=== PATIENT | female | born 1940 | race Caucasian/White ===

== ENCOUNTER → 2016-04-23 | Outpatient (CLI) | payer MEDICARE, MEDICAID ==
[~2016-04-23] MED LIST: 1-ME1LIQ PO; ALBUAER3 INH; AMLO10TA2 PO; ASPI325T PO; ASPI81CH CHEW; COLC1TAB15 PO; DOXY100C PO; DRIS50002 PO; FOSI10TA PO; FURO40TA PO; GLUC10TA3 PO; Glucometer; HYDR-3133 PO; INSU-174 SQ; IPRA17I INH; IPRASOL INH; LORA-475 PO; LORA2TAB7 PO; METO100T PO; METR250T15 PO; MORP1TAB27 PO; MS C100T PO; MS C15TA2 PO; NITR0.4S SL; NITR1SUB3 SL; NRDRIP SQ; PERC7.5T13 PO; PNEU13P IM; POTA10CA PO; POTA10TA8 PO; SYMB160A INH; TERC0.4C2 VAGINAL; TIOT12.9 INH; TRAZ50TA12 PO; TRIA; [UNRECOGNIZED DRUG - SUPPLY]; lancets
[2016-04-23 13:26] LABS: AUTOMATED NEUTROPHIL # 4.5 TH/MM3 (1.8-7.7); BASOPHIL % 0.7 % (0.0-2.0); EOSINOPHIL # 0.2 TH/MM3 (0-0.4); EOSINOPHIL % 2.9 % (0.0-4.0); HEMATOCRIT 34.5 % (35.0-46.0); HEMO FLAGS DIFF FINAL; LYMPH % 18.6 % (9.0-44.0); LYMPHOCYTE # 1.2 TH/MM3 (1.0-4.8); MEAN CELL VOLUME 92.5 FL (80.0-100.0); MEAN CORPUSCULAR HEMOGLOBIN 30.6 PG (27.0-34.0); MEAN CORPUSCULAR HGB CONC 33.1 % (32.0-36.0); MONO % 6.2 % (0.0-8.0); NEUT % 71.6 % (16.0-70.0); PLATELET COUNT 173 TH/MM3 (150-450); RED BLOOD COUNT 3.74 MIL/MM3 (4.00-5.30); RED CELL DISTRIBUTION WIDTH 14.2 % (11.6-17.2); WHITE BLOOD COUNT 6.3 TH/MM3 (4.0-11.0)
[2016-04-23 13:28] LABS: ANION GAP 10 MEQ/L (5-15); AST (GOT) 18 U/L (15-37); BICARBONATE 25.8 MEQ/L (21.0-32.0); BLOOD UREA NITROGEN 20 MG/DL (7-18); CHLORIDE 106 MEQ/L (98-107); GLOMERULAR FILTRATION RATE 21 ML/MIN (>89); GLUCOSE,FASTING 91 MG/DL (74-99); POTASSIUM 4.1 MEQ/L (3.5-5.1); SODIUM (NA) 142 MEQ/L (136-145); URIC ACID 8.3 MG/DL (2.6-6.0)
[2016-04-23 13:31] LABS: ALKALINE PHOSPHATASE 104 U/L (45-117); ALT (GPT) 14 U/L (10-53); HDL CHOLESTEROL 44.6 MG/DL (40.0-60.0); LDL CHOLESTEROL 52 MG/DL (0-99); TOTAL BILIRUBIN ADULT 0.7 MG/DL (0.2-1.0)
== END ==
LOC: PLAB 10:53
PROVIDERS: ATTEND Family Medicine
DX: M10.9 Gout, unspecified (principal); I12.9 Hypertensive chronic kidney disease with stage 1 through stage 4 chronic kidney disease, or unspecified chronic kidney disease; N18.4 Chronic kidney disease, stage 4 (severe); E78.5 Hyperlipidemia, unspecified
CPT/HCPCS: 36415; 80053; 80061; 84550; 85025

== ENCOUNTER 2016-08-04 13:56 | Observation (INO) | payer MEDICARE, MEDICAID ==
[~2016-08-04] VITALS: Ht 162.6 cm; Wt 92.0 kg
[~2016-08-04 13:56] MED LIST changes: -1-ME1LIQ PO; -IPRA17I INH; -LORA-475 PO; -MORP1TAB27 PO; -NRDRIP SQ; -POTA10CA PO
[2016-08-04 13:58] VITALS: BP 140/68; PULSE 64; RESP 24; TEMP 97.7; O2SAT 94
--- NOTE | 2016-08-04 14:06 | PD ---
Physical Exam Time Seen by Provider: 14:01 Narrative 75 year old female brought in by family with C/O chest discomfort, shortness of breath, and generalized weakness x 3 days. She appears comfortable in triage. No acute distress. Patient seen at triage desk. VS reviewed. Patient waiting bed placement. Data Data Last Documented VS Vital Signs Date Time Temp Pulse Resp B/P Pulse Ox O2 Delivery O2 Flow Rate FiO2 08/04/16 13:58 97.7 64 24 140/68 94 Room Air MDM Supervised Visit with JOSE JUAN: Sharron Julien Aug 04, 2016 14:06
[2016-08-04 15:00] LABS: AUTOMATED NEUTROPHIL # 3.9 TH/MM3 (1.8-7.7); BASOPHIL % 0.9 % (0.0-2.0); EOSINOPHIL # 0.1 TH/MM3 (0-0.4); EOSINOPHIL % 1.3 % (0.0-4.0); HEMATOCRIT 31.3 % (35.0-46.0); HEMO FLAGS DIFF FINAL; LYMPHOCYTE # 0.9 TH/MM3 (1.0-4.8); MEAN CELL VOLUME 89.8 FL (80.0-100.0); MEAN CORPUSCULAR HEMOGLOBIN 29.4 PG (27.0-34.0); MEAN CORPUSCULAR HGB CONC 32.7 % (32.0-36.0); MONO % 5.3 % (0.0-8.0); NEUT % 75.5 % (16.0-70.0); PLATELET COUNT 162 TH/MM3 (150-450); RED BLOOD COUNT 3.49 MIL/MM3 (4.00-5.30); WHITE BLOOD COUNT 5.2 TH/MM3 (4.0-11.0)
[2016-08-04 15:23] LABS: POTASSIUM 4.6 MEQ/L (3.5-5.1)
[2016-08-04] MEDS ORDERED: POTA10CA PO (16:24)
[2016-08-04] MEDS ORDERED: LORA-475 PO (16:24)
[2016-08-04] MEDS ORDERED: MORP1TAB27 PO (16:24)
--- NOTE | 2016-08-04 16:47 | RADRPT ---
EXAM DATE/TIME: 08/04/2016 14:44 [facility] COMPARISON: CHEST SINGLE AP, July 12, 2015, 8:01. INDICATIONS : Chest pain and shortness of breath. MEDICAL HISTORY : Hypertension. Chronic obstructive pulmonary disease. Emphysema. TIA. CVA. Afib. Myocardial infarc tion. Diabetes. SURGICAL HISTORY : CABG. ENCOUNTER: Initial ACUITY: 2 weeks PAIN SCORE: 7/10 LOCATION: Bilateral chest FINDINGS: Lungs are slightly hyperexpanded with diffuse interstitial prominence. No significant focal pleural-p arenchymal opacities are noted. Postsurgical features of prior CABG. Cardiomediastinal contours are s table. Bony thorax is intact. CONCLUSION: 1. No acute cardiopulmonary disease or significant interval change. Asim Damon MD on August 04, 2016 at 16:44 Board Certified Radiologist. This report was verified electronically.
[2016-08-04 17:05] LABS: TOTAL BILIRUBIN ADULT 0.4 MG/DL (0.2-1.0)
[2016-08-04 17:06] LABS: INDIRECT BILIRUBIN 0.3 MG/DL (0.0-0.8); MAGNESIUM 2.1 MG/DL (1.5-2.5)
[2016-08-04] MEDS ORDERED: RESP: ALBUTEROL 2.5 MG/3 ML NEB (SCH) INH ONE (17:30)
--- NOTE | 2016-08-04 17:31 | PD ---
HPI Chief Complaint: Chest Pain Time Seen by Provider: 17:26 Travel History International Travel<30 days: No Contact w/Intl Traveler<30days: No Traveled to known affect area: No History of Present Illness HPI 75-year-old female that presents to the ED for evaluation of chest pain and shortness of breath. Per patient she's had the chest pain for about 3 days. She has a chronic history of COPD. Patient has been weak and tired for the past 3 days with worsening shortness of breath. Patient states that she was put by her doctor on doxycycline and this gave her diarrhea. Per patient she continues to have symptoms even with the doxycycline 1 work. She does have multiple allergies to medication. She has a history of CHF and takes Lasix. History of heart bypass. Denies any recent travel. Denies taking any blood thinners. Per patient the chest pain is pressure-like and is on the left side and radiates to the left shoulder. States that she gets short of breath with ambulating. She does have an old history of smoking but she quit years ago. She denies any back or neck pain. She denies any fevers states having a lot of cough. Some chills. Cough is productive. Gets worse when she lays down. Denies any increase in swelling and states compliance with all her medications. Chest pain per patient is 4 out of 10. PFSH Past Medical History Arthritis: Yes Asthma: Yes Autoimmune Disease: No Blood Disorders: No Anxiety: Yes Depression: Yes Heart Rhythm Problems: Yes Cancer: Yes (LEFT KIDNEY/ CAUDERIZATION) Cardiovascular Problems: Yes (OPEN HEART) High Cholesterol: Yes Chemotherapy: No Chest Pain: Yes Congestive Heart Failure: Yes COPD: Yes Cerebrovascular Accident: Yes (TIA'S, CVA 20 YEARS AGO NO DEFICITS) Diabetes: Yes Diminished Hearing: No Endocrine: Yes Gastrointestinal Disorders: Yes GERD: No Glaucoma: No Genitourinary: Yes (KIDNEY TUMOR CAUDERIZED) Headaches: Yes Hepatitis: No Hiatal Hernia: Yes (REPAIR) Hypertension: Yes Immune Disorder: No Kidney Stones: No 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) Neurologic: Yes Psychiatric: Yes Reproductive: Yes Respiratory: Yes (EMPHYSEMA, 2.5 LITERS O2 AT HS) Migraines: No Myocardial Infarction: Yes Radiation Therapy: No Renal Failure: Yes Seizures: No Sleep Apnea: No Thyroid Disease: No Ulcer: No Past Surgical History Abdominal Surgery: Yes AICD: No Appendectomy: Yes Arteriovenous Shunt: No Cardiac Surgery: Yes (CABG X4 VESSEL IN 1999) Cholecystectomy: Yes Coronary Artery Bypass Graft: Yes Ear Surgery: No Endocrine Surgery: No Eye Surgery: No Genitourinary Surgery: No Gynecologic Surgery: Yes Hysterectomy: Yes Insulin Pump: No Joint Replacement: No Oral Surgery: Yes (teeth) Pacemaker: No Thoracic Surgery: No Tonsillectomy: Yes Other Surgery: Yes Social History Alcohol Use: No Tobacco Use: No Substance Use: No Allergies-Medications (Allergen,Severity, Reaction): Coded Allergies: Augmentin (Verified Allergy, Severe, Rash, 07/27/16) Haldol (Verified Allergy, Severe, Hallucinations, 07/27/16) Latex (Verified Allergy, Severe, HIVES, 07/27/16) Macrodantin (Verified Allergy, Severe, SHAKY , BLOOD SUGER PROBLEMS, ) Mirapex (Verified Allergy, Severe, LETHARGY,DIZZY,SHAKY, 07/27/16) Phenergan (Verified Allergy, Severe, Hallucinations, 07/27/16) Temazepam (Verified Allergy, Severe, Rash, 07/27/16) Lopid (Verified Allergy, Intermediate, 07/27/16) Lyrica (Verified Allergy, Unknown, 07/27/16) Soma (Verified Allergy, Unknown, 07/27/16) Amoxicillin (Verified Adverse Reaction, Severe, diarrhea, 07/27/16) HMG-CoA Reductase Inhibitors (Verified Adverse Reaction, Severe, LIVER DISEASE WITH SUBSEQUENT CHRONIC ITCHING UNTIL DC'D, 07/27/16) Trazodone (Verified Adverse Reaction, Intermediate, altered mental status , 08/02/16) Uncoded Allergies: TAPE (Allergy, Mild, Rash, 11/06/09) USE PAPER TAPE ONLY ees (Allergy, Mild, itch, 11/06/09) advicor (Adverse Reaction, Intermediate, redness, itchin, 11/06/09) cipro,septra (Adverse Reaction, Intermediate, diarrhea,itching, 11/06/09) topramax (Adverse Reaction, Intermediate, 11/06/09) Reported Meds & Prescriptions Reported Meds & Active Scripts Active Metronidazole 250 Mg Tab 250 Mg PO TID Metoprolol Tartrate 100 Mg Tab 100 Mg PO BID Doxycycline Hyclate 100 Mg Cap 100 Mg PO BID Trazodone (Trazodone HCl) 50 Mg Tab 50 Mg PO HS Ms Contin (Morphine Sulfate) 100 Mg Tab 100 Mg PO DAILY Ms Contin (Morphine Sulfate) 15 Mg Tab 15 Mg PO DAILY Percocet (Oxycodone-Acetaminophen) 7.5-325 mg Tab 1 Tab PO Q6H PRN Lorazepam 2 Mg Tab 2 Mg PO HS PRN Drisdol (Ergocalciferol) 50,000 Unit Cap 50,000 Units PO Q7D Terconazole Vaginal Cream 0.4 % Cream 1 Appl VAGINAL HS For seven days Nitroglycerin SL (Nitroglycerin) 0.4 Mg Subl 0.4 Mg SL DIRECTED PRN ONE TABLET UNDER THE TONGUE NEEDED FOR CHEST PAIN, MAY REPEAT EVERY FIVE MINUTES FOR A TOTAL OF 3 DOSES Spiriva Respimat Inh (Tiotropium Inh) 2.5 Mcg/Act Aero 2 Puff INH DAILY 2.5 mcg = 1 inhalation [lancets] QID [testr strips] QID [Glucometer] DIRECTED Test glucose four times per day Furosemide 40 Mg Tab 40 Mg PO DAILY Colchicine 0.6 Mg Tab 0.6 Mg PO DAILY Fosinopril (Fosinopril Sodium) 10 Mg Tab 10 Mg PO DAILY Proair Hfa 8.5 GM Inh (Albuterol Sulfate) 90 Mcg/Act Aer 2 Puff INH Q4 PRN 108 mcg/actuation Hydroxyzine HCl 25 Mg Tab 25 Mg PO TID Amlodipine (Amlodipine Besylate) 10 Mg Tab 10 Mg PO DAILY Aristocort 0.5% 15 Gm Cr (Triamcinolone Acet) 15 Applic/15 Gm Cr 45 Applic .XX TID B-D Insulin Syringe Ultra 31G X 5/16" 0.5 ml (Insulin Syringe/Needle U-100) 1 Mis Mis Units SQ QID Reported Ativan (Lorazepam) 2 Mg Tab 2 Mg PO DAILY PRN Morphine ER (Morphine Sulfate) 100 Mg Tab 100 Mg PO DAILY Potassium Chloride ER (Potassium Chloride) 10 Meq Cap 10 Meq PO DAILY Potassium Chloride CR (Potassium Chloride) 10 Meq Tab 10 Meq PO DAILY Nitrostat SL (Nitroglycerin) 0.4 Mg Subl 0.4 Mg SL DIRECTED PRN 1 tablet under the tongue as needed for chest pain. Repeat every 5 minutes for a total of 3 DOSES or call 911 if NO relief. Metoprolol Tartrate 100 Mg Tab 100 Mg PO BID Glucotrol (Glipizide) 10 Mg Tab 10 Mg PO DAILY Take 30 minutes before a meal Symbicort Inh (Budesonide/Formoterol Fumarate) 160-4.5 Mcg/Act Aero 2 Puff INH BID Aspirin 325 Mg Tab 325 Mg PO DAILY Aspirin 81 Mg Chew 324 Mg CHEW ONCE Duoneb (Ipratropium-Albuterol Neb) 0.5-2.5 Mg/3 Ml Neb 1 Nebule INH Q4HR NEB Review of Systems Except as stated in HPI: all other systems reviewed are Neg Physical Exam Narrative GENERAL: SKIN: Warm and dry. HEAD: Atraumatic. Normocephalic. EYES: Pupils equal and round. No scleral icterus. No injection or drainage. ENT: No nasal bleeding or discharge. Mucous membranes pink and moist. Tongue is midline. No uvula deviation. Nostril mucosa is pink with some old blood noted on the left nostril. TMs are clear with no sign of infection or perforation. NECK: Trachea midline. No JVD. CARDIOVASCULAR: Regular rate and rhythm. No murmurs, S3, S4. RESPIRATORY: No accessory muscle use. Mild rales heard in the lower lung chappell. Breath sounds equal bilaterally. GASTROINTESTINAL: Abdomen soft, non-tender, nondistended. Hepatic and splenic margins not palpable. MUSCULOSKELETAL: Extremities without clubbing, cyanosis, or edema. No obvious deformities. Full range of motion of the upper and lower extremities bilaterally. 2+ pulses bilaterally. NEUROLOGICAL: Awake and alert. No obvious cranial nerve deficits. Motor grossly within normal limits. Five out of 5 muscle strength in the arms and legs. Normal speech. PSYCHIATRIC: Appropriate mood and affect; insight and judgment normal. Data Data Last Documented VS Vital Signs Date Time Temp Pulse Resp B/P Pulse Ox O2 Delivery O2 Flow Rate FiO2 08/04/16 18:24 20 98 Nasal Cannula 2 08/04/16 13:58 97.7 64 140/68 Orders Electrocardiogram (08/04/16 14:03) Complete Blood Count With Diff (08/04/16 14:03) Basic Metabolic Panel (Bmp) (08/04/16 14:03) Ckmb (Isoenzyme) Profile (08/04/16 14:03) Troponin I (08/04/16 14:03) Iv Access Insert/Monitor (08/04/16 14:03) Ecg Monitoring (08/04/16 14:03) Oxygen Administration (08/04/16 14:03) Oximetry (08/04/16 14:03) Chest, Single Ap (08/04/16 14:03) B-Type Natriuretic Peptide (08/04/16 16:16) Hepatic Functional Panel (08/04/16 16:16) Lipase (08/04/16 16:16) Magnesium (Mg) (08/04/16 16:16) Albuterol Neb (Albuterol Neb) (08/04/16 17:30) Admit Order (Ed Use Only) (08/04/16 18:23) Diet 1800 Ada Cons Carb (08/04/16 Dinner) Diet Heart Healthy (08/04/16 Dinner) Vital Signs (Adult) INGE.Q4H (08/04/16 18:22) Troponin I (08/04/16 20:00) Troponin I (08/05/16 02:00) Blood Glucose Goal (Criteria) (08/04/16 18:22) Hypoglycemia 70 Mg/Dl Or < (08/04/16 18:22) Notify Dr: Other (08/04/16 18:22) Dextrose 50% In Cori (Vial) Inj (D50w (Vi (08/04/16 18:30) Glucagon Inj (Glucagon Inj) (08/04/16 18:30) Insulin Aspart Supplemtl Scale (Novolog (08/04/16 21:00) Labs Laboratory Tests Test 08/04/16 14:30 White Blood Count 5.2 TH/MM3 Red Blood Count 3.49 MIL/MM3 Hemoglobin 10.2 GM/DL Hematocrit 31.3 % Mean Corpuscular Volume 89.8 FL Mean Corpuscular Hemoglobin 29.4 PG Mean Corpuscular Hemoglobin 32.7 % Concent Red Cell Distribution Width 14.0 % Platelet Count 162 TH/MM3 Mean Platelet Volume 8.1 FL Neutrophils (%) (Auto) 75.5 % Lymphocytes (%) (Auto) 17.0 % Monocytes (%) (Auto) 5.3 % Eosinophils (%) (Auto) 1.3 % Basophils (%) (Auto) 0.9 % Neutrophils # (Auto) 3.9 TH/MM3 Lymphocytes # (Auto) 0.9 TH/MM3 Monocytes # (Auto) 0.3 TH/MM3 Eosinophils # (Auto) 0.1 TH/MM3 Basophils # (Auto) 0.0 TH/MM3 CBC Comment DIFF FINAL Differential Comment Sodium Level 141 MEQ/L Potassium Level 4.6 MEQ/L Chloride Level 108 MEQ/L Carbon Dioxide Level 27.0 MEQ/L Anion Gap 6 MEQ/L Blood Urea Nitrogen 30 MG/DL Creatinine 2.15 MG/DL Estimat Glomerular Filtration 22 ML/MIN Rate Random Glucose 103 MG/DL Calcium Level 8.3 MG/DL Magnesium Level 2.1 MG/DL Total Bilirubin 0.4 MG/DL Direct Bilirubin 0.1 MG/DL Indirect Bilirubin 0.3 MG/DL Aspartate Amino Transf 22 U/L (AST/SGOT) Alanine Aminotransferase 18 U/L (ALT/SGPT) Alkaline Phosphatase 101 U/L Total Creatine Kinase 55 U/L Troponin I 0.02 NG/ML B-Type Natriuretic Peptide 415 PG/ML Total Protein 7.1 GM/DL Albumin 2.8 GM/DL Lipase 188 U/L MDM Medical Decision Making Medical Screen Exam Complete: Yes Emergency Medical Condition: Yes Medical Record Reviewed: Yes Interpretation(s) CBC & BMP Diagram 08/04/16 14:30 LFTs and lipase WNL Coags WNL troponin and CKMB negative EKG shows sinus rhythm with no sign of acute ischemia or arrhythmia. Read by me and attending. Last Impressions Chest X-Ray 08/04/16 1403 Signed Impressions: Service Date/Time: Tuesday, August 04, 2016 14:44 - CONCLUSION: 1. No acute cardiopulmonary disease or significant interval change. Asim Damon MD Differential Diagnosis Chest pain versus atypical chest pain versus COPD versus CHF versus acute on chronic pain versus bronchitis Narrative Course 75-year-old female that presents to the ED for evaluation of chest pain and shortness of breath. Patient was properly examined and was found to have signs and symptoms concerning for ACS, CHF as well as COPD. Accommodation is for labs and imaging. Labs and imaging were done and showed for the most part no sign of acute disease. Troponin and EKG did not show any sign of acute ischemia or arrhythmia. Case was discussed in my attending Dr. Buckner who agrees the patient and he should be evaluated further for cardiac rule out as well as treated for her COPD exacerbation. Patient is in agreement with this. At this time I recommend admission to medicine due to her complete history she will not be a good candidate for the chest pain center. Family and patient agree with this. I spoke with Dr. Moscoso from [facility] who agrees to admission. Diagnosis Primary Impression: Chest pain in adult Additional Impression: COPD with exacerbation Admitting Information Admitting Physician Requests: Michael Russ Aug 04, 2016 17:31
[2016-08-04] MEDS ORDERED: GLUCAGON 1 MG/ML VIAL OTHER PRN (18:30)
[2016-08-04] MEDS ORDERED: DEXTROSE 50% IN WATER 50 ML VIAL(D50) IV PRN (18:30)
[2016-08-04 19:13] VITALS: BP 141/67; PULSE 64; RESP 20; O2SAT 99
[2016-08-04 19:48] VITALS: BP 130/61; PULSE 62; RESP 20; TEMP 96.4; O2SAT 100
[2016-08-04] MEDS: INSULIN ASPART SUPPLEMENTAL SCALE SQ SCH (20:47)
[2016-08-04] MEDS ORDERED: SODIUM CHLORIDE 0.9% FLUSH 10 ML FLUSH IV FLUSH PRN ×2 (21:30→22:15)
[2016-08-04] MEDS ORDERED: NALOXONE HCL 0.4 MG/ML AMP IV PRN ×2 (21:30→22:15)
[2016-08-04] MEDS ORDERED: SODIUM CHLORIDE 0.9% FLUSH 10 ML FLUSH IV FLUSH SCH (21:30)
[2016-08-04] MEDS ORDERED: ONDANSETRON HCL 4 MG/2 ML VIAL IV PRN (22:15)
[2016-08-04] MEDS ORDERED: RESP: ALBUTEROL 2.5 MG/3 ML NEB (PRN) NEB (22:15)
[2016-08-04] MEDS ORDERED: ACETAMINOPHEN 325 MG TAB PO PRN (22:15)
[2016-08-04] MEDS: predniSONE 20 MG TAB PO SCH (22:15)
[2016-08-04] MEDS: RESP: ALBUTEROL 2.5 MG/IPRATROPIUM 0.5 MG NEB (SCH) NEB ×2 (22:15→23:06)
[2016-08-04] MEDS ORDERED: FUROSEMIDE 20 MG TAB PO ONE (22:15)
[2016-08-04] MEDS ORDERED: LORazepam 2 MG/ML VIAL IV PUSH ONE (22:30)
[2016-08-04] MEDS: SODIUM CHLORIDE 0.9% FLUSH 10 ML FLUSH IV FLUSH SCH (22:56)
[2016-08-04] MEDS: BUDESONIDE-FORMOTEROL 160/4.5 MCG INHALER INH SCH (22:59)
[2016-08-04] MEDS ORDERED: ENOXAPARIN SODIUM 30 MG/0.3 ML SYRINGE SQ SCH (23:00)
[2016-08-04 23:04] VITALS: O2SAT 97
--- NOTE | 2016-08-04 23:15 | HHI.HP ---
[facility] Service Family Medicine Primary Care Physician Jose Eduardo Mcgee MD Admission Diagnosis chest pain, r/o ACS, COPD exacerbation, CHF Diagnoses: International Travel<30 Days: No Contact w/Intl Traveler<30days: No Known Affected Area: No History of Present Illness Jennifer Sinclair is a very pleasant 75 year old woman with h/o COPD on 2-3 LPM of O2 at home, CHF, DM, CAD, AK, CVA presents to the ED due to two weeks of SOB that she states has worsened primarily over the past 3 days. She states she is no longer able to walk short distances without getting short of breath. She reports being compliant with all of her medications including her Lasix and inhaler medications for her COPD. She denies any significant cough, sputum production, fevers, chills, or night sweats over the past couple weeks. She also denies chest pain at the time of this evaluation, however she did endorse chest pain to the ED provider earlier for about the past 3 days that was 4/10 per the ED note. She denies orthopnea or any lower extremity edema. States there is been no sick contacts around her. Review of Systems Constitutional: DENIES: Fever, Chills, Night Sweats Eyes: DENIES: Blurred vision, Diplopia Respiratory: COMPLAINS OF: Shortness of breath, DENIES: Cough, Hemoptysis, Sputum production Cardiovascular: DENIES: Chest pain, Lower Extremity Edema Gastrointestinal: DENIES: Abdominal pain, Black stools, Bloody stools, Constipation, Diarrhea, Nausea, Vomiting Past Family Social History Past Medical History Renal mass. Coronary artery disease. AK. CVA. Diabetes mellitus. Dyslipidemia. Hypertension. COPD. Gout. Diabetic neuropathy. Irritable bowel syndrome. Spinal stenosis Past Surgical History 4-vessel CABG in 1999 Oophorectomy in 1995 Hysterectomy with BSO in 1995 Tonsillectomy Appendectomy Adenoidectomy Cholecystectomy Epigastric hernia repair Allergies: Coded Allergies: Augmentin (Verified Allergy, Severe, Rash, 07/27/16) Haldol (Verified Allergy, Severe, Hallucinations, 07/27/16) Latex (Verified Allergy, Severe, HIVES, 07/27/16) Macrodantin (Verified Allergy, Severe, SHAKY , BLOOD SUGER PROBLEMS, ) Mirapex (Verified Allergy, Severe, LETHARGY,DIZZY,SHAKY, 07/27/16) Phenergan (Verified Allergy, Severe, Hallucinations, 07/27/16) Temazepam (Verified Allergy, Severe, Rash, 07/27/16) Lopid (Verified Allergy, Intermediate, 07/27/16) Lyrica (Verified Allergy, Unknown, 07/27/16) Soma (Verified Allergy, Unknown, 07/27/16) Amoxicillin (Verified Adverse Reaction, Severe, diarrhea, 07/27/16) HMG-CoA Reductase Inhibitors (Verified Adverse Reaction, Severe, LIVER DISEASE WITH SUBSEQUENT CHRONIC ITCHING UNTIL DC'D, 07/27/16) Trazodone (Verified Adverse Reaction, Intermediate, altered mental status , 08/02/16) Uncoded Allergies: TAPE (Allergy, Mild, Rash, 11/06/09) USE PAPER TAPE ONLY ees (Allergy, Mild, itch, 11/06/09) advicor (Adverse Reaction, Intermediate, redness, itchin, 11/06/09) cipro,septra (Adverse Reaction, Intermediate, diarrhea,itching, 11/06/09) topramax (Adverse Reaction, Intermediate, 11/06/09) Family History Father had CAD, DM, h/o CVA Mother due to an aneurysm, also with CAD Social History Lives with her daughter Tobacco: 2 PPD for about 40 years, quit in 1999 Etoh: denies Illicit drugs: denies Physical Exam Vital Signs Vital Signs Date Time Temp Pulse Resp B/P Pulse Ox O2 Delivery O2 Flow Rate FiO2 08/04/16 23:04 97 Nasal Cannula 2.00 08/04/16 19:48 96.4 62 20 130/61 100 08/04/16 19:13 64 20 141/67 99 Nasal Cannula 2 08/04/16 18:24 20 98 Nasal Cannula 2 08/04/16 16:31 98 Nasal Cannula 2 08/04/16 13:58 97.7 64 24 140/68 94 Room Air Physical Exam GENERAL: NAD, lying comfortably in bed NEURO: AOx3. Normal speech. miniature set builder grossly intact. SKIN: Warm and dry. No rashes or erythema. HEAD: Normocephalic. Atraumatic. EYES: PERRL. EOMI. No scleral icterus. No injection or drainage. ENT: No nasal drainage. Moist mucous membranes. No oral ulcers or lesions. NECK: Supple, trachea midline. No JVD. CARDIOVASCULAR: Regular rate and rhythm without murmurs, rubs, or gallops. Peripheral pulses 2+. Capillary refill < 2 seconds. RESPIRATORY: Bibasilar rales. Faint end-expiratory wheezing. No accessory muscle use. GASTROINTESTINAL: Abdomen soft, nontender, nondistended, normal BS. No organomegaly or masses. No rebound tenderness. No guarding. MUSCULOSKELETAL: No edema, cyanosis, or clubbing. Normal range of motion. BACK: Nontender without obvious deformity. Laboratory Laboratory Tests Test 08/04/16 08/04/16 14:30 21:20 White Blood Count 5.2 Red Blood Count 3.49 Hemoglobin 10.2 Hematocrit 31.3 Mean Corpuscular Volume 89.8 Mean Corpuscular Hemoglobin 29.4 Mean Corpuscular Hemoglobin 32.7 Concent Red Cell Distribution Width 14.0 Platelet Count 162 Mean Platelet Volume 8.1 Neutrophils (%) (Auto) 75.5 Lymphocytes (%) (Auto) 17.0 Monocytes (%) (Auto) 5.3 Eosinophils (%) (Auto) 1.3 Basophils (%) (Auto) 0.9 Neutrophils # (Auto) 3.9 Lymphocytes # (Auto) 0.9 Monocytes # (Auto) 0.3 Eosinophils # (Auto) 0.1 Basophils # (Auto) 0.0 CBC Comment DIFF FINAL Differential Comment Sodium Level 141 Potassium Level 4.6 Chloride Level 108 Carbon Dioxide Level 27.0 Anion Gap 6 Blood Urea Nitrogen 30 Creatinine 2.15 Estimat Glomerular Filtration 22 Rate Random Glucose 103 Calcium Level 8.3 Magnesium Level 2.1 Total Bilirubin 0.4 Direct Bilirubin 0.1 Indirect Bilirubin 0.3 Aspartate Amino Transf 22 (AST/SGOT) Alanine Aminotransferase 18 (ALT/SGPT) Alkaline Phosphatase 101 Total Creatine Kinase 55 Troponin I 0.02 0.02 B-Type Natriuretic Peptide 415 Total Protein 7.1 Albumin 2.8 Lipase 188 Result Diagram: 08/04/16 1430 08/04/16 1430 Assessment and Plan Assessment and Plan Very pleasant 75 year old woman with h/o COPD on 2-3 LPM of O2 at home, CHF, DM , CAD, AK, CVA presents to the ED due to two weeks of SOB worsening over the past 3 days and with si/sxs consistent with CHF exacerbation; vs consideration for COPD, AK, PE, pneumonia. Patient will be admitted to observation to r/o an ACS and for management of acute on chronic CHF. Code Status Full code Problem List: (1) CHF exacerbation Status: Acute Plan: Bibasilar rales on exam No JVD or lower extremity edema BNP 415 on admission Give additional 20 mg Lasix PO x1 Continue with Lasix 40 mg po daily Monitor clinically and trend BNP Consider additional diuresis if needed in the AM (2) Chest pain Status: Acute Plan: Patient endorsed 4/10 chest pain to the ED provider Currently denying any chest pain Initial troponin 0.02 EKG in sinus rhythm with first degree AV block, no ST changes Will trend cardiac enzymes and EKGs q6h x3 Continuous telemetry (3) COPD (chronic obstructive pulmonary disease) Status: Chronic Plan: Continue supplemental O2 at 2-3 LPM to maintain O2 sats between 88-92% Continue symbicort 2 puffs BID Duonebs 1 amp q4h Albuterol 2.5 mg q4h prn SOB Prednisone 40 mg po daily Antibiotics not indicated as patient not endorsing worsening cough or increased sputum production, no fevers Resp walk test in the AM (4) DM (diabetes mellitus) Status: Chronic Plan: Accuchecks ACHS Low-dose ISS (5) CKD (chronic kidney disease) Status: Chronic Plan: Cr 2.15 on admission, at baseline Likely secondary to diabetes (6) Hypertension Status: Chronic Plan: Monitors vitals q4h Continue home lisinopril, amlodipine, and metoprolol (7) Nutrition, metabolism, and development symptoms Status: Acute Plan: Fluids: not indicated Electrolytes: Cl mildly elevated, continue to monitor Nutrition: 1800 ADA DVT ppx: Lovenox, b/l SCDs GI ppx: Protonix Physician Certification 2 Midnight Certification Type: Admission for Inpatient Services Order for Inpatient Services The services are ordered in accordance with Medicare regulations or non- Medicare payer requirements, as applicable. In the case of services not specified as inpatient-only, they are appropriately provided as inpatient services in accordance with the 2-midnight benchmark. Estimated LOS (days): 1 days is the estimated time the patient will need to remain in the hospital, assuming treatment plan goals are met and no additional complications. Post-Hospital Plan: Home Dom Mayfield MD R1 Aug 04, 2016 23:15
[2016-08-04 23:50] VITALS: BP 115/57; PULSE 64; RESP 20; TEMP 97; O2SAT 98
[2016-08-05] MEDS: RESP: ALBUTEROL 2.5 MG/IPRATROPIUM 0.5 MG NEB (SCH) NEB ×4 (02:55→15:34)
[2016-08-05 03:03] VITALS: PULSE 65
[2016-08-05 03:14] VITALS: BP 142/66; PULSE 66; RESP 20; TEMP 97.3; O2SAT 96
[2016-08-05] MEDS: INSULIN ASPART SUPPLEMENTAL SCALE SQ SCH ×2 (05:39→13:39)
[2016-08-05] MEDS ORDERED: PANTOPRAZOLE SOD 40 MG DELAYED RELEASE TAB PO SCH (06:00)
[2016-08-05 07:36] VITALS: BP 134/60; PULSE 69; RESP 19; TEMP 99; O2SAT 98
[2016-08-05 07:45] LABS: AUTOMATED NEUTROPHIL # 2.4 TH/MM3 (1.8-7.7); BASOPHIL % 0.3 % (0.0-2.0); EOSINOPHIL % 0.3 % (0.0-4.0); HEMATOCRIT 28.3 % (35.0-46.0); HEMO FLAGS DIFF FINAL; LYMPH % 14.6 % (9.0-44.0); LYMPHOCYTE # 0.4 TH/MM3 (1.0-4.8); MEAN CELL VOLUME 89.4 FL (80.0-100.0); MEAN CORPUSCULAR HGB CONC 33.6 % (32.0-36.0); MONO % 1.1 % (0.0-8.0); NEUT % 83.7 % (16.0-70.0); PLATELET COUNT 125 TH/MM3 (150-450); RED BLOOD COUNT 3.16 MIL/MM3 (4.00-5.30); RED CELL DISTRIBUTION WIDTH 14.3 % (11.6-17.2); WHITE BLOOD COUNT 2.8 TH/MM3 (4.0-11.0)
[2016-08-05 07:54] VITALS: PULSE 68
[2016-08-05 08:09] LABS: POTASSIUM 4.6 MEQ/L (3.5-5.1)
[2016-08-05] MEDS ORDERED: COLCHICINE 0.6 MG TAB PO SCH (09:00)
[2016-08-05] MEDS ORDERED: metroNIDAZOLE 250 MG TAB PO SCH (09:00)
[2016-08-05] MEDS ORDERED: POTASSIUM CHLORIDE 10 MEQ CAP PO SCH (09:00)
[2016-08-05] MEDS ORDERED: ASPIRIN 325 MG TAB PO SCH (09:00)
[2016-08-05] MEDS ORDERED: FUROSEMIDE 40 MG TAB PO SCH (09:00)
[2016-08-05] MEDS: BUDESONIDE-FORMOTEROL 160/4.5 MCG INHALER INH SCH (09:00)
[2016-08-05] MEDS ORDERED: LISINOPRIL 10 MG TAB PO SCH (09:00)
[2016-08-05] MEDS ORDERED: ERGOCALCIFEROL (VIT D2) 50,000 UNIT CAP PO SCH (09:00)
[2016-08-05] MEDS ORDERED: DOXYCYCLINE HYCLATE 100 MG CAP PO SCH (09:00)
[2016-08-05] MEDS ORDERED: METOPROLOL TARTRATE 100 MG TAB PO SCH (09:00)
[2016-08-05] MEDS ORDERED: NON-FORMULARY DRUG (Tiotropium Inh (Spiriva Respimat Inh) 2 PUFF) INH SCH (09:00)
[2016-08-05] MEDS: SODIUM CHLORIDE 0.9% FLUSH 10 ML FLUSH IV FLUSH SCH (09:01)
[2016-08-05] MEDS: predniSONE 20 MG TAB PO SCH (09:15)
[2016-08-05 11:19] VITALS: BP 124/80; PULSE 66; RESP 22; TEMP 99; O2SAT 99
[2016-08-05] MEDS ORDERED: MORPHINE SULFATE 100 MG CONTROLLED RELEASE TAB PO SCH ×2 (11:45→20:00)
[2016-08-05] MEDS ORDERED: MORPHINE SULFATE 15 MG CONTROLLED RELEASE TAB PO SCH ×2 (11:45→20:00)
--- NOTE | 2016-08-05 13:03 | HHI.FPPN ---
Subjective Remarks Pt. seen, and examined. Discussed with Drs. Triana and Steve Ovalle. This is a 75 yo female with a long history of COPD, CHF, NE, diabetes , CVA, hypertension, irritable bowel syndrome, spinal stenosis and CAD who presented to the emergency department with 3 days of a nonproductive cough and also at the time of presentation complained of some chest discomfort. In the emergency department, she was found to have bibasilar Rales and lower extremity edema. This patient lives with her daughter at home. She was difficult to pin down as far as her baseline, but she says she does ambulate around in the home. Please see history and physical examination for this admission for additional historical details including past, family and social history. She did quit smoking in 1999, and in 1999 she had an NE and a CABG as well as hysterectomy. Patient would like to go home. When I see her in H pod, she is in no distress, lying comfortably getting an echocardiogram. She denies any chest pain, she reports that at home she uses oxygen all the time and was concerned that her oxygen was decreased here but her saturation was 98% so I explained that her oxygen saturation would be better at 93 or so. Objective Vitals Vital Signs Date Time Temp Pulse Resp B/P Pulse Ox O2 Delivery O2 Flow Rate FiO2 08/05/16 11:19 99.0 66 22 124/80 99 08/05/16 07:54 68 08/05/16 07:36 99.0 69 19 134/60 98 08/05/16 03:14 97.3 66 20 142/66 96 08/05/16 03:03 65 08/04/16 23:50 97.0 64 20 115/57 98 08/04/16 23:04 97 Nasal Cannula 2.00 08/04/16 19:48 96.4 62 20 130/61 100 08/04/16 19:13 64 20 141/67 99 Nasal Cannula 2 08/04/16 18:24 20 98 Nasal Cannula 2 08/04/16 16:31 98 Nasal Cannula 2 08/04/16 13:58 97.7 64 24 140/68 94 Room Air I/O 08/04/16 08/04/16 08/04/16 08/05/16 08/05/16 08/05/16 07:00 15:00 23:00 07:00 15:00 23:00 Intake Total 240 ml Balance 240 ml Intake Oral 240 ml # Voids 1 Result Diagram: 08/05/16 0705 08/05/16 0705 Other Results Laboratory Tests Test 08/04/16 08/04/16 08/05/16 08/05/16 14:30 21:20 02:50 07:05 White Blood Count 5.2 TH/MM3 2.8 TH/MM3 Red Blood Count 3.49 MIL/MM3 3.16 MIL/MM3 Hemoglobin 10.2 GM/DL 9.5 GM/DL Hematocrit 31.3 % 28.3 % Mean Corpuscular Volume 89.8 FL 89.4 FL Mean Corpuscular Hemoglobin 29.4 PG 30.0 PG Mean Corpuscular Hemoglobin 32.7 % 33.6 % Concent Red Cell Distribution Width 14.0 % 14.3 % Platelet Count 162 TH/MM3 125 TH/MM3 Mean Platelet Volume 8.1 FL 7.9 FL Neutrophils (%) (Auto) 75.5 % 83.7 % Lymphocytes (%) (Auto) 17.0 % 14.6 % Monocytes (%) (Auto) 5.3 % 1.1 % Eosinophils (%) (Auto) 1.3 % 0.3 % Basophils (%) (Auto) 0.9 % 0.3 % Neutrophils # (Auto) 3.9 TH/MM3 2.4 TH/MM3 Lymphocytes # (Auto) 0.9 TH/MM3 0.4 TH/MM3 Monocytes # (Auto) 0.3 TH/MM3 0.0 TH/MM3 Eosinophils # (Auto) 0.1 TH/MM3 0.0 TH/MM3 Basophils # (Auto) 0.0 TH/MM3 0.0 TH/MM3 CBC Comment DIFF FINAL DIFF FINAL Differential Comment Sodium Level 141 MEQ/L 140 MEQ/L Potassium Level 4.6 MEQ/L 4.6 MEQ/L Chloride Level 108 MEQ/L 106 MEQ/L Carbon Dioxide Level 27.0 MEQ/L 27.0 MEQ/L Anion Gap 6 MEQ/L 7 MEQ/L Blood Urea Nitrogen 30 MG/DL 31 MG/DL Creatinine 2.15 MG/DL 2.05 MG/DL Estimat Glomerular Filtration 22 ML/MIN 24 ML/MIN Rate Random Glucose 103 MG/DL 149 MG/DL Calcium Level 8.3 MG/DL 8.0 MG/DL Magnesium Level 2.1 MG/DL Total Bilirubin 0.4 MG/DL Direct Bilirubin 0.1 MG/DL Indirect Bilirubin 0.3 MG/DL Aspartate Amino Transf 22 U/L (AST/SGOT) Alanine Aminotransferase 18 U/L (ALT/SGPT) Alkaline Phosphatase 101 U/L Total Creatine Kinase 55 U/L Troponin I 0.02 NG/ML 0.02 NG/ML 0.02 NG/ML B-Type Natriuretic Peptide 415 PG/ML 380 PG/ML Total Protein 7.1 GM/DL Albumin 2.8 GM/DL Lipase 188 U/L Imaging Last Impressions Chest X-Ray 08/04/16 1403 Signed Impressions: Service Date/Time: Tuesday, August 04, 2016 14:44 - CONCLUSION: 1. No acute cardiopulmonary disease or significant interval change. Asim Damon MD Objective Remarks O. CONSTITUTIONAL/GEN: normally nourished, in NAD. EYES: conjunctiva normal, PERRLA, EOMI. ENT: Mouth and pharynx normal. NECK: Supple LUNGS: Moving good air, clear anteriorly CARDIOVASCULAR: RR without murmur or gallop. No significant edema. She had an occasional PAC while getting her echo, as well as minimal regurg and all valves. Tech reported EF of 55-60. GI/ABD: soft without masses, without organomegaly. Active bowel sounds NEURO: No focal deficits. Gait is normal SKIN: color normal, no rashes noted. HEME/LYMPH: no bruising, petechia or significant adenopathy MUSC: SCDs in place. PSYCH/MENTAL STATUS: Alert and oriented x 3. A/P Assessment and Plan Very pleasant 75 year old woman with h/o COPD on 2-3 LPM of O2 at home, CHF, DM , CAD, NE, CVA presents to the ED due to two weeks of SOB worsening over the past 3 days and with si/sxs consistent with CHF exacerbation; vs consideration for COPD, NE, PE, pneumonia. Patient will be admitted to observation to r/o an ACS and for management of acute on chronic CHF. Attending Attestation Patient seen and examined. Case reviewed and discussed with the resident team. Agree with plan of care as discussed with me and documented in the resident note. Problem List: (1) CHF exacerbation Status: Acute Plan: Bibasilar rales on exam No JVD or lower extremity edema BNP 415 on admission Give additional 20 mg Lasix PO x1 Continue with Lasix 40 mg po daily Monitor clinically and trend BNP Consider additional diuresis if needed in the AM (2) Chest pain Status: Acute Plan: Patient endorsed 4/10 chest pain to the ED provider Currently denying any chest pain Initial troponin 0.02 EKG in sinus rhythm with first degree AV block, no ST changes Will trend cardiac enzymes and EKGs q6h x3 Continuous telemetry (3) COPD (chronic obstructive pulmonary disease) Status: Chronic Plan: Continue supplemental O2 at 2-3 LPM to maintain O2 sats between 88-92% Continue symbicort 2 puffs BID Duonebs 1 amp q4h Albuterol 2.5 mg q4h prn SOB Prednisone 40 mg po daily Antibiotics not indicated as patient not endorsing worsening cough or increased sputum production, no fevers Resp walk test in the AM (4) DM (diabetes mellitus) Status: Chronic Plan: Accuchecks ACHS Low-dose ISS (5) CKD (chronic kidney disease) Status: Chronic Plan: Cr 2.15 on admission, at baseline Likely secondary to diabetes (6) Hypertension Status: Chronic Plan: Monitors vitals q4h Continue home lisinopril, amlodipine, and metoprolol (7) Nutrition, metabolism, and development symptoms Status: Acute Plan: Fluids: not indicated Electrolytes: Cl mildly elevated, continue to monitor Nutrition: 1800 ADA DVT ppx: Lovenox, b/l SCDs GI ppx: Protonix Radha Wilhelm MD Aug 05, 2016 13:03
--- NOTE | 2016-08-05 15:20 | EKG ---
Date Performed: 08/05/2016 Time Performed: 03:53:10 PTAGE: 75 years EKG: Sinus rhythm WITH FIRST DEGREE AV BLOCK INFERIOR MYOCARDIAL INFARCTION ABNORMAL ECG Compared to prior tracing no significant change PREVIOUS TRACING : 08/04/2016 14.14 DOCTOR: Amando Messer Interpretating Date/Time 08/05/2016 15:20:25
--- NOTE | 2016-08-05 15:20 | EKG ---
Date Performed: 08/04/2016 Time Performed: 14:14:10 PTAGE: 75 years EKG: Sinus rhythm WITH FIRST DEGREE AV BLOCK ABNORMAL ECG INTERPRETATION BASED ON A DEFAULT AGE OF 40 YEARS Compared t o prior tracing no significant change PREVIOUS TRACING 07/12/2015 @ 07.40 DOCTOR: Amando Messer Interpretating Date/Time 08/05/2016 15:20:12
[2016-08-05 15:46] VITALS: BP 119/60; PULSE 69; RESP 19; TEMP 98.4; O2SAT 99
--- NOTE | 2016-08-05 16:59 | HHI.FF ---
Face to Face Verification Diagnosis: (1) Chest pain (2) CHF exacerbation Physical Therapy Order: Evaluate and Treat, Improve ambulation, Strength and gait training I have seen patient Jennifer Sinclair on 08/05/16. My clinical findings support the need for the requested home health care services because: Ltd mobility - disease progression Patient has SOB Deconditioned w/ increased weakness Limited ability to care for self High risk of falls I certify that my clinical findings support that this patient is homebound because: Hx COPD- exertion dyspnea/weakness Unsteady gait/balance [id number] bed/chair Poor cardiac reserve Raymundo Triana MD R1 Aug 05, 2016 16:59
--- NOTE | 2016-08-05 17:32 | ECHRPT ---
Indication: Heart failure, unspecified CONCLUSIONS Normal left ventricular size. Wall thickness is normal. The left ventricular systolic function is hyperdynamic with an estimated ejection fraction in the ra nge of 65- 70%. No regional wall motion abnormalities are present. Doppler parameters are consistent with impaired left ventricular relaxtion (grade 1 diastolic dysfun ction). BP: 134 / 60 HR: 68 Rhythm: Sinus MEASUREMENTS (Male / Female) Normal Values Technical Quality:Fair 2D ECHO LV Diastolic Diameter PLAX 4.5 cm 4.2 - 5.9 / 3.9 - 5.3 cm LV Systolic Diameter PLAX 2.8 cm IVS Diastolic Thickness 1.2 cm 0.6 - 1.0 / 0.6 - 0.9 cm LVPW Diastolic Thickness 1.2 cm 0.6 - 1.0 / 0.6 - 0.9 cm LV Relative Wall Thickness 0.5 LVOT Diameter 2.0 cm Aortic Root Diameter 3.0 cm LA Systolic Diameter LX 3.8 cm 3.0 - 4.0 / 2.7 - 3.8 cm M-MODE AV Cusp Separation MM 1.7 cm DOPPLER AV Peak Velocity 164.0 cm/s AV Peak Gradient 10.8 mmHg AV Mean Gradient 6.0 mmHg AV Velocity Time Integral 38.9 cm LVOT Peak Velocity 150.0 cm/s LVOT Peak Gradient 9.0 mmHg LVOT Velocity Time Integral 29.5 cm LVOT Cardiac Index 3040.1 cm/minm AV Area Cont Eq vti 2.4 cm AV Area Cont Eq pk 2.9 cm Mitral E Point Velocity 99.4 cm/s Mitral A Point Velocity 114.0 cm/s Mitral E to A Ratio 0.9 LV E' Lateral Velocity 7.5 cm/s Mitral E to LV E' Lateral Ratio 13.2 LV E' Septal Velocity 6.3 cm/s Mitral E to LV E' Septal Ratio 15.7 TR Peak Velocity 305.3 cm/s TR Peak Gradient 37.3 mmHg PV Peak Velocity 117.0 cm/s PV Peak Gradient 5.5 mmHg FINDINGS LEFT VENTRICLE Normal left ventricular size. Wall thickness is normal. The left ventricular systolic function is hyperdynamic with an estimated ejection fraction in the ra nge of 65- 70%. No regional wall motion abnormalities are present. Doppler parameters are consistent with impaired left ventricular relaxtion (grade 1 diastolic dysfun ction). RIGHT VENTRICLE Normal right ventricular size and systolic function. LEFT ATRIUM The left atrial size is [id number] dilated. RIGHT ATRIUM The right atrial size is normal. ATRIAL SEPTUM Normal atrial septal thickness without atrial level shunting by limited color doppler interrogation. AORTA Mildly dilated proximal ascending aorta. MITRAL VALVE Structurally normal mitral valve. Mild mitral valve regurgitation. Moderate mitral annular calcification. AORTIC VALVE Mild thickening of the aortic valve leaflets. Mild aortic valve regurgitation. No aortic valve stenosis. TRICUSPID VALVE Structurally normal tricuspid valve. There is moderate tricuspid valve regurgitation. There is estimated mild pulmonary hypertension present (range 40-50 mmHg). PULMONARY VALVE Mild pulmonary valve regurgitation. The pulmonary valve is not well visualized. VESSELS The inferior vena cava is normal in size. PERICARDIUM No pericardial effusion. Redd Liang MD (Electronically Signed) Final Date:05 August 2016 17:32
--- NOTE | 2016-08-05 19:15 | HHI.FPPN ---
Subjective Remarks Patient seen and examined this morning by medical team. No acute events overnight with vital signs stable. Patient currently saturating in upper 90s on 2 L nasal cannula which she reports is her baseline at home. She states that her shortness of breath has resolved and she has returned to her normal breathing. When asked about her lower extremity edema, she states that her legs are often swollen up to her knees. She has no other complaints and denies any fevers, chills, shortness of breath, chest pain, NVD, abdominal pain, or calf tenderness. (Raymundo Triana MD R1) Objective Vitals Vital Signs Date Time Temp Pulse Resp B/P Pulse Ox O2 Delivery O2 Flow Rate FiO2 08/05/16 15:46 98.4 69 19 119/60 99 08/05/16 11:19 99.0 66 22 124/80 99 08/05/16 07:54 68 08/05/16 07:36 99.0 69 19 134/60 98 08/05/16 03:14 97.3 66 20 142/66 96 08/05/16 03:03 65 08/04/16 23:50 97.0 64 20 115/57 98 08/04/16 23:04 97 Nasal Cannula 2.00 08/04/16 19:48 96.4 62 20 130/61 100 08/04/16 19:13 64 20 141/67 99 Nasal Cannula 2 I/O 08/04/16 08/04/16 08/04/16 08/05/16 08/05/16 08/05/16 07:00 15:00 23:00 07:00 15:00 23:00 Intake Total 240 ml Balance 240 ml Intake Oral 240 ml # Voids 1 (Raymundo rTiana MD R1) Result Diagram: 08/05/1670408/05/16704 Objective Remarks CONSTITUTIONAL/GEN: normally nourished, in NAD. HEENT: Atraumatic, normocephalic with EOMI. Oropharynx clear with no erythema or exudate. MMM. No LAD or JVD appreciated. LUNGS: Clear to auscultation bilaterally with no CRW. CARDIOVASCULAR: Regular rate and rhythm with no MGR. GI/ABD: Soft without masses, without organomegaly. Active bowel sounds NEURO: No focal deficits. Gait is normal SKIN: color normal, no rashes noted. HEME/LYMPH: No bruising, petechia or significant adenopathy MUSC: SCDs in place. Pitting edema of the lower extremities up to the knees, difficult to evaluate due to SCDs. PSYCH/MENTAL STATUS: Alert and oriented x 3. (Raymundo Triana MD R1) A/P Assessment and Plan Very pleasant 75 year old woman with h/o COPD on 2-3 LPM of O2 at home, CHF, DM , CAD, FL, CVA presents to the ED due to two weeks of SOB worsening over the past 3 days and with si/sxs consistent with CHF exacerbation; vs consideration for COPD, FL, PE, pneumonia. Patient will be admitted to observation to r/o an ACS and for management of acute on chronic CHF. Discharge Planning Medical team plans to discharge home this afternoon. Daughter, who is the patient's caregiver, is in agreement. Patient will be discharged home with home health PT. (Raymundo Triana MD R1) Attending Attestation Patient seen and examined. Case reviewed and discussed with the resident team. Agree with plan of care as discussed with me and documented in the resident note. (Radha Wilhelm MD) Problem List: (1) CHF exacerbation Status: Resolved Plan: Bibasilar rales on exam No JVD or lower extremity edema BNP 415 on admission Given additional 20 mg Lasix PO x1 Continue with Lasix 40 mg po daily Echocardiogram: Normal left ventricular size and wall thickness. Ejection fraction 65-70%. No regional wall abnormalities. Impaired left ventricular relaxation, grade 1 diastolic dysfunction Patient to be discharged home on current home medications. (2) Chest pain Status: Acute Plan: Patient endorsed 4/10 chest pain to the ED provider Currently denying any chest pain Troponins: 0.02, 0.02, 0.021 BNP: 415, 380 EKG in sinus rhythm with first degree AV block, no ST changes Continuous telemetry with no acute episodes (3) COPD (chronic obstructive pulmonary disease) Status: Chronic Plan: Continue supplemental O2 at 2-3 LPM to maintain O2 sats between 88-92% Continue symbicort 2 puffs BID Duonebs 1 amp q4h Albuterol 2.5 mg q4h prn SOB Prednisone 40 mg po daily Antibiotics not indicated as patient not endorsing worsening cough or increased sputum production, no fevers Resp walk test recommended no alteration to patient's baseline 2-3 L required at home (4) DM (diabetes mellitus) Status: Chronic Plan: Patient will be discharged on home diabetic management with glipizide (5) CKD (chronic kidney disease) Status: Chronic Plan: Cr 2.15 on admission, at baseline Likely secondary to diabetes (6) Hypertension Status: Chronic Plan: Monitors vitals q4h Continue home lisinopril, amlodipine, and metoprolol at discharge (7) Nutrition, metabolism, and development symptoms Status: Acute Plan: Fluids: not indicated Electrolytes: Cl mildly elevated, continue to monitor Nutrition: 1800 ADA DVT ppx: Discontinued on discharge GI ppx: Discontinued on discharge (Raymundo Triana MD R1) Raymundo Triana MD R1 Aug 05, 2016 19:15 Radha Wilhelm MD Aug 06, 2016 08:09
[2016-08-05] MEDS ORDERED: traZODone HCL 50 MG TAB PO SCH (21:00)
[2016-08-13] MEDS ORDERED: NRDRIP SQ (16:11)
[2016-08-18] MEDS ORDERED: POTA10CA PO (10:26)
== END 2016-08-05 18:58 | disposition home or self-care (01) ==
LOC: NEPE 13:56 → NEDA 18:24 → NEPHCDU 19:43
PROVIDERS: ADMIT Family Medicine; ATTEND Family Medicine
DX: I13.0 Hypertensive heart and chronic kidney disease with heart failure and stage 1 through stage 4 chronic kidney disease, or unspecified chronic kidney disease (principal); I50.9 Heart failure, unspecified; E11.22 Type 2 diabetes mellitus with diabetic chronic kidney disease; N18.9 Chronic kidney disease, unspecified; R07.9 Chest pain, unspecified; I25.10 Atherosclerotic heart disease of native coronary artery without angina pectoris; I25.2 Old myocardial infarction; I48.91 Unspecified atrial fibrillation; J44.9 Chronic obstructive pulmonary disease, unspecified; F41.9 Anxiety disorder, unspecified; F32.9 Major depressive disorder, single episode, unspecified; M19.90 Unspecified osteoarthritis, unspecified site; E11.40 Type 2 diabetes mellitus with diabetic neuropathy, unspecified; K58.9 Irritable bowel syndrome, unspecified; Z86.73 Personal history of transient ischemic attack (TIA), and cerebral infarction without residual deficits; Z99.81 Dependence on supplemental oxygen; Z79.51 Long term (current) use of inhaled steroids; Z95.1 Presence of aortocoronary bypass graft; Z79.82 Long term (current) use of aspirin; Z88.1 Allergy status to other antibiotic agents; Z91.040 Latex allergy status; Z88.0 Allergy status to penicillin; Z88.8 Allergy status to other drugs, medicaments and biological substances; Z91.048 Other nonmedicinal substance allergy status; Z87.891 Personal history of nicotine dependence
CPT/HCPCS: 71010; 80048; 80076; 82550; 82948; 83690; 83735; 83880; 84484; 85025; 93005; 93306; 94620; 94640; 94664; 96372; 96374; 97162; 99285; G0378; G8987; G8988; J1650; J1815; J2060; J7512; J7613

== ENCOUNTER 2016-08-26 09:28 | Observation (INO) | payer MEDICARE, MEDICAID ==
[~2016-08-26] VITALS: Ht 162.6 cm; Wt 95.0 kg
[2016-08-26] VITALS (9 sets, daily range): BP systolic 126–146; BP diastolic 61–81; PULSE 62–80; RESP 16–28; TEMP 98–98.8; O2SAT 95–100
[~2016-08-26 09:28] MED LIST changes: +LORA-475 PO; +MORP1TAB27 PO; +NRDRIP SQ; +POTA10CA PO; -POTA10TA8 PO
[2016-08-26] MEDS ORDERED: SODIUM CHLORIDE 0.9% FLUSH 10 ML FLUSH IVF PRN (10:00)
[2016-08-26] MEDS ORDERED: methylPREDNISolone SOD SUCC 125 MG/2 ML VIAL IVP ONE (10:00)
--- NOTE | 2016-08-26 10:31 | PD ---
HPI Chief Complaint: Chest Pain Time Seen by Provider: 09:50 Travel History International Travel<30 days: No Contact w/Intl Traveler<30days: No Traveled to known affect area: No History of Present Illness HPI 75yo F with PMH of COPD, CAD s/p CABG presents to the ED with c/o left sided chest pain for 1 week. State it is constant, nonradiating and pressure like. + Cough. +SOB. Pt states pain feels like angina. Denies any fever, n/v, abdominal pain. Pt's pedorthist is Dr. Nolasco and last saw him a year ago. PFSH Past Medical History Hx Anticoagulant Therapy: No Arthritis: Yes Asthma: Yes Autoimmune Disease: No Blood Disorders: No Anxiety: No Depression: Yes Heart Rhythm Problems: Yes Cancer: Yes (LEFT KIDNEY/ CAUDERIZATION) Cardiovascular Problems: Yes (BYPASS, HTN) High Cholesterol: No Chemotherapy: No Chest Pain: Yes Congestive Heart Failure: Yes COPD: Yes Cerebrovascular Accident: Yes Diabetes: Yes Patient Takes Glucophage: Yes Diminished Hearing: No Endocrine: Yes Gastrointestinal Disorders: Yes GERD: No Glaucoma: No Genitourinary: Yes (KIDNEY TUMOR CAUDERIZED) Headaches: Yes Hepatitis: No Hiatal Hernia: Yes (REPAIR) Hypertension: Yes Immune Disorder: No Kidney Stones: No 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) Neurologic: No Psychiatric: Yes Reproductive: No Respiratory: Yes (ASTHMA, COPD) Migraines: No Myocardial Infarction: Yes Radiation Therapy: No Renal Failure: Yes Seizures: No Sleep Apnea: No Thyroid Disease: No Ulcer: No Past Surgical History Abdominal Surgery: Yes AICD: No Appendectomy: Yes Arteriovenous Shunt: No Cardiac Surgery: Yes (CABG X4 VESSEL IN 1999) Cholecystectomy: Yes Coronary Artery Bypass Graft: Yes Ear Surgery: No Endocrine Surgery: No Eye Surgery: No Genitourinary Surgery: No Gynecologic Surgery: Yes Hysterectomy: Yes Insulin Pump: No Joint Replacement: No Oral Surgery: Yes (teeth) Pacemaker: No Thoracic Surgery: No Tonsillectomy: Yes Other Surgery: Yes Social History Alcohol Use: No Tobacco Use: No Substance Use: No Allergies-Medications (Allergen,Severity, Reaction): Coded Allergies: Augmentin (Verified Allergy, Severe, Rash, 08/26/16) Haldol (Verified Allergy, Severe, Hallucinations, 08/26/16) Latex (Verified Allergy, Severe, HIVES, 08/26/16) Macrodantin (Verified Allergy, Severe, SHAKY , BLOOD SUGER PROBLEMS, ) Mirapex (Verified Allergy, Severe, LETHARGY,DIZZY,SHAKY, 08/26/16) Phenergan (Verified Allergy, Severe, Hallucinations, 08/26/16) Temazepam (Verified Allergy, Severe, Rash, 08/26/16) Lopid (Verified Allergy, Intermediate, 08/26/16) Lyrica (Verified Allergy, Unknown, 08/26/16) Soma (Verified Allergy, Unknown, 08/26/16) Amoxicillin (Verified Adverse Reaction, Severe, diarrhea, 08/26/16) HMG-CoA Reductase Inhibitors (Verified Adverse Reaction, Severe, LIVER DISEASE WITH SUBSEQUENT CHRONIC ITCHING UNTIL DC'D, 08/26/16) Trazodone (Verified Adverse Reaction, Intermediate, altered mental status , 08/26/16) Uncoded Allergies: TAPE (Allergy, Mild, Rash, 11/06/09) USE PAPER TAPE ONLY ees (Allergy, Mild, itch, 11/06/09) advicor (Adverse Reaction, Intermediate, redness, itchin, 11/06/09) cipro,septra (Adverse Reaction, Intermediate, diarrhea,itching, 11/06/09) topramax (Adverse Reaction, Intermediate, 11/06/09) Reported Meds & Prescriptions Reported Meds & Active Scripts Active Potassium Chloride ER (Potassium Chloride) 10 Meq Cap 10 Meq PO DAILY Novolin R Inj (Insulin Human Regular) 100 Unit/Ml Inj 5 Unit SQ QID As directed by sliding scale Ms Contin (Morphine Sulfate) 15 Mg Tab 15 Mg PO DAILY Percocet (Oxycodone-Acetaminophen) 7.5-325 mg Tab 1 Tab PO Q6H PRN Lorazepam 2 Mg Tab 2 Mg PO HS PRN Spiriva Respimat Inh (Tiotropium Inh) 2.5 Mcg/Act Aero 2 Puff INH DAILY 2.5 mcg = 1 inhalation [lancets] QID [testr strips] QID [Glucometer] DIRECTED Test glucose four times per day Furosemide 40 Mg Tab 40 Mg PO DAILY Fosinopril (Fosinopril Sodium) 10 Mg Tab 10 Mg PO DAILY Proair Hfa 8.5 GM Inh (Albuterol Sulfate) 90 Mcg/Act Aer 2 Puff INH Q4 PRN 108 mcg/actuation Hydroxyzine HCl 25 Mg Tab 25 Mg PO TID Amlodipine (Amlodipine Besylate) 10 Mg Tab 10 Mg PO DAILY Reported Ativan (Lorazepam) 2 Mg Tab 2 Mg PO DAILY PRN Morphine ER (Morphine Sulfate) 100 Mg Tab 100 Mg PO DAILY Nitrostat SL (Nitroglycerin) 0.4 Mg Subl 0.4 Mg SL DIRECTED PRN 1 tablet under the tongue as needed for chest pain. Repeat every 5 minutes for a total of 3 DOSES or call 911 if NO relief. Metoprolol Tartrate 100 Mg Tab 100 Mg PO BID Glucotrol (Glipizide) 10 Mg Tab 10 Mg PO DAILY Take 30 minutes before a meal Symbicort Inh (Budesonide/Formoterol Fumarate) 160-4.5 Mcg/Act Aero 2 Puff INH BID Duoneb (Ipratropium-Albuterol Neb) 0.5-2.5 Mg/3 Ml Neb 1 Nebule INH Q4HR NEB Review of Systems Except as stated in HPI: all other systems reviewed are Neg Physical Exam Narrative GENERAL: 75yo F in mild distress. SKIN: Focused skin assessment warm/dry. HEAD: Atraumatic. Normocephalic. EYES: Pupils equal and round. No scleral icterus. No injection or drainage. ENT: No nasal bleeding or discharge. Mucous membranes pink and moist. NECK: Trachea midline. No JVD. CARDIOVASCULAR: Regular rate and rhythm. No murmur appreciated. RESPIRATORY: No accessory muscle use. Clear to auscultation. Breath sounds equal bilaterally. GASTROINTESTINAL: Abdomen soft, non-tender, nondistended. No rebound tenderness or guarding. MUSCULOSKELETAL: No obvious deformities. No clubbing. No cyanosis. No edema. NEUROLOGICAL: Awake and alert. No obvious cranial nerve deficits. Motor grossly within normal limits. Normal speech. PSYCHIATRIC: Appropriate mood and affect; insight and judgment normal. Data Data Last Documented VS Vital Signs Date Time Temp Pulse Resp B/P Pulse Ox O2 Delivery O2 Flow Rate FiO2 08/26/16 10:51 96 Nasal Cannula 2 08/26/16 09:46 62 20 08/26/16 09:31 98.0 145/65 Orders Complete Blood Count With Diff (08/26/16 09:50) Basic Metabolic Panel (Bmp) (08/26/16 09:50) B-Type Natriuretic Peptide (08/26/16 09:50) Act Partial Throm Time (Ptt) (08/26/16 09:50) Prothrombin Time / Inr (Pt) (08/26/16 09:50) Magnesium (Mg) (08/26/16 09:50) Ckmb (Isoenzyme) Profile (08/26/16 09:50) Troponin I (08/26/16 09:50) Iv Access Insert/Monitor (08/26/16 09:50) Ecg Monitoring (08/26/16 09:50) Oximetry (08/26/16 09:50) Oxygen Administration (08/26/16 09:50) Chest, Single Ap (08/26/16 09:50) Sodium Chloride 0.9% Flush (Ns Flush) (08/26/16 10:00) Methylprednisolone So Succ Inj (Solumedr (08/26/16 10:00) Albuterol-Ipratropium Neb (Duoneb Neb) (08/26/16 10:00) Shoulder, Limited(2vws) (08/26/16 ) Humerus (Min 2vws) (08/26/16 ) Electrocardiogram (08/26/16 09:48) Admit Order (Ed Use Only) (08/26/16 13:09) Aspirin (Aspirin) (08/26/16 13:15) Labs Laboratory Tests Test 08/26/16 10:15 White Blood Count 5.8 TH/MM3 Red Blood Count 3.71 MIL/MM3 Hemoglobin 10.8 GM/DL Hematocrit 34.0 % Mean Corpuscular Volume 91.8 FL Mean Corpuscular Hemoglobin 29.0 PG Mean Corpuscular Hemoglobin 31.6 % Concent Red Cell Distribution Width 14.5 % Platelet Count 140 TH/MM3 Mean Platelet Volume 8.4 FL Neutrophils (%) (Auto) 74.9 % Lymphocytes (%) (Auto) 13.8 % Monocytes (%) (Auto) 5.1 % Eosinophils (%) (Auto) 5.5 % Basophils (%) (Auto) 0.7 % Neutrophils # (Auto) 4.3 TH/MM3 Lymphocytes # (Auto) 0.8 TH/MM3 Monocytes # (Auto) 0.3 TH/MM3 Eosinophils # (Auto) 0.3 TH/MM3 Basophils # (Auto) 0.0 TH/MM3 CBC Comment DIFF FINAL Differential Comment Prothrombin Time 11.3 SEC Prothromb Time International 1.0 RATIO Ratio Activated Partial 28.6 SEC Thromboplast Time Sodium Level 143 MEQ/L Potassium Level 4.7 MEQ/L Chloride Level 108 MEQ/L Carbon Dioxide Level 28.9 MEQ/L Anion Gap 6 MEQ/L Blood Urea Nitrogen 26 MG/DL Creatinine 2.29 MG/DL Estimat Glomerular Filtration 21 ML/MIN Rate Random Glucose 115 MG/DL Calcium Level 8.4 MG/DL Magnesium Level 2.1 MG/DL Total Creatine Kinase 48 U/L Troponin I 0.03 NG/ML B-Type Natriuretic Peptide 459 PG/ML [facility] Medical Decision Making Medical Screen Exam Complete: Yes Emergency Medical Condition: Yes Interpretation(s) EKG: Sinus bradycardia at 58bpm. LAD. 1st AV block. No ST segment elevation or depression. Differential Diagnosis ACS vs. COPD exacerbation vs. Pneumonia vs. musculoskeletal pain Narrative Course 75yo F with atypical left sided chest pain for 1 week. However, pt does have significant cardiac risk factors. Labs reviewed, no leukocytosis. H/H low at 10.8/34.0 which is at baseline. BUN/creatinine elevated but at baseline. Troponin negative at 0.03. BNP is also around baseline at 459. CXR negative. Pt wanted xray of left shoulder because she fell last week. Xray left shoulder and humerus negative. Pt given aspirin. Pt also given duonebs x3, and methylprednisolone 125mg IV because she was wheezing. Pt feels better and not sob but still has chest pain. Will admit to chest pain center for serial EKG and cardiac enzymes. VS stable. Saturating at 96% on 2L NC and pt uses 2-3L NC at home. Diagnosis Primary Impression: Chest pain Qualified Code: R07.9 - Chest pain, unspecified type Admitting Information Admitting Physician Requests: Observation OmegaTammy DO Aug 26, 2016 10:31 10.8/34.0 which is at baseline. BUN/creatinine elevated but at baseline. Troponin negative at 0.03. BNP is also around baseline at 459. CXR negative. Pt wanted xray of left shoulder because she fell last week. Xray left shoulder and humerus negative. Pt given aspirin. Pt also given duonebs x3, and methylprednisolone 125mg IV because she was wheezing. Pt feels better and not sob but still has chest pain. Will admit to chest pain center for serial EKG and cardiac enzymes. VS stable. Saturating at 96% on 2L NC and pt uses 2-3L NC at home. Diagnosis Primary Impression: Chest pain Qualified Code: R07.9 - Chest pain, unspecified type Admitting Information Admitting Physician Requests: Tammy Abdi DO Aug 26, 2016 10:31
[2016-08-26] MEDS: RESP: ALBUTEROL 2.5 MG/IPRATROPIUM 0.5 MG NEB (SCH) INH (10:33)
[2016-08-26 10:45] LABS: AUTOMATED NEUTROPHIL # 4.3 TH/MM3 (1.8-7.7); BASOPHIL % 0.7 % (0.0-2.0); EOSINOPHIL # 0.3 TH/MM3 (0-0.4); EOSINOPHIL % 5.5 % (0.0-4.0); HEMO FLAGS DIFF FINAL; LYMPH % 13.8 % (9.0-44.0); LYMPHOCYTE # 0.8 TH/MM3 (1.0-4.8); MEAN CELL VOLUME 91.8 FL (80.0-100.0); MEAN CORPUSCULAR HGB CONC 31.6 % (32.0-36.0); MONO % 5.1 % (0.0-8.0); NEUT % 74.9 % (16.0-70.0); PLATELET COUNT 140 TH/MM3 (150-450); RED BLOOD COUNT 3.71 MIL/MM3 (4.00-5.30); RED CELL DISTRIBUTION WIDTH 14.5 % (11.6-17.2); WHITE BLOOD COUNT 5.8 TH/MM3 (4.0-11.0)
[2016-08-26 10:57] LABS: APTT (PATIENT) 28.6 SEC (24.3-30.1); PROTHROMBIN TIME - PATIENT 11.3 SEC (9.8-11.6)
[2016-08-26 11:01] LABS: BICARBONATE 28.9 MEQ/L (21.0-32.0); MAGNESIUM 2.1 MG/DL (1.5-2.5); POTASSIUM 4.7 MEQ/L (3.5-5.1)
--- NOTE | 2016-08-26 11:44 | RADRPT ---
EXAM DATE/TIME: 08/26/2016 10:26 [facility] COMPARISON: CHEST SINGLE AP, August 04, 2016, 14:44. INDICATIONS : Short of breath. Chest pain. MEDICAL HISTORY : Hypertension. Chronic obstructive pulmonary disease. Emphysema. TIA. CVA. Afib. Myocardial infarc tion. Diabetes. SURGICAL HISTORY : CABG. ENCOUNTER: Initial ACUITY: 1 day PAIN SCORE: 4/10 LOCATION: Bilateral chest FINDINGS: A single view of the chest demonstrates the lungs to be symmetrically aerated without evidence of mas s, infiltrate or effusion. Stable chronic interstitial changes. The cardiomediastinal contours are st able. There is evidence of previous cardiothoracic surgery. Osseous structures are intact and stable . CONCLUSION: No acute disease. No significant change has occurred. Evan Velazquez MD on August 26, 2016 at 11:41 Board Certified Radiologist. This report was verified electronically.
--- NOTE | 2016-08-26 11:55 | RADRPT ---
EXAM DATE/TIME: 08/26/2016 11:36 [facility] COMPARISON: No previous studies available for comparison. INDICATIONS : Fell twice lately. MEDICAL HISTORY : None. SURGICAL HISTORY : None. ENCOUNTER: Initial ACUITY: 2 days PAIN SCORE: 8/10 LOCATION: Left shoulder FINDINGS: Two view examination of the left shoulder demonstrates no evidence of fracture or dislocation. The g lenohumeral and acromioclavicular joints are maintained. Bony mineralization is normal. CONCLUSION: No acute fracture or dislocation. Evan Velazquez MD on August 26, 2016 at 11:52 Board Certified Radiologist. This report was verified electronically.
--- NOTE | 2016-08-26 11:58 | RADRPT ---
EXAM DATE/TIME: 08/26/2016 11:33 [facility] COMPARISON: No previous studies available for comparison. INDICATIONS : Fell twice lately. MEDICAL HISTORY : None. SURGICAL HISTORY : None. ENCOUNTER: Initial ACUITY: 2 days PAIN SCORE: 8/10 LOCATION: Left humerus FINDINGS: Two view examination of the left humerus demonstrates no evidence of fracture or dislocation. Bony m ineralization is normal. The soft tissue structures are intact. CONCLUSION: No acute fracture or joint dislocation. Evan Velazquez MD on August 26, 2016 at 11:55 Board Certified Radiologist. This report was verified electronically.
[2016-08-26] MEDS ORDERED: ASPIRIN 325 MG TAB PO ONE (13:15)
[2016-08-26] MEDS ORDERED: ACETAMINOPHEN 500 MG CPLT PO PRN (13:45)
[2016-08-26] MEDS ORDERED: NITROGLYCERIN 0.4 MG SL 25 TABS/BTL SL PRN (13:45)
[2016-08-26] MEDS ORDERED: ONDANSETRON HCL 4 MG/2 ML VIAL IV PRN (13:45)
--- NOTE | 2016-08-26 16:49 | HHI.HP ---
[facility] Primary Care Physician Jose Eduardo Mcgee MD Chief Complaint Chest pain and SOB since a fall 1 week ago. History of Present Illness This 75 yo woman fell off of commode one week ago. She was conscious at fall and remembers hitting the floor. She had immediate severe pain in her left upper arm and her left chest radiating across to the right. This pain is constant although worse with exertion and increased respiration. She also noted that she is increasingly experiencing JAMES since the fall. She has pain on motion of the left arm and accentuation of chest pain with some motion. She is increasingly SOB but this is no worse in Recumbant position. She has no fever, cough, or sputum. Her daughter feels that her legs were more swollen but they have gone down now. She also states that this pain is not like angina she has had previously. She had a code post CATH in past and underwent CABG by Dr. Alvarado. Since that time she is followed by Dr. Nolasco. She also has a history of HTN, DM and CRF. These are followed by Dr. Jose Eduardo Mcgee. (Renan Bhagat MD) Review of Systems General: No fatigue,weakness, fever, chills, recent illness. Has been in her general state of health until last week following. Since this time she has had increased dyspnea and shortness of breath. HEENT: No ANDRE, no vision changes, no nasal congestion or drainage, no dysphasia CV: As stated above. RESP: Chronic dyspnea, history of COPD, O2 dependent 02/2 L. Although since last week has increased oxygen level to 3 L. Worsening dyspnea since falling last week. No change in cough. No hemoptysis. GI: No nausea, vomiting, bowel changes, diarrhea, constipation, pain, distention , melena, or blood in the stool. : No dysuria, urgency, frequency. Endorses frequent yeast infections, no current symptoms. EXT: Dependent bilateral lower leg edema MS: As stated above. No change in our OM. Pain is reproduced with movement of left arm. NEURO: No difficulty with balance, LOC, motor/sensory deficits PSYCH: No anxiety, depression, suicidal ideation, or situational stress SKIN: No rashes, no concerning lesions, reports bruising to right breast and chest. Also reports easily bruising therefore she quit taking aspirin. ( Brisa Torres) Past Family Social History Allergies: Coded Allergies: Augmentin (Verified Allergy, Severe, Rash, 08/26/16) Haldol (Verified Allergy, Severe, Hallucinations, 08/26/16) Latex (Verified Allergy, Severe, HIVES, 08/26/16) Macrodantin (Verified Allergy, Severe, SHAKY , BLOOD SUGER PROBLEMS, ) Mirapex (Verified Allergy, Severe, LETHARGY,DIZZY,SHAKY, 08/26/16) Phenergan (Verified Allergy, Severe, Hallucinations, 08/26/16) Temazepam (Verified Allergy, Severe, Rash, 08/26/16) Lopid (Verified Allergy, Intermediate, 08/26/16) Lyrica (Verified Allergy, Unknown, 08/26/16) Soma (Verified Allergy, Unknown, 08/26/16) Amoxicillin (Verified Adverse Reaction, Severe, diarrhea, 08/26/16) HMG-CoA Reductase Inhibitors (Verified Adverse Reaction, Severe, LIVER DISEASE WITH SUBSEQUENT CHRONIC ITCHING UNTIL DC'D, 08/26/16) Trazodone (Verified Adverse Reaction, Intermediate, altered mental status , 08/26/16) Uncoded Allergies: TAPE (Allergy, Mild, Rash, 11/06/09) USE PAPER TAPE ONLY ees (Allergy, Mild, itch, 11/06/09) advicor (Adverse Reaction, Intermediate, redness, itchin, 11/06/09) cipro,septra (Adverse Reaction, Intermediate, diarrhea,itching, 11/06/09) topramax (Adverse Reaction, Intermediate, 11/06/09) Reported Medications Reported Meds & Active Scripts Active Potassium Chloride ER (Potassium Chloride) 10 Meq Cap 10 Meq PO DAILY Novolin R Inj (Insulin Human Regular) 100 Unit/Ml Inj 5 Unit SQ QID As directed by sliding scale Metronidazole 250 Mg Tab 250 Mg PO TID Metoprolol Tartrate 100 Mg Tab 100 Mg PO BID Trazodone (Trazodone HCl) 50 Mg Tab 50 Mg PO HS Ms Contin (Morphine Sulfate) 15 Mg Tab 15 Mg PO DAILY Percocet (Oxycodone-Acetaminophen) 7.5-325 mg Tab 1 Tab PO Q6H PRN Lorazepam 2 Mg Tab 2 Mg PO HS PRN Terconazole Vaginal Cream 0.4 % Cream 1 Appl VAGINAL HS For seven days Nitroglycerin SL (Nitroglycerin) 0.4 Mg Subl 0.4 Mg SL DIRECTED PRN ONE TABLET UNDER THE TONGUE NEEDED FOR CHEST PAIN, MAY REPEAT EVERY FIVE MINUTES FOR A TOTAL OF 3 DOSES Spiriva Respimat Inh (Tiotropium Inh) 2.5 Mcg/Act Aero 2 Puff INH DAILY 2.5 mcg = 1 inhalation [lancets] QID [testr strips] QID [Glucometer] DIRECTED Test glucose four times per day Furosemide 40 Mg Tab 40 Mg PO DAILY Colchicine 0.6 Mg Tab 0.6 Mg PO DAILY Fosinopril (Fosinopril Sodium) 10 Mg Tab 10 Mg PO DAILY Proair Hfa 8.5 GM Inh (Albuterol Sulfate) 90 Mcg/Act Aer 2 Puff INH Q4 PRN 108 mcg/actuation Hydroxyzine HCl 25 Mg Tab 25 Mg PO TID Amlodipine (Amlodipine Besylate) 10 Mg Tab 10 Mg PO DAILY Reported Ativan (Lorazepam) 2 Mg Tab 2 Mg PO DAILY PRN Morphine ER (Morphine Sulfate) 100 Mg Tab 100 Mg PO DAILY Nitrostat SL (Nitroglycerin) 0.4 Mg Subl 0.4 Mg SL DIRECTED PRN 1 tablet under the tongue as needed for chest pain. Repeat every 5 minutes for a total of 3 DOSES or call 911 if NO relief. Metoprolol Tartrate 100 Mg Tab 100 Mg PO BID Glucotrol (Glipizide) 10 Mg Tab 10 Mg PO DAILY Take 30 minutes before a meal Symbicort Inh (Budesonide/Formoterol Fumarate) 160-4.5 Mcg/Act Aero 2 Puff INH BID Aspirin 325 Mg Tab 325 Mg PO DAILY Aspirin 81 Mg Chew 324 Mg CHEW ONCE Duoneb (Ipratropium-Albuterol Neb) 0.5-2.5 Mg/3 Ml Neb 1 Nebule INH Q4HR NEB Active Ordered Medications Current Medications Medications (Trade) Dose Ordered Sig/Saritha Route Start Time Stop Time Status Last Admin (NS Flush) 2 ml UNSCH PRN IVF 08/26/16 10:00 08/26/16 10:21 (NS Flush) 2 ml BID IV FLUSH 08/26/16 21:00 (Tylenol) 500 mg Q4H PRN PO 08/26/16 13:45 (Zofran Inj) 4 mg Q6H PRN IV 08/26/16 13:45 (Nitrostat Sl) 0.4 mg Q5M PRN SL 08/26/16 13:45 (Aspirin) 325 mg DAILY PO 08/27/16 09:00 (Renan Bhagat MD) Past Medical History COPD, CVA, TIA, A. fib, diabetes, [place], hypertension, CRF, gout, O2 dependent, renal cancer Past Surgical History CABG times [id number], appendectomy, hysterectomy, tonsillectomy (Brisa Torres) Physical Exam Vital Signs Vital Signs Date Time Temp Pulse Resp B/P Pulse Ox O2 Delivery O2 Flow Rate FiO2 08/26/16 15:45 98.0 70 20 126/61 95 08/26/16 14:02 68 16 131/61 95 Nasal Cannula 1 08/26/16 10:51 96 Nasal Cannula 2 08/26/16 10:33 96 Nasal Cannula 1.00 08/26/16 09:46 62 20 95 Room Air 08/26/16 09:31 98.0 62 28 145/65 95 Room Air Physical Exam Elderly obese female resting in bed with nasal O2 in place and daughter at bedside Skn Warm dry with bruising left upper arm and mostly right chest HEENT NCAT without bruit P not equil with L>R and non reactive. IOL in place Mouth Upper plate, tongue well papillated no lesions or mass neck No JVD, carotids palp with bruit R Chest Dec. BS with slight expiratory wheeze but no rales. Very tender over left chest wall along ribs Abd Massively obese no masses palpated, no RGR Ext No CCE but mild stasis changes and dec. pulses Neuro Sl Weak, mild tremor Laboratory Laboratory Tests Test 08/26/16 08/26/16 10:15 14:45 White Blood Count 5.8 Red Blood Count 3.71 Hemoglobin 10.8 Hematocrit 34.0 Mean Corpuscular Volume 91.8 Mean Corpuscular Hemoglobin 29.0 Mean Corpuscular Hemoglobin 31.6 Concent Red Cell Distribution Width 14.5 Platelet Count 140 Mean Platelet Volume 8.4 Neutrophils (%) (Auto) 74.9 Lymphocytes (%) (Auto) 13.8 Monocytes (%) (Auto) 5.1 Eosinophils (%) (Auto) 5.5 Basophils (%) (Auto) 0.7 Neutrophils # (Auto) 4.3 Lymphocytes # (Auto) 0.8 Monocytes # (Auto) 0.3 Eosinophils # (Auto) 0.3 Basophils # (Auto) 0.0 CBC Comment DIFF FINAL Differential Comment Prothrombin Time 11.3 Prothromb Time International 1.0 Ratio Activated Partial 28.6 Thromboplast Time Sodium Level 143 Potassium Level 4.7 Chloride Level 108 Carbon Dioxide Level 28.9 Anion Gap 6 Blood Urea Nitrogen 26 Creatinine 2.29 Estimat Glomerular Filtration 21 Rate Random Glucose 115 Calcium Level 8.4 Magnesium Level 2.1 Total Creatine Kinase 48 42 Troponin I 0.03 0.03 B-Type Natriuretic Peptide 459 (Renan Bhagat MD) Result Diagram: 08/26/16 1015 08/26/16 1015 Imaging Last Impressions Chest X-Ray 08/26/16 0950 Signed Impressions: Service Date/Time: August 10:26 - CONCLUSION: No acute disease. No significant change has occurred. Evan Velazquez MD Shoulder X-Ray 08/26/16 0000 Signed Impressions: Service Date/Time: August 11:36 - CONCLUSION: No acute fracture or dislocation. Evan Velazquez MD Humerus X-Ray 08/26/16 0000 Signed Impressions: Service Date/Time: August 11:33 - CONCLUSION: No acute fracture or joint dislocation. Evan Velazquez MD Course EKGs First-degree AV block, sinus bradycardia, no ST or T-segment changes, left axis deviation (Brisa Torres) Assessment and Plan Assessment and Plan A: CP Focal CP consistent with fall, probably Rib injury resulting in splinting and inc SOB CAD SP CABG DM HTN CRF P: NUC STRESS (Renan Bhagat MD) Assessment and Plan Chest painadmitted chest pain center. Will rule out with 3 sets of EKGs and cardiac enzymes, and monitored overnight. Seen and evaluated by Dr. Renan Bhagat. Plans for nuclear in a.m. DiabetesSSI low dose COPDcontinue Symbicort, albuterol every 2 when necessary CRFcontinue to monitor, follow with supervisor bridges and buildings, continue Lasix [id number] refusing to have any further cardiac testing. States Dr. Nolasco has requested her to have chemical scans for years but she declines. Will discharge home, no changes on medications. Follow up with PCP and Dr. Nolasco. Instructed to return the ER for any further or persistent chest discomfort. ( Brisa Torres) Renan Bhagat MD Aug 26, 2016 16:49 Brisa Torres Aug 26, 2016 20:02
[2016-08-26] MEDS ORDERED: DEXTROSE 50% IN WATER 50 ML VIAL(D50) IV PRN (18:00)
[2016-08-26] MEDS ORDERED: GLUCAGON 1 MG/ML VIAL OTHER PRN (18:00)
[2016-08-26] MEDS ORDERED: RESP: ALBUTEROL 2.5 MG/3 ML NEB (PRN) NEB (18:00)
--- NOTE | 2016-08-26 18:05 | EKG ---
Date Performed: 08/26/2016 Time Performed: 09:48:30 PTAGE: 75 years EKG: SINUS BRADYCARDIA WITH FIRST DEGREE AV BLOCK LOW QRS VOLTAGE IN PRECORDIAL LEADS ABNORMAL E CG INTERPRETATION BASED ON A DEFAULT AGE OF 40 YEARS PREVIOUS TRACING : 08/05/2016 03.53 Compared to prior tracing no significant change DOCTOR: Elizabeth Machuca Interpretating Date/Time 08/26/2016 18:04:21
[2016-08-26] MEDS: SODIUM CHLORIDE 0.9% FLUSH 10 ML FLUSH IV FLUSH SCH (20:02)
[2016-08-26] MEDS: INSULIN ASPART SUPPLEMENTAL SCALE SQ SCH (20:05)
[2016-08-26] MEDS: METOPROLOL TARTRATE 100 MG TAB PO SCH (20:27)
[2016-08-26] MEDS: BUDESONIDE-FORMOTEROL 160/4.5 MCG INHALER INH SCH (20:28)
[2016-08-26] MEDS ORDERED: LORazepam 2 MG TAB PO SCH (23:15)
[2016-08-26] MEDS: MORPHINE SULFATE 8 MG/ML INJ IV PUSH PRN (23:51)
[2016-08-27] VITALS: PULSE 67
[2016-08-27 03:39] VITALS: BP 131/63; PULSE 67; RESP 18; TEMP 98; O2SAT 99
[2016-08-27 04:00] VITALS: PULSE 73
[2016-08-27] MEDS: INSULIN ASPART SUPPLEMENTAL SCALE SQ SCH (05:39)
[2016-08-27 07:12] VITALS: BP 139/66; PULSE 70; RESP 18; TEMP 98.5; O2SAT 99
[2016-08-27 08:00] VITALS: PULSE 70
[2016-08-27] MEDS: MORPHINE SULFATE 8 MG/ML INJ IV PUSH PRN (08:00)
--- NOTE | 2016-08-27 08:23 | HHI.DCPOC ---
Discharge Care Plan Diagnosis: (1) Musculoskeletal chest pain (2) Hx of coronary artery disease Goals to Promote Your Health * To prevent worsening of your condition and complications * To maintain your health at the optimal level Directions to Meet Your Goals Take your medications as prescribed Follow your dietary instruction Follow activity as directed Keep your appointments as scheduled Take your immunizations and boosters as scheduled If your symptoms worsen call your PCP, if no PCP go to Urgent Care Center or Emergency Room Smoking is Dangerous to Your Health. Avoid second hand smoke Call the 24-hour hour crisis hotline for domestic abuse at Brisa Torres Aug 27, 2016 08:22
[2016-08-27] MEDS ORDERED: LORazepam 2 MG TAB PO SCH (09:00)
[2016-08-27] MEDS ORDERED: LISINOPRIL 10 MG TAB PO SCH (09:00)
[2016-08-27] MEDS ORDERED: FUROSEMIDE 40 MG TAB PO SCH (09:00)
[2016-08-27] MEDS ORDERED: POTASSIUM CHLORIDE 10 MEQ CAP PO SCH (09:00)
[2016-08-27] MEDS ORDERED: ASPIRIN 325 MG TAB PO SCH (09:00)
[2016-08-27] MEDS ORDERED: hydrOXYzine HCL 25 MG TAB PO SCH (09:00)
[2016-08-27] MEDS: SODIUM CHLORIDE 0.9% FLUSH 10 ML FLUSH IV FLUSH SCH (09:34)
[2016-08-27] MEDS: METOPROLOL TARTRATE 100 MG TAB PO SCH (09:34)
[2016-08-27 09:35] VITALS: RESP 19
[2016-08-27] MEDS: BUDESONIDE-FORMOTEROL 160/4.5 MCG INHALER INH SCH (09:35)
--- NOTE | 2016-08-27 13:07 | EKG ---
Date Performed: 08/26/2016 Time Performed: 16:53:31 PTAGE: 75 years EKG: ECTOPIC ATRIAL RHYTHM WITH OCCASIONAL SUPRAVENTRICULAR PREMATURE COMPLEXES LOW QRS VOLTAGE IN PRECORDIAL LEADS ABNORMAL RHYTHM ECG PREVIOUS TRACING : 08/26/2016 14.49 Since previous tracing, no change DOCTOR: Herminio Ovalle Interpretating Date/Time 08/27/2016 13:06:38
--- NOTE | 2016-08-27 13:07 | EKG ---
Date Performed: 08/26/2016 Time Performed: 14:49:30 PTAGE: 75 years EKG: Sinus rhythm WITH FIRST DEGREE AV BLOCK LOW QRS VOLTAGE IN PRECORDIAL LEADS INFERIOR MYOCARDIAL INFARCTION ABNORM AL ECG PREVIOUS TRACING : 08/26/2016 09.48 Since previous tracing, no significant change noted DOCTOR: Herminio Ovalle Interpretating Date/Time 08/27/2016 13:06:55
[2016-09-03] MEDS ORDERED: MS C15TA2 PO (14:06)
[2016-09-03] MEDS ORDERED: LORA2TAB7 PO (14:06)
[2016-09-03] MEDS ORDERED: MORP1TAB27 PO (14:06)
[2016-09-03] MEDS ORDERED: PERC7.5T13 PO (14:06)
[2016-09-06] MEDS ORDERED: COLC1CAP3 PO (11:07)
== END 2016-08-27 11:36 | disposition home or self-care (01) ==
LOC: NEPC 09:28 → NEDA 13:10 → NEPFCDU 15:16
PROVIDERS: ADMIT Internal Medicine Interventional Cardiology; ATTEND Internal Medicine Interventional Cardiology
DX: R07.89 Other chest pain (principal); R06.02 Shortness of breath; R05 Cough; R94.31 Abnormal electrocardiogram [ECG] [EKG]; R00.1 Bradycardia, unspecified; I44.0 Atrioventricular block, first degree; I25.10 Atherosclerotic heart disease of native coronary artery without angina pectoris; I25.2 Old myocardial infarction; I13.0 Hypertensive heart and chronic kidney disease with heart failure and stage 1 through stage 4 chronic kidney disease, or unspecified chronic kidney disease; I50.9 Heart failure, unspecified; N18.9 Chronic kidney disease, unspecified; E11.22 Type 2 diabetes mellitus with diabetic chronic kidney disease; I48.91 Unspecified atrial fibrillation; J44.9 Chronic obstructive pulmonary disease, unspecified; J45.909 Unspecified asthma, uncomplicated; G62.9 Polyneuropathy, unspecified; F32.9 Major depressive disorder, single episode, unspecified; M19.90 Unspecified osteoarthritis, unspecified site; Z95.1 Presence of aortocoronary bypass graft; Z85.528 Personal history of other malignant neoplasm of kidney; Z86.73 Personal history of transient ischemic attack (TIA), and cerebral infarction without residual deficits; Z79.82 Long term (current) use of aspirin; Z79.899 Other long term (current) drug therapy; Z99.81 Dependence on supplemental oxygen; W18.11XA Fall from or off toilet without subsequent striking against object, initial encounter
CPT/HCPCS: 71010; 73030; 73060; 80048; 82550; 82948; 83735; 83880; 84484; 85025; 85610; 85730; 93005; 94640; 94664; 96374; 99285; G0378; J1815; J2270; J2930

== ENCOUNTER 2016-09-08 15:16 | Inpatient (IN) | payer MEDICARE, MEDICAID ==
[~2016-09-08] VITALS: Ht 157.5 cm; Wt 96.9 kg
[2016-09-08] VITALS (10 sets, daily range): BP systolic 112–154; BP diastolic 56–72; PULSE 50–67; RESP 20–40; TEMP 96.1–98.5; O2SAT 93–100
[~2016-09-08 15:16] MED LIST changes: -ASPI325T PO; -ASPI81CH CHEW; +COLC1CAP3 PO; -COLC1TAB15 PO; -DOXY100C PO; -DRIS50002 PO; -INSU-174 SQ; -METR250T15 PO; -MS C100T PO; -NITR1SUB3 SL; -TERC0.4C2 VAGINAL; -TRAZ50TA12 PO; -TRIA
[2016-09-08] MEDS: RESP: ALBUTEROL 2.5 MG/IPRATROPIUM 0.5 MG NEB (SCH) INH ×4 (15:30→22:56)
[2016-09-08] MEDS ORDERED: SODIUM CHLORIDE 0.9% FLUSH 10 ML FLUSH IVF PRN (15:45)
[2016-09-08] MEDS ORDERED: methylPREDNISolone SOD SUCC 125 MG/2 ML VIAL IVP ONE (15:45)
[2016-09-08] MEDS ORDERED: FUROSEMIDE 100 MG/10 ML VIAL IVP ONE (15:45)
[2016-09-08 15:55] LABS: BLOOD GAS BASE EXCESS -4.6 mmol/L (-2-2); BLOOD GAS CARBOXYHEMOGLOBIN 1.2 % (0-4); BLOOD GAS HCO3 21 mmol/L (22-26); BLOOD GAS METHEMOGLOBIN 0.5 % (0-2); BLOOD GAS O2 HGB SATURATION 98 % (90-100); BLOOD GAS OXYGEN CONTENT 14.5 Vol % (12.0-20.0); BLOOD GAS PCO2 44 mmHg (38-42); BLOOD GAS PO2 233 mmHG (61-120); BLOOD GAS TOTAL HGB 10.2 G/DL (12.0-16.0); CRITICAL VALUE NO; DRAW SITE RT RADIAL; LITER FLOW 8 L/M; NUMBER OF ARTERIAL PUNCTURES 1; OXYGEN DEVICE AER TX; STAT YES; TEMP CORR TO 98.6; ULNAR PULSE PRESENT
--- NOTE | 2016-09-08 15:56 | RADRPT ---
EXAM DATE/TIME: 09/08/2016 15:35 [place] COMPARISON: No previous studies available for comparison. INDICATIONS : Short of breath. MEDICAL HISTORY : Cardiovascular disease. Hypertension SURGICAL HISTORY : None. ENCOUNTER: Initial ACUITY: 1 day PAIN SCORE: 0/10 LOCATION: Bilateral chest FINDINGS: A single view of the chest demonstrates some right upper and lower lobe infiltrate. The cardiomedias tinal contours are unremarkable. Osseous structures are intact. Clips overly the left hilar CONCLUSION: Some infiltrates in the right lung, new since the previous exam. Sylvester Vásquez MD on September 08, 2016 at 15:51 Board Certified Radiologist. This report was verified electronically.
[2016-09-08 16:12] LABS: AUTOMATED NEUTROPHIL # 8.9 TH/MM3 (1.8-7.7); BASOPHIL # 0.1 TH/MM3 (0-0.2); BASOPHIL % 0.8 % (0.0-2.0); EOSINOPHIL # 0.2 TH/MM3 (0-0.4); EOSINOPHIL % 2.1 % (0.0-4.0); HEMO FLAGS DIFF FINAL; LYMPH % 10.4 % (9.0-44.0); LYMPHOCYTE # 1.2 TH/MM3 (1.0-4.8); MEAN CELL VOLUME 93.4 FL (80.0-100.0); MEAN CORPUSCULAR HEMOGLOBIN 29.2 PG (27.0-34.0); MEAN CORPUSCULAR HGB CONC 31.3 % (32.0-36.0); MONO % 6.6 % (0.0-8.0); NEUT % 80.1 % (16.0-70.0); PLATELET COUNT 248 TH/MM3 (150-450); RED BLOOD COUNT 3.32 MIL/MM3 (4.00-5.30); WHITE BLOOD COUNT 11.1 TH/MM3 (4.0-11.0)
[2016-09-08] MEDS ORDERED: VANCOMYCIN INJ 1,000 MG in SODIUM CHLOR 0.9% 250 ML INJ 250 ML IV ONE (16:15)
[2016-09-08] MEDS ORDERED: PIPERACIL-TAZO 4.5 GM PREMIX 100 ML IV ONE (16:15)
[2016-09-08 16:21] LABS: PROTHROMBIN TIME - PATIENT 11.2 SEC (9.8-11.6)
[2016-09-08] MEDS ORDERED: ONDANSETRON HCL 4 MG/2 ML VIAL IV PUSH ONE (16:30)
[2016-09-08 16:32] LABS: ANION GAP 9 MEQ/L (5-15); BICARBONATE 22.2 MEQ/L (21.0-32.0); BLOOD UREA NITROGEN 57 MG/DL (7-18); CHLORIDE 107 MEQ/L (98-107); GLOMERULAR FILTRATION RATE 14 ML/MIN (>89); MAGNESIUM 2.3 MG/DL (1.5-2.5); POTASSIUM 5.9 MEQ/L (3.5-5.1); SODIUM (NA) 138 MEQ/L (136-145)
[2016-09-08] MEDS ORDERED: INSULIN HUMAN REGULAR 1,000 UNITS/10 ML VIAL IV PUSH ONE (16:45)
[2016-09-08] MEDS ORDERED: DEXTROSE 50% IN WATER 50 ML VIAL(D50) IV PUSH ONE (16:45)
[2016-09-08] MEDS ORDERED: SODIUM BICARBONATE 8.4% SOLN 50 MEQ/50 ML VIAL SLOW IVP ONE (16:45)
[2016-09-08] MEDS ORDERED: CALCIUM GLUCONATE 10% 1 GM/10 ML VIAL SLOW IVP ONE (16:45)
--- NOTE | 2016-09-08 18:07 | PD ---
HPI Chief Complaint: Chest Pain Time Seen by Provider: 15:35 Travel History International Travel<30 days: No Contact w/Intl Traveler<30days: No Traveled to known affect area: No History of Present Illness HPI 75-year-old female came to the emergency room with history of severe dyspnea and chest pain. Patient was brought in emergently. She was brought by her daughter and son. Patient's oxygen saturation were very low upon arrival probably mid 80s although it was a not good capture. Patient has history of COPD and coronary artery disease and requires 2 L of oxygen at home. Per the son and the daughter she has been here multiple times in past 1 month for similar condition. Once she was admitted as per the past medical record under family medicine service about one month ago and again 2 weeks ago she was admitted to the chest pain center. Patient had refused stress test at that time. She was extremely short of breath while she was sitting at rest. She said it was impossible for her to ambulate even couple steps due to the pain. No history of fever as far as I know. PFSH Past Medical History Narrative Medical List of her past medical, surgical, social and family history is reviewed from the nursing note. Hx Anticoagulant Therapy: No Arthritis: Yes Asthma: Yes Autoimmune Disease: No Blood Disorders: No Anxiety: No Depression: Yes Heart Rhythm Problems: Yes Cancer: Yes (LEFT KIDNEY/ CAUDERIZATION) Cardiac Catheterization: Yes Cardiovascular Problems: Yes High Cholesterol: No Chemotherapy: No Chest Pain: Yes Congestive Heart Failure: Yes COPD: Yes Cerebrovascular Accident: Yes Diabetes: Yes Patient Takes Glucophage: No Diminished Hearing: No Endocrine: Yes Gastrointestinal Disorders: Yes GERD: No Glaucoma: No Genitourinary: Yes (KIDNEY TUMOR CAUDERIZED) Headaches: Yes Hepatitis: No Hiatal Hernia: Yes (REPAIR) Hypertension: Yes Immune Disorder: No Kidney Stones: No 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) Neurologic: No Psychiatric: Yes Reproductive: No Respiratory: Yes Migraines: No Myocardial Infarction: Yes Radiation Therapy: No Renal Failure: Yes Seizures: No Sleep Apnea: No Thyroid Disease: No Ulcer: No Past Surgical History Abdominal Surgery: Yes AICD: No Appendectomy: Yes Arteriovenous Shunt: No Cardiac Surgery: Yes (CABG X4 VESSEL IN 1999) Cholecystectomy: Yes Coronary Artery Bypass Graft: Yes Ear Surgery: No Endocrine Surgery: No Eye Surgery: No Genitourinary Surgery: No Gynecologic Surgery: Yes Hysterectomy: Yes Insulin Pump: No Joint Replacement: No Oral Surgery: Yes (teeth) Pacemaker: No Thoracic Surgery: No Tonsillectomy: Yes Other Surgery: Yes Family History Family Myocardial Infarction: Yes Social History Alcohol Use: No Tobacco Use: No Substance Use: No Allergies-Medications (Allergen,Severity, Reaction): Coded Allergies: Augmentin (Verified Allergy, Severe, Rash, 08/26/16) Haldol (Verified Allergy, Severe, Hallucinations, 08/26/16) Latex (Verified Allergy, Severe, HIVES, 08/26/16) Macrodantin (Verified Allergy, Severe, SHAKY , BLOOD SUGER PROBLEMS, ) Mirapex (Verified Allergy, Severe, LETHARGY,DIZZY,SHAKY, 08/26/16) Phenergan (Verified Allergy, Severe, Hallucinations, 08/26/16) Temazepam (Verified Allergy, Severe, Rash, 08/26/16) Lopid (Verified Allergy, Intermediate, 08/26/16) Lyrica (Verified Allergy, Unknown, 08/26/16) Soma (Verified Allergy, Unknown, 08/26/16) Amoxicillin (Verified Adverse Reaction, Severe, diarrhea, 08/26/16) HMG-CoA Reductase Inhibitors (Verified Adverse Reaction, Severe, LIVER DISEASE WITH SUBSEQUENT CHRONIC ITCHING UNTIL DC'D, 08/26/16) Trazodone (Verified Adverse Reaction, Intermediate, altered mental status , 08/26/16) *MDRO Multi-Drug Resistant Organism (Verified Adverse Reaction, Unknown, ) 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 Reported Meds & Prescriptions Reported Meds & Active Scripts Active Ms Contin (Morphine Sulfate) 15 Mg Tab 15 Mg PO DAILY Potassium Chloride ER (Potassium Chloride) 10 Meq Cap 10 Meq PO DAILY Furosemide 40 Mg Tab 40 Mg PO DAILY Fosinopril (Fosinopril Sodium) 10 Mg Tab 10 Mg PO DAILY Proair Hfa 8.5 GM Inh (Albuterol Sulfate) 90 Mcg/Act Aer 2 Puff INH Q4 PRN 108 mcg/actuation Amlodipine (Amlodipine Besylate) 10 Mg Tab 10 Mg PO DAILY Reported Ativan (Lorazepam) 2 Mg Tab 2 Mg PO DAILY PRN Morphine ER (Morphine Sulfate) 100 Mg Tab 100 Mg PO DAILY Metoprolol Tartrate 100 Mg Tab 100 Mg PO BID Glucotrol (Glipizide) 10 Mg Tab 10 Mg PO DAILY Take 30 minutes before a meal Symbicort Inh (Budesonide/Formoterol Fumarate) 160-4.5 Mcg/Act Aero 2 Puff INH BID Duoneb (Ipratropium-Albuterol Neb) 0.5-2.5 Mg/3 Ml Neb 1 Nebule INH Q4HR NEB Narrative Medication List of her home medications reviewed from the nursing note. Review of Systems Except as stated in HPI: all other systems reviewed are Neg Physical Exam Narrative GENERAL: Awake, alert, obese, significant distress, elderly and frail SKIN: Focused skin assessment warm/dry. Pale HEAD: Atraumatic. Normocephalic. EYES: Pupils equal and round. No scleral icterus. No injection or drainage. ENT: No nasal bleeding or discharge. Mucous membranes pink and moist. NECK: Trachea midline. No JVD. CARDIOVASCULAR: Regular rate and rhythm. No murmur appreciated. RESPIRATORY: Severe respiratory distress, decreased air entry, wheezing bilaterally GASTROINTESTINAL: Abdomen soft, non-tender, nondistended. Hepatic and splenic margins not palpable. MUSCULOSKELETAL: No obvious deformities. No clubbing. No cyanosis. No edema. NEUROLOGICAL: Awake and alert. No obvious cranial nerve deficits. Motor grossly within normal limits. Normal speech. PSYCHIATRIC: Appropriate mood and affect; insight and judgment normal. Data Data Last Documented VS Vital Signs Date Time Temp Pulse Resp B/P Pulse Ox O2 Delivery O2 Flow Rate FiO2 09/08/16 17:52 52 20 117/57 100 2 09/08/16 16:30 Nasal Cannula 09/08/16 16:00 40 09/08/16 15:25 98.5 Orders Complete Blood Count With Diff (09/08/16 15:35) Basic Metabolic Panel (Bmp) (09/08/16 15:35) B-Type Natriuretic Peptide (09/08/16 15:35) Prothrombin Time / Inr (Pt) (09/08/16 15:35) Magnesium (Mg) (09/08/16 15:35) Troponin I (09/08/16 15:35) Arterial Blood Gas (Abg) (09/08/16 15:35) Urinalysis - C+S If Indicated (09/08/16 15:35) Blood Culture (09/08/16 15:35) Iv Access Insert/Monitor (09/08/16 15:35) Electrocardiogram (09/08/16 15:35) Ecg Monitoring (09/08/16 15:35) Oximetry (09/08/16 15:35) Oxygen Administration (09/08/16 15:35) Chest, Single Ap (09/08/16 15:35) Sodium Chloride 0.9% Flush (Ns Flush) (09/08/16 15:45) Methylprednisolone So Succ Inj (Solumedr (09/08/16 15:45) Albuterol-Ipratropium Neb (Duoneb Neb) (09/08/16 15:45) Furosemide Inj (Lasix Inj) (09/08/16 15:45) Piperacil-Tazo 4.5 Gm Premix (Zosyn 4.5 (09/08/16 16:15) Vancomycin Inj (Vancomycin Inj) (09/08/16 16:15) Ondansetron Inj (Zofran Inj) (09/08/16 16:30) Potassium, Serum (K) (09/08/16 19:36) Calcium Gluconate Inj (Calcium Gluconate (09/08/16 16:45) Insulin Human Regular Inj (Novolin R Inj (09/08/16 16:45) Dextrose 50% In Cori (Vial) Inj (D50w (Vi (09/08/16 16:45) Sodium Bicarbonate 8.4% Inj (Sodium Bica (09/08/16 16:45) Admit Order (Ed Use Only) (09/08/16 17:52) Labs Laboratory Tests Test 09/08/16 09/08/16 15:40 15:44 Prothrombin Time 11.2 SEC Prothromb Time International 1.0 RATIO Ratio Sodium Level 138 MEQ/L Potassium Level 5.9 MEQ/L Chloride Level 107 MEQ/L Carbon Dioxide Level 22.2 MEQ/L Anion Gap 9 MEQ/L Blood Urea Nitrogen 57 MG/DL Creatinine 3.32 MG/DL Estimat Glomerular Filtration 14 ML/MIN Rate Random Glucose 195 MG/DL Calcium Level 8.5 MG/DL Magnesium Level 2.3 MG/DL Troponin I LESS THAN 0.02 NG/ML B-Type Natriuretic Peptide 951 PG/ML White Blood Count 11.1 TH/MM3 Red Blood Count 3.32 MIL/MM3 Hemoglobin 9.7 GM/DL Hematocrit 31.0 % Mean Corpuscular Volume 93.4 FL Mean Corpuscular Hemoglobin 29.2 PG Mean Corpuscular Hemoglobin 31.3 % Concent Red Cell Distribution Width 15.0 % Platelet Count 248 TH/MM3 Mean Platelet Volume 8.1 FL Neutrophils (%) (Auto) 80.1 % Lymphocytes (%) (Auto) 10.4 % Monocytes (%) (Auto) 6.6 % Eosinophils (%) (Auto) 2.1 % Basophils (%) (Auto) 0.8 % Neutrophils # (Auto) 8.9 TH/MM3 Lymphocytes # (Auto) 1.2 TH/MM3 Monocytes # (Auto) 0.7 TH/MM3 Eosinophils # (Auto) 0.2 TH/MM3 Basophils # (Auto) 0.1 TH/MM3 CBC Comment DIFF FINAL Differential Comment Blood Gas Puncture Site RT RADIAL Blood Gas Patient Temperature 98.6 Blood Gas HCO3 21 mmol/L Blood Gas Base Excess -4.6 mmol/L Blood Gas Oxygen Saturation 98 % Arterial Blood pH 7.30 Arterial Blood Partial 44 mmHg Pressure CO2 Arterial Blood Partial 233 mmHG Pressure O2 Arterial Blood Oxygen Content 14.5 Vol % Arterial Blood 1.2 % Carboxyhemoglobin Arterial Blood Methemoglobin 0.5 % Blood Gas Hemoglobin 10.2 G/DL Oxygen Delivery Device AER TX Blood Gas Liter Flow 8 L/M MDM Medical Decision Making Medical Screen Exam Complete: Yes Emergency Medical Condition: Yes Medical Record Reviewed: Yes Interpretation(s) Twelve-lead EKG was reviewed by me. Atrial fibrillation, bradycardia, normal axis. Heart rate of 51 bpm. Differential Diagnosis Coronary artery disease, ACS, non-STEMI, COPD exacerbation, pneumonia, pleural effusion Narrative Course 6:02 PM I initially spoke with the patient who did not want to be intubated upon asking. Patient was in full capacity to make this decision. I spoke with the daughter and her son who had initially brought her in. I explained to them that patient would be admitted. Patient told me that her hot mill supervisor was Dr. Nolasco. I discussed the case with him on the phone as well and he said he would consult on the patient. However given the fact that she didn't want to be intubated and would be a DNR at this point and had refused stress test and her condition seemed terminal in my opinion I expressed to him that the patient should be a hospice patient. He agreed and asked me to discuss with the primary care service as well. Meanwhile her chest x-ray came back which showed pneumonia. I have ordered antibiotics for her which patient is getting as per sepsis protocol. Her kidney function came back as kidney failure and potassium was elevated. I have given her medications to lower her potassium. At this point her another daughter who is a nurse was present in the room and I spoke with her and she confirmed that patient does have history of chronic kidney disease and does see a market analysis director. They could not remember the name of the market analysis director. At one point they had recommended dialysis but patient had refused. Patient has a growing tumor in her one kidney of the other kidney is not functioning well. She also told me the patient does not have a history of atrial fibrillation. 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 I have spoken with the board certified family physician and admitted the patient at this point. Critical Care Narrative Aggregate critical care time was 60 minutes. Time to perform other separately billable procedures was not included in the critical care time. My time did not include minutes spent treating any other patients simultaneously or on activities that did not directly contribute to the patient's treatment. The services I provided to this patient were to treat and/or prevent clinically significant deterioration that could result in: Respiratory distress, hyperkalemia, renal failure I provided critical care services requiring my management, as noted below: Chart data review, documentation time, medication orders and management, vital sign assessments/reviewing monitor data, ordering and reviewing lab tests, ordering and interpreting/reviewing x-rays and diagnostic studies, care of the patient and discussion of the patient with the admitting physicians. Procedures EKG Prior to Arrival: No Diagnosis Primary Impression: Respiratory distress Additional Impressions: Renal failure Qualified Code: N17.9 - Acute renal failure superimposed on stage 5 chronic kidney disease, not on chronic dialysis, unspecified acute renal failure type Pneumonia Qualified Code: J18.1 - Pneumonia of right lower lobe due to infectious organism Hyperkalemia Respiratory acidosis Atrial fibrillation Qualified Code: I48.91 - Atrial fibrillation, unspecified type Admitting Information Admitting Physician Requests: Admit Symone Mars MD Sep 08, 2016 18:07
[2016-09-08] MEDS ORDERED: SODIUM CHLOR 0.9% 1000 ML INJ 1,000 ML IV SCH (18:23)
[2016-09-08] MEDS ORDERED: NALOXONE HCL 0.4 MG/ML AMP IV PRN ×2 (18:30→20:45)
[2016-09-08] MEDS ORDERED: LACTULOSE SYRUP 20 GM/30 ML CUP PO PRN (18:30)
[2016-09-08] MEDS ORDERED: MAGNESIUM HYDROXIDE SUSP 30 ML CUP PO PRN (18:30)
[2016-09-08] MEDS ORDERED: SENNOSIDES 8.6 MG TAB PO PRN (18:30)
[2016-09-08] MEDS ORDERED: BISACODYL 10 MG SUPP RECTAL PRN (18:30)
--- NOTE | 2016-09-08 18:58 | HHI.HP ---
HPI Service Family Medicine Primary Care Physician Jose Eduardo Mcgee MD Admission Diagnosis chest pain, respiratory distress, pneumonia, hyperkalemia, CK Diagnoses: International Travel<30 Days: No Contact w/Intl Traveler<30days: No History of Present Illness Patient is a 75 year old female with a PMH significant for COPD on oxygen, IDDM , CAD, chronic pain who presents to the ED with severe shortness of breath and chest pain. She is accompanied by her daughters and granddaughter bedside. The patient states she has had midsternal chest pain, nonradiating, pleuritic, exacerbated by any movement. She states that she can only walk 5 or so. Before getting short of breath with chest pain. Her oxygen saturation was noted to be in the 80s% at home so she was brought in by car. She does of note use 3 L nasal cannula rate of oxygen at home and this has not changed. She had a recent one day hospitalization in the chest pain center on August 26 for chest pain workup which was negative. At that time her BNP was noted to be 459. ED course: Patient has received DuoNeb 3. EKG performed and notable for atrial fibrillation with slow ventricular response. Troponin is negative. Per patient' s daughter, patient had atrial fibrillation in the past after her CABG in 1999. She was given amiodarone at that time and was symptomatic. She has respiratory symptoms but no current chest pain. The patient was previously in normal sinus rhythm at her last hospital stay. Of note, patient is reported to have fallen in the 1 week ago and hit her right hip leg and left arm. She states she fell to the floor and did not hit her head. There was no loss of consciousness. She did not get evaluated. She states she normally needs assistance getting up and out of bed at baseline and this has not changed. She uses a wheelchair for mobility and has not been able to tolerate walker for a while. Her current pain is unchanged and of note she takes morphine 115 mg every morning as well as Xanax 2 mg every night. She insists that she takes both of these medications every day and does not have any adverse reactions to these. She states if she does not take these medications she will have significant pain and inability to sleep. (Norma Ovalle MD R1) Review of Systems Constitutional: DENIES: Fever, Chills Eyes: DENIES: Blurred vision, Diplopia Ears, nose, mouth, throat: DENIES: Tinnitus, Hearing loss, Vertigo, Nasal discharge Respiratory: COMPLAINS OF: Cough, Wheezing, Sputum production (green and brown) , Shortness of breath, DENIES: Hemoptysis Cardiovascular: COMPLAINS OF: Chest pain, DENIES: Palpitations, Syncope Gastrointestinal: DENIES: Abdominal pain, Black stools, Bloody stools, Constipation, Diarrhea Genitourinary: DENIES: Urinary frequency, Dysuria Musculoskeletal: DENIES: Muscle aches, Stiffness Integumentary: DENIES: Pruritus, Rash Hematologic/lymphatic: COMPLAINS OF: Bruising, DENIES: Lymphadenopathy Immunologic/allergic: COMPLAINS OF: Urticaria, DENIES: Eczema Neurologic: DENIES: Abnormal gait, Headache, Paresthesias, Seizures Psychiatric: COMPLAINS OF: Anxiety, Depression, DENIES: Confusion (Norma Ovalle MD R1) Past Family Social History Past Medical History COPD, CVA, TIA, A. fib, diabetes, PR, hypertension, chronic renal failure, gout , oxygen dependent, history of renal cancer Past Surgical History CABG 4 in 1999 Appendectomy Hysterectomy Tonsillectomy Reported Medications Reported Meds & Active Scripts Active Ms Contin (Morphine Sulfate) 15 Mg Tab 15 Mg PO DAILY Potassium Chloride ER (Potassium Chloride) 10 Meq Cap 10 Meq PO DAILY Furosemide 40 Mg Tab 40 Mg PO DAILY Fosinopril (Fosinopril Sodium) 10 Mg Tab 10 Mg PO DAILY Proair Hfa 8.5 GM Inh (Albuterol Sulfate) 90 Mcg/Act Aer 2 Puff INH Q4 PRN 108 mcg/actuation Amlodipine (Amlodipine Besylate) 10 Mg Tab 10 Mg PO DAILY Reported Ativan (Lorazepam) 2 Mg Tab 2 Mg PO DAILY PRN Morphine ER (Morphine Sulfate) 100 Mg Tab 100 Mg PO DAILY Metoprolol Tartrate 100 Mg Tab 100 Mg PO BID Glucotrol (Glipizide) 10 Mg Tab 10 Mg PO DAILY Take 30 minutes before a meal Symbicort Inh (Budesonide/Formoterol Fumarate) 160-4.5 Mcg/Act Aero 2 Puff INH BID Duoneb (Ipratropium-Albuterol Neb) 0.5-2.5 Mg/3 Ml Neb 1 Nebule INH Q4HR NEB ( Norma Ovalle MD R1) Allergies: Coded Allergies: Augmentin (Verified Allergy, Severe, Rash, 08/26/16) Haldol (Verified Allergy, Severe, Hallucinations, 08/26/16) Latex (Verified Allergy, Severe, HIVES, 08/26/16) Macrodantin (Verified Allergy, Severe, SHAKY , BLOOD SUGER PROBLEMS, ) Mirapex (Verified Allergy, Severe, LETHARGY,DIZZY,SHAKY, 08/26/16) Phenergan (Verified Allergy, Severe, Hallucinations, 08/26/16) Temazepam (Verified Allergy, Severe, Rash, 08/26/16) Lopid (Verified Allergy, Intermediate, 08/26/16) Lyrica (Verified Allergy, Unknown, 08/26/16) Soma (Verified Allergy, Unknown, 08/26/16) Amoxicillin (Verified Adverse Reaction, Severe, diarrhea, 08/26/16) HMG-CoA Reductase Inhibitors (Verified Adverse Reaction, Severe, LIVER DISEASE WITH SUBSEQUENT CHRONIC ITCHING UNTIL DC'D, 08/26/16) Trazodone (Verified Adverse Reaction, Intermediate, altered mental status , 08/26/16) *MDRO Multi-Drug Resistant Organism (Verified Adverse Reaction, Unknown, ) MRSA Sputum 10/2008 Uncoded Allergies: TAPE (Allergy, Mild, Rash, 11/06/09) USE PAPER TAPE ONLY ees (Allergy, Mild, itch, 11/06/09) advicor (Adverse Reaction, Intermediate, redness, itchin, 11/06/09) cipro,septra (Adverse Reaction, Intermediate, diarrhea,itching, 11/06/09) topramax (Adverse Reaction, Intermediate, 11/06/09) Family History Family history reportedly unremarkable Social History Patient denies tobacco, alcohol, illicit drug use (Norma Ovalle MD R1) Physical Exam Vital Signs Vital Signs Date Time Temp Pulse Resp B/P Pulse Ox O2 Delivery O2 Flow Rate FiO2 09/08/16 17:52 52 20 117/57 100 2 09/08/16 16:30 99 Nasal Cannula 3.00 09/08/16 16:00 100 40 09/08/16 16:00 99 09/08/16 16:00 Nasal Cannula 2 09/08/16 15:29 Nasal Cannula 2 09/08/16 15:25 98.5 58 20 154/72 93 09/08/16 15:19 97.5 50 40 128/58 93 Room Air Physical Exam GENERAL: Patient is obese, well-nourished female lying in bed with nasal cannula. She is in no acute distress. SKIN: Warm and dry. The skin is notable for diffuse small areas of bruising including on the right lateral leg, left medial ankle, right hand, and left forearm. HEAD: Atraumatic. Normocephalic. EYES: Pupils equal and round. No scleral icterus. No injection or drainage. ENT: No nasal bleeding or discharge. Mucous membranes pink and moist. NECK: Trachea midline. No JVD. CARDIOVASCULAR: Regular rate and rhythm. No murmurs auscultated the lung sounds may occlude these RESPIRATORY: No accessory muscle use. The lungs are diffusely wheezy with prolonged expiratory phase and rhonchi in the upper lobes. Breath sounds equal bilaterally. GASTROINTESTINAL: Abdomen soft, non-tender, obese, nondistended. Hepatic and splenic margins not palpable. MUSCULOSKELETAL: Extremities without clubbing, cyanosis, or edema. No obvious deformities. All joints were palpated without any tenderness and no joint effusions are noted. NEUROLOGICAL: Awake and alert. No obvious cranial nerve deficits. Motor grossly within normal limits. Five out of 5 muscle strength in the arms and legs. Normal speech. PSYCHIATRIC: Appropriate mood and affect; insight and judgment normal. She does appear mildly anxious. Laboratory Laboratory Tests Test 09/08/16 09/08/16 15:40 15:44 White Blood Count 11.1 Red Blood Count 3.32 Hemoglobin 9.7 Hematocrit 31.0 Mean Corpuscular Volume 93.4 Mean Corpuscular Hemoglobin 29.2 Mean Corpuscular Hemoglobin 31.3 Concent Red Cell Distribution Width 15.0 Platelet Count 248 Mean Platelet Volume 8.1 Neutrophils (%) (Auto) 80.1 Lymphocytes (%) (Auto) 10.4 Monocytes (%) (Auto) 6.6 Eosinophils (%) (Auto) 2.1 Basophils (%) (Auto) 0.8 Neutrophils # (Auto) 8.9 Lymphocytes # (Auto) 1.2 Monocytes # (Auto) 0.7 Eosinophils # (Auto) 0.2 Basophils # (Auto) 0.1 CBC Comment DIFF FINAL Differential Comment Prothrombin Time 11.2 Prothromb Time International 1.0 Ratio Sodium Level 138 Potassium Level 5.9 Chloride Level 107 Carbon Dioxide Level 22.2 Anion Gap 9 Blood Urea Nitrogen 57 Creatinine 3.32 Estimat Glomerular Filtration 14 Rate Random Glucose 195 Calcium Level 8.5 Magnesium Level 2.3 Troponin I LESS THAN 0.02 B-Type Natriuretic Peptide 951 Blood Gas Puncture Site RT RADIAL Blood Gas Patient Temperature 98.6 Blood Gas HCO3 21 Blood Gas Base Excess -4.6 Blood Gas Oxygen Saturation 98 Arterial Blood pH 7.30 Arterial Blood Partial 44 Pressure CO2 Arterial Blood Partial 233 Pressure O2 Arterial Blood Oxygen Content 14.5 Arterial Blood 1.2 Carboxyhemoglobin Arterial Blood Methemoglobin 0.5 Blood Gas Hemoglobin 10.2 Oxygen Delivery Device AER TX Blood Gas Liter Flow 8 Date/Time Procedure Status Source Growth 09/08/16 15:55 Aerobic Blood Culture Received Blood Peripheral Pending 09/08/16 15:55 Anaerobic Blood Culture Received Blood Peripheral Pending (Norma Ovalle MD R1) Result Diagram: 09/08/16 1540 09/08/16 1540 Imaging Last Impressions Chest X-Ray 09/08/16 1535 Signed Impressions: Service Date/Time: Thursday, September 08, 2016 15:35 - CONCLUSION: Some infiltrates in the right lung, new since the previous exam. Sylvester Vásquez MD (Norma Ovalle MD R1) Assessment and Plan Assessment and Plan 75-year-old female with history significant for COPD, CVA, CAD, atrial fibrillation who presents with chest pain. She infiltrate on the right lung concerning for age. She has been recently admitted for chest pain workup. She' ll be admitted to the hospital under inpatient status for chest pain workup, pneumonia treatment and management, and COPD management. Code Status ALTERNATIVE CODE: Patient desires no intubation. Discussed Condition With Seen and discussed with Dr. Ofe Anderson, PGY (Norma Ovalle MD R1) Problem List: (1) COPD with exacerbation Status: Acute Plan: Patient with history of COPD, presenting with acute shortness of breath and chest pain. Given sputum production and cough, we'll admit for COPD exacerbation. She is status post treatments with duonebs in the ED and is on nasal cannula at time of evaluation She symptomatically has improved significantly since arrival to the ED per her report and clinically is in no apparent distress. Of note her oxygen rate is 3 L at bedside which is her home rate. Plan: * Monitor vital signs * Solu-Medrol 125 mg 1 IV given in ED * We'll continue Solu-Medrol 60 mg every 6 hours IV for now, likely transition to prednisone by mouth tomorrow * Respiratory supportive care with incentive spirometry continued nasal cannula with goal oxygen saturation > 92% * Duo nebs every 4 hours, albuterol treatments when necessary * Treatment of pneumonia as documented elsewhere (2) CHF exacerbation Status: Resolved Plan: BNP is noted to be 951, elevated and concerning for CHF exacerbation in conjunction with COPD exacerbation. He does have chest pain at this time. Initial troponin negative. EKG notable for atrial fibrillation with slow ventricular response in a patient with chronic A. fib. Plan: * Trend cardiac enzymes and EKG every 3 hours * Lasix 60 mg IV 1 given in ED * Strict I's and O's * Daily weights (3) Pneumonia Status: Acute Plan: Concern for HCAP given recent hospitalization and symptoms (shortness of breath, productive cough, history of COPD). She is afebrile and bradycardic at baseline. Oxygen saturation is 93% on room air at time of admission and is 90-99 % on 2-3 L nasal cannula. Plan: * Vancomycin plus Zosyn given in ED 1 * Will continue Vancomycin plus Zosyn given HCAP * Monitor vital signs every 4 hours (4) Chest pain in adult Status: Acute Plan: Chest pain workup indicated given his significant cardiac history including diabetes, CHF and CAD. Chest pain likely related to her respiratory symptoms. Differential includes COPD, pneumonia, PR, PE, GERD, Her saturation is greater than 98% on 3 L nasal cannula which decreases likelihood of PE. D-dimer likely to be elevated given chronic medical conditions * Management as above (5) Hyperkalemia Status: Acute Plan: Patient is noted to have a serum potassium of 5.9 at admission. EKG not showing evidence of acute cardiac effect. In ED she is status post sodium bicarbonate, dextrose, calcium gluconate. She is notably on 10 meq potassium daily due to chronic Lasix use Plan: * Repeat BMP this evening * Hold 10 mEq potassium home dose * Continue to monitor and treat as needed (6) Hypertension Status: Chronic Plan: Chronic, continue home meds. Of note this does include a beta yeison, will monitor heart rate (7) DM (diabetes mellitus) Status: Chronic Plan: Chronic. Patient is on glipizide at home which is held. She'll be placed on low-dose sliding scale NovoLog, regular Accu-Cheks (8) Atrial fibrillation Status: Chronic Plan: Chronic A. fib. Patient is on metoprolol 100 mg twice a day. She is on no blood thinner. She sees Dr. Nolasco. She is not currently symptomatic and is noted to have a heart rate at approximately 50 BPM. Plan: * Continue metoprolol * Consult cardiology (Dr. Nolasco) * She will be on prophylactic Lovenox * If acute symptoms will manage as indicated (9) CKD (chronic kidney disease) Status: Chronic Plan: Chronic CAD but notable increased from 08/26. Creatinine is 3.3 today. Etiology is likely dehydration versus hypoxemia. Plan: Hold IV fluids given history of CHF We'll monitor BMP We'll give light IV fluids if indicated (10) Insomnia Status: Chronic Plan: Chronic. Patient takes Adalat at 2 mg every night. Plan: Give Xanax 1 mg every 8 hours when necessary (11) Opiate dependence Status: Chronic Plan: Patient reports chronic use of morphine, 115mg daily. She's been taking this for years. Confirmed in the EMR from our [facility] as she sees Dr. Mcgee. Last dose was today. She takes it in the morning. Plan: * Continue morphine as this dose given risk of withdrawal * For signs of respiratory depression. * Narcan when necessary (12) Fluids/Electrolytes/Nutrition/Prophylaxis Status: Acute Plan: Fluids: Due to BNP elevated, will hold IVF and closely monitor AJ Electrolytes: hyperK, s/p treatment in ED. Will recheck BMP tonight Nutrition: heart-healthy diet DVT Prophylaxis: Early ambulation. Lovenox 30mg subQ q24hr/bilateral SCDs GI Prophylaxis: Protonix 40 mg PO daily (Norma Ovalle MD R1) Physician Certification 2 Midnight Certification Type: Admission for Inpatient Services Order for Inpatient Services The services are ordered in accordance with Medicare regulations or non- Medicare payer requirements, as applicable. In the case of services not specified as inpatient-only, they are appropriately provided as inpatient services in accordance with the 2-midnight benchmark. Estimated LOS (days): 3 days is the estimated time the patient will need to remain in the hospital, assuming treatment plan goals are met and no additional complications. Post-Hospital Plan: Not yet determined (Norma Ovalle MD R1) Problem Qualifiers (1) CHF exacerbation: Qualified Code: I50.9 - Acute on chronic congestive heart failure, unspecified congestive heart failure type (2) Pneumonia: Qualified Code: J18.1 - Pneumonia of right lower lobe due to infectious organism (3) Hypertension: Qualified Code: I10 - Hypertension, unspecified type (4) DM (diabetes mellitus): Qualified Code: E13.8 - Other specified diabetes mellitus with complication, without long-term current use of insulin (5) Atrial fibrillation: Qualified Code: I48.91 - Atrial fibrillation, unspecified type (6) CKD (chronic kidney disease): Qualified Code: N18.4 - Stage 4 chronic kidney disease (7) Insomnia: Qualified Code: G47.00 - Insomnia, unspecified type (8) Opiate dependence: Qualified Code: F11.20 - Uncomplicated opioid dependence Norma Ovalle MD R1 Sep 08, 2016 18:58 Ashely Vance MD Sep 09, 2016 10:04
[2016-09-08] MEDS ORDERED: Vancomycin Consult Pharmacy 1 EA OTHER SCH (19:00)
[2016-09-08] MEDS ORDERED: RESP: ALBUTEROL 2.5 MG/3 ML NEB (PRN) NEB (20:00)
[2016-09-08] MEDS ORDERED: ALPRAZolam 1 MG TAB PO PRN (20:15)
[2016-09-08] MEDS ORDERED: ENOXAPARIN SODIUM 30 MG/0.3 ML SYRINGE SQ SCH (21:00)
[2016-09-08] MEDS ORDERED: ENOXAPARIN SODIUM 40 MG/0.4 ML SYRINGE SQ SCH (21:00)
[2016-09-08] MEDS: INSULIN ASPART SUPPLEMENTAL SCALE SQ SCH (21:00)
[2016-09-08] MEDS ORDERED: METOPROLOL TARTRATE 100 MG TAB PO SCH (21:00)
[2016-09-08] MEDS ORDERED: VANCOMYCIN INJ 750 MG in SODIUM CHLOR 0.9% 250 ML INJ 250 ML IV ONE (21:00)
[2016-09-08] MEDS: BUDESONIDE-FORMOTEROL 160/4.5 MCG INHALER INH SCH (21:17)
[2016-09-08] MEDS ORDERED: RESP: ALBUTEROL 2.5 MG/IPRATROPIUM 0.5 MG NEB (SCH) INH (22:00)
[2016-09-08] MEDS: DOCUSATE SODIUM 50 MG/SENNA 8.6 MG TAB PO SCH (22:09)
[2016-09-08] MEDS: PANTOPRAZOLE SOD 40 MG DELAYED RELEASE TAB PO SCH (22:09)
[2016-09-08] MEDS: SODIUM CHLORIDE 0.9% FLUSH 10 ML FLUSH IV FLUSH SCH (22:10)
[2016-09-08] MEDS: methylPREDNISolone SOD SUCC 125 MG/2 ML VIAL IVP SCH (22:11)
[2016-09-09] VITALS (12 sets, daily range): BP systolic 91–123; BP diastolic 50–60; PULSE 53–81; RESP 16–20; TEMP 96.4–98.4; O2SAT 94–98
[2016-09-09] MEDS: LORazepam 2 MG TAB PO PRN ×2 (00:37→23:11)
[2016-09-09] MEDS: PIPERACIL-TAZO 3.375 GM PREMIX 50 ML IV SCH ×5 (02:00→23:30)
[2016-09-09 02:16] LABS: BACTERIA, URINE MOD /hpf; BLOOD, URINE SMALL (NEG); COMMENT (UR) CULTURE INDICATED; CULTURE IF INDICATED CULTURE INDICATED; GLUCOSE,URINE NEG (NEG); HYALINE CAST, URINE 3 /lpf (RARE); KETONE, URINE NEG (NEG); NITRITE,URINE NEG (NEG); SQUAMOUS EPITHELIAL CELL URINE 7 /hpf (0-5); URINE COLOR YELLOW (YELLW/STRAW)
[2016-09-09 03:57] LABS: AUTOMATED NEUTROPHIL # 4.3 TH/MM3 (1.8-7.7); BASOPHIL % 0.2 % (0.0-2.0); HEMATOCRIT 24.4 % (35.0-46.0); HEMO FLAGS DIFF FINAL; LYMPH % 6.5 % (9.0-44.0); LYMPHOCYTE # 0.3 TH/MM3 (1.0-4.8); MEAN CELL VOLUME 92.3 FL (80.0-100.0); MEAN CORPUSCULAR HEMOGLOBIN 30.7 PG (27.0-34.0); MEAN CORPUSCULAR HGB CONC 33.2 % (32.0-36.0); MONO % 1.1 % (0.0-8.0); NEUT % 92.2 % (16.0-70.0); PLATELET COUNT 146 TH/MM3 (150-450); RED BLOOD COUNT 2.64 MIL/MM3 (4.00-5.30); RED CELL DISTRIBUTION WIDTH 14.5 % (11.6-17.2); WHITE BLOOD COUNT 4.7 TH/MM3 (4.0-11.0)
[2016-09-09] MEDS ORDERED: VANCOMYCIN INJ 1,000 MG in SODIUM CHLOR 0.9% 250 ML INJ 250 ML IV SCH (04:00)
[2016-09-09 04:22] LABS: BICARBONATE 23.4 MEQ/L (21.0-32.0); POTASSIUM 6.2 MEQ/L (3.5-5.1)
[2016-09-09] MEDS: methylPREDNISolone SOD SUCC 125 MG/2 ML VIAL IVP SCH ×4 (04:37→22:34)
[2016-09-09] MEDS: RESP: ALBUTEROL 2.5 MG/IPRATROPIUM 0.5 MG NEB (SCH) INH ×5 (04:39→20:23)
[2016-09-09 04:42] LABS: CREATINE KINASE 37 U/L (26-192)
[2016-09-09] MEDS: INSULIN ASPART SUPPLEMENTAL SCALE SQ SCH ×4 (06:50→23:11)
[2016-09-09] MEDS ORDERED: INSULIN HUMAN REGULAR 1,000 UNITS/10 ML VIAL IV PUSH ONE (07:45)
[2016-09-09] MEDS ORDERED: DEXTROSE 50% IN WATER 50 ML VIAL(D50) IV PUSH ONE (07:45)
[2016-09-09] MEDS ORDERED: DEXTROSE 50% IN WATER 50 ML SYRINGE IV ONE (08:30)
[2016-09-09] MEDS ORDERED: FUROSEMIDE 40 MG TAB PO SCH (09:00)
[2016-09-09] MEDS ORDERED: LISINOPRIL 10 MG TAB PO SCH (09:00)
--- NOTE | 2016-09-09 09:36 | HHI.HP ---
[facility] Service Family Medicine Primary Care Physician Jose Eduardo Mcgee MD Admission Diagnosis chest pain, respiratory distress, pneumonia, hyperkalemia, CK Diagnoses: (1) COPD with exacerbation Diagnosis: Principal (2) CHF exacerbation Diagnosis: Principal (3) Pneumonia Diagnosis: Principal (4) Chest pain in adult Diagnosis: Principal (5) Hyperkalemia Diagnosis: Principal (6) Hypertension Diagnosis: Principal (7) DM (diabetes mellitus) Diagnosis: Principal (8) Atrial fibrillation Diagnosis: Principal (9) CKD (chronic kidney disease) Diagnosis: Principal (10) Insomnia Diagnosis: Principal (11) Opiate dependence Diagnosis: Principal (12) Fluids/Electrolytes/Nutrition/Prophylaxis Diagnosis: Principal International Travel<30 Days: No Contact w/Intl Traveler<30days: No History of Present Illness Ms Sinclair is a 75 year old female with a PMH significant for COPD on oxygen, IDDM, CAD, chronic pain who presented to the ED with severe shortness of breath and chest pain. She was accompanied by her daughters and granddaughter at bedside. The patient stated she has had midsternal chest pain, nonradiating, pleuritic, exacerbated by any movement. She stated that she can only walk 5 feet or so before getting short of breath with chest pain. Her oxygen saturation was noted to be in the 80s% at home so she was brought in by car. She does of note use 3 L nasal cannula rate of oxygen at home and this has not changed. She had a recent one day hospitalization in the chest pain center on August 26 for chest pain workup which was negative. At that time her BNP was noted to be 459. ED course: Patient received DuoNeb 3. EKG performed and notable for atrial fibrillation with slow ventricular response. Troponin is negative. Per patient' s daughter, patient had atrial fibrillation in the past after her CABG in 1999. She was given amiodarone at that time and was symptomatic. She has respiratory symptoms but no current chest pain. The patient was previously in normal sinus rhythm at her last hospital stay. Of note, patient is reported to have fallen 1 week ago and hit her right hip leg and left arm. She states she fell to the floor and did not hit her head after getting up from the toilet. There was no loss of consciousness. She did not get evaluated. She states she normally needs assistance getting up and out of bed at baseline and this has not changed. She uses a wheelchair for mobility and has not been able to tolerate walker for a while. Her current pain is unchanged and of note she takes morphine 115 mg every morning as well as Xanax 2 mg every night. She insists that she takes both of these medications every day and does not have any adverse reactions to these. She states if she does not take these medications she will have significant pain and inability to sleep. Had discussion this am and she is still SOB but never wants to be on a ventilator. She at baseline needs to sleep in a semirecumbent state where she cannot lie flat. She becomes very SOB with exertion at baseline but is more SOB now. She requests oxygen to be able to leave the house and needs portable oxygen. She has a history of COPD and "needs air blowing on her at night". She had wheezing and coughing at home before she came in which is classic for her prior COPD exacerbations. We also discussed her renal failure. She reported that she has a history of renal cancer of some type 10 years ago and has seen an unknown Night Worker on [facility]. She is clear about "never wanting dialysis". I informed her that her kidneys were very poor right now but she will decline dialysis even if it was necessary to save her life. She has good family support and her daughter she lives with "does everything" including dressing and bathing, etc. With her serious conditions, we discussed consideration of hospice and she feels she is well cared for now and does not need any extra services at this time. Review of Systems Other Constitutional: DENIES: Fever, Chills Eyes: DENIES: Blurred vision, Diplopia Ears, nose, mouth, throat: DENIES: Tinnitus, Hearing loss, Vertigo, Nasal discharge Respiratory: COMPLAINS OF: Cough, Wheezing, Sputum production (green and brown) , Shortness of breath, DENIES: Hemoptysis Cardiovascular: COMPLAINS OF: Chest pain, DENIES: Palpitations, Syncope Gastrointestinal: DENIES: Abdominal pain, Black stools, Bloody stools, Constipation, Diarrhea Genitourinary: DENIES: Urinary frequency, Dysuria Musculoskeletal: DENIES: Muscle aches, Stiffness Integumentary: DENIES: Pruritus, Rash Hematologic/lymphatic: COMPLAINS OF: Bruising, DENIES: Lymphadenopathy Immunologic/allergic: COMPLAINS OF: Urticaria, DENIES: Eczema Neurologic: DENIES: Abnormal gait, Headache, Paresthesias, Seizures Past Family Social History Past Medical History COPD, CVA, TIA, A. fib, diabetes, IL, hypertension, chronic renal failure, gout , oxygen dependent, history of renal cancer Past Surgical History CABG 4 in 1999 Appendectomy Hysterectomy Tonsillectomy Allergies: Coded Allergies: Augmentin (Verified Allergy, Severe, Rash, 08/26/16) Haldol (Verified Allergy, Severe, Hallucinations, 08/26/16) Latex (Verified Allergy, Severe, HIVES, 08/26/16) Macrodantin (Verified Allergy, Severe, SHAKY , BLOOD SUGER PROBLEMS, ) Mirapex (Verified Allergy, Severe, LETHARGY,DIZZY,SHAKY, 08/26/16) Phenergan (Verified Allergy, Severe, Hallucinations, 08/26/16) Temazepam (Verified Allergy, Severe, Rash, 08/26/16) Lopid (Verified Allergy, Intermediate, 08/26/16) Lyrica (Verified Allergy, Unknown, 08/26/16) Soma (Verified Allergy, Unknown, 08/26/16) Amoxicillin (Verified Adverse Reaction, Severe, diarrhea, 08/26/16) HMG-CoA Reductase Inhibitors (Verified Adverse Reaction, Severe, LIVER DISEASE WITH SUBSEQUENT CHRONIC ITCHING UNTIL DC'D, 08/26/16) Trazodone (Verified Adverse Reaction, Intermediate, altered mental status , 08/26/16) *MDRO Multi-Drug Resistant Organism (Verified Adverse Reaction, Unknown, ) MRSA Sputum 10/2008 Uncoded Allergies: TAPE (Allergy, Mild, Rash, 11/06/09) USE PAPER TAPE ONLY ees (Allergy, Mild, itch, 11/06/09) advicor (Adverse Reaction, Intermediate, redness, itchin, 11/06/09) cipro,septra (Adverse Reaction, Intermediate, diarrhea,itching, 11/06/09) topramax (Adverse Reaction, Intermediate, 11/06/09) Family History Father CAD, DM, CVA Mother aneurysm and COPD Social History Patient denies tobacco, alcohol, illicit drug use Physical Exam Vital Signs Vital Signs Date Time Temp Pulse Resp B/P Pulse Ox O2 Delivery O2 Flow Rate FiO2 09/09/16 09:06 97 Nasal Cannula 3.00 09/09/16 04:52 123/60 09/09/16 04:04 96.4 53 20 91/50 94 09/08/16 23:59 61 09/08/16 23:05 96.1 67 24 149/67 95 09/08/16 22:10 75 21 112/56 98 Nasal Cannula 2 09/08/16 20:11 99 Nasal Cannula 2.00 09/08/16 20:00 64 22 120/59 98 Nasal Cannula 2 09/08/16 17:52 52 20 117/57 100 2 09/08/16 16:30 99 Nasal Cannula 3.00 09/08/16 16:00 100 40 09/08/16 16:00 99 09/08/16 16:00 Nasal Cannula 2 09/08/16 15:29 Nasal Cannula 2 09/08/16 15:25 98.5 58 20 154/72 93 09/08/16 15:19 97.5 50 40 128/58 93 Room Air Physical Exam GENERAL: Patient is obese, well-nourished female lying in bed with nasal cannula. She is in mild respiratory distress able to speak full sentences but with some increased work of breathing SKIN: Warm and dry. The skin is notable for diffuse small areas of bruising including on the right lateral leg, left medial ankle, right hand, and left forearm. HEAD: Atraumatic. Normocephalic. EYES: Pupils equal and round. No scleral icterus. No injection or drainage. ENT: No nasal bleeding or discharge. Mucous membranes pink and moist. NECK: Trachea midline. No JVD. CARDIOVASCULAR: Regular rate and rhythm. No murmurs auscultated the lung sounds may occlude these RESPIRATORY: No accessory muscle use. The lungs were diffusely wheezy with prolonged expiratory phase and rhonchi in the upper lobes and lower. Breath sounds equal bilaterally. Today few wheezes but some rales especially lower lung chappell GASTROINTESTINAL: Abdomen soft, non-tender, obese, nondistended. Hepatic and splenic margins not palpable. MUSCULOSKELETAL: Extremities without clubbing, cyanosis, or edema. No obvious deformities. All joints were palpated without any tenderness and no joint effusions are noted. wearing compression stockings bilaterally NEUROLOGICAL: Awake and alert. No obvious cranial nerve deficits. Motor grossly within normal limits. Five out of 5 muscle strength in the arms and legs. Normal speech. PSYCHIATRIC: Appropriate mood and affect; insight and judgment normal. Laboratory Laboratory Tests Test 09/08/16 09/08/16 09/08/16 09/08/16 15:40 15:44 20:00 22:00 Prothrombin Time 11.2 Prothromb Time International 1.0 Ratio Sodium Level 138 Potassium Level 5.9 5.4 Chloride Level 107 Carbon Dioxide Level 22.2 Anion Gap 9 Blood Urea Nitrogen 57 Creatinine 3.32 Estimat Glomerular Filtration 14 Rate Random Glucose 195 Calcium Level 8.5 Magnesium Level 2.3 Troponin I LESS THAN 0.02 0.02 B-Type Natriuretic Peptide 951 White Blood Count 11.1 Red Blood Count 3.32 Hemoglobin 9.7 Hematocrit 31.0 Mean Corpuscular Volume 93.4 Mean Corpuscular Hemoglobin 29.2 Mean Corpuscular Hemoglobin 31.3 Concent Red Cell Distribution Width 15.0 Platelet Count 248 Mean Platelet Volume 8.1 Neutrophils (%) (Auto) 80.1 Lymphocytes (%) (Auto) 10.4 Monocytes (%) (Auto) 6.6 Eosinophils (%) (Auto) 2.1 Basophils (%) (Auto) 0.8 Neutrophils # (Auto) 8.9 Lymphocytes # (Auto) 1.2 Monocytes # (Auto) 0.7 Eosinophils # (Auto) 0.2 Basophils # (Auto) 0.1 CBC Comment DIFF FINAL Differential Comment Blood Gas Puncture Site RT RADIAL Blood Gas Patient Temperature 98.6 Blood Gas HCO3 21 Blood Gas Base Excess -4.6 Blood Gas Oxygen Saturation 98 Arterial Blood pH 7.30 Arterial Blood Partial 44 Pressure CO2 Arterial Blood Partial 233 Pressure O2 Arterial Blood Oxygen Content 14.5 Arterial Blood 1.2 Carboxyhemoglobin Arterial Blood Methemoglobin 0.5 Blood Gas Hemoglobin 10.2 Oxygen Delivery Device AER TX Blood Gas Liter Flow 8 Total Creatine Kinase 39 Test 09/09/16 09/09/16 01:45 03:07 Urine Color YELLOW Urine Turbidity HAZY Urine pH 5.0 Urine Specific [place] 1.013 Urine Protein TRACE Urine Glucose (UA) NEG Urine Ketones NEG Urine Occult Blood SMALL Urine Nitrite NEG Urine Bilirubin NEG Urine Urobilinogen LESS THAN 2.0 Urine Leukocyte Esterase NEG Urine RBC 13 Urine WBC 2 Urine Squamous Epithelial 7 Cells Urine Amorphous Sediment RARE Urine Bacteria MOD Urine Hyaline Casts 3 Urine Yeast (Budding) RARE Microscopic Urinalysis Comment CULTURE INDICATED White Blood Count 4.7 Red Blood Count 2.64 Hemoglobin 8.1 Hematocrit 24.4 Mean Corpuscular Volume 92.3 Mean Corpuscular Hemoglobin 30.7 Mean Corpuscular Hemoglobin 33.2 Concent Red Cell Distribution Width 14.5 Platelet Count 146 Mean Platelet Volume 8.6 Neutrophils (%) (Auto) 92.2 Lymphocytes (%) (Auto) 6.5 Monocytes (%) (Auto) 1.1 Eosinophils (%) (Auto) 0.0 Basophils (%) (Auto) 0.2 Neutrophils # (Auto) 4.3 Lymphocytes # (Auto) 0.3 Monocytes # (Auto) 0.0 Eosinophils # (Auto) 0.0 Basophils # (Auto) 0.0 CBC Comment DIFF FINAL Differential Comment Sodium Level 139 Potassium Level 6.2 Chloride Level 104 Carbon Dioxide Level 23.4 Anion Gap 12 Blood Urea Nitrogen 65 Creatinine 3.59 Estimat Glomerular Filtration 12 Rate Random Glucose 237 Calcium Level 8.1 Total Creatine Kinase 37 Troponin I LESS THAN 0.02 Random Vancomycin Level 9.2 Date/Time Procedure Status Source Growth 09/09/16 01:45 Urine Culture Received Urine Clean Catch Pending 09/08/16 15:55 Aerobic Blood Culture Received Blood Peripheral Pending 09/08/16 15:55 Anaerobic Blood Culture Received Blood Peripheral Pending Result Diagram: 09/09/16 0307 09/09/16 0307 Imaging Last Impressions Chest X-Ray 09/08/16 1535 Signed Impressions: Service Date/Time: Thursday, September 08, 2016 15:35 - CONCLUSION: Some infiltrates in the right lung, new since the previous exam. Sylvester Vásquez MD Assessment and Plan Assessment and Plan 75-year-old female with history significant for COPD, CVA, CAD, atrial fibrillation who presents with chest pain. She infiltrate on the right lung concerning for age. She has been recently admitted for chest pain workup. She' ll be admitted to the hospital under inpatient status for chest pain workup, pneumonia treatment and management, and COPD management. Problem List: (1) COPD with exacerbation Status: Acute Plan: Patient with history of COPD, presenting with acute shortness of breath and chest pain. Given sputum production and cough, admit for COPD exacerbation. She is status post treatments with duonebs in the ED and is on nasal cannula at time of evaluation She symptomatically has improved significantly since arrival to the ED per her report and clinically is in no apparent distress. Of note her oxygen rate is 3 L at bedside which is her home rate. Plan: * Monitor vital signs * Solu-Medrol 125 mg 1 IV given in ED * We'll continue Solu-Medrol 60 mg every 6 hours IV for now, likely transition to prednisone by mouth tomorrow * Respiratory supportive care with incentive spirometry continued nasal cannula with goal oxygen saturation > 92% * Duo nebs every 4 hours, albuterol treatments when necessary * Treatment of pneumonia as documented elsewhere (2) CHF exacerbation Status: Resolved Plan: BNP is noted to be 951, elevated and concerning for CHF exacerbation in conjunction with COPD exacerbation. She does not have chest pain at this time. Initial troponin negative. EKG notable for atrial fibrillation with slow ventricular response in a patient with chronic A. fib. Plan: * Trend cardiac enzymes and EKG every 3 hours * Lasix 60 mg IV 1 given in ED * Strict I's and O's * Daily weights (3) Pneumonia Status: Acute Plan: Concern for HCAP given recent hospitalization and symptoms (shortness of breath, productive cough, history of COPD). She is afebrile and bradycardic at baseline. Oxygen saturation is 93% on room air at time of admission and is 90-99 % on 2-3 L nasal cannula. Plan: * Vancomycin plus Zosyn given in ED 1 * Will continue Vancomycin plus Zosyn given HCAP * Monitor vital signs every 4 hours (4) Chest pain in adult Status: Acute Plan: Chest pain workup indicated given his significant cardiac history including diabetes, CHF and CAD. Chest pain likely related to her respiratory symptoms. Differential includes COPD, pneumonia, IL, PE, GERD, Her saturation is greater than 98% on 3 L nasal cannula which decreases likelihood of PE. D-dimer likely to be elevated given chronic medical conditions * Management as above (5) Hyperkalemia Status: Acute Plan: Patient is noted to have a serum potassium of 5.9 at admission. EKG not showing evidence of acute cardiac effect. In ED she is status post sodium bicarbonate, dextrose, calcium gluconate. She is notably on 10 meq potassium daily due to chronic Lasix use Plan: * Repeat BMP this evening * Hold 10 mEq potassium home dose * Continue to monitor and treat as needed (6) Hypertension Status: Chronic Plan: Chronic, continue home meds. Of note this does include a beta yeison, will monitor heart rate (7) DM (diabetes mellitus) Status: Chronic Plan: Chronic. Patient is on glipizide at home which is held. She'll be placed on low-dose sliding scale NovoLog, regular Accu-Cheks (8) Atrial fibrillation Status: Chronic Plan: Chronic A. fib. Patient is on metoprolol 100 mg twice a day. She is on no blood thinner. She sees Dr. Nolasco. She is not currently symptomatic and is noted to have a heart rate at approximately 50 BPM. Plan: * Continue metoprolol * Consult cardiology (Dr. Nolasco) * She will be on prophylactic Lovenox * If acute symptoms will manage as indicated (9) CKD (chronic kidney disease) Status: Chronic Plan: Chronic CAD but notable increased from 08/26. Creatinine is 3.3 today. Etiology is likely dehydration versus hypoxemia. Plan: Hold IV fluids given history of CHF We'll monitor BMP We'll give light IV fluids if indicated (10) Insomnia Status: Chronic Plan: Chronic.Xanax 2 mg every night. Plan: Give Xanax 1 mg every 8 hours when necessary can start a taper if desired as Xanax can give seizures if stopped suddenly (11) Opiate dependence Status: Chronic Plan: Patient reports chronic use of morphine, 115mg daily. She's been taking this for years. Confirmed in the EMR from our [facility] clinic as she sees Dr. Mcgee. Last dose was today. She takes it in the morning. Plan: * Continue morphine as this dose given risk of withdrawal * For signs of respiratory depression. * Narcan when necessary (12) Fluids/Electrolytes/Nutrition/Prophylaxis Status: Acute Plan: Fluids: Due to BNP elevated, will hold IVF and closely monitor AJ Electrolytes: hyperK, s/p treatment in ED. Will recheck BMP tonight consider Kayexalate as the treatments in the ED shifts the K around but only the lasix removes it from the body Nutrition: heart-healthy diet DVT Prophylaxis: Early ambulation. Lovenox 30mg subQ q24hr/bilateral SCDs GI Prophylaxis: Protonix 40 mg PO daily Physician Certification 2 Midnight Certification Type: Admission for Inpatient Services Order for Inpatient Services The services are ordered in accordance with Medicare regulations or non- Medicare payer requirements, as applicable. In the case of services not specified as inpatient-only, they are appropriately provided as inpatient services in accordance with the 2-midnight benchmark. Estimated LOS (days): 3 4 days is the estimated time the patient will need to remain in the hospital, assuming treatment plan goals are met and no additional complications. Post-Hospital Plan: Not yet determined Problem Qualifiers (1) CHF exacerbation: Qualified Code: I50.9 - Acute on chronic congestive heart failure, unspecified congestive heart failure type (2) Pneumonia: Qualified Code: J18.1 - Pneumonia of right lower lobe due to infectious organism (3) Hypertension: Qualified Code: I10 - Hypertension, unspecified type (4) DM (diabetes mellitus): Qualified Code: E13.8 - Other specified diabetes mellitus with complication, without long-term current use of insulin (5) Atrial fibrillation: Qualified Code: I48.91 - Atrial fibrillation, unspecified type (6) CKD (chronic kidney disease): Qualified Code: N18.4 - Stage 4 chronic kidney disease (7) Insomnia: Qualified Code: G47.00 - Insomnia, unspecified type (8) Opiate dependence: Qualified Code: F11.20 - Uncomplicated opioid dependence Ashely Vance MD Sep 09, 2016 09:36
[2016-09-09] MEDS: HEPARIN SODIUM - SQ 10,000 UNITS/ML VIAL SQ SCH ×2 (09:41→22:40)
[2016-09-09] MEDS: METOPROLOL TARTRATE 50 MG TAB PO SCH ×2 (09:41→22:32)
[2016-09-09] MEDS: PANTOPRAZOLE SOD 40 MG DELAYED RELEASE TAB PO SCH (09:45)
[2016-09-09] MEDS: BUDESONIDE-FORMOTEROL 160/4.5 MCG INHALER INH SCH ×2 (09:45→22:31)
[2016-09-09] MEDS: SODIUM POLYSTYRENE SULFONATE SUSP 15 GM/60 ML CUP PO SCH ×4 (09:45→21:00)
[2016-09-09] MEDS: SODIUM CHLORIDE 0.9% FLUSH 10 ML FLUSH IV FLUSH SCH ×2 (09:46→22:32)
[2016-09-09] MEDS: MORPHINE SULFATE 15 MG CONTROLLED RELEASE TAB PO SCH (10:11)
[2016-09-09] MEDS: MORPHINE SULFATE 100 MG CONTROLLED RELEASE TAB PO SCH (10:12)
[2016-09-09] MEDS: ASPIRIN EC 81 MG TABEC PO SCH (10:12)
--- NOTE | 2016-09-09 10:33 | MB ---
cc: YESSENIA PAZ DATE OF CONSULTATION 09/09/2016 REASON FOR CONSULTATION Chest pain and shortness of breath. HISTORY OF PRESENT ILLNESS The patient is a 75-year-old white female with a history of multiple medical problems including coronary artery disease, COPD, chronic renal insufficiency, diabetes, hypertension, postoperative atrial fibrillation after her heart surgery who presented to the emergency room with a three to four week history of increasing shortness of breath and intermittent chest pains. The patient was recently in the chest pain center with atypical chest pains. She declined nuclear stress testing at that time. Yesterday her dyspnea became especially severe, barely able to walk 10 feet without severe shortness of breath. The patient has noted a cough productive of minimal brownish sputum without hemoptysis. She notes occasional wheezing although no more than usual. Occasionally she experiences mild dependent edema. Her chest pains the last three to four weeks are band-like, both "sharp" and "pressure" in nature, without relationship to exertion, and without associated diaphoresis or nausea. The chest pains often last throughout the day in a constant fashion. She denies paroxysmal nocturnal dyspnea. Recently she has fallen twice and she is unsure whether she may have lost consciousness briefly causing the falls. In the last couple of weeks, she has also noted infrequent fluttering palpitations. Since coming into hospital, her dyspnea has remained unchanged. PAST MEDICAL HISTORY 1. Chronic renal insufficiency. 2. COPD 3. Coronary artery disease status post bypass surgery 1999 with a left internal mammary artery to the LAD, vein graft to the diagonal, vein graft to the first obtuse marginal, vein graft to the second obtuse marginal. Her last heart catheterization was July 2002 showing minimal left main disease, totally occluded LAD after the first diagonal, 50% proximal first diagonal stenosis, totally occluded proximal left circumflex, totally occluded obtuse marginal, minimal right coronary disease, patent bypass grafts except for the vein graft to the second obtuse marginal. 4. History of CVA 1989. 5. Diabetes 6. Gout 7. Hyperlipidemia 8. Hypertension 9. Postoperative atrial fibrillation after her bypass surgery. MEDICATIONS Her cardiac medications at home: 1. Amlodipine 10 mg daily 2. Monopril 10 mg daily 3. Klor-Con 10 mg once daily 4. Lasix 40 mg daily 5. Lopressor 100 mg b.i.d. She has been noncompliant with daily aspirin. ALLERGIES The patient has numerous drug allergies. See electronic records. FAMILY HISTORY Noncontributory SOCIAL HISTORY The patient is a former smoker. There is no history of alcohol abuse. REVIEW OF SYSTEMS As in the history of present illness, otherwise negative or noncontributory. She also denies headache, visual changes, unilateral weakness or numbness, abdominal pain, diarrhea, melena, bright red blood per rectum. PHYSICAL EXAM On physical examination, her blood pressure 123/60 with a pulse of 53, respirations 20. GENERAL: She is a well-developed, well-nourished white female in no acute distress. HEENT: Jugular venous pressure is somewhat hard to assess. It appears to be normal. Carotid pulses are 2+ bilaterally and without bruits. CHEST: Examination of the chest reveals diminished breath sounds diffusely particularly at the bases. CARDIAC: On cardiac examination, she has an irregularly irregular rhythm without S3 or murmur. ABDOMEN: On abdominal examination, she has a soft, obese, nontender abdomen. Bowel sounds are present. There is no definite hepatosplenomegaly. EXTREMITIES: Examination of extremities reveals no clubbing, cyanosis or edema. EKG shows atrial fibrillation/flutter, otherwise normal EKG. Chest x-ray shows right lung infiltrates. LABORATORY DATA Includes hemoglobin 8.1, WBC 4.7, platelets 146, potassium 6.2, BUN 65, creatinine 3.59. Negative cardiac enzymes, INR 1.0. IMPRESSION Possible pneumonia, very atypical chest pains, recurrent atrial fibrillation/flutter in this 75-year-old white female with a history of multiple medical problems including coronary artery disease, chronic renal insufficiency, COPD, diabetes, hypertension, postoperative atrial fibrillation many years ago. At this time, she remains in atrial fibrillation/flutter. Her heart rates are fairly low, sometimes dropping into the 30s and 40s. The atrial fibrillation may be contributing to some degree to her dyspnea. With respect to her thromboembolic risk, it is quite high. Overall she is probably not a good candidate for anticoagulation therapy. She has acute on chronic renal insufficiency precluding use of Xarelto, Pradaxa, Eliquis. She has also demonstrated a significant drop in her hemoglobin. With respect to her chest pains, they are extremely atypical for myocardial ischemia. Some of the chest pains last several hours in a constant fashion. Cardiac enzymes are negative despite prolonged chest discomfort. No acute ST-segment or T-wave changes are seen on EKG. She has declined nuclear stress testing for many years. She is not a candidate for invasive cardiac evaluation at this time with her comorbid conditions and the high risk of dye induced renal failure given her renal insufficiency, diabetes. RECOMMENDATIONS 1. Check a 2-D echo to reassess her left ventricular function if not done recently. 2. Reduce her metoprolol dosing to 50 mg bid given her bradycardia. 3. Would stop her furosemide, LETICIA inhibitor, potassium, given her acute on chronic renal insufficiency and hyperkalemia. 4. As she is not a good candidate for anticoagulation therapy, recommend daily aspirin. 5. Overall, conservative therapy of her coronary artery disease given the atypical nature of her symptoms and the fact that she is a poor candidate for invasive cardiac evaluation at this time. MD HENRY Kent/JERONIMO /8:34 AM /10:24 AM SHERRY
[2016-09-09] MEDS: DOCUSATE SODIUM 50 MG/SENNA 8.6 MG TAB PO SCH ×2 (12:56→21:00)
[2016-09-09] MEDS ORDERED: VANCOMYCIN INJ 1,250 MG in SODIUM CHLOR 0.9% 250 ML INJ 250 ML IV ONE (13:00)
--- NOTE | 2016-09-09 14:58 | EKG ---
Date Performed: 09/09/2016 Time Performed: 01:46:00 PTAGE: 75 years EKG: Atrial fibrillation with slow ventricular response Low QRS voltages in precordial leads Com pared to prior tracing no significant change Abnormal ECG PREVIOUS TRACING : 09/08/2016 21.39 DOCTOR: Amber Lee Interpretating Date/Time 09/09/2016 14:55:09
--- NOTE | 2016-09-09 14:59 | EKG ---
Date Performed: 09/08/2016 Time Performed: 21:39:37 PTAGE: 75 years EKG: ATRIAL FIBRILLATION LOW QRS VOLTAGE IN PRECORDIAL LEADS ABNORMAL RHYTHM ECG Compared to naveed or tracing no significant change PREVIOUS TRACING : 09/08/2016 15.30 DOCTOR: Amber Lee Interpretating Date/Time 09/09/2016 14:55:24
--- NOTE | 2016-09-09 14:59 | EKG ---
Date Performed: 09/08/2016 Time Performed: 15:30:07 PTAGE: 75 years EKG: ATRIAL FIBRILLATION WITH SLOW VENTRICULAR RESPONSE LOW QRS VOLTAGE IN PRECORDIAL LEADS ABNO RMAL RHYTHM ECG Compared to prior tracing no significant change PREVIOUS TRACING : 08/26/2016 16.53 DOCTOR: Amber Lee Interpretating Date/Time 09/09/2016 14:55:39
--- NOTE | 2016-09-09 16:40 | PD.CONS ---
HPI Consult Requested By Reason for Consult Acute on chronic renal insufficiency Primary Care Physician Jose Eduardo Mcgee MD History of Present Illness This patient is a 75-year-old female known to me from the office who has a history of CKD stage IV. She was last seen in the office September 2015 and subsequently missed a follow-up appointment and did not reschedule. At that time she did indicate to me that she did not want dialysis even with terminal renal failure. There was also a complex cyst involving her left kidney for which she did not want follow-up or evaluation. And is noted that she had a serum creatinine level of 2.29 with an estimated GFR August 26, 2016. Subsequently indicated that she developed increasing shortness of breath and swelling of the lower extremities over the last few weeks. Denies any new medications or NSAID usage for analgesia. Chest x-ray this admission for increasing shortness of breath indicated the presence of a new infiltrate. Also on presentation she had hyperkalemia which has persisted. Her dyspnea has not improved significantly since admission. Daughters by bedside. Review of Systems Constitutional: COMPLAINS OF: Fatigue, Weight gain, DENIES: Diaphoretic episodes, Fever, Weight loss, Chills, Dizziness, Change in appetite, Night Sweats Respiratory: COMPLAINS OF: Cough, Wheezing, Shortness of breath, DENIES: Apneas, Snoring, Hemoptysis, Sputum production Cardiovascular: COMPLAINS OF: Lower Extremity Edema, Orthopnea, DENIES: Chest pain, Palpitations, Syncope, Dyspnea on Exertion, PND, Claudication Gastrointestinal: DENIES: Abdominal pain, Black stools, Bloody stools, Constipation, Diarrhea, Nausea, Vomiting, Difficulty Swallowing, Anorexia Musculoskeletal: COMPLAINS OF: Joint pain Neurologic: COMPLAINS OF: Abnormal gait Past Family Social History Allergies: Coded Allergies: Augmentin (Verified Allergy, Severe, Rash, 08/26/16) Haldol (Verified Allergy, Severe, Hallucinations, 08/26/16) Latex (Verified Allergy, Severe, HIVES, 08/26/16) Macrodantin (Verified Allergy, Severe, SHAKY , BLOOD SUGER PROBLEMS, ) Mirapex (Verified Allergy, Severe, LETHARGY,DIZZY,SHAKY, 08/26/16) Phenergan (Verified Allergy, Severe, Hallucinations, 08/26/16) Temazepam (Verified Allergy, Severe, Rash, 08/26/16) Lopid (Verified Allergy, Intermediate, 08/26/16) Lyrica (Verified Allergy, Unknown, 08/26/16) Soma (Verified Allergy, Unknown, 08/26/16) Amoxicillin (Verified Adverse Reaction, Severe, diarrhea, 08/26/16) HMG-CoA Reductase Inhibitors (Verified Adverse Reaction, Severe, LIVER DISEASE WITH SUBSEQUENT CHRONIC ITCHING UNTIL DC'D, 08/26/16) Trazodone (Verified Adverse Reaction, Intermediate, altered mental status , 08/26/16) *MDRO Multi-Drug Resistant Organism (Verified Adverse Reaction, Unknown, ) MRSA Sputum 10/2008 Uncoded Allergies: TAPE (Allergy, Mild, Rash, 11/06/09) USE PAPER TAPE ONLY ees (Allergy, Mild, itch, 11/06/09) advicor (Adverse Reaction, Intermediate, redness, itchin, 11/06/09) cipro,septra (Adverse Reaction, Intermediate, diarrhea,itching, 11/06/09) topramax (Adverse Reaction, Intermediate, 11/06/09) Past Medical History CKD stage IV Diabetes mellitus Proteinuria Hypertension Coronary artery disease Anemia Complex cystic mass left kidney Coronary artery disease with previous CABG. Past Surgical History As above. Reported Medications Reported Meds & Active Scripts Active Ms Contin (Morphine Sulfate) 15 Mg Tab 15 Mg PO DAILY Potassium Chloride ER (Potassium Chloride) 10 Meq Cap 10 Meq PO DAILY Furosemide 40 Mg Tab 40 Mg PO DAILY Fosinopril (Fosinopril Sodium) 10 Mg Tab 10 Mg PO DAILY Proair Hfa 8.5 GM Inh (Albuterol Sulfate) 90 Mcg/Act Aer 2 Puff INH Q4 PRN 108 mcg/actuation Amlodipine (Amlodipine Besylate) 10 Mg Tab 10 Mg PO DAILY Reported Ativan (Lorazepam) 2 Mg Tab 2 Mg PO DAILY PRN Morphine ER (Morphine Sulfate) 100 Mg Tab 100 Mg PO DAILY Metoprolol Tartrate 100 Mg Tab 100 Mg PO BID Glucotrol (Glipizide) 10 Mg Tab 10 Mg PO DAILY Take 30 minutes before a meal Symbicort Inh (Budesonide/Formoterol Fumarate) 160-4.5 Mcg/Act Aero 2 Puff INH BID Duoneb (Ipratropium-Albuterol Neb) 0.5-2.5 Mg/3 Ml Neb 1 Nebule INH Q4HR NEB Active Ordered Medications Inpatient Medications Albuterol Sulfate (Albuterol Neb) 2.5 mg Q4HR NEB PRN NEB SOB/WHEEZING; Start 09/08/16 at 20:00 Albuterol/ Ipratropium (Duoneb Neb) 1 ampule Q4HR NEB INH Last administered on 09/09/16 16:20; Start 09/09/16 at 00:00 Alprazolam (Xanax) 1 mg Q8H PRN PO ANXIETY, INSOMNIA; Start 09/08/16 at 20:15; Stop 09/09/16 at 00:17; Status DC Amlodipine Besylate (Norvasc) 10 mg DAILY PO ; Start 09/09/16 at 09:00; Stop at 09:00; Status DC Aspirin 81 mg 81 mg DAILY PO Last administered on 09/09/16 10:12; Start at 09:00 Bisacodyl (Dulcolax Supp) 10 mg DAILY PRN RECTAL SEVERE CONSITIPATION; Start at 18:30 Budesonide/ Formoterol Fumarate (Symbicort 160-4.5 Inh) 2 puff BID INH Last administered on 09/08/16 21:17; Start 09/08/16 at 21:00 Calcium Gluconate (Calcium Gluconate Inj) 1 gm ONCE ONCE SLOW IVP Last administered on 09/08/16 17:21; Start 09/08/16 at 16:45; Stop 09/08/16 at 16:46 ; Status DC Dextrose (D50w (Syr) Inj) 50 ml ONCE ONCE IV Last administered on 09/09/16 09 :52; Start 09/09/16 at 08:30; Stop 09/09/16 at 08:31; Status DC Dextrose (D50w (Vial) Inj) 50 ml ONCE ONCE IV PUSH Last administered on 17:21; Start 09/08/16 at 16:45; Stop 09/08/16 at 16:46; Status DC Enoxaparin Sodium (Lovenox Inj) 30 mg Q24H SQ Last administered on 09/08/16 22 :10; Start 09/08/16 at 21:00; Stop 09/09/16 at 08:23; Status DC Furosemide (Lasix) 40 mg DAILY PO ; Start 09/09/16 at 09:00; Stop 09/09/16 at 09 :00; Status DC Furosemide 60 mg 60 mg ONCE ONCE IVP Last administered on 09/08/16 15:58; Start 09/08/16 at 15:45; Stop 09/08/16 at 15:46; Status DC Heparin Sodium (Porcine) (Heparin Inj) 5,000 units Q12H SQ Last administered on 09/09/16 09:41; Start 09/09/16 at 09:00 Insulin Aspart (NovoLOG SUPPLEMENTAL SCALE) 1 ACHS SLIDING SCALE SQ Last administered on 09/09/16 12:56; Start 09/08/16 at 21:00 Insulin Human Regular (NovoLIN R INJ) 10 units ONCE ONCE IV PUSH Last administered on 09/09/16 10:00; Start 09/09/16 at 07:45; Stop 09/09/16 at 07:46 ; Status DC Lactulose (Lactulose Liq) 30 ml DAILY PRN PO SEVERE CONSITIPATION; Start at 18:30 Lisinopril (Prinivil) 10 mg DAILY PO ; Start 09/09/16 at 09:00; Stop 09/09/16 at 09:00; Status DC Lorazepam (Ativan) 2 mg DAILY PRN PO ANXIETY AND/OR AGITATION Last administered on 09/09/16 00:37; Start 09/09/16 at 00:15 Magnesium Hydroxide (Milk Of Magnesia Liq) 30 ml Q12H PRN PO MILD - MODERATE CONSTIPATION; Start 09/08/16 at 18:30 Methylprednisolone Sodium Succinate (SoluMEDROL INJ) 60 mg Q6H IVP Last administered on 09/09/16 12:56; Start 09/08/16 at 22:00 Metoprolol Tartrate (Lopressor) 50 mg BID PO Last administered on 09/09/16 09: 41; Start 09/09/16 at 09:00 Morphine Sulfate (Oramorph Sr) 100 mg DAILY PO Last administered on 09/09/16 10:12; Start 09/09/16 at 09:00 Morphine Sulfate 15 mg 15 mg DAILY PO Last administered on 09/09/16 10:11; Start 09/09/16 at 09:00 Naloxone HCl (Narcan Inj) 0.4 mg UNSCH PRN IV SEE LABEL COMMENTS; Start at 20:45 Ondansetron HCl (Zofran Inj) 4 mg Q6H PRN IV NAUSEA; Start 09/08/16 at 18:30 Pantoprazole Sodium (Protonix) 40 mg DAILY PO Last administered on 09/09/16 09 :45; Start 09/08/16 at 20:30 Pharmacy Profile Note 0 ml @ 0 mls/hr UNSCH OTHER ; Start 09/08/16 at 19:00 Piperacillin Sod/ Tazobactam Sod (Zosyn 3.375 Gm Premix) 50 ml @ 200 mls/hr Q6H IV Last administered on 09/09/16 12:47; Start 09/09/16 at 00:00 Piperacillin Sod/ Tazobactam Sod (Zosyn 4.5 Gm Premix) 100 ml @ 200 mls/hr ONCE ONCE IV Last administered on 09/08/16 18:15; Start 09/08/16 at 16:15; Stop 09/08/16 at 16:44; Status DC Senna/Docusate Sodium (Whitney-Colace) 1 tab BID PO Last administered on 22:09; Start 09/08/16 at 21:00 Sennosides (Senokot) 17.2 mg Q12H PRN PO MODERATE - SEVERE CONSTIPATION; Start 09/08/16 at 18:30 Sodium Polystyrene Sulfonate (Kayexalate Liq) 15 gm QID PO Last administered on 09/09/16 14:08; Start 09/09/16 at 09:00; Stop 09/09/16 at 21:01 Sodium Bicarbonate (Sodium Bicarbonate 8.4% Inj) 100 meq ONCE ONCE SLOW IVP Last administered on 09/08/16 17:21; Start 09/08/16 at 16:45; Stop 09/08/16 at 16:46; Status DC Sodium Chloride (NS Flush) 2 ml BID IV FLUSH Last administered on 09/09/16 09: 46; Start 09/08/16 at 21:00 Vancomycin HCl/ Sodium Chloride (Vancomycin Inj/ NS 250 ml Inj) 262.5 ml @ 262.5 mls/ hr ONCE ONCE IV Last administered on 09/09/16 14:08; Start at 13:00; Stop 09/09/16 at 13:59; Status DC Family History Noncontributory to current complaint Social History No current history of alcohol abuse tobacco abuse. Physical Exam Vital Signs Vital Signs Date Time Temp Pulse Resp B/P Pulse Ox O2 Delivery O2 Flow Rate FiO2 09/09/16 12:57 16 09/09/16 12:56 16 09/09/16 12:00 97.7 79 20 110/59 97 09/09/16 09:06 97 Nasal Cannula 3.00 09/09/16 08:53 53 09/09/16 08:00 97.9 53 18 112/56 96 09/09/16 04:52 123/60 09/09/16 04:04 96.4 53 20 91/50 94 09/08/16 23:59 61 09/08/16 23:05 96.1 67 24 149/67 95 09/08/16 22:10 75 21 112/56 98 Nasal Cannula 2 09/08/16 20:11 99 Nasal Cannula 2.00 09/08/16 20:00 64 22 120/59 98 Nasal Cannula 2 09/08/16 17:52 52 20 117/57 100 2 09/08/16 16:30 99 Nasal Cannula 3.00 Physical Exam GENERAL: Elderly, obese somewhat debilitated appearing female in respiratory distress. Moderate. SKIN: Warm and dry. HEAD: Normocephalic. EYES: No scleral icterus. No injection or drainage. NECK: Supple, trachea midline. No JVD or lymphadenopathy. CARDIOVASCULAR: Regular rate and rhythm without murmurs, gallops, or rubs. RESPIRATORY: Breath sounds equal bilaterally. Bilateral respiratory wheezes and few rhonchi. Basilar rales. GASTROINTESTINAL: Abdomen soft, non-tender, nondistended. MUSCULOSKELETAL: No cyanosis, 2+ pitting edema involving legs, thighs as well as dependent hips and lower torso. BACK: Nontender without obvious deformity. No CVA tenderness. Laboratory Laboratory Tests Test 09/08/16 09/08/16 09/09/16 09/09/16 20:00 22:00 01:45 03:07 Potassium Level 5.4 6.2 Total Creatine Kinase 39 37 Troponin I 0.02 LESS THAN 0.02 Urine Color YELLOW Urine Turbidity HAZY Urine pH 5.0 Urine Specific [place] 1.013 Urine Protein TRACE Urine Glucose (UA) NEG Urine Ketones NEG Urine Occult Blood SMALL Urine Nitrite NEG Urine Bilirubin NEG Urine Urobilinogen LESS THAN 2.0 Urine Leukocyte Esterase NEG Urine RBC 13 Urine WBC 2 Urine Squamous Epithelial 7 Cells Urine Amorphous Sediment RARE Urine Bacteria MOD Urine Hyaline Casts 3 Urine Yeast (Budding) RARE Microscopic Urinalysis Comment CULTURE INDICATED White Blood Count 4.7 Red Blood Count 2.64 Hemoglobin 8.1 Hematocrit 24.4 Mean Corpuscular Volume 92.3 Mean Corpuscular Hemoglobin 30.7 Mean Corpuscular Hemoglobin 33.2 Concent Red Cell Distribution Width 14.5 Platelet Count 146 Mean Platelet Volume 8.6 Neutrophils (%) (Auto) 92.2 Lymphocytes (%) (Auto) 6.5 Monocytes (%) (Auto) 1.1 Eosinophils (%) (Auto) 0.0 Basophils (%) (Auto) 0.2 Neutrophils # (Auto) 4.3 Lymphocytes # (Auto) 0.3 Monocytes # (Auto) 0.0 Eosinophils # (Auto) 0.0 Basophils # (Auto) 0.0 CBC Comment DIFF FINAL Differential Comment Sodium Level 139 Chloride Level 104 Carbon Dioxide Level 23.4 Anion Gap 12 Blood Urea Nitrogen 65 Creatinine 3.59 Estimat Glomerular Filtration 12 Rate Random Glucose 237 Calcium Level 8.1 Random Vancomycin Level 9.2 Test 09/09/16 09:35 Nasal Screen MRSA (PCR) MRSA NOT DETECTED Date/Time Procedure Status Source Growth 09/09/16 01:45 Urine Culture Received Urine Clean Catch Pending 09/08/16 15:55 Aerobic Blood Culture - Preliminary Resulted Blood Peripheral NO GROWTH IN 1 DAY 09/08/16 15:55 Anaerobic Blood Culture - Preliminary Resulted Blood Peripheral NO GROWTH IN 1 DAY Result Diagram: 09/09/16 0307 09/09/16 0307 Imaging Last 48 hours Impressions Chest X-Ray 09/08/16 1535 Signed Impressions: Service Date/Time: Thursday, September 08, 2016 15:35 - CONCLUSION: Some infiltrates in the right lung, new since the previous exam. Sylvester Vásquez MD Assessment and Plan Problem List: (1) Acute on chronic renal insufficiency Plan: At the present time the patient does not appear to be clinically dehydrated. In fact there appears to be significant fluid retention clinically. In view of progressive edema and worsening azotemia I'm uncertain if the patient has acute reversible renal insufficiency versus progression of underlying CKD to end- stage renal disease at this point in time. With discussion the patient indicated again that she did not want dialytic support even if she had terminal renal failure. Family concurred. Renal ultrasound to exclude an occult obstructive process. Family does not wish Lion catheter placement at this time. If there is no significant improvement in the patient's volume status and or azotemia and she still wishes not to pursue dialytic support then comfort care would be appropriate in my opinion. This remains be determined however. Medications should be adjusted for the patient's estimated GFR if clinically indicated. Avoid agents with significant potential for nephrotoxicity possible including NSAIDs for analgesia, iodine contrast agents. Gadolinium is contraindicated if the GFR is below 30. (2) Fluid overload Plan: In view of respiratory distress sitting clinical fluid retention I believe that we do need to diurese this patient despite the severity of azotemia as discussed with the family. They agree. Bumetanide as ordered and hopefully will be tolerated with improvement in her volume status. I believe the fluid retention is primarily related to worsening renal function. (3) Hyperkalemia Plan: Continue Kayexalate as ordered for the present. Also the loop diuretics should help with the hyperkalemia. (4) CKD (chronic kidney disease) stage 4, GFR 15-29 ml/min Plan: Secondary to diabetic nephropathy. (5) Diabetes mellitus with renal manifestations, controlled Plan: Management per primary care physician. Marii Wheeler MD Sep 09, 2016 16:40
[2016-09-09] MEDS ORDERED: CHLOROTHIAZIDE SOD 500 MG VIAL IV ONE (17:15)
--- NOTE | 2016-09-09 17:31 | ECHRPT ---
Indication: ATRIAL FIB AND FLUTTER CONCLUSIONS The left ventricular systolic function is grossly normal on limited imaging, estimated at 55-60% [id number] mitral valve regurgitation. Trace aortic valve regurgitation. There is mild tricuspid valve regurgitation. Mild pulmonary valve regurgitation. BP: / HR: Rhythm: Atrial fibrillation MEASUREMENTS (Male / Female) Normal Values Technical Quality:Technically difficult study 2D ECHO LV Diastolic Diameter PLAX 5.2 cm 4.2 - 5.9 / 3.9 - 5.3 cm LV Systolic Diameter PLAX 3.1 cm IVS Diastolic Thickness 0.9 cm 0.6 - 1.0 / 0.6 - 0.9 cm LVPW Diastolic Thickness 0.9 cm 0.6 - 1.0 / 0.6 - 0.9 cm LV Relative Wall Thickness 0.4 LVOT Diameter 1.9 cm Aortic Root Diameter 3.1 cm LA Volume Index 55.7 cm/m 16 - 28 cm/m M-MODE AV Cusp Separation MM 1.6 cm DOPPLER AV Peak Velocity 189.0 cm/s AV Peak Gradient 14.3 mmHg AV Mean Gradient 8.0 mmHg AV Velocity Time Integral 47.1 cm LVOT Peak Velocity 124.5 cm/s LVOT Peak Gradient 6.2 mmHg LVOT Velocity Time Integral 28.6 cm AV Area Cont Eq vti 1.7 cm AV Area Cont Eq pk 1.9 cm Mitral E Point Velocity 107.0 cm/s Mitral A Point Velocity 93.8 cm/s Mitral E to A Ratio 1.1 LV E' Lateral Velocity 14.3 cm/s Mitral E to LV E' Lateral Ratio 7.5 LV E' Septal Velocity 11.0 cm/s Mitral E to LV E' Septal Ratio 9.7 TV Peak Velocity 333.0 cm/s TR Peak Velocity 335.0 cm/s TR Peak Gradient 44.9 mmHg PV Peak Velocity 54.5 cm/s PV Peak Gradient 1.2 mmHg FINDINGS LEFT VENTRICLE Normal left ventricular size. Wall thickness is normal. The left ventricular systolic function is grossly normal on limited imaging, estimated at 55-60% This study was not technically sufficient to allow for evaluation of left ventricular diastolic func tion. No regional wall motion abnormalities are present. RIGHT VENTRICLE Normal right ventricular size and systolic function. LEFT ATRIUM The left atrial size is [id number]-[id number] dilated. RIGHT ATRIUM The right atrium is not well visualized. ATRIAL SEPTUM The interatrial septum not well visualized. AORTA The aortic root and proximal ascending aorta are not well visualized. MITRAL VALVE Structurally normal mitral valve. [id number] mitral valve regurgitation. AORTIC VALVE Trileaflet aortic valve. Aortic valve sclerosis is present. Trace aortic valve regurgitation. No aortic valve stenosis. TRICUSPID VALVE Structurally normal tricuspid valve. There is mild tricuspid valve regurgitation. There is estimated moderate pulmonary hypertension present (range 50-60 mmHg). PULMONARY VALVE The pulmonary valve is not well visualized. Mild pulmonary valve regurgitation. PERICARDIUM No pericardial effusion. Nate Zelaya DO (Electronically Signed) Final Date:09 September 2016 17:30
[2016-09-09] MEDS: BUMETANIDE INJ 1 MG/4 ML VIAL IV PUSH SCH ×2 (18:55→22:36)
--- NOTE | 2016-09-09 19:40 | MB ---
cc: PHUONG BACA M.D. DATE OF CONSULTATION: 09/09/2016. REASON FOR CONSULTATION: COPD exacerbation, question pneumonia. HISTORY OF PRESENT ILLNESS: Mrs. Sinclair is a 75-year-old female with known history of severe COPD and chronic respiratory failure on oxygen therapy 13/09 at home. The patient was admitted with increasing shortness of breath, atypical chest pain with no specific location. It goes from right chest to left chest and vice versa, pressing in nature and reproduced with chest cage pressure. The patient has been unsteady at home and had fallen on two different occasions without significant injury. PAST MEDICAL HISTORY: Her past medical history is that of: 1. Diabetes mellitus. 2. Hypertension. 3. COPD. 4. Coronary artery disease. 5. Chronic renal insufficiency. 6. Gout. 7. Hyperlipidemia. 8. Coronary artery bypass graft surgery. 9. Postoperative atrial fibrillation. MEDICATIONS AT HOME: 1. Amlodipine. 2. Monopril. 3. Potassium. 4. Lasix. 5. Lopressor. ALLERGIES: Multiple allergies. Kindly review records for details. FAMILY HISTORY Noncontributory. SOCIAL HISTORY: Remote smoking history, does not smoke at present, does not use drugs. No TB. No industrial exposure. REVIEW OF SYSTEMS: A twelve-point review of systems is as per the history of present illness and past history, otherwise negative. PHYSICAL EXAMINATION: GENERAL: On exam, the patient is alert. VITAL SIGNS: Temperature 98, pulse 84, respirations 18, blood pressure 110/70, oxygen saturation 97% on three liters oxygen nasal cannula. HEAD, EYES, EARS, NOSE, THROAT: Unremarkable. Eyes without icterus. NECK: Without adenopathy. No thyroid enlargement, central trachea. CHEST: No dullness to percussion. Scattered rhonchi and wheezing bilaterally more so at the bases. CARDIAC: PMI distant. S1-S2 audible. No murmur, no rub. ABDOMEN: Lax. Bowel sounds audible. EXTREMITIES: No cyanosis, clubbing or edema. LABS: White count 4.7 today; it was 11.1 on 09/08, hemoglobin 8, hematocrit 24, platelets 146,000 and was 248,000 yesterday. INR 1.0. Arterial blood gas 09/08/16: pH 7.30, pCO2 45, pO2 233, high flow nasal cannula at 8 liters. IMAGING STUDIES: Chest x-ray shows patchy right lung infiltrate. IMPRESSION: 1. COPD exacerbation. 2. Question pneumonia. 3. Coronary artery disease. 4. Diabetes mellitus. 5. Hypertension. 6. Hyperlipidemia. 7. Chronic renal insufficiency. PLAN: 1. The patient is to continue antibiotic therapy which has been started. 2. Bronchodilator therapy and oxygen therapy will be continued. 3. CT scan of the chest without contrast will be obtained to assess if indeed pneumonia is present or if an underlying mass lesion is present. This has been discussed with the patient's family in detail. I do thank you for asking me to partake in Mrs. Sinclair's care. Phuong Baca MD WWW/Zafar /3:36 PM /7:34 PM
--- NOTE | 2016-09-09 20:31 | RADRPT ---
EXAM DATE/TIME: 09/09/2016 17:55 [facility] COMPARISON: No previous studies available for comparison. INDICATIONS : Increased lab values. MEDICAL HISTORY : Stroke. Myocardial infarction. Congestive heart failure. Upper dentures. Chest pain. A-fib. Hypertens ion. COPD. Emphysema. Asthma. Dyspnea. Hiatal hernia. Renal failure. Arthritis. Diabetes. Liver disea se. MRSA. SURGICAL HISTORY : Tonsillectomy. CABG. Appendectomy. Bilateral cataracts. Oral surgery. Cardiac catheterization. Cholec ystectomy. Hysterectomy. Kidney tumor cauderized. ENCOUNTER: Initial ACUITY: 1 day PAIN SCORE: 2/10 LOCATION: Bilateral flank MEASUREMENTS: RIGHT KIDNEY: 10.0 x 4.3 x 4.3 cm LEFT KIDNEY: 8.6 x 5.3 x 6.8 cm FINDINGS: There is cortical thinning of the right kidney. A 1.6 cm simple cyst at the lower pole is identified. There is mild increased echotexture of the cortex. The left kidney is small in size with increased e chotexture and cortical thinning. A 7.4 cm exophytic midpole cyst identified, simple in appearance. B ladder unremarkable. CONCLUSION: Echogenic kidneys with cortical thinning and decreased size, left greater than right. Renal cysts. Oskar Sierra MD on September 09, 2016 at 20:28 Board Certified Radiologist. This report was verified electronically.
[2016-09-09 20:54] LABS: BICARBONATE 22.8 MEQ/L (21.0-32.0); POTASSIUM 4.5 MEQ/L (3.5-5.1)
[2016-09-10] VITALS (12 sets, daily range): BP systolic 97–122; BP diastolic 49–58; PULSE 62–76; RESP 16–20; TEMP 96.1–97.5; O2SAT 70–100
[2016-09-10] MEDS: RESP: ALBUTEROL 2.5 MG/IPRATROPIUM 0.5 MG NEB (SCH) INH ×6 (01:15→19:57)
[2016-09-10] MEDS: methylPREDNISolone SOD SUCC 125 MG/2 ML VIAL IVP SCH ×4 (04:40→21:08)
[2016-09-10] MEDS: BUMETANIDE INJ 1 MG/4 ML VIAL IV PUSH SCH ×2 (06:12→13:45)
[2016-09-10] MEDS: PIPERACIL-TAZO 3.375 GM PREMIX 50 ML IV SCH ×2 (06:13→12:46)
[2016-09-10] MEDS: INSULIN ASPART SUPPLEMENTAL SCALE SQ SCH ×4 (06:20→21:24)
[2016-09-10 06:56] LABS: AUTOMATED NEUTROPHIL # 5.7 TH/MM3 (1.8-7.7); BASOPHIL % 0.1 % (0.0-2.0); HEMATOCRIT 26.1 % (35.0-46.0); HEMO FLAGS DIFF FINAL; LYMPH % 4.4 % (9.0-44.0); LYMPHOCYTE # 0.3 TH/MM3 (1.0-4.8); MEAN CELL VOLUME 91.5 FL (80.0-100.0); MEAN CORPUSCULAR HEMOGLOBIN 29.5 PG (27.0-34.0); MEAN CORPUSCULAR HGB CONC 32.3 % (32.0-36.0); MONO % 1.6 % (0.0-8.0); NEUT % 93.9 % (16.0-70.0); PLATELET COUNT 152 TH/MM3 (150-450); RED BLOOD COUNT 2.85 MIL/MM3 (4.00-5.30); RED CELL DISTRIBUTION WIDTH 14.4 % (11.6-17.2)
[2016-09-10 07:14] LABS: ANION GAP 12 MEQ/L (5-15); AST (GOT) 9 U/L (15-37); BICARBONATE 24.4 MEQ/L (21.0-32.0); BLOOD UREA NITROGEN 73 MG/DL (7-18); CHLORIDE 104 MEQ/L (98-107); GLOMERULAR FILTRATION RATE 11 ML/MIN (>89); POTASSIUM 4.1 MEQ/L (3.5-5.1); SODIUM (NA) 140 MEQ/L (136-145)
[2016-09-10 07:15] LABS: ALT (GPT) 19 U/L (10-53)
[2016-09-10 07:17] LABS: ALKALINE PHOSPHATASE 78 U/L (45-117); TOTAL BILIRUBIN ADULT 0.4 MG/DL (0.2-1.0)
--- NOTE | 2016-09-10 07:23 | RADRPT ---
EXAM DATE/TIME: 09/10/2016 06:14 [facility] COMPARISON: CHEST SINGLE AP, August 26, 2016, 10:26. CHEST SINGLE AP, September 08, 2016, 15:35. INDICATIONS : Short of breath, evaluate pneumonia MEDICAL HISTORY : Stroke. Myocardial infarction. Congestive heart failure. Upper dentures. Chest pain. SURGICAL HISTORY : Tonsillectomy. CABG. Appendectomy. Bilateral cataracts. Oral surgery. Cardiac ENCOUNTER: Subsequent ACUITY: 2 days PAIN SCORE: 0/10 LOCATION: Bilateral chest FINDINGS: Mild generalized interstitial vascular prominence is noted. There is no evidence of consolidating air space disease. Lungs are hyperinflated. Heart is mildly enlarged. CONCLUSION: COPD with mild interstitial vascular congestion but no evidence of consolidating airspace disease. Mild cardiomegaly Neil Landry MD on September 10, 2016 at 7:20 Board Certified Radiologist. This report was verified electronically.
--- NOTE | 2016-09-10 07:49 | PD.CARD.PN ---
Subjective Subjective Remarks Feeling slightly better. Dyspnea slightly improved. Ongoing constant CP's, especially with cough. No dizziness, palpitations. Slept poorly. Objective Medications Item Value Date Time Bumetanide 1 mg 09/09/16 1715 (Bumex Inj) Q8HR/IV PUSH 09/10/16 0612 Heparin Sodium 5,000 units 09/09/16 0900 (Porcine) Q12H/SQ 09/09/16 2240 (Heparin Inj) Metoprolol 50 mg 09/09/16 0900 Tartrate BID/PO 09/09/16 2232 (Lopressor) Aspirin 81 mg 09/09/16 0900 (Ecotrin Ec) DAILY/PO 09/09/16 1012 Vital Signs / I&O Vital Signs Date Time Temp Pulse Resp B/P Pulse Ox O2 Delivery O2 Flow Rate FiO2 09/10/16 04:00 96.9 71 16 113/57 98 09/10/16 00:00 96.8 72 16 100/51 100 09/09/16 21:00 64 09/09/16 20:21 95 Nasal Cannula 3.00 09/09/16 20:00 96.4 81 16 106/52 98 09/09/16 16:46 64 09/09/16 16:00 98.4 62 16 110/59 97 09/09/16 13:46 65 09/09/16 12:57 16 09/09/16 12:56 16 09/09/16 12:00 97.7 79 20 110/59 97 09/09/16 09:06 97 Nasal Cannula 3.00 09/09/16 08:53 53 09/09/16 08:00 97.9 53 18 112/56 96 I/O 09/09/16 09/09/16 09/09/16 09/10/16 09/10/16 09/10/16 07:00 15:00 23:00 07:00 15:00 23:00 Intake Total 250 ml 360 ml 710 ml 300 ml Output Total 350 ml 345 ml Balance -100 ml 360 ml 365 ml 300 ml Intake Oral 250 ml 360 ml 710 ml 300 ml Output Urine Total 350 ml 345 ml # Voids 0 3 # Bowel Movements 0 0 4 3 Physical Exam GENERAL: Well developed, well nourished. No acute distress. HEENT: Jugular venous pressure is normal. CHEST: Diminished breath sounds diffusely. CARDIAC: Irregular rate and rhythm without S3, S4, or murmur. ABDOMEN: Soft, nontender, no hepatosplenomegaly. Bowel sounds present. Laboratory Laboratory Tests Test 09/09/16 09/09/16 09/10/16 09:35 19:31 06:30 Nasal Screen MRSA (PCR) MRSA NOT DETECTED Sodium Level 138 MEQ/L 140 MEQ/L Potassium Level 4.5 MEQ/L 4.1 MEQ/L Chloride Level 102 MEQ/L 104 MEQ/L Carbon Dioxide Level 22.8 MEQ/L 24.4 MEQ/L Anion Gap 13 MEQ/L 12 MEQ/L Blood Urea Nitrogen 74 MG/DL 73 MG/DL Creatinine 3.81 MG/DL 3.85 MG/DL Estimat Glomerular Filtration 12 ML/MIN 11 ML/MIN Rate Random Glucose 246 MG/DL 187 MG/DL Calcium Level 7.9 MG/DL 8.1 MG/DL White Blood Count 6.0 TH/MM3 Red Blood Count 2.85 MIL/MM3 Hemoglobin 8.4 GM/DL Hematocrit 26.1 % Mean Corpuscular Volume 91.5 FL Mean Corpuscular Hemoglobin 29.5 PG Mean Corpuscular Hemoglobin 32.3 % Concent Red Cell Distribution Width 14.4 % Platelet Count 152 TH/MM3 Mean Platelet Volume 7.6 FL Neutrophils (%) (Auto) 93.9 % Lymphocytes (%) (Auto) 4.4 % Monocytes (%) (Auto) 1.6 % Eosinophils (%) (Auto) 0.0 % Basophils (%) (Auto) 0.1 % Neutrophils # (Auto) 5.7 TH/MM3 Lymphocytes # (Auto) 0.3 TH/MM3 Monocytes # (Auto) 0.1 TH/MM3 Eosinophils # (Auto) 0.0 TH/MM3 Basophils # (Auto) 0.0 TH/MM3 CBC Comment DIFF FINAL Differential Comment Total Bilirubin 0.4 MG/DL Aspartate Amino Transf 9 U/L (AST/SGOT) Alanine Aminotransferase 19 U/L (ALT/SGPT) Alkaline Phosphatase 78 U/L Total Protein 6.0 GM/DL Albumin 2.5 GM/DL Random Vancomycin Level 22.3 COMMENT Imaging Last 48 hours Impressions Chest X-Ray 09/10/16 0600 Signed Impressions: Service Date/Time: Saturday, September 10, 2016 06:14 - CONCLUSION: COPD with mild interstitial vascular congestion but no evidence of consolidating airspace disease. Mild cardiomegaly Neil Landry MD Renal Ultrasound 09/09/16 0000 Signed Impressions: Service Date/Time: August 17:55 - CONCLUSION: Echogenic kidneys with cortical thinning and decreased size, left greater than right. Renal cysts. Oskar Sierra MD Chest X-Ray 09/08/16 1535 Signed Impressions: Service Date/Time: Thursday, September 08, 2016 15:35 - CONCLUSION: Some infiltrates in the right lung, new since the previous exam. Sylvester Vásquez MD Assessment and Plan Problem List: (1) CAD (coronary artery disease) Assessment and Plan: Cardiac status stable overnight. Exceedingly atypical CP' s persist. Despite prolonged episodes of CP, cardiac enzymes negative for VT. EKG's without acute ST/T changes. Echo unremarkable, shows normal LV function. At this time no compelling evidence to warrant nuclear stress testing; in addition, with high risk of dye induced renal failure, and patient declining dialysis, she is not a candidate for cardiac catheterization. REC conservative management of her CAD, continue beta yeison, aspirin not much else to offer from cardiac standpoint, will f/u as needed (2) Paroxysmal atrial fibrillation Assessment and Plan: Considerable baseline artefact on monitor, seems to be still in atrial fib/flutter. HR's acceptable. Patient high risk for thromboembolic event, but overall probably poor candidate for anticoagulation therapy. Rec daily aspirin. (3) Hypertension Assessment and Plan: Hypertension not active issue. Code Status alternative code Discussed Condition With patient Problem Qualifiers (1) CAD (coronary artery disease): Qualified Code: I25.10 - Coronary artery disease involving [place] coronary artery of [place] heart without angina pectoris (2) Hypertension: Qualified Code: I10 - Essential hypertension Antwon Nolasco MD Sep 10, 2016 07:49
--- NOTE | 2016-09-10 07:59 | HHI.PR ---
Subjective Remarks ALERT LESS SOB Objective Vital Signs Date Time Temp Pulse Resp B/P Pulse Ox O2 Delivery O2 Flow Rate FiO2 09/10/16 04:00 96.9 71 16 113/57 98 09/10/16 00:00 96.8 72 16 100/51 100 09/09/16 21:00 64 09/09/16 20:21 95 Nasal Cannula 3.00 09/09/16 20:00 96.4 81 16 106/52 98 09/09/16 16:46 64 09/09/16 16:00 98.4 62 16 110/59 97 09/09/16 13:46 65 09/09/16 12:57 16 09/09/16 12:56 16 09/09/16 12:00 97.7 79 20 110/59 97 09/09/16 09:06 97 Nasal Cannula 3.00 09/09/16 08:53 53 09/09/16 08:00 97.9 53 18 112/56 96 I/O 09/09/16 09/09/16 09/09/16 09/10/16 09/10/16 09/10/16 06:59 14:59 22:59 06:59 14:59 22:59 Intake Total 250 ml 360 ml 710 ml 300 ml Output Total 350 ml 345 ml Balance -100 ml 360 ml 365 ml 300 ml Intake Oral 250 ml 360 ml 710 ml 300 ml Output Urine Total 350 ml 345 ml # Voids 0 3 # Bowel Movements 0 0 4 3 Result Diagram: 09/10/16 0630 09/10/16 0630 Objective Remarks Laboratory Tests Test 09/08/16 09/08/16 09/08/16 09/09/16 15:40 15:44 20:00 01:45 Potassium Level 5.9 MEQ/L 5.4 MEQ/L (3.5-5.1) (3.5-5.1) Blood Urea Nitrogen 57 MG/DL (7-18) Creatinine 3.32 MG/DL (0.50-1.00) Estimat Glomerular Filtration 14 ML/MIN (>89) Rate Random Glucose 195 MG/DL (74-106) Troponin I LESS THAN 0.02 NG/ML (0.02-0.05) B-Type Natriuretic Peptide 951 PG/ML (0-100) White Blood Count 11.1 TH/MM3 (4.0-11.0) Red Blood Count 3.32 MIL/MM3 (4.00-5.30) Hemoglobin 9.7 GM/DL (11.6-15.3) Hematocrit 31.0 % (35.0-46.0) Mean Corpuscular Hemoglobin 31.3 % Concent (32.0-36.0) Neutrophils (%) (Auto) 80.1 % (16.0-70.0) Neutrophils # (Auto) 8.9 TH/MM3 (1.8-7.7) Blood Gas HCO3 21 mmol/L (22-26) Blood Gas Base Excess -4.6 mmol/L (-2-2) Arterial Blood pH 7.30 (7.380-7.420) Arterial Blood Partial 44 mmHg (38-42) Pressure CO2 Arterial Blood Partial 233 mmHG Pressure O2 (61-120) Blood Gas Hemoglobin 10.2 G/DL (12.0-16.0) Urine Turbidity HAZY (CLEAR) Urine Occult Blood SMALL (NEG) Urine RBC 13 /hpf (0-3) Urine Bacteria MOD /hpf (NONE) Urine Yeast (Budding) RARE (NONE) Test 09/09/16 09/09/16 09/10/16 03:07 19:31 06:30 Red Blood Count 2.64 MIL/MM3 2.85 MIL/MM3 (4.00-5.30) (4.00-5.30) Hemoglobin 8.1 GM/DL 8.4 GM/DL (11.6-15.3) (11.6-15.3) Hematocrit 24.4 % 26.1 % (35.0-46.0) (35.0-46.0) Platelet Count 146 TH/MM3 (150-450) Neutrophils (%) (Auto) 92.2 % 93.9 % (16.0-70.0) (16.0-70.0) Lymphocytes (%) (Auto) 6.5 % 4.4 % (9.0-44.0) (9.0-44.0) Lymphocytes # (Auto) 0.3 TH/MM3 0.3 TH/MM3 (1.0-4.8) (1.0-4.8) Potassium Level 6.2 MEQ/L (3.5-5.1) Blood Urea Nitrogen 65 MG/DL (7-18) 74 MG/DL (7-18) 73 MG/DL (7-18) Creatinine 3.59 MG/DL 3.81 MG/DL 3.85 MG/DL (0.50-1.00) (0.50-1.00) (0.50-1.00) Estimat Glomerular Filtration 12 ML/MIN (>89) 12 ML/MIN (>89) 11 ML/MIN (>89) Rate Random Glucose 237 MG/DL 246 MG/DL 187 MG/DL (74-106) (74-106) (74-106) Calcium Level 8.1 MG/DL 7.9 MG/DL 8.1 MG/DL (8.5-10.1) (8.5-10.1) (8.5-10.1) Troponin I LESS THAN 0.02 NG/ML (0.02-0.05) Aspartate Amino Transf 9 U/L (15-37) (AST/SGOT) Total Protein 6.0 GM/DL (6.4-8.2) Albumin 2.5 GM/DL (3.4-5.0) Assessment and Plan Assessment and Plan ASS COPD EX. IMPROVING ? PNA PLAN O2 NEEDED ANTIBX. CT CHEST PENDING Discharge Planning GENERAL: SKIN: Warm and dry. HEAD: Atraumatic. Normocephalic. EYES: Pupils equal and round. No scleral icterus. No injection or drainage. ENT: No nasal bleeding or discharge. Mucous membranes pink and moist. NECK: Trachea midline. No JVD. CARDIOVASCULAR: Regular rate and rhythm. RESPIRATORY: No accessory muscle use. Clear to auscultation. Breath sounds equal bilaterally. GASTROINTESTINAL: Abdomen soft, non-tender, nondistended. Hepatic and splenic margins not palpable. MUSCULOSKELETAL: Extremities without clubbing, cyanosis, or edema. No obvious deformities. NEUROLOGICAL: Awake and alert. No obvious cranial nerve deficits. Motor grossly within normal limits. Five out of 5 muscle strength in the arms and legs. Normal speech. PSYCHIATRIC: Appropriate mood and affect; insight and judgment normal. Phuong Baca MD Sep 10, 2016 07:59
--- NOTE | 2016-09-10 08:11 | RADRPT ---
EXAM DATE/TIME: 09/10/2016 07:53 [facility] COMPARISON: CHEST SINGLE AP, September 10, 2016, 6:14. INDICATIONS : Shortness of breath, possible pneumonia. RADIATION DOSE: 9.61 CTDIvol (mGy) MEDICAL HISTORY : Cardiovascular disease. Hypertension. Chronic obstructive pulmonary disease. Renal cancer. SURGICAL HISTORY : CABG Appendectomy.Cholecystectomy. ENCOUNTER: Initial ACUITY: 1 day PAIN SCALE: 0/10 LOCATION: Bilateral chest TECHNIQUE: Volumetric scanning of the chest was performed. Using automated exposure control and adjustment of t he mA and/or kV according to patient size, radiation dose was kept as low as reasonably achievable to obtain optimal diagnostic quality images. DICOM format image data is available electronically for r eview and comparison. Follow-up recommendations for incidentally detected pulmonary nodules are based at a minimum on nodul e size and patient risk factors according to Fleischner Society Guidelines. FINDINGS: LUNGS: There are patchy densities in the right upper lobe and to lesser degree right middle lobe and lingula . Right basal consolidation microatelectasis seen adjacent pleural effusion. PLEURAE: Small right pleural effusion. There is no pleural thickening or pleural effusion on the left. MEDIASTINUM: The heart and great vessels demonstrate no acute abnormality. There is no enlarged hilar lymphadenop athy. Coronary artery calcifications and CABG. Heart is enlarged. Multiple small mediastinal lymph no laura AXILLAE: Within normal limits. No lymphadenopathy. MUSCULOSKELETAL: Within normal limits for patient age. MISCELLANEOUS: The visualized upper abdominal organs demonstrate no acute abnormality. CONCLUSION: 1. Patchy opacities in the right upper lobe and to lesser degree right middle lobe and lingula. 2. Small right pleural effusion and adjacent atelectasis. 3. Status post CABG and cardiomegaly. Connor Boyle MD on September 10, 2016 at 8:06 Board Certified Radiologist. This report was verified electronically.
[2016-09-10] MEDS: BUDESONIDE-FORMOTEROL 160/4.5 MCG INHALER INH SCH ×2 (08:57→21:08)
[2016-09-10] MEDS: ASPIRIN EC 81 MG TABEC PO SCH (08:58)
[2016-09-10] MEDS: METOPROLOL TARTRATE 50 MG TAB PO SCH ×2 (08:59→21:09)
[2016-09-10] MEDS: PANTOPRAZOLE SOD 40 MG DELAYED RELEASE TAB PO SCH (08:59)
[2016-09-10] MEDS: HEPARIN SODIUM - SQ 10,000 UNITS/ML VIAL SQ SCH ×2 (09:00→21:10)
[2016-09-10] MEDS: MORPHINE SULFATE 15 MG CONTROLLED RELEASE TAB PO SCH (09:00)
[2016-09-10] MEDS: DOCUSATE SODIUM 50 MG/SENNA 8.6 MG TAB PO SCH ×2 (09:00→21:00)
[2016-09-10] MEDS: MORPHINE SULFATE 100 MG CONTROLLED RELEASE TAB PO SCH (09:00)
[2016-09-10] MEDS: SODIUM CHLORIDE 0.9% FLUSH 10 ML FLUSH IV FLUSH SCH ×2 (09:01→21:10)
--- NOTE | 2016-09-10 10:37 | PD.CONS ---
Consult Service Palliative Care . Consult Requested By Dr. Brenda Wilhelm. . Primary Care Physician Jose Eduardo Mcgee MD . Reason for Consultation a. To assist with evaluation and management of symptoms including: chronic pain syndrome; chest pain; dyspnea; anxiety b. To assist medical decision maker(s) with: better understanding of current medical conditions; weighing benefits/burdens of medical treatment options; making medical treatment decisions. HPI History of Present Illness Ms. Sinclair is a 75-year-old female with a known history of COPD (normally at home on 2-3 L/m of oxygen); coronary artery disease status post myocardial infarction and four-vessel CABG; diabetes mellitus; stroke; grade 1 diastolic dysfunction; gout; chronic pain syndrome with long-standing opiate use; dyslipidemia; diabetic nephropathy; enlarging kidney tumor; and multiple medication allergies who presented to the [facility] emergency Department on 09/08/16 complaining of severe dyspnea as well as chest pain. The pain was described as midsternal, nonradiating, pleuritic, and exacerbated by any movement. There was no associated diaphoresis or nausea. Her chest pains, when she gets them can last throughout the day and a constant fashion. The patient did report experiencing palpitations over the couple of weeks leading up to ER presentation. There were also 1 or 2 falls and she was unsure whether she might have lost consciousness or not prior to the falls. Oxygen saturation measured in the home was noted to be in the 80s while on oxygen. The patient had complained of occasional wheezing but has wheezing at baseline. She also reported a cough productive of a minimal amount of brownish sputum without hemoptysis. The patient was brought in by her daughter and son. The patient had been admitted to the [facility] medicine teaching service approximately one month prior and had also been admitted to the chest pain center about 2 weeks prior. Workup was negative at the chest pain center on 08/26/16.. The patient had refused cardiac stress testing at that time. At the time of this emergency department presentation the patient said it was impossible for her to ambulate even a couple of steps due to the pain. At her baseline, the patient sleeps in a semirecumbent position because she is unable to lay flat. The patient has long-standing chronic pain syndrome and anxiety. She normally takes 115 mg of long acting morphine sulfate every morning. She normally uses 2 mg of alprazolam every night. Initial vital signs in the emergency department revealed the following > temperature 98.5; pulse 52; respiratory rate 20; blood pressure 117/57; pulse oximetry 100% on O2 via nasal cannula at 2 L a minute Initial physical examination by the emergency sewing department supervisor revealed the following > patient was frail appearing and in significant respiratory distress. There is decreased air entry bilaterally and wheezing bilaterally in the lung chappell. The remainder the physical exam was unremarkable. Initial diagnostic testing revealed the following: * CBC showed a PBC 11.1; hemoglobin 9.7; platelet count 248 * Coagulation profile showed PT 11.2; INR 1.0 * Chemistry profile showed sodium 138; potassium 5.9; chloride 107; CO2 22.2; anion gap 9; BUN 57; creatinine 3.32; GFR 14; glucose 195; calcium 8.5; magnesium 2.3 * Cardiac serology show troponin at less than 0.02; B type natriuretic peptide at 951 * Arterial blood gas showed pH 7.3; PCO2 44; PaO2 233; bicarbonate 21; and base excess at -4.6. Oxygen was being administered at 8 L a minute via mask * 12-lead electrocardiogram showed atrial fibrillation with a heart rate of 51 * Chest x-ray. Showed new infiltrates in the right long * Resuscitation status was discussed with the patient and her daughter. The patient was capacitated at the time and indicated she did not want to be intubated. The patient also recently refused heart attack stress testing. History and the emergency department indicated that dialysis had been recommended for the patient in the past and she refused that. With respiratory distress, renal failure, and significant cardiac disease, as well as history of a enlarging kidney tumor the patient was felt to be in multiorgan failure. Antibiotics were started for the apparent pneumonia in the emergency department. She was given nebulizer treatments 3. The patient was admitted to the residency service. The patient confirmed with the resident team that under no circumstances that she wanted to be intubated, receiving mechanical ventilation, undergoing renal dialysis. Hospice services were offered, but the patient declined indicating she is well cared for by her daughter and does not require the additional level of support from hospice. Cardiology was consulted. Dr. Constance cabrera chest pains were quite atypical for myocardial ischemia. In addition, cardiac enzymes were negative and EKG did not suggest an acute coronary event. He did not feel she was a candidate for further invasive cardiac evaluation due to comorbid conditions and her renal failure. He felt her atrial fibrillation with bradycardia might be contributing to her dyspnea. He felt she was at high risk for thromboembolic events but also felt she was not a good candidate for anticoagulation therapy. He recommended conservative therapy for her coronary artery disease and symptomatic treatment. Echocardiogram came back showing an estimated ejection fraction 55-60%. No significant valvular dysfunction was noted. Nephrology was also consulted. Dr. Wheeler noted that the patient was familiar to him from his office practice and had last seen her in September 2015. He confirmed that she had declined dialysis. He reported that the "tumor" that the patient was referring to was actually a complex cyst involving her left kidney. The patient did not want follow-up or evaluation of that problem as well. In 08/26/16 creatinine level was 2.29. Overall, Dr. Wheeler felt uncertain if there was an acute reversible component to her renal disease or if this was just progression of her underlying chronic kidney disease now to the point of end-stage renal disease. Renal ultrasound revealed echogenic kidneys with cortical thinning and decreased size, left greater than right. Renal cysts were also noted. Pulmonology was consulted. A CT of the chest was ordered to see if there might be any kind of underlying mass. It revealed only patchy opacities in the right upper lobe and to a lesser degree right middle lobe and lingula. Small right pleural effusion was noted. Since admission, the patient continues to have her constant chest pain that she reports it is somewhat better. Breathing has improved slightly. Hemoglobin is falling to 8.4. Renal function has grown slightly worse with creatinine increasing to 3.85 and GFR declining to 11. Albumin is low at 2.5. Blood cultures from 09/08/16 have shown no growth to date. Urine culture from is pending. Chest x-ray from 09/10/16 showed COPD with mild interstitial vascular congestion but no evidence of consolidating airspace disease. She continues on IV stgeroids and iv antibiotics. Inpatient pain management includes ongoing use of her 115 mg/day of extended release PO morphine sulfate. Though Oromorph is usually dosed 2-3 times/day, single daily dosing appears appropriate given the patient's degree of renal failure and expected delays in metabolizing opiates. There is nothing being offered for breakthrough pain at this time buT patient does not appear to be requesting anything. Patient is awake and alert at time of my visit. Both of her daughters are present. She reports mild pain and mild dyspnea at the time. . Function/Cognitive Trajectory As noted above, the patient has long-standing chronic pain syndrome and anxiety. She normally takes 115 mg of long-acting morphine every morning and 2 mg of alprazolam at night. She normally needs assistance getting out of bed. She requires a wheelchair for mobility. She gets quite short of breath from even a few steps. She normally sleeps in a semirecumbent position in a hospital bed at home as she cannot tolerate lying flat. She gets assistance with dressing and bathing from her daughter with whom she lives. She uses a bedside commode. Although patient and family report an overall decline going on for months, the trajectory of decline has become much steeper over the last 4 weeks. It has become hard for the caregiver to cope with the added caregiving burden.. . Review of Systems Constitutional: COMPLAINS OF: Fatigue, Weight gain, Dizziness, Pain, Generalized weakness, DENIES: Diaphoretic episodes, Fever, Weight loss, Chills , Change in appetite Endocrine: DENIES: Heat/cold intolerance, Polydipsia, Polyuria, Polyphagia Eyes: COMPLAINS OF: Vision loss, DENIES: Diplopia, Eye pain, Double Vision Ears, nose, mouth, throat: DENIES: Tinnitus, Hearing loss, Nasal discharge, Throat pain, Hoarseness, Ear Pain Respiratory: COMPLAINS OF: Cough, Wheezing, Sputum production, Shortness of breath, DENIES: Apneas, Snoring, Hemoptysis Cardiovascular: COMPLAINS OF: Chest pain, Palpitations, Dyspnea on Exertion, Lower Extremity Edema, Orthopnea, DENIES: Syncope Gastrointestinal: COMPLAINS OF: Dyspepsia or heartburn, DENIES: Black stools, Bloody stools, Constipation, Diarrhea, Nausea, Vomiting, Vomiting blood Genitourinary: DENIES: Abnormal vaginal bleeding, Urinary frequency, Urinary incontinence, Hematuria, Dysuria Musculoskeletal: COMPLAINS OF: Joint pain, Muscle aches, Back pain, Decreased range of motion Integumentary: DENIES: Rash Hematologic/Lymphatics: COMPLAINS OF: Bruising, DENIES: Lymphadenopathy Immunologic/Allergic: DENIES: Urticaria Neurologic: COMPLAINS OF: Abnormal gait, Headache, Paresthesias, Poor Balance, DENIES: Seizures Psychiatric: COMPLAINS OF: Anxiety, Depression, DENIES: Confusion, Homicidal Ideation Past Family Social History Coded Allergies: Augmentin (Verified Allergy, Severe, Rash, 08/26/16) Haldol (Verified Allergy, Severe, Hallucinations, 08/26/16) Latex (Verified Allergy, Severe, HIVES, 08/26/16) Macrodantin (Verified Allergy, Severe, SHAKY , BLOOD SUGER PROBLEMS, ) Mirapex (Verified Allergy, Severe, LETHARGY,DIZZY,SHAKY, 08/26/16) Phenergan (Verified Allergy, Severe, Hallucinations, 08/26/16) Temazepam (Verified Allergy, Severe, Rash, 08/26/16) Lopid (Verified Allergy, Intermediate, 08/26/16) Lyrica (Verified Allergy, Unknown, 08/26/16) Soma (Verified Allergy, Unknown, 08/26/16) Amoxicillin (Verified Adverse Reaction, Severe, diarrhea, 08/26/16) HMG-CoA Reductase Inhibitors (Verified Adverse Reaction, Severe, LIVER DISEASE WITH SUBSEQUENT CHRONIC ITCHING UNTIL DC'D, 08/26/16) Trazodone (Verified Adverse Reaction, Intermediate, altered mental status , 08/26/16) *MDRO Multi-Drug Resistant Organism (Verified Adverse Reaction, Unknown, ) MRSA Sputum 10/2008 Uncoded Allergies: TAPE (Allergy, Mild, Rash, 11/06/09) USE PAPER TAPE ONLY ees (Allergy, Mild, itch, 11/06/09) advicor (Adverse Reaction, Intermediate, redness, itchin, 11/06/09) cipro,septra (Adverse Reaction, Intermediate, diarrhea,itching, 11/06/09) topramax (Adverse Reaction, Intermediate, 11/06/09) Past Medical History * Diabetes mellitus * COPD * Coronary artery disease status post myocardial infarction * Grade 1 diastolic dysfunction without systolic dysfunction * History of atrial fibrillation after her bypass surgery in 1999 * History of stroke 1989 * Dyslipidemia * Hypertension * Gout * Irritable bowel syndrome * Spinal stenosis * Chronic pain syndrome with long-standing opiate use * Chronic kidney disease --probable diabetic nephropathy * Diabetic neuropathy in bilateral lower extremities * History of "kidney tumor" which the patient has said is cancerous but has been followed for approximately 10 years. * Depression * Insomnia . Past Surgical History * Four-vessel coronary artery bypass grafting in 1999 * Hysterectomy with bilateral salpingo-oophorectomy in 1995 * Tonsillectomy * Appendectomy * Cholecystectomy * Epigastric hernia repair * Failed cataract surgery Reported Medications Prehospitalization medications included the following: Ms Contin (Morphine Sulfate) 15 Mg Tab 15 Mg PO DAILY Potassium Chloride ER (Potassium Chloride) 10 Meq Cap 10 Meq PO DAILY Furosemide 40 Mg Tab 40 Mg PO DAILY Fosinopril (Fosinopril Sodium) 10 Mg Tab 10 Mg PO DAILY Proair Hfa 8.5 GM Inh (Albuterol Sulfate) 90 Mcg/Act Aer 2 Puff INH Q4 PRN 108 mcg/actuation Amlodipine (Amlodipine Besylate) 10 Mg Tab 10 Mg PO DAILY Ativan (Lorazepam) 2 Mg Tab 2 Mg PO DAILY PRN Morphine ER (Morphine Sulfate) 100 Mg Tab 100 Mg PO DAILY Metoprolol Tartrate 100 Mg Tab 100 Mg PO BID Glucotrol (Glipizide) 10 Mg Tab 10 Mg PO DAILY Symbicort Inh (Budesonide/Formoterol Fumarate) 160-4.5 Mcg/Act Aero 2 Puff INH BID Duoneb (Ipratropium-Albuterol Neb) 0.5-2.5 Mg/3 Ml Neb 1 Nebule INH Q4HR NEB Current Medications Medications (Trade) Dose Ordered Sig/Saritha Route Start Time Stop Time Status Last Admin (NS Flush) 2 ml UNSCH PRN IV FLUSH 09/08/16 18:30 (NS Flush) 2 ml BID IV FLUSH 09/08/16 21:00 09/10/16 09:01 (Zofran Inj) 4 mg Q6H PRN IV 09/08/16 18:30 (Whitney-Colace) 1 tab BID PO 09/08/16 21:00 09/08/16 22:09 (Milk Of Magnesia Liq) 30 ml Q12H PRN PO 09/08/16 18:30 (Senokot) 17.2 mg Q12H PRN PO 09/08/16 18:30 (Dulcolax Supp) 10 mg DAILY PRN RECTAL 09/08/16 18:30 (Lactulose Liq) 30 ml DAILY PRN PO 09/08/16 18:30 (Symbicort 160-4.5 Inh) 2 puff BID INH 09/08/16 21:00 09/10/16 08:57 (Oramorph Sr) 100 mg DAILY PO 7/20/17 09:00 09/10/16 09:00 Morphine Sulfate 15 mg 15 mg DAILY PO 09/09/16 09:00 09/10/16 09:00 Pharmacy Profile Note 0 ml @ 0 mls/hr UNSCH OTHER 09/08/16 19:00 (Zosyn 3.375 Gm Premix) 50 ml @ 200 mls/hr Q6H IV 09/09/16 00:00 09/10/16 06:13 (Protonix) 40 mg DAILY PO 09/08/16 20:30 09/10/16 08:59 (SoluMEDROL INJ) 60 mg Q6H IVP 09/08/16 22:00 09/10/16 04:40 (Narcan Inj) 0.4 mg UNSCH PRN IV 09/08/16 20:45 (Ativan) 2 mg DAILY PRN PO 09/09/16 00:15 09/09/16 23:11 (Heparin Inj) 5,000 units Q12H SQ 09/09/16 09:00 09/09/16 22:40 (Lopressor) 50 mg BID PO 09/09/16 09:00 09/10/16 08:59 (Ecotrin Ec) 81 mg DAILY PO 09/09/16 09:00 09/10/16 08:58 (Bumex Inj) 1 mg Q8HR IV PUSH 09/09/16 17:15 09/10/16 06:12 Family History Father had CAD, DM, h/o CVA Mother due to an aneurysm, also with CAD . Substance Use Tobacco: Smoked 2 packs per day for approximately 40 years. Quit smoking in 2001 Alcohol: No history of abuse Prescription med abuse: Long-standing use of opiate analgesics for chronic pain syndrome Illicits: No known use of illicits . Psychosocial History Patient is originally from [place]. She moved to [place] approximately 35 years ago. Patient has a 10th grade education. She has worked outside the home doing [employer] work and also as a hospital certified pharmacist assistant. Patient was once and . Her ex- lives close by and remains very involved with the patient and the children. There are 4 children2 sons and 2 daughters. One of the daughters lives with the patient and serves as her full-time caregiver. Another daughter is a nurse at [employer]. One of the sons is a medical sales representative. All the children live here in [facility]. The patient has one brother and one surviving sister. . Spiritual/Cultural Factors Rastafarian and spirituality have not been an important part of the patient's life of late. She identifies herself as Presbyterian. She did not appear to care one way or another if the student union consultant visits or doesn't. . Living Will: Never completed Health Care Surrogate: Never completed Durable Power of Geological Specialist: Never completed Date completed: No available advance directive at this time. Patient and family have been given forms to complete on 09/10/16. . Health Care Surrogate(s): No written designation of health care surrogate at this time. Patient was given forms to complete on 09/10/16. . Documented care wishes: No written documentation of health care goals/preferences. Patient was given advanced directive forms to complete on 09/10/16. . Today's verbally stated goals: Patient indicated the following during my visit. Both daughters were present as witnesses. * Patient desires NO CODE status -- no intubation, no chest compressions, no shock * Patient does not want dialysis * Patient does not want intermediate placement . Family/friends goals: The 2 daughters present agreed with their mothers above-stated goals. . Ethical and Legal Issues Patient is currently capacitated to make her own health care decisions. She defers frequently to family and I would encourage shared decision making with all important decisions. . Physical Exam Vital Signs Date Time Temp Pulse Resp B/P Pulse Ox O2 Delivery O2 Flow Rate FiO2 09/10/16 09:20 70 Nasal Cannula 3.00 09/10/16 08:00 97.5 69 20 109/57 100 09/10/16 08:00 97.5 69 20 109/57 100 09/10/16 04:00 96.9 71 16 113/57 98 09/10/16 00:00 96.8 72 16 100/51 100 09/09/16 21:00 64 09/09/16 20:21 95 Nasal Cannula 3.00 09/09/16 20:00 96.4 81 16 106/52 98 09/09/16 16:46 64 09/09/16 16:00 98.4 62 16 110/59 97 09/09/16 13:46 65 09/09/16 12:57 16 09/09/16 12:56 16 09/09/16 12:00 97.7 79 20 110/59 97 . 709/10/16 19:00 07:00 Intake Total 360 ml 1010 ml Output Total 100 ml 245 ml Balance 260 ml 765 ml Intake Oral 360 ml 1010 ml Output Urine Total 100 ml 245 ml # Voids 0 3 # Bowel Movements 0 7 . Exam CONSTITUTIONAL/GENERAL: This is an adequately nourished patient, awake, alert, conversant, in a general medical bed. There is audible wheezing but no evident respiratory distress or significant pain TUBES/LINES/DRAINS: Peripheral IV; nasal cannula oxygen; Lion catheter SKIN: No jaundice, rashes, or lesions. Ecchymoses on upper extremities. No wounds seen anteriorly. Skin temperature appropriate. Not diaphoretic. HEAD: Atraumatic. Normocephalic. EYES: Pupils equal and round and reactive. Extraocular motions intact. No scleral icterus. No injection or drainage. Fundi not examined. ENT: Hearing grossly normal. Nose without bleeding or purulent drainage. Throat without visible erythema, exudates, masses, or lesions. NECK: Trachea midline. Supple, nontender. No palpable thyroid enlargement or nodularity. CARDIOVASCULAR: Irregularly irregular rhythm without murmurs, gallops, or rubs. No JVD. Peripheral pulses symmetric. RESPIRATORY/CHEST: Symmetric, unlabored respirations. There is wheezing audible without a stethoscope. Air movement is diminished bilaterally. Scattered rhonchi. GASTROINTESTINAL: Abdomen soft, obese, non-tender, nondistended. No hepato- splenomegaly, or palpable masses. No guarding. Bowel sounds active. GENITOURINARY: Without palpable bladder distension. Lion catheter in place. MUSCULOSKELETAL: Extremities without clubbing, cyanosis. There is edema in all extremities. No calf tenderness. No mottling . LYMPHATICS: No palpable cervical or supraclavicular adenopathy. NEUROLOGICAL: Awake and alert. Motor and sensory grossly within normal limits. Follows commands. Cognitively sharp. Moves all extremities. PSYCHIATRIC: Affect is slightly depressed. No apparent hallucinations or other psychotic thought process. . Diagnostic Tests Laboratory Laboratory Tests Test 09/08/16 09/08/16 09/08/16 09/08/16 15:40 15:44 20:00 22:00 Prothrombin Time 11.2 SEC (9.8-11.6) Prothromb Time International 1.0 RATIO Ratio Sodium Level 138 MEQ/L (136-145) Potassium Level 5.9 MEQ/L 5.4 MEQ/L (3.5-5.1) (3.5-5.1) Chloride Level 107 MEQ/L (98-107) Carbon Dioxide Level 22.2 MEQ/L (21.0-32.0) Anion Gap 9 MEQ/L (5-15) Blood Urea Nitrogen 57 MG/DL (7-18) Creatinine 3.32 MG/DL (0.50-1.00) Estimat Glomerular Filtration 14 ML/MIN (>89) Rate Random Glucose 195 MG/DL (74-106) Calcium Level 8.5 MG/DL (8.5-10.1) Magnesium Level 2.3 MG/DL (1.5-2.5) Troponin I LESS THAN 0.02 0.02 NG/ML NG/ML (0.02-0.05) (0.02-0.05) B-Type Natriuretic Peptide 951 PG/ML (0-100) White Blood Count 11.1 TH/MM3 (4.0-11.0) Red Blood Count 3.32 MIL/MM3 (4.00-5.30) Hemoglobin 9.7 GM/DL (11.6-15.3) Hematocrit 31.0 % (35.0-46.0) Mean Corpuscular Volume 93.4 FL (80.0-100.0) Mean Corpuscular Hemoglobin 29.2 PG (27.0-34.0) Mean Corpuscular Hemoglobin 31.3 % Concent (32.0-36.0) Red Cell Distribution Width 15.0 % (11.6-17.2) Platelet Count 248 TH/MM3 (150-450) Mean Platelet Volume 8.1 FL (7.0-11.0) Neutrophils (%) (Auto) 80.1 % (16.0-70.0) Lymphocytes (%) (Auto) 10.4 % (9.0-44.0) Monocytes (%) (Auto) 6.6 % (0.0-8.0) Eosinophils (%) (Auto) 2.1 % (0.0-4.0) Basophils (%) (Auto) 0.8 % (0.0-2.0) Neutrophils # (Auto) 8.9 TH/MM3 (1.8-7.7) Lymphocytes # (Auto) 1.2 TH/MM3 (1.0-4.8) Monocytes # (Auto) 0.7 TH/MM3 (0-0.9) Eosinophils # (Auto) 0.2 TH/MM3 (0-0.4) Basophils # (Auto) 0.1 TH/MM3 (0-0.2) CBC Comment DIFF FINAL Differential Comment Blood Gas Puncture Site RT RADIAL Blood Gas Patient Temperature 98.6 Blood Gas HCO3 21 mmol/L (22-26) Blood Gas Base Excess -4.6 mmol/L (-2-2) Blood Gas Oxygen Saturation 98 % (90-100) Arterial Blood pH 7.30 (7.380-7.420) Arterial Blood Partial 44 mmHg (38-42) Pressure CO2 Arterial Blood Partial 233 mmHG Pressure O2 (61-120) Arterial Blood Oxygen Content 14.5 Vol % (12.0-20.0) Arterial Blood 1.2 % (0-4) Carboxyhemoglobin Arterial Blood Methemoglobin 0.5 % (0-2) Blood Gas Hemoglobin 10.2 G/DL (12.0-16.0) Oxygen Delivery Device AER TX Blood Gas Liter Flow 8 L/M Total Creatine Kinase 39 U/L (26-192) Test 09/09/16 09/09/16 09/09/16 09/09/16 01:45 03:07 09:35 19:31 Urine Color YELLOW (YELLW/STRAW) Urine Turbidity HAZY (CLEAR) Urine pH 5.0 (5.0-8.5) Urine Specific [place] 1.013 (1.002-1.035) Urine Protein TRACE mg/dL (NEG-TRACE) Urine Glucose (UA) NEG mg/dL (NEG) Urine Ketones NEG mg/dL (NEG) Urine Occult Blood SMALL (NEG) Urine Nitrite NEG (NEG) Urine Bilirubin NEG (NEG) Urine Urobilinogen LESS THAN 2.0 MG/DL (LESS THAN 2.0) Urine Leukocyte Esterase NEG (NEG) Urine RBC 13 /hpf (0-3) Urine WBC 2 /hpf (0-5) Urine Squamous Epithelial 7 /hpf (0-5) Cells Urine Amorphous Sediment RARE Urine Bacteria MOD /hpf (NONE) Urine Hyaline Casts 3 /lpf (RARE) Urine Yeast (Budding) RARE (NONE) Microscopic Urinalysis Comment CULTURE INDICATED White Blood Count 4.7 TH/MM3 (4.0-11.0) Red Blood Count 2.64 MIL/MM3 (4.00-5.30) Hemoglobin 8.1 GM/DL (11.6-15.3) Hematocrit 24.4 % (35.0-46.0) Mean Corpuscular Volume 92.3 FL (80.0-100.0) Mean Corpuscular Hemoglobin 30.7 PG (27.0-34.0) Mean Corpuscular Hemoglobin 33.2 % Concent (32.0-36.0) Red Cell Distribution Width 14.5 % (11.6-17.2) Platelet Count 146 TH/MM3 (150-450) Mean Platelet Volume 8.6 FL (7.0-11.0) Neutrophils (%) (Auto) 92.2 % (16.0-70.0) Lymphocytes (%) (Auto) 6.5 % (9.0-44.0) Monocytes (%) (Auto) 1.1 % (0.0-8.0) Eosinophils (%) (Auto) 0.0 % (0.0-4.0) Basophils (%) (Auto) 0.2 % (0.0-2.0) Neutrophils # (Auto) 4.3 TH/MM3 (1.8-7.7) Lymphocytes # (Auto) 0.3 TH/MM3 (1.0-4.8) Monocytes # (Auto) 0.0 TH/MM3 (0-0.9) Eosinophils # (Auto) 0.0 TH/MM3 (0-0.4) Basophils # (Auto) 0.0 TH/MM3 (0-0.2) CBC Comment DIFF FINAL Differential Comment Sodium Level 139 MEQ/L 138 MEQ/L (136-145) (136-145) Potassium Level 6.2 MEQ/L 4.5 MEQ/L (3.5-5.1) (3.5-5.1) Chloride Level 104 MEQ/L 102 MEQ/L (98-107) (98-107) Carbon Dioxide Level 23.4 MEQ/L 22.8 MEQ/L (21.0-32.0) (21.0-32.0) Anion Gap 12 MEQ/L (5-15) 13 MEQ/L (5-15) Blood Urea Nitrogen 65 MG/DL (7-18) 74 MG/DL (7-18) Creatinine 3.59 MG/DL 3.81 MG/DL (0.50-1.00) (0.50-1.00) Estimat Glomerular Filtration 12 ML/MIN (>89) 12 ML/MIN (>89) Rate Random Glucose 237 MG/DL 246 MG/DL (74-106) (74-106) Calcium Level 8.1 MG/DL 7.9 MG/DL (8.5-10.1) (8.5-10.1) Total Creatine Kinase 37 U/L (26-192) Troponin I LESS THAN 0.02 NG/ML (0.02-0.05) Random Vancomycin Level 9.2 COMMENT Nasal Screen MRSA (PCR) MRSA NOT DETECTED (NOT DETECT) Test 09/10/16 06:30 White Blood Count 6.0 TH/MM3 (4.0-11.0) Red Blood Count 2.85 MIL/MM3 (4.00-5.30) Hemoglobin 8.4 GM/DL (11.6-15.3) Hematocrit 26.1 % (35.0-46.0) Mean Corpuscular Volume 91.5 FL (80.0-100.0) Mean Corpuscular Hemoglobin 29.5 PG (27.0-34.0) Mean Corpuscular Hemoglobin 32.3 % Concent (32.0-36.0) Red Cell Distribution Width 14.4 % (11.6-17.2) Platelet Count 152 TH/MM3 (150-450) Mean Platelet Volume 7.6 FL (7.0-11.0) Neutrophils (%) (Auto) 93.9 % (16.0-70.0) Lymphocytes (%) (Auto) 4.4 % (9.0-44.0) Monocytes (%) (Auto) 1.6 % (0.0-8.0) Eosinophils (%) (Auto) 0.0 % (0.0-4.0) Basophils (%) (Auto) 0.1 % (0.0-2.0) Neutrophils # (Auto) 5.7 TH/MM3 (1.8-7.7) Lymphocytes # (Auto) 0.3 TH/MM3 (1.0-4.8) Monocytes # (Auto) 0.1 TH/MM3 (0-0.9) Eosinophils # (Auto) 0.0 TH/MM3 (0-0.4) Basophils # (Auto) 0.0 TH/MM3 (0-0.2) CBC Comment DIFF FINAL Differential Comment Sodium Level 140 MEQ/L (136-145) Potassium Level 4.1 MEQ/L (3.5-5.1) Chloride Level 104 MEQ/L (98-107) Carbon Dioxide Level 24.4 MEQ/L (21.0-32.0) Anion Gap 12 MEQ/L (5-15) Blood Urea Nitrogen 73 MG/DL (7-18) Creatinine 3.85 MG/DL (0.50-1.00) Estimat Glomerular Filtration 11 ML/MIN (>89) Rate Random Glucose 187 MG/DL (74-106) Calcium Level 8.1 MG/DL (8.5-10.1) Total Bilirubin 0.4 MG/DL (0.2-1.0) Aspartate Amino Transf 9 U/L (15-37) (AST/SGOT) Alanine Aminotransferase 19 U/L (10-53) (ALT/SGPT) Alkaline Phosphatase 78 U/L (45-117) Total Protein 6.0 GM/DL (6.4-8.2) Albumin 2.5 GM/DL (3.4-5.0) Random Vancomycin Level 22.3 COMMENT . Result Diagram: 09/10/16 0630 09/10/16 0630 Microbiology Microbiology Date/Time Procedure Status Source Growth 09/08/16 15:55 Aerobic Blood Culture - Preliminary Resulted Blood Peripheral NO GROWTH IN 1 DAY 09/08/16 15:55 Anaerobic Blood Culture - Preliminary Resulted Blood Peripheral NO GROWTH IN 1 DAY 09/08/16 15:55 Aerobic Blood Culture - Preliminary Resulted Blood Peripheral NO GROWTH IN 1 DAY 09/08/16 15:55 Anaerobic Blood Culture - Preliminary Resulted Blood Peripheral NO GROWTH IN 1 DAY 09/09/16 01:45 Urine Culture Received Urine Clean Catch Pending Imaging Last Impressions Chest X-Ray 09/10/16 0600 Signed Impressions: Service Date/Time: Saturday, September 10, 2016 06:14 - CONCLUSION: COPD with mild interstitial vascular congestion but no evidence of consolidating airspace disease. Mild cardiomegaly Neil Landry MD Chest CT 09/10/16 0000 Signed Impressions: Service Date/Time: Saturday, September 10, 2016 07:53 - CONCLUSION: 1. Patchy opacities in the right upper lobe and to lesser degree right middle lobe and lingula. 2. Small right pleural effusion and adjacent atelectasis. 3. Status post CABG and cardiomegaly. Connor Boyle MD Renal Ultrasound 09/09/16 0000 Signed Impressions: Service Date/Time: August 17:55 - CONCLUSION: Echogenic kidneys with cortical thinning and decreased size, left greater than right. Renal cysts. Oskar Sierra MD . Patient/Family Conference Present at Family Conference: Patient and both of her daughters. . Family Conference Time (mins): 50 Family Conference Location: Bedside Issues Discussed: * Palliative care role, purpose, approach * Additional medical, psychosocial, and spiritual history * Patients general health, functional status, and cognitive changes in the months leading up to the current hospitalization * Patient/family understanding of the current medical problems * Patient/family understanding of prognosis * Patients goals of medical treatment * Current medical treatment options and benefits/burdens of those options * Resuscitation status * Likely scenarios comparing ongoing aggressive care with a transition to comfort measures only * Questions answered to the best of my ability * Palliative care contact information provided . Assessment and Plan Disease Oriented Problem List: (1) COPD (chronic obstructive pulmonary disease) Comment: Normally on 02 at 3L/min at home . (2) Pneumonia Comment: Initally appeared to have infiltrates on admission. . (3) CKD (chronic kidney disease) Comment: Probably secondary to diabetic nephropathy. Patient has been refusing dialysis. . (4) Atrial fibrillation (5) Chronic pain Comment: Has been on chronic opiates for years. . (6) Opiate dependence (7) DM (diabetes mellitus) Symptom Scale: (1) Depression 0-10 Scale: Unable to quantify Comment: Patient indicates she is depressed. Has never been on antidepressant medications. . (2) Pain 0-10 Scale: 3 Comment: Patient has several different pain syndromes noted. She has her chronic musculoskeletal pain mostly involving back, left shoulder, pelvic area. She also has very painful lower extremity peripheral neuropathy. She also has ease episodes of severe chest pain. There is episodic gouty arthritis pain. (3) Dyspnea 0-10 Scale: Unable to quantify Comment: Patient is now reasonably comfortable at rest with nasal cannula oxygen. Dyspnea is probably multifactorial. She has underlying COPD. She appears to have an acute pneumonia and likely an element of pulmonary fluid congestion. . (4) Generalized weakness (5) Anxiety 0-10 Scale: Unable to quantify Pertinent Non-Medical Issues Psychosocial: Receives excellent psychosocial support from immediate family. She is close with her ex- who lives locally. She lives with one of her daughters who is the primary caregiver. 3 other children live in [facility] and [facility]. Spiritual: Identifies herself is Pres[employer]. Rastafarian and spirituality have not played an important part in her life of late. Legal: No advance directive on file. Patient has been given advance directive forms and will be completing them. Ethical issues impacting care: Patient is currently capacitated to make her own health care decisions. She defers frequently to family members, however, and I would recommend shared decision-making for any important decisions. . Important Contacts * Keara Sinclair (daughter -- normally lives with the patient) [phone] * Tayla Cortez (daughter; nurse at [employer]) [phone] . Prognosis Patient appears to be having worsening respiratory disease, cardiac disease, and renal disease. She does not want intubation/mechanical ventilation and does not want dialysis. It is unclear if we are going to be able to successfully treat her congestive symptoms without dialysis and without further impairing her renal function. I anticipate there will be some improvement in respiratory function with treatment of her apparent pneumonia. Either way, patient is shown evidence of decline over the last months, particularly the last month. This is her third time back to the hospital within the last 4-6 weeks. I anticipate this trend will continue. In my clinical opinion, given patient's current goals, life expectancy is less than 6 months. From my perspective, she is eligible for hospice services at such time that her goals become primarily comfort oriented. . Code Status: No Code Plan == Code Status: NO CODE. Code status discussed at length with patient and her two daughters present. After discussion of benefits/burdens and how CPR normally would require intubation to be successful , patient has opted for NO CODE status. Daughters are in agreement. == Decision making: Patient is currently capacitated to make her own decisions. She relies on family to assist and I recommend that there be shared decision making for any major decisions. Patient has not designated a surrogate at this time but I have given her advance directive forms to complete with her family. Until such time as she designates a surrogate, proxy health care decision making would fall to the majority of her 4 children should the patient become incapacitated. == Goals of medical treatment: Patient goals appear to be in transition. At the beginning of our conversation , she was firm in her resolve of NO INTUBATION and NO DIALYSIS, but she desired chest compressions and shock and did not want hospice. After discussion of her conditions, trajectory of illness , and challenge of ongoing treatment, she has opted for NO CODE status and is seriously considering hospice. At this point patient and family want to aggressively treat any infection, see if they can medically diurese her further , and then be discharged home (does not want [facility]) once hospital treatment is optimized. As noted above, they appear to be leaning toward hospice as opposed to home health support at time of discharge. == Pain: Patient has several types of pain. She has chronic musculoskeletal pain involving back , left shoulder , buttocks. She has neuropathic pain in her lower extremities. She has atypical chest pain. She intermittently gets gout attacks. Normally, she manages her chronic pain at home with the 115 mg/ day of long acting morphine and an occasional 10 mg Percocet for breakthrough pain. She is still having chest pains here but it is tolerable and she is not requesting further opiate changes at the moment. Should she opt for comfort care (e.g. hospice) we might want to consider some low dose methadone which does not require renal function to metabolize and might provide better relief via the NMDA receptor blockade pathway. Methadone can prolong QT intervals so we would only want low doses with her cardiac function and only if her goals become comfort oriented. == Dyspnea: Patient has underlying COPD but now appears to have pneumonia and an element of pulmonary fluid congestion. She is currently receiving antibiotics, nebs, steroids. If/when goals become comfort oriented would offer breathrough opiates and benzos to help manage dyspnea. No further recommendations at this time. == Depression: Patient might benefit from an anti-depressant. May want to consider using trazadone or mirtazapine at night instead of the benzo if she permits. Sertraline may be one of the safest SSRIs for her given her renal failure but would still start at 12.5 mg/day. == Anxiety: Normally just uses a benzo at night. Anxiety increased in the hospital due to overall illness and to IV steroids. If needed, would recommend lorazepam 0.5 mg PO q 4 hours prn daytime anxiety and continue her scheduled nighttime benzo. == Disposition: Patient lives with her daughter and daughter was getting overwhelmed with patient's increasing care needs over the last month or so. Patient and family are refusing [facility]. If they decline hospice, home health will be the remaining choice. == Advance directives: Forms were provided to patient and family members. == Palliative Care is not staffed over the weekend. Please check to see if patient has completed advance directive forms. Please leave original with patient, place hard copy in chart, and have ward attendant fax copy to intake to be scanned into EMR at [phone] == Family needs a little time, but will probably be open to a hospice consult on09/11/16. If they remain reluctant, would at least recommend that they meet with hospice to discuss services so they will understand what hospice has to offer and can call them in the future if needed. Please let hospice team know to have children present for any hospice consultation. == Palliative care will continue to follow to assist with symptom management and further clarify goals of medical treatment as the clinical course evolves. . Thank you for the opportunity to participate in the care of Ms. Sinclair. . Phil Villalta MD Sep 10, 2016 10:37
--- NOTE | 2016-09-10 10:38 | HHI.FPPN ---
Subjective Remarks Patient interviewed with multiple family members at the bedside. Patient states she feels about the same as yesterday. She continues to have shortness of breath, belly pain. She continues to deny dialysis. Denies chest pain, nausea, vomiting. (Jerod Wilhelm MD R2) Objective Vitals Vital Signs Date Time Temp Pulse Resp B/P Pulse Ox O2 Delivery O2 Flow Rate FiO2 09/10/16 09:20 70 Nasal Cannula 3.00 09/10/16 08:00 97.5 69 20 109/57 100 09/10/16 08:00 97.5 69 20 109/57 100 09/10/16 04:00 96.9 71 16 113/57 98 09/10/16 00:00 96.8 72 16 100/51 100 09/09/16 21:00 64 09/09/16 20:21 95 Nasal Cannula 3.00 09/09/16 20:00 96.4 81 16 106/52 98 09/09/16 16:46 64 09/09/16 16:00 98.4 62 16 110/59 97 09/09/16 13:46 65 09/09/16 12:57 16 09/09/16 12:56 16 09/09/16 12:00 97.7 79 20 110/59 97 I/O 09/09/16 09/09/16 09/09/16 09/10/16 09/10/16 09/10/16 07:00 15:00 23:00 07:00 15:00 23:00 Intake Total 250 ml 360 ml 710 ml 300 ml Output Total 350 ml 345 ml 300 ml Balance -100 ml 360 ml 365 ml 300 ml -300 ml Intake Oral 250 ml 360 ml 710 ml 300 ml Output Urine Total 350 ml 345 ml 300 ml # Voids 0 3 # Bowel Movements 0 0 4 3 1 (Jerod Wilhelm MD R2) Result Diagram: 09/10/1630 09/10/16629 Imaging Last Impressions Chest X-Ray 09/10/16 06 Signed Impressions: Service Date/Time: Saturday, September 10, 2016 06:14 - CONCLUSION: COPD with mild interstitial vascular congestion but no evidence of consolidating airspace disease. Mild cardiomegaly Neil Landry MD Chest CT 09/10/16 0000 Signed Impressions: Service Date/Time: Saturday, September 10, 2016 07:53 - CONCLUSION: 1. Patchy opacities in the right upper lobe and to lesser degree right middle lobe and lingula. 2. Small right pleural effusion and adjacent atelectasis. 3. Status post CABG and cardiomegaly. Connor Boyle MD Renal Ultrasound 09/09/16 0000 Signed Impressions: Service Date/Time: August 17:55 - CONCLUSION: Echogenic kidneys with cortical thinning and decreased size, left greater than right. Renal cysts. Oskar Sierra MD Objective Remarks GENERAL: Patient is obese, well-nourished female lying in bed with nasal cannula. She is in mild respiratory distress able to speak full sentences but with some increased work of breathing SKIN: Warm and dry. The skin is notable for diffuse small areas of bruising including on the right lateral leg, left medial ankle, right hand, and left forearm. HEAD: Atraumatic. Normocephalic. EYES: Pupils equal and round. No scleral icterus. No injection or drainage. ENT: No nasal bleeding or discharge. Mucous membranes pink and moist. NECK: Trachea midline. No JVD. CARDIOVASCULAR: Regular rate and rhythm. No murmurs auscultated the lung sounds may occlude these RESPIRATORY: No accessory muscle use. The lungs were diffusely wheezy with prolonged expiratory phase and rhonchi in the upper lobes and lower. Breath sounds equal bilaterally. GASTROINTESTINAL: Abdomen soft, non-tender, obese, nondistended. Hepatic and splenic margins not palpable. MUSCULOSKELETAL: Extremities without clubbing, cyanosis, or edema. No obvious deformities. All joints were palpated without any tenderness and no joint effusions are noted. wearing compression stockings bilaterally NEUROLOGICAL: Awake and alert. No obvious cranial nerve deficits. Motor grossly within normal limits. Five out of 5 muscle strength in the arms and legs. Normal speech. PSYCHIATRIC: Appropriate mood and affect; insight and judgment normal. (Jerod Wilhelm MD R2) A/P Assessment and Plan 75-year-old female with history significant for COPD, CVA, CAD, atrial fibrillation presents with pneumonia, acute on chronic kidney disease. Pulmonology, cardiology, nephrology, palliative consult. Discharge Planning Pending clinical improvement (Jerod Wilhelm MD R2) Attending Attestation Patient seen and examined. Case reviewed and discussed with the resident team. Agree with plan of care as discussed with me and documented in the resident note. she is extremely ill and is declining dialysis. she wants her daughter to care for her at home and was refusing rehab (Ashely Vance MD) Problem List: (1) Acute on chronic renal insufficiency Status: Acute Plan: Nephrology consult. Patient does not want dialysis even if she had terminal renal failure. Renal ultrasound: Echogenic kidneys with cortical thinning and decreased size, left greater than right. Per nephrology, Bumex 1 mg IV every 8 hours because of concern for fluid overload. Per nephrology 09/09:If there is no significant improvement in the patient's volume status and or azotemia and she still wishes not to pursue dialytic support then comfort care would be appropriate in my opinion. This remains be determined however. Palliative care consult (2) COPD with exacerbation Status: Acute Plan: Pulmonology consult, Dr. Baca Continue Solu-Medrol 60 mg every 6 hours IV Duo nebs every 4 hours. Albuterol treatments were necessary. Respiratory supportive care with incentive spirometry. Oxygen for sats less than 92%. Antibiotics as below. (3) Pneumonia Status: Acute Plan: Concern for HCAP CT on 09/10 shows patchy opacities in the right upper lobe, and to a lesser degree right middle lobe and lingula. Small right pleural effusion and adjacent atelectasis. Pulmonology consult Continue vancomycin and Zosyn. Blood culture: No growth to date (4) Hypertension Status: Chronic Plan: Metoprolol as below. Holding home medications for low blood pressures: Amlodipine, lisinopril (5) DM (diabetes mellitus) Status: Chronic Plan: Chronic. Patient is on glipizide at home which is held. She'll be placed on low-dose sliding scale NovoLog, regular Accu-Cheks (6) Atrial fibrillation Status: Chronic Plan: Cardiology consult Metoprolol 50 mg twice a day Poor candidate for anticoagulation, continue aspirin Continue conservative management, cardiology will follow as needed. Echo: Ejection fraction 55-60%. (7) Insomnia Status: Chronic Plan: Continue home medication. (8) Opiate dependence Status: Chronic Plan: Patient reports chronic use of morphine, 115mg daily. She's been taking this for years. Plan: * Continue morphine as this dose given risk of withdrawal * For signs of respiratory depression. * Narcan when necessary (9) Fluids/Electrolytes/Nutrition/Prophylaxis Status: Acute Plan: Fluids: Tolerating by mouth, given significant history, careful with fluid overload Electrolytes: Monitor and replace as needed Nutrition: heart-healthy diet DVT Prophylaxis: Early ambulation. Heparin GI Prophylaxis: Protonix 40 mg PO daily (Jerod Wilhelm MD R2) Problem Qualifiers (1) Pneumonia: Qualified Code: J18.1 - Pneumonia of right lower lobe due to infectious organism (2) Hypertension: Qualified Code: I10 - Essential hypertension (3) DM (diabetes mellitus): Qualified Code: E13.8 - Other specified diabetes mellitus with complication, without long-term current use of insulin (4) Atrial fibrillation: Qualified Code: I48.91 - Atrial fibrillation, unspecified type (5) Insomnia: Qualified Code: G47.00 - Insomnia, unspecified type (6) Opiate dependence: Qualified Code: F11.20 - Uncomplicated opioid dependence Jerod Wilhelm MD R2 Sep 10, 2016 10:38 Ashely Vance MD Sep 15, 2016 14:50 Plan: Give Xanax 1 mg every 8 hours when necessary can start a taper if desired as Xanax can give seizures if stopped suddenly (11) Opiate dependence Status: Chronic Plan: Patient reports chronic use of morphine, 115mg daily. She's been taking this for years. Confirmed in the EMR from our [facility] as she sees Dr. Mcgee. Last dose was today. She takes it in the morning. Plan: * Continue morphine as this dose given risk of withdrawal * For signs of respiratory depression. * Narcan when necessary (12) Fluids/Electrolytes/Nutrition/Prophylaxis Status: Acute Plan: Fluids: Due to BNP elevated, will hold IVF and closely monitor AJ Electrolytes: hyperK, s/p treatment in ED. Will recheck BMP tonight consider Kayexalate as the treatments in the ED shifts the K around but only the lasix removes it from the body Nutrition: heart-healthy diet DVT Prophylaxis: Early ambulation. Lovenox 30mg subQ q24hr/bilateral SCDs GI Prophylaxis: Protonix 40 mg PO daily Problem Qualifiers (1) CHF exacerbation: Qualified Code: I50.9 - Acute on chronic congestive heart failure, unspecified congestive heart failure type (2) Pneumonia: Qualified Code: J18.1 - Pneumonia of right lower lobe due to infectious organism (3) Hypertension: Qualified Code: I10 - Essential hypertension (4) DM (diabetes mellitus): Qualified Code: E13.8 - Other specified diabetes mellitus with complication, without long-term current use of insulin (5) Atrial fibrillation: Qualified Code: I48.91 - Atrial fibrillation, unspecified type (6) CKD (chronic kidney disease): Qualified Code: N18.4 - Stage 4 chronic kidney disease (7) Insomnia: Qualified Code: G47.00 - Insomnia, unspecified type (8) Opiate dependence: Qualified Code: F11.20 - Uncomplicated opioid dependence Jerod Wilhelm MD R2 Sep 10, 2016 10:38
[2016-09-10 11:22] LABS: BICARBONATE 20.3 MEQ/L (21.0-32.0); MAGNESIUM 2.2 MG/DL (1.5-2.5)
--- NOTE | 2016-09-10 14:39 | HHI.NPPN ---
Subjective History of Present Illness This patient is a 75-year-old female known to me from the office who has a history of CKD stage IV. She was last seen in the office September 2015 and subsequently missed a follow-up appointment and did not reschedule. At that time she did indicate to me that she did not want dialysis even with terminal renal failure. There was also a complex cyst involving her left kidney for which she did not want follow-up or evaluation. And is noted that she had a serum creatinine level of 2.29 with an estimated GFR August 26, 2016. Subsequently indicated that she developed increasing shortness of breath and swelling of the lower extremities over the last few weeks. Denies any new medications or NSAID usage for analgesia. Chest x-ray this admission for increasing shortness of breath indicated the presence of a new infiltrate. Also on presentation she had hyperkalemia. Interval History Patient indicated that her shortness of breath has improved significantly since yesterday. Review of Systems General Constitutional: Fatigue Objective Data Data 09/09/16 09/10/16 19:00 07:00 Intake Total 360 ml 1010 ml Output Total 100 ml 245 ml Balance 260 ml 765 ml Intake Oral 360 ml 1010 ml Output Urine Total 100 ml 245 ml # Voids 0 3 # Bowel Movements 0 7 Vital Signs Date Time Temp Pulse Resp B/P Pulse Ox O2 Delivery O2 Flow Rate FiO2 09/10/16 13:02 76 09/10/16 12:59 16 09/10/16 12:58 16 09/10/16 12:00 96.1 74 18 97/49 100 09/10/16 09:20 70 Nasal Cannula 3.00 09/10/16 08:57 75 09/10/16 08:00 97.5 69 20 109/57 100 09/10/16 08:00 97.5 69 20 109/57 100 09/10/16 04:00 96.9 71 16 113/57 98 09/10/16 00:00 96.8 72 16 100/51 100 09/09/16 21:00 64 09/09/16 20:21 95 Nasal Cannula 3.00 09/09/16 20:00 96.4 81 16 106/52 98 09/09/16 16:46 64 09/09/16 16:00 98.4 62 16 110/59 97 -: 09/10/16 0630 09/10/16 1047 Medication Review Inpatient Medications Albuterol Sulfate (Albuterol Neb) 2.5 mg Q4HR NEB PRN NEB SOB/WHEEZING; Start 09/08/16 at 20:00 Albuterol/ Ipratropium (Duoneb Neb) 1 ampule Q4HR NEB INH Last administered on 09/10/16 11:39; Start 09/09/16 at 00:00 Alprazolam (Xanax) 1 mg Q8H PRN PO ANXIETY, INSOMNIA; Start 09/08/16 at 20:15; Stop 09/09/16 at 00:17; Status DC Amlodipine Besylate (Norvasc) 10 mg DAILY PO ; Start 09/09/16 at 09:00; Stop at 09:00; Status DC Aspirin 81 mg 81 mg DAILY PO Last administered on 09/10/16 08:58; Start at 09:00 Bisacodyl (Dulcolax Supp) 10 mg DAILY PRN RECTAL SEVERE CONSITIPATION; Start at 18:30 Budesonide/ Formoterol Fumarate (Symbicort 160-4.5 Inh) 2 puff BID INH Last administered on 09/10/16 08:57; Start 09/08/16 at 21:00 Bumetanide (Bumex Inj) 1 mg Q8HR IV PUSH Last administered on 09/10/16 06:12; Start 09/09/16 at 17:15 Calcium Gluconate (Calcium Gluconate Inj) 1 gm ONCE ONCE SLOW IVP Last administered on 09/08/16 17:21; Start 09/08/16 at 16:45; Stop 09/08/16 at 16:46 ; Status DC Chlorothiazide Sodium (Diuril Inj) 250 mg ONCE ONCE IV ; Start 09/09/16 at 17: 15; Stop 09/09/16 at 17:16; Status DC Dextrose (D50w (Syr) Inj) 50 ml ONCE ONCE IV Last administered on 09/09/16 09 :52; Start 09/09/16 at 08:30; Stop 09/09/16 at 08:31; Status DC Dextrose (D50w (Vial) Inj) 50 ml ONCE ONCE IV PUSH Last administered on 17:21; Start 09/08/16 at 16:45; Stop 09/08/16 at 16:46; Status DC Enoxaparin Sodium (Lovenox Inj) 30 mg Q24H SQ Last administered on 09/08/16 22 :10; Start 09/08/16 at 21:00; Stop 09/09/16 at 08:23; Status DC Furosemide (Lasix) 40 mg DAILY PO ; Start 09/09/16 at 09:00; Stop 09/09/16 at 09 :00; Status DC Furosemide 60 mg 60 mg ONCE ONCE IVP Last administered on 09/08/16 15:58; Start 09/08/16 at 15:45; Stop 09/08/16 at 15:46; Status DC Heparin Sodium (Porcine) (Heparin Inj) 5,000 units Q12H SQ Last administered on 09/09/16 22:40; Start 09/09/16 at 09:00 Insulin Aspart (NovoLOG SUPPLEMENTAL SCALE) 1 ACHS SLIDING SCALE SQ Last administered on 09/10/16 12:57; Start 09/08/16 at 21:00 Insulin Human Regular (NovoLIN R INJ) 10 units ONCE ONCE IV PUSH Last administered on 09/09/16 10:00; Start 09/09/16 at 07:45; Stop 09/09/16 at 07:46 ; Status DC Lactulose (Lactulose Liq) 30 ml DAILY PRN PO SEVERE CONSITIPATION; Start at 18:30 Lisinopril (Prinivil) 10 mg DAILY PO ; Start 09/09/16 at 09:00; Stop 09/09/16 at 09:00; Status DC Lorazepam (Ativan) 2 mg DAILY PRN PO ANXIETY AND/OR AGITATION Last administered on 09/09/16 23:11; Start 09/09/16 at 00:15 Magnesium Hydroxide (Milk Of Magnesia Liq) 30 ml Q12H PRN PO MILD - MODERATE CONSTIPATION; Start 09/08/16 at 18:30 Methylprednisolone Sodium Succinate (SoluMEDROL INJ) 60 mg Q6H IVP Last administered on 09/10/16 12:46; Start 09/08/16 at 22:00 Metoprolol Tartrate (Lopressor) 50 mg BID PO Last administered on 09/10/16 08: 59; Start 09/09/16 at 09:00 Morphine Sulfate (Oramorph Sr) 100 mg DAILY PO Last administered on 09/10/16 09:00; Start 09/09/16 at 09:00 Morphine Sulfate 15 mg 15 mg DAILY PO Last administered on 09/10/16 09:00; Start 09/09/16 at 09:00 Naloxone HCl (Narcan Inj) 0.4 mg UNSCH PRN IV SEE LABEL COMMENTS; Start at 20:45 Ondansetron HCl (Zofran Inj) 4 mg Q6H PRN IV NAUSEA; Start 09/08/16 at 18:30 Pantoprazole Sodium (Protonix) 40 mg DAILY PO Last administered on 09/10/16 08 :59; Start 09/08/16 at 20:30 Pharmacy Profile Note 0 ml @ 0 mls/hr UNSCH OTHER ; Start 09/08/16 at 19:00 Piperacillin Sod/ Tazobactam Sod (Zosyn 3.375 Gm Premix) 50 ml @ 100 mls/hr Q6H IV Last administered on 09/10/16 12:46; Start 09/09/16 at 00:00 Piperacillin Sod/ Tazobactam Sod (Zosyn 4.5 Gm Premix) 100 ml @ 200 mls/hr ONCE ONCE IV Last administered on 09/08/16 18:15; Start 09/08/16 at 16:15; Stop 09/08/16 at 16:44; Status DC Senna/Docusate Sodium (Whitney-Colace) 1 tab BID PO Last administered on 22:09; Start 09/08/16 at 21:00 Sennosides (Senokot) 17.2 mg Q12H PRN PO MODERATE - SEVERE CONSTIPATION; Start 09/08/16 at 18:30 Sodium Polystyrene Sulfonate (Kayexalate Liq) 15 gm QID PO Last administered on 09/09/16 18:43; Start 09/09/16 at 09:00; Stop 09/09/16 at 21:01; Status DC Sodium Bicarbonate (Sodium Bicarbonate 8.4% Inj) 100 meq ONCE ONCE SLOW IVP Last administered on 09/08/16 17:21; Start 09/08/16 at 16:45; Stop 09/08/16 at 16:46; Status DC Sodium Chloride (NS Flush) 2 ml BID IV FLUSH Last administered on 09/10/16 09: 01; Start 09/08/16 at 21:00 Vancomycin HCl/ Sodium Chloride (Vancomycin Inj/ NS 250 ml Inj) 262.5 ml @ 262.5 mls/ hr ONCE ONCE IV Last administered on 09/09/16 14:08; Start at 13:00; Stop 09/09/16 at 13:59; Status DC Physical Exam General Appearance: No Acute Distress, Comfortable Appearance Remarks Patient appears chronically debilitated. Pulmonary Resp Exam: Clear Bilaterally, Breath Sounds Equal, No Distress Cardiology CV Exam: Regular, Normal Sinus Rhythm Gastrointestinal/Abdomen GI Exam: Soft, Non-Tender Integumentary Skin Exam: Clear, Warm Extremeties Extremities Exam: Trace Edema (lower extremities.) Assessment/Plan Discussed Condition With: Patient, Son Problem List: (1) Acute on chronic renal insufficiency Plan: As indicated above the patient's volume status has improved significantly since yesterday. Convert patient to by mouth diuretic therapy. Renal indices have improved minimally. I do believe that the patient is a hospice candidate and as indicated previously the patient does not want dialytic support and is aware of the severity of her renal insufficiency. Palliative care consultation was reviewed. Medications should be adjusted for the patient's estimated GFR if clinically indicated. Avoid agents with significant potential for nephrotoxicity possible including NSAIDs for analgesia, iodine contrast agents. Gadolinium is contraindicated if the GFR is below 30. (2) Fluid overload Plan: Improved as indicated above. (3) Hyperkalemia Plan: Resolved. (4) CKD (chronic kidney disease) stage 4, GFR 15-29 ml/min Plan: Suspect the patient has progressive CKD stage V. Remains be determined if any improvement in patient's renal indices will occur. (5) Diabetes mellitus with renal manifestations, controlled Plan: Management per primary care physician. Marii Wheeler MD Sep 10, 2016 14:39
[2016-09-10] MEDS: METOLAZONE 5 MG TAB PO SCH (17:37)
[2016-09-10] MEDS: BUMETANIDE 1 MG TAB PO SCH (17:59)
[2016-09-10] MEDS: PIPERACIL-TAZO 2.25 GM PREMIX 50 ML IV SCH ×2 (17:59→23:41)
[2016-09-10] MEDS: LORazepam 2 MG TAB PO PRN (21:08)
[2016-09-11] VITALS (10 sets, daily range): BP systolic 106–131; BP diastolic 51–61; PULSE 71–83; RESP 14–22; TEMP 96.1–97.9; O2SAT 94–100
[2016-09-11] MEDS: RESP: ALBUTEROL 2.5 MG/IPRATROPIUM 0.5 MG NEB (SCH) INH ×7 (04:00→23:23)
[2016-09-11] MEDS: PIPERACIL-TAZO 2.25 GM PREMIX 50 ML IV SCH ×4 (05:01→23:15)
[2016-09-11] MEDS: methylPREDNISolone SOD SUCC 125 MG/2 ML VIAL IVP SCH ×4 (05:01→21:34)
[2016-09-11] MEDS: INSULIN ASPART SUPPLEMENTAL SCALE SQ SCH ×4 (05:11→21:51)
[2016-09-11 07:07] LABS: EOSINOPHIL % 0.1 % (0.0-4.0); HEMATOCRIT 25.5 % (35.0-46.0); HEMO FLAGS DIFF FINAL; LYMPH % 4.5 % (9.0-44.0); LYMPHOCYTE # 0.2 TH/MM3 (1.0-4.8); MEAN CELL VOLUME 91.7 FL (80.0-100.0); MEAN CORPUSCULAR HEMOGLOBIN 29.5 PG (27.0-34.0); MEAN CORPUSCULAR HGB CONC 32.2 % (32.0-36.0); MONO % 1.6 % (0.0-8.0); NEUT % 93.8 % (16.0-70.0); PLATELET COUNT 151 TH/MM3 (150-450); RED BLOOD COUNT 2.78 MIL/MM3 (4.00-5.30); RED CELL DISTRIBUTION WIDTH 14.3 % (11.6-17.2); WHITE BLOOD COUNT 4.3 TH/MM3 (4.0-11.0)
[2016-09-11 07:41] LABS: ALT (GPT) 17 U/L (10-53); ANION GAP 13 MEQ/L (5-15); AST (GOT) 8 U/L (15-37); BICARBONATE 24.2 MEQ/L (21.0-32.0); BLOOD UREA NITROGEN 67 MG/DL (7-18); CHLORIDE 103 MEQ/L (98-107); GLOMERULAR FILTRATION RATE 12 ML/MIN (>89); POTASSIUM 3.6 MEQ/L (3.5-5.1); SODIUM (NA) 140 MEQ/L (136-145)
[2016-09-11 07:42] LABS: ALKALINE PHOSPHATASE 67 U/L (45-117); TOTAL BILIRUBIN ADULT 0.3 MG/DL (0.2-1.0)
[2016-09-11] MEDS: METOLAZONE 5 MG TAB PO SCH (08:15)
[2016-09-11] MEDS: ASPIRIN EC 81 MG TABEC PO SCH (08:15)
[2016-09-11] MEDS: BUMETANIDE 1 MG TAB PO SCH ×2 (08:15→16:59)
[2016-09-11] MEDS: DOCUSATE SODIUM 50 MG/SENNA 8.6 MG TAB PO SCH ×2 (08:16→21:00)
[2016-09-11] MEDS: METOPROLOL TARTRATE 50 MG TAB PO SCH ×2 (08:16→21:33)
[2016-09-11] MEDS: MORPHINE SULFATE 100 MG CONTROLLED RELEASE TAB PO SCH ×2 (08:16→21:28)
[2016-09-11] MEDS: PANTOPRAZOLE SOD 40 MG DELAYED RELEASE TAB PO SCH (08:16)
[2016-09-11] MEDS: MORPHINE SULFATE 15 MG CONTROLLED RELEASE TAB PO SCH (08:17)
[2016-09-11] MEDS: HEPARIN SODIUM - SQ 10,000 UNITS/ML VIAL SQ SCH ×2 (08:17→21:34)
[2016-09-11] MEDS: SODIUM CHLORIDE 0.9% FLUSH 10 ML FLUSH IV FLUSH SCH ×2 (08:25→21:35)
[2016-09-11] MEDS: BUDESONIDE-FORMOTEROL 160/4.5 MCG INHALER INH SCH ×2 (08:25→21:44)
--- NOTE | 2016-09-11 09:26 | HHI.FPPN ---
Subjective Remarks Patient states she is breathing better than yesterday. She feels a little bit better. She would like to meet with hospice when her family is going to be present. She denies fever, chills, nausea, vomiting. She had a bowel movement. She continues to urinate but with some difficulty. Objective Vitals Vital Signs Date Time Temp Pulse Resp B/P Pulse Ox O2 Delivery O2 Flow Rate FiO2 09/11/16 07:55 94 Nasal Cannula 3.00 09/11/16 04:00 96.7 72 19 109/51 98 09/11/16 00:00 97.5 78 21 117/56 99 09/10/16 21:00 62 09/10/16 20:00 96.6 70 19 122/58 98 09/10/16 19:58 98 Nasal Cannula 4.00 09/10/16 16:52 68 09/10/16 16:00 96.8 72 18 108/56 100 09/10/16 13:02 76 09/10/16 12:59 16 09/10/16 12:58 16 09/10/16 12:00 96.1 74 18 97/49 100 I/O 09/10/16 09/10/16 09/10/16 09/11/16 09/11/16 09/11/16 07:00 15:00 23:00 07:00 15:00 23:00 Intake Total 300 ml 480 ml 480 ml Output Total 300 ml Balance 300 ml -300 ml 480 ml 480 ml Intake Oral 300 ml 480 ml 480 ml Output Urine Total 300 ml # Voids 3 2 4 2 # Bowel Movements 3 2 1 Result Diagram: 09/11/1628 09/11/16627 Objective Remarks GENERAL: Patient is obese, well-nourished female lying in bed with nasal cannula. She is in mild respiratory distress able to speak full sentences but with some increased work of breathing SKIN: Warm and dry. The skin is notable for diffuse small areas of bruising including on the right lateral leg, left medial ankle, right hand, and left forearm. HEAD: Atraumatic. Normocephalic. EYES: Pupils equal and round. No scleral icterus. No injection or drainage. ENT: No nasal bleeding or discharge. Mucous membranes pink and moist. NECK: Trachea midline. No JVD. CARDIOVASCULAR: Regular rate and rhythm. No murmurs auscultated the lung sounds may occlude these RESPIRATORY: No accessory muscle use. The lungs were diffusely wheezy with prolonged expiratory phase and rhonchi in the upper lobes and lower. Breath sounds equal bilaterally. GASTROINTESTINAL: Abdomen soft, non-tender, obese, nondistended. Hepatic and splenic margins not palpable. MUSCULOSKELETAL: Extremities without clubbing, cyanosis, or edema. No obvious deformities. All joints were palpated without any tenderness and no joint effusions are noted. wearing compression stockings bilaterally NEUROLOGICAL: Awake and alert. No obvious cranial nerve deficits. Motor grossly within normal limits. Five out of 5 muscle strength in the arms and legs. Normal speech. PSYCHIATRIC: Appropriate mood and affect; insight and judgment normal. A/P Assessment and Plan 75-year-old female with history significant for COPD, CVA, CAD, atrial fibrillation presents with pneumonia, acute on chronic kidney disease. Pulmonology, cardiology, nephrology, palliative consult. Discharge Planning Pending clinical improvement Hospice consult. Palliative care consult. Problem List: (1) Acute on chronic renal insufficiency Status: Acute Plan: Nephrology consult. Patient does not want dialysis even if she had terminal renal failure. Renal ultrasound: Echogenic kidneys with cortical thinning and decreased size, left greater than right. Per nephrology, Bumex 1 mg by mouth every 12 hours because of concern for fluid overload. Per nephrology 09/09:If there is no significant improvement in the patient's volume status and or azotemia and she still wishes not to pursue dialytic support then comfort care would be appropriate in my opinion. This remains be determined however. Palliative care consult (2) COPD with exacerbation Status: Acute Plan: Pulmonology consult, Dr. Baca Continue Solu-Medrol 60 mg every 6 hours IV Duo nebs every 4 hours. Albuterol treatments were necessary. Respiratory supportive care with incentive spirometry. Oxygen for sats less than 92%. Antibiotics as below. (3) Pneumonia Status: Acute Plan: Concern for HCAP CT on 09/10 shows patchy opacities in the right upper lobe, and to a lesser degree right middle lobe and lingula. Small right pleural effusion and adjacent atelectasis. Pulmonology consult Continue vancomycin and Zosyn. Blood culture: No growth to date (4) Hypertension Status: Chronic Plan: Metoprolol as below. Holding home medications for low blood pressures: Amlodipine, lisinopril (5) DM (diabetes mellitus) Status: Chronic Plan: Chronic. Patient is on glipizide at home which is held. She'll be placed on low-dose sliding scale NovoLog, regular Accu-Cheks (6) Atrial fibrillation Status: Chronic Plan: Cardiology consult Metoprolol 50 mg twice a day Poor candidate for anticoagulation, continue aspirin Continue conservative management, cardiology will follow as needed. Echo: Ejection fraction 55-60%. (7) Insomnia Status: Chronic Plan: Continue home medication. (8) Opiate dependence Status: Chronic Plan: Patient reports chronic use of morphine, 115mg daily. She's been taking this for years. Plan: * Continue morphine as this dose given risk of withdrawal * For signs of respiratory depression. * Narcan when necessary (9) Fluids/Electrolytes/Nutrition/Prophylaxis Status: Acute Plan: Fluids: Tolerating by mouth, given significant history, careful with fluid overload Electrolytes: Monitor and replace as needed Nutrition: heart-healthy diet DVT Prophylaxis: Early ambulation. Heparin GI Prophylaxis: Protonix 40 mg PO daily Problem Qualifiers (1) Pneumonia: Qualified Code: J18.1 - Pneumonia of right lower lobe due to infectious organism (2) Hypertension: Qualified Code: I10 - Essential hypertension (3) DM (diabetes mellitus): Qualified Code: E13.8 - Other specified diabetes mellitus with complication, without long-term current use of insulin (4) Atrial fibrillation: Qualified Code: I48.91 - Atrial fibrillation, unspecified type (5) Insomnia: Qualified Code: G47.00 - Insomnia, unspecified type (6) Opiate dependence: Qualified Code: F11.20 - Uncomplicated opioid dependence Jerod Wilhelm MD R2 Sep 11, 2016 09:26
--- NOTE | 2016-09-11 10:11 | HHI.NPPN ---
Subjective History of Present Illness This patient is a 75-year-old female known to me from the office who has a history of CKD stage IV. She was last seen in the office September 2015 and subsequently missed a follow-up appointment and did not reschedule. At that time she did indicate to me that she did not want dialysis even with terminal renal failure. There was also a complex cyst involving her left kidney for which she did not want follow-up or evaluation. And is noted that she had a serum creatinine level of 2.29 with an estimated GFR August 26, 2016. Subsequently indicated that she developed increasing shortness of breath and swelling of the lower extremities over the last few weeks. Denies any new medications or NSAID usage for analgesia. Chest x-ray this admission for increasing shortness of breath indicated the presence of a new infiltrate. Also on presentation she had hyperkalemia. Interval History The patient overall says she is feeling OK today. SOB improved. Says family is meeting tonight with hospice to further clarify goals. Review of Systems General Constitutional: Fatigue Objective Data Data 09/10/16 09/11/16 19:00 07:00 Intake Total 960 ml Output Total 300 ml Balance -300 ml 960 ml Intake Oral 960 ml Output Urine Total 300 ml # Voids 2 6 # Bowel Movements 2 1 Vital Signs Date Time Temp Pulse Resp B/P Pulse Ox O2 Delivery O2 Flow Rate FiO2 09/11/16 08:00 96.1 73 22 124/61 100 09/11/16 07:55 94 Nasal Cannula 3.00 09/11/16 04:00 96.7 72 19 109/51 98 09/11/16 00:00 97.5 78 21 117/56 99 09/10/16 21:00 62 09/10/16 20:00 96.6 70 19 122/58 98 09/10/16 19:58 98 Nasal Cannula 4.00 09/10/16 16:52 68 09/10/16 16:00 96.8 72 18 108/56 100 09/10/16 13:02 76 09/10/16 12:59 16 09/10/16 12:58 16 09/10/16 12:00 96.1 74 18 97/49 100 -: 09/11/16 0628 09/11/16 0628 Imaging Last Impressions Chest X-Ray 09/10/16 0600 Signed Impressions: Service Date/Time: Saturday, September 10, 2016 06:14 - CONCLUSION: COPD with mild interstitial vascular congestion but no evidence of consolidating airspace disease. Mild cardiomegaly Neil Landry MD Chest CT 09/10/16 0000 Signed Impressions: Service Date/Time: Saturday, September 10, 2016 07:53 - CONCLUSION: 1. Patchy opacities in the right upper lobe and to lesser degree right middle lobe and lingula. 2. Small right pleural effusion and adjacent atelectasis. 3. Status post CABG and cardiomegaly. Connor Boyle MD Renal Ultrasound 09/09/16 0000 Signed Impressions: Service Date/Time: August 17:55 - CONCLUSION: Echogenic kidneys with cortical thinning and decreased size, left greater than right. Renal cysts. Oskar Sierra MD Medication Review Current Medications Medications (Trade) Dose Ordered Sig/Saritha Route Start Time Stop Time Status Last Admin (NS Flush) 2 ml UNSCH PRN IV FLUSH 09/08/16 18:30 (NS Flush) 2 ml BID IV FLUSH 09/08/16 21:00 09/11/16 08:25 (Zofran Inj) 4 mg Q6H PRN IV 09/08/16 18:30 (Whitney-Colace) 1 tab BID PO 09/08/16 21:00 09/11/16 08:16 (Milk Of Magnesia Liq) 30 ml Q12H PRN PO 09/08/16 18:30 (Senokot) 17.2 mg Q12H PRN PO 09/08/16 18:30 (Dulcolax Supp) 10 mg DAILY PRN RECTAL 09/08/16 18:30 (Lactulose Liq) 30 ml DAILY PRN PO 09/08/16 18:30 (Symbicort 160-4.5 Inh) 2 puff BID INH 09/08/16 21:00 09/11/16 08:25 (Oramorph Sr) 100 mg DAILY PO 09/09/16 09:00 09/11/16 08:16 Morphine Sulfate 15 mg 15 mg DAILY PO 09/09/16 09:00 09/11/16 08:17 (Vancomycin Consult Pharmacy) 0 ml @ 0 mls/hr UNSCH OTHER 09/08/16 19:00 (Protonix) 40 mg DAILY PO 09/08/16 20:30 09/11/16 08:16 (SoluMEDROL INJ) 60 mg Q6H IVP 09/08/16 22:00 09/11/16 05:01 (Narcan Inj) 0.4 mg UNSCH PRN IV 09/08/16 20:45 (Ativan) 2 mg DAILY PRN PO 09/09/16 00:15 09/10/16 21:08 (Heparin Inj) 5,000 units Q12H SQ 09/09/16 09:00 09/11/16 08:17 (Lopressor) 50 mg BID PO 09/09/16 09:00 09/11/16 08:16 (Ecotrin Ec) 81 mg DAILY PO 09/09/16 09:00 09/11/16 08:15 (Bumetanide) 1 mg DAILY@09,18 PO 09/10/16 18:00 09/11/16 08:15 Metolazone 5 mg 5 mg DAILY PO 09/10/16 14:45 09/11/16 08:15 (Zosyn 2.25 Gm Premix) 50 ml @ 100 mls/hr Q6H IV 09/10/16 18:00 09/11/16 05:01 Physical Exam General Appearance: No Acute Distress, Comfortable Pulmonary Resp Exam: Clear Bilaterally, Breath Sounds Equal, No Distress, Diminished Breath Sounds Cardiology CV Exam: Regular, Normal Sinus Rhythm Gastrointestinal/Abdomen GI Exam: Soft, Non-Tender Integumentary Skin Exam: Clear, Warm Extremeties Extremities Exam: Trace Edema (lower extremities.) Neurologic Neuro Exam: Alert, Awake Assessment/Plan Discussed Condition With: Patient, Son Problem List: (1) Acute on chronic renal insufficiency Plan: Pt seems to be doing well on po diuretics. Renal functions stable. As mentioned previously, the patient would be a hospice candidate. Apparently meeting scheduled this evening Medications should be adjusted for the patient's estimated GFR if clinically indicated. Avoid agents with significant potential for nephrotoxicity possible including NSAIDs for analgesia, iodine contrast agents. Gadolinium is contraindicated if the GFR is below 30. (2) Fluid overload Plan: Improved as indicated above. (3) Hyperkalemia Plan: Resolved. (4) CKD (chronic kidney disease) stage 4, GFR 15-29 ml/min Plan: Suspect the patient has progressive CKD stage V. Remains be determined if any improvement in patient's renal indices will occur. (5) Diabetes mellitus with renal manifestations, controlled Plan: Management per primary care physician. Luzmaria Good Sep 11, 2016 10:11
[2016-09-11] MEDS ORDERED: VANCOMYCIN INJ 1,250 MG in SODIUM CHLOR 0.9% 250 ML INJ 250 ML IV ONE (14:00)
[2016-09-11] MEDS: LORazepam 2 MG TAB PO PRN (21:32)
[2016-09-11] MEDS: MORPHINE SULFATE 4 MG/ML INJ IV PRN (22:37)
[2016-09-12] VITALS (13 sets, daily range): BP systolic 109–154; BP diastolic 58–77; PULSE 72–101; RESP 17–20; TEMP 96–97.7; O2SAT 97–100
[2016-09-12] MEDS: RESP: ALBUTEROL 2.5 MG/IPRATROPIUM 0.5 MG NEB (SCH) INH ×6 (03:10→23:42)
[2016-09-12] MEDS: methylPREDNISolone SOD SUCC 125 MG/2 ML VIAL IVP SCH ×4 (03:32→22:30)
[2016-09-12 06:45] LABS: AUTOMATED NEUTROPHIL # 3.2 TH/MM3 (1.8-7.7); BASOPHIL % 0.1 % (0.0-2.0); HEMATOCRIT 23.8 % (35.0-46.0); HEMO FLAGS DIFF FINAL; LYMPH % 5.5 % (9.0-44.0); LYMPHOCYTE # 0.2 TH/MM3 (1.0-4.8); MEAN CORPUSCULAR HEMOGLOBIN 30.1 PG (27.0-34.0); MEAN CORPUSCULAR HGB CONC 33.4 % (32.0-36.0); MONO % 2.2 % (0.0-8.0); NEUT % 92.2 % (16.0-70.0); PLATELET COUNT 139 TH/MM3 (150-450); RED BLOOD COUNT 2.65 MIL/MM3 (4.00-5.30); RED CELL DISTRIBUTION WIDTH 14.3 % (11.6-17.2); WHITE BLOOD COUNT 3.5 TH/MM3 (4.0-11.0)
[2016-09-12 06:48] LABS: BICARBONATE 24.7 MEQ/L (21.0-32.0)
[2016-09-12] MEDS: PIPERACIL-TAZO 2.25 GM PREMIX 50 ML IV SCH ×3 (07:00→17:01)
[2016-09-12] MEDS: INSULIN ASPART SUPPLEMENTAL SCALE SQ SCH ×4 (07:07→22:42)
[2016-09-12] MEDS ORDERED: POTASSIUM CHLORIDE 10 MEQ CONTROLLED RELEASE TAB PO ONE ×2 (08:15→09:00)
[2016-09-12] MEDS: DOCUSATE SODIUM 50 MG/SENNA 8.6 MG TAB PO SCH ×2 (09:00→21:00)
[2016-09-12] MEDS: METOPROLOL TARTRATE 50 MG TAB PO SCH ×2 (09:02→22:27)
[2016-09-12] MEDS: BUMETANIDE 1 MG TAB PO SCH ×2 (09:02→17:01)
[2016-09-12] MEDS: ASPIRIN EC 81 MG TABEC PO SCH (09:02)
[2016-09-12] MEDS: METOLAZONE 5 MG TAB PO SCH (09:02)
[2016-09-12] MEDS: MORPHINE SULFATE 100 MG CONTROLLED RELEASE TAB PO SCH (09:03)
[2016-09-12] MEDS: PANTOPRAZOLE SOD 40 MG DELAYED RELEASE TAB PO SCH (09:03)
[2016-09-12] MEDS: MORPHINE SULFATE 15 MG CONTROLLED RELEASE TAB PO SCH (09:03)
[2016-09-12] MEDS: SODIUM CHLORIDE 0.9% FLUSH 10 ML FLUSH IV FLUSH SCH ×2 (09:06→22:28)
[2016-09-12] MEDS: HEPARIN SODIUM - SQ 10,000 UNITS/ML VIAL SQ SCH ×2 (09:07→22:28)
[2016-09-12] MEDS: BUDESONIDE-FORMOTEROL 160/4.5 MCG INHALER INH SCH ×2 (09:08→20:49)
--- NOTE | 2016-09-12 11:06 | HHI.FPPN ---
Subjective Remarks Patient is doing slightly better this morning. She is breathing slightly better. She denies fever, chills, nausea, vomiting. She and her family were not able to meet with hospice yesterday. They are planning on meeting with hospice when the whole family can be there. (Jerod Wilhelm MD R2) Objective Vitals Vital Signs Date Time Temp Pulse Resp B/P Pulse Ox O2 Delivery O2 Flow Rate FiO2 09/12/16 08:00 96.3 83 20 127/58 97 09/12/16 07:49 97 Nasal Cannula 3.00 09/12/16 04:00 96.2 73 20 130/62 97 09/12/16 00:00 96.0 80 17 135/61 98 09/11/16 23:34 19 09/11/16 21:00 83 09/11/16 20:00 96.3 79 18 120/56 97 09/11/16 19:44 96 Nasal Cannula 3.00 09/11/16 16:00 97.9 71 18 131/56 98 09/11/16 15:35 100 Nasal Cannula 3.00 09/11/16 12:00 97.5 83 14 106/59 97 I/O 09/11/16 09/11/16 09/11/16 09/12/16 09/12/16 09/12/16 07:00 15:00 23:00 07:00 15:00 23:00 Intake Total 480 ml 120 ml 480 ml 240 ml Balance 480 ml 120 ml 480 ml 240 ml Intake Oral 480 ml 120 ml 480 ml 240 ml # Voids 2 4 2 1 # Bowel Movements 1 1 1 (Jerod Wilhelm MD R2) Result Diagram: 09/12/16 0454 09/12/16 0454 Objective Remarks GENERAL: Patient is obese, well-nourished female lying in bed with nasal cannula. She is in mild respiratory distress able to speak full sentences but with some increased work of breathing SKIN: Warm and dry. The skin is notable for diffuse small areas of bruising including on the right lateral leg, left medial ankle, right hand, and left forearm. HEAD: Atraumatic. Normocephalic. EYES: Pupils equal and round. No scleral icterus. No injection or drainage. ENT: No nasal bleeding or discharge. Mucous membranes pink and moist. NECK: Trachea midline. No JVD. CARDIOVASCULAR: Regular rate and rhythm. No murmurs auscultated the lung sounds may occlude these RESPIRATORY: No accessory muscle use. The lungs were diffusely wheezy with prolonged expiratory phase and rhonchi in the upper lobes and lower. Breath sounds equal bilaterally. GASTROINTESTINAL: Abdomen soft, non-tender, obese, nondistended. Hepatic and splenic margins not palpable. MUSCULOSKELETAL: Extremities without clubbing, cyanosis, or edema. No obvious deformities. All joints were palpated without any tenderness and no joint effusions are noted. wearing compression stockings bilaterally NEUROLOGICAL: Awake and alert. No obvious cranial nerve deficits. Motor grossly within normal limits. Five out of 5 muscle strength in the arms and legs. Normal speech. PSYCHIATRIC: Appropriate mood and affect; insight and judgment normal. (Jerod Wilhelm MD R2) A/P Assessment and Plan 75-year-old female with history significant for COPD, CVA, CAD, atrial fibrillation presents with pneumonia, acute on chronic kidney disease. Pulmonology, cardiology, nephrology, palliative consult. Discharge Planning Pending clinical improvement Hospice consult. Palliative care consult. (Jerod Wilhelm MD R2) Attending Attestation Patient seen and examined. Case reviewed and discussed with the resident team. Agree with plan of care as discussed with me and documented in the resident note. (Ashely Vance MD) Problem List: (1) Acute on chronic renal insufficiency Status: Acute Plan: Nephrology consult. Patient does not want dialysis even if she had terminal renal failure. Renal ultrasound: Echogenic kidneys with cortical thinning and decreased size, left greater than right. Per nephrology, Bumex 1 mg by mouth every 12 hours because of concern for fluid overload. Per nephrology 09/09:If there is no significant improvement in the patient's volume status and or azotemia and she still wishes not to pursue dialytic support then comfort care would be appropriate in my opinion. This remains be determined however. Palliative care consult (2) COPD with exacerbation Status: Acute Plan: Pulmonology consult, Dr. Baca Continue Solu-Medrol 60 mg every 6 hours IV Duo nebs every 4 hours. Albuterol treatments were necessary. Respiratory supportive care with incentive spirometry. Oxygen for sats less than 92%. Antibiotics as below. (3) Pneumonia Status: Acute Plan: Concern for HCAP CT on 09/10 shows patchy opacities in the right upper lobe, and to a lesser degree right middle lobe and lingula. Small right pleural effusion and adjacent atelectasis. Pulmonology consult Continue vancomycin and Zosyn. Blood culture: No growth to date (4) Hypertension Status: Chronic Plan: Metoprolol as below. Holding home medications for low blood pressures: Amlodipine, lisinopril (5) DM (diabetes mellitus) Status: Chronic Plan: Chronic. Patient is on glipizide at home which is held. She'll be placed on low-dose sliding scale NovoLog, regular Accu-Cheks (6) Atrial fibrillation Status: Chronic Plan: Cardiology consult Metoprolol 50 mg twice a day Poor candidate for anticoagulation, continue aspirin Continue conservative management, cardiology will follow as needed. Echo: Ejection fraction 55-60%. (7) Insomnia Status: Chronic Plan: Continue home medication. (8) Opiate dependence Status: Chronic Plan: Patient reports chronic use of morphine, 115mg daily. She's been taking this for years. Plan: * Continue morphine as this dose given risk of withdrawal * For signs of respiratory depression. * Narcan when necessary (9) Fluids/Electrolytes/Nutrition/Prophylaxis Status: Acute Plan: Fluids: Tolerating by mouth, given significant history, careful with fluid overload Electrolytes: Monitor and replace as needed Nutrition: heart-healthy diet DVT Prophylaxis: Early ambulation. Heparin GI Prophylaxis: Protonix 40 mg PO daily (Jerod Wilhelm MD R2) Problem Qualifiers (1) Pneumonia: Qualified Code: J18.1 - Pneumonia of right lower lobe due to infectious organism (2) Hypertension: Qualified Code: I10 - Essential hypertension (3) DM (diabetes mellitus): Qualified Code: E13.8 - Other specified diabetes mellitus with complication, without long-term current use of insulin (4) Atrial fibrillation: Qualified Code: I48.91 - Atrial fibrillation, unspecified type (5) Insomnia: Qualified Code: G47.00 - Insomnia, unspecified type (6) Opiate dependence: Qualified Code: F11.20 - Uncomplicated opioid dependence Jerod Wilhelm MD R2 Sep 12, 2016 11:06 Ashely Vance MD Sep 15, 2016 14:51
[2016-09-12] MEDS: MORPHINE SULFATE 4 MG/ML INJ IV PRN ×2 (17:05→20:46)
[2016-09-12] MEDS: LORazepam 2 MG TAB PO PRN (22:26)
[2016-09-13] VITALS (13 sets, daily range): BP systolic 135–152; BP diastolic 63–70; PULSE 72–87; RESP 18–21; TEMP 96.2–97.3; O2SAT 96–99
[2016-09-13] MEDS: MORPHINE SULFATE 4 MG/ML INJ IV PRN ×2 (00:32→21:09)
[2016-09-13] MEDS: SODIUM CHLORIDE 0.9% FLUSH 10 ML FLUSH IV FLUSH PRN ×4 (00:32→07:12)
[2016-09-13] MEDS: PIPERACIL-TAZO 2.25 GM PREMIX 50 ML IV SCH ×4 (00:33→17:09)
[2016-09-13] MEDS: methylPREDNISolone SOD SUCC 125 MG/2 ML VIAL IVP SCH ×4 (04:58→21:08)
[2016-09-13] MEDS: INSULIN ASPART SUPPLEMENTAL SCALE SQ SCH ×4 (06:06→21:50)
[2016-09-13 07:57] LABS: AUTOMATED NEUTROPHIL # 2.9 TH/MM3 (1.8-7.7); HEMATOCRIT 24.9 % (35.0-46.0); HEMO FLAGS DIFF FINAL; LYMPH % 5.5 % (9.0-44.0); LYMPHOCYTE # 0.2 TH/MM3 (1.0-4.8); MEAN CELL VOLUME 91.3 FL (80.0-100.0); MEAN CORPUSCULAR HEMOGLOBIN 29.7 PG (27.0-34.0); MEAN CORPUSCULAR HGB CONC 32.5 % (32.0-36.0); MONO % 1.7 % (0.0-8.0); NEUT % 92.8 % (16.0-70.0); PLATELET COUNT 145 TH/MM3 (150-450); RED BLOOD COUNT 2.73 MIL/MM3 (4.00-5.30); RED CELL DISTRIBUTION WIDTH 14.4 % (11.6-17.2); WHITE BLOOD COUNT 3.2 TH/MM3 (4.0-11.0)
[2016-09-13 08:18] LABS: BICARBONATE 26.1 MEQ/L (21.0-32.0); POTASSIUM 3.1 MEQ/L (3.5-5.1)
--- NOTE | 2016-09-13 08:25 | HHI.FPPN ---
Subjective Remarks No acute events overnight. Afebrile, vital signs have been within normal limits. Patient continues to endorse chest pain she states on both lower sides also radiating to her right upper back. She states this chest pain is similar in nature to her pain when she presented. Denies any fevers. She reports a cough that has been unchanged in character and with no improvement since admission. Endorses good urine production. Denies melena or visible blood in stools. She states she met with Hospice yesterday and currently does not want to accept Hospice. She states she will continue to think about it. She continues to not want dialysis if her renal function continues to decline however she is also rethinking this. (Dom Mayfield MD R1) Objective Vitals Vital Signs Date Time Temp Pulse Resp B/P Pulse Ox O2 Delivery O2 Flow Rate FiO2 09/13/16 05:35 73 09/13/16 04:00 96.8 84 21 147/69 98 09/13/16 00:09 72 09/13/16 00:00 96.2 87 20 135/69 96 09/12/16 23:44 99 Nasal Cannula 3.00 09/12/16 20:17 90 09/12/16 20:00 96.7 101 19 129/77 97 09/12/16 16:48 83 09/12/16 16:00 97.5 82 18 154/65 97 09/12/16 15:32 100 Nasal Cannula 3.00 09/12/16 12:17 75 09/12/16 12:00 97.7 75 18 109/58 98 09/12/16 08:34 72 I/O 09/12/16 09/12/16 09/12/16 09/13/16 09/13/16 09/13/16 06:59 14:59 22:59 06:59 14:59 22:59 Intake Total 240 ml 480 ml 240 ml 110 ml Output Total 500 ml 650 ml Balance 240 ml -20 ml -410 ml 110 ml Intake Oral 240 ml 480 ml 240 ml IV Total 110 ml Output Urine Total 500 ml 650 ml # Voids 1 1 # Bowel Movements 1 4 2 2 (Dom Mayfield MD R1) Result Diagram: 09/13/1663809/13/16638 Objective Remarks GENERAL: Patient is obese, well-nourished pleasant female lying in bed with nasal cannula. SKIN: Warm and dry. Small areas of bruising on the right lateral leg, left medial ankle, right hand, and left forearm. HEAD: Atraumatic. Normocephalic. EYES: Pupils equal and round. No scleral icterus. No injection or drainage. ENT: No nasal bleeding or discharge. Mucous membranes pink and moist. NECK: Trachea midline. No JVD. CARDIOVASCULAR: Regular rate and rhythm, no murmurs appreciated RESPIRATORY: No accessory muscle use. The lungs were diffusely wheezy with prolonged expiratory phase and fine rales bilaterally. Breath sounds equal bilaterally. GASTROINTESTINAL: Abdomen soft, non-tender, obese, nondistended. MUSCULOSKELETAL: Extremities without clubbing, cyanosis, or edema. No obvious deformities. NEUROLOGICAL: Awake and alert. No obvious cranial nerve deficits. Motor grossly within normal limits. Normal speech. PSYCHIATRIC: Appropriate mood and affect; insight and judgment normal. ( Dom Mayfield MD R1) A/P Assessment and Plan 75-year-old female with history significant for COPD, CVA, CAD, atrial fibrillation presented with pneumonia, acute on chronic kidney disease. Pulmonology, cardiology, nephrology, palliative care have been consulted to assist with management and goals of care. Discharge Planning Pending clinical improvement Hospice consult. Palliative care consult. (Dom Mayfield MD R1) Attending Attestation Pt. examined and case discussed with resident physicians I have read the above note and agree with the assessment/plan as discussed with me I was involved in all medical decision making for this patient Evan Dyer MD (Evan Dyer MD) Problem List: (1) Acute on chronic renal insufficiency Status: Acute Plan: Nephrology consult. Patient had expressed she would not want dialysis even if she had terminal renal failure, patient now seems she may be re-considering if dialysis were required Renal ultrasound: Echogenic kidneys with cortical thinning and decreased size, left greater than right. Per nephrology, Bumex 1 mg by mouth every 12 hours because of concern for fluid overload. Continue to monitor Cr, GFR. I/Os Per nephrology 09/09: If there is no significant improvement in the patient's volume status and or azotemia and she still wishes not to pursue dialytic support then comfort care would be appropriate in my opinion. This remains be determined however. Palliative care consult (2) COPD with exacerbation Status: Acute Plan: Pulmonology consult, Dr. Baca Continue Solu-Medrol 60 mg every 6 hours IV Duo nebs every 4 hours. Albuterol treatments when necessary Respiratory supportive care with incentive spirometry. Oxygen for O2 sats < 92% Antibiotics as below (3) Pneumonia Status: Acute Plan: Concern for HCAP CT on 09/10 shows patchy opacities in the right upper lobe, and to a lesser degree right middle lobe and lingula. Small right pleural effusion and adjacent atelectasis. Pulmonology consult Continue vancomycin and Rhondasyn Infectious disease consulted for recommendations on antibiotic therapy if patient were to be discharged vs may require continued therapy at an infusion center Blood culture 09/08 no growth after 5 days (4) Hypertension Status: Chronic Plan: Continue Metoprolol 50 mg po bid Holding home medications for low blood pressures: Amlodipine, lisinopri Continue to trend vitals q4h Will consider restarting home antihypertensives if BPs rise (5) DM (diabetes mellitus) Status: Chronic Plan: Chronic. Patient is on glipizide at home which is held. She'll be placed on low-dose sliding scale NovoLog, regular Accu-Cheks Started levemir 5 units subq bid (6) Atrial fibrillation Status: Chronic Plan: Cardiology consult Metoprolol 50 mg twice a day Poor candidate for anticoagulation, continue aspirin Continue conservative management, cardiology will follow as needed. Echo: Ejection fraction 55-60%. (7) Insomnia Status: Chronic Plan: Continue home medication. (8) Opiate dependence Status: Chronic Plan: Patient reports chronic use of morphine, 115mg daily. She's been taking this for years. Plan: * Continue morphine at this dose given risk of withdrawal * Monitor for signs of respiratory depression. * Narcan when necessary (9) Fluids/Electrolytes/Nutrition/Prophylaxis Status: Acute Plan: Fluids: Tolerating by mouth, given significant history, caution with fluid overload Electrolytes: Monitor and replace as needed Nutrition: heart-healthy diet DVT Prophylaxis: Early ambulation. Heparin GI Prophylaxis: Protonix 40 mg PO daily (Dom Mayfield MD R1) Problem Qualifiers (1) Pneumonia: Qualified Code: J18.1 - Pneumonia of right lower lobe due to infectious organism (2) Hypertension: Qualified Code: I10 - Essential hypertension (3) DM (diabetes mellitus): Qualified Code: E13.8 - Other specified diabetes mellitus with complication, without long-term current use of insulin (4) Atrial fibrillation: Qualified Code: I48.91 - Atrial fibrillation, unspecified type (5) Insomnia: Qualified Code: G47.00 - Insomnia, unspecified type (6) Opiate dependence: Qualified Code: F11.20 - Uncomplicated opioid dependence Dom Mayfield MD R1 Sep 13, 2016 08:25 Evan Dyer MD Sep 13, 2016 16:09
[2016-09-13] MEDS: DOCUSATE SODIUM 50 MG/SENNA 8.6 MG TAB PO SCH ×2 (09:00→21:00)
[2016-09-13] MEDS: HEPARIN SODIUM - SQ 10,000 UNITS/ML VIAL SQ SCH ×2 (09:14→21:08)
[2016-09-13] MEDS: BUDESONIDE-FORMOTEROL 160/4.5 MCG INHALER INH SCH ×2 (09:15→21:07)
[2016-09-13] MEDS ORDERED: POTASSIUM CHLORIDE 10 MEQ CONTROLLED RELEASE TAB PO ONE (09:15)
[2016-09-13] MEDS: BUMETANIDE 1 MG TAB PO SCH ×2 (09:15→17:09)
[2016-09-13] MEDS: ASPIRIN EC 81 MG TABEC PO SCH (09:15)
[2016-09-13] MEDS: SODIUM CHLORIDE 0.9% FLUSH 10 ML FLUSH IV FLUSH SCH ×2 (09:15→21:07)
[2016-09-13] MEDS: METOLAZONE 5 MG TAB PO SCH (09:15)
[2016-09-13] MEDS: PANTOPRAZOLE SOD 40 MG DELAYED RELEASE TAB PO SCH (09:15)
[2016-09-13] MEDS: METOPROLOL TARTRATE 50 MG TAB PO SCH ×2 (09:15→21:07)
[2016-09-13] MEDS: MORPHINE SULFATE 100 MG CONTROLLED RELEASE TAB PO SCH (09:16)
[2016-09-13] MEDS: MORPHINE SULFATE 15 MG CONTROLLED RELEASE TAB PO SCH (09:17)
[2016-09-13] MEDS ORDERED: TRIA0.5C TOPICAL (10:04)
--- NOTE | 2016-09-13 11:32 | HHI.NPPN ---
Subjective History of Present Illness This patient is a 75-year-old female known to me from the office who has a history of CKD stage IV. She was last seen in the office September 2015 and subsequently missed a follow-up appointment and did not reschedule. At that time she did indicate to me that she did not want dialysis even with terminal renal failure. There was also a complex cyst involving her left kidney for which she did not want follow-up or evaluation. And is noted that she had a serum creatinine level of 2.29 with an estimated GFR August 26, 2016. Subsequently indicated that she developed increasing shortness of breath and swelling of the lower extremities over the last few weeks. Denies any new medications or NSAID usage for analgesia. Chest x-ray this admission for increasing shortness of breath indicated the presence of a new infiltrate. Also on presentation she had hyperkalemia. Interval History Patient complaining of fatigue but otherwise improved. Review of Systems General Constitutional: Fatigue Objective Data Data 09/12/16 09/13/16 18:59 06:59 Intake Total 720 ml Output Total 1150 ml Balance -430 ml Intake Oral 720 ml Output Urine Total 1150 ml # Voids 1 # Bowel Movements 5 3 Vital Signs Date Time Temp Pulse Resp B/P Pulse Ox O2 Delivery O2 Flow Rate FiO2 09/13/16 08:00 96.5 83 18 147/64 97 09/13/16 05:35 73 09/13/16 04:00 96.8 84 21 147/69 98 09/13/16 00:09 72 09/13/16 00:00 96.2 87 20 135/69 96 09/12/16 23:44 99 Nasal Cannula 3.00 09/12/16 20:17 90 09/12/16 20:00 96.7 101 19 129/77 97 09/12/16 16:48 83 09/12/16 16:00 97.5 82 18 154/65 97 09/12/16 15:32 100 Nasal Cannula 3.00 09/12/16 12:17 75 09/12/16 12:00 97.7 75 18 109/58 98 -: 09/13/16 0639 09/13/16 0639 Physical Exam General Appearance: No Acute Distress, Comfortable Appearance Remarks Patient appears chronically debilitated. Pulmonary Resp Exam: Clear Bilaterally, Breath Sounds Equal, No Distress, Diminished Breath Sounds Cardiology CV Exam: Regular, Normal Sinus Rhythm Gastrointestinal/Abdomen GI Exam: Soft, Non-Tender Integumentary Skin Exam: Clear, Warm Extremeties Extremities Exam: Trace Edema (lower extremities.) Neurologic Neuro Exam: Alert, Awake Psychiatric Psych Exam: Appropriate Responses Assessment/Plan Discussed Condition With: Patient, Son Problem List: (1) Acute on chronic renal insufficiency Plan: Status has improved. Continue diuretics at current dosage. Potassium supplementation as ordered. Patient again indicated that she did not want dialytic support. She remains with CKD stage V and remains very debilitated. I believe her prognosis is less than 6 months without dialytic support and she is a candidate for hospice. We'll defer decision to patient and family however. Nothing else to add at this point in time. Patient will be seen on a when necessary basis only. Please call if you have any questions. Medications should be adjusted for the patient's estimated GFR if clinically indicated. Avoid agents with significant potential for nephrotoxicity possible including NSAIDs for analgesia, iodine contrast agents. Gadolinium is contraindicated if the GFR is below 30. (2) Fluid overload Plan: Much improved on current diuretics. (3) Hyperkalemia Plan: Resolved. (4) CKD (chronic kidney disease) stage 4, GFR 15-29 ml/min Plan: Suspect the patient has progressive CKD stage V. minimal improvement in renal indices (5) Diabetes mellitus with renal manifestations, controlled Plan: Management per primary care physician. Marii Wheeler MD Sep 13, 2016 11:32
--- NOTE | 2016-09-13 13:26 | HHI.HCPN ---
Met with patient for follow-up conversation and support. Multiple family members at bedside including a sister that just arrived from [place]. Reintroduced palliative care and provided contact information. Ms. Sinclair reports she's "still kicking" when asked how she was feeling. Denies any pain or shortness of breath at visit. She is alert and able to make her needs known, slightly lethargic with continued conversation. Family denies any questions or concerns at time of visit. Inquired about advanced directives left with patient after meeting with Dr. Villalta last week. Ms. Sinclair reports she does not wish to fill them out at this time, she states it is most important to her to have conversations with her family. Will continue to assist with advanced directives (living will, HCS, community DNR for discharge) as patient desires. Ms. Sinclair is supported by extended family. Per [place] Statutes, should Ms. Sinclair become incapacitated, medical proxy decision making would fall to the majority of her 4 children. Ms. Sinclair verbalizes understanding. Family reconfirms they DO NOT want hospice services at this time. Palliative care will continue to follow throughout hospitalization. Shayla Mathew, [employer] Sep 13, 2016 13:26
--- NOTE | 2016-09-13 16:13 | HHI.PR ---
Subjective Remarks ALERT LESS SOB cough thick mucoid secretion Objective GENERAL: SKIN: Warm and dry. HEAD: Atraumatic. Normocephalic. EYES: Pupils equal and round. No scleral icterus. No injection or drainage. ENT: No nasal bleeding or discharge. Mucous membranes pink and moist. NECK: Trachea midline. No JVD. CARDIOVASCULAR: Regular rate and rhythm. RESPIRATORY: No accessory muscle use. Clear to auscultation. Breath sounds equal bilaterally. GASTROINTESTINAL: Abdomen soft, non-tender, nondistended. Hepatic and splenic margins not palpable. MUSCULOSKELETAL: Extremities without clubbing, cyanosis, or edema. No obvious deformities. NEUROLOGICAL: Awake and alert. No obvious cranial nerve deficits. Motor grossly within normal limits. Five out of 5 muscle strength in the arms and legs. Normal speech. PSYCHIATRIC: Appropriate mood and affect; insight and judgment normal. Vital Signs Date Time Temp Pulse Resp B/P Pulse Ox O2 Delivery O2 Flow Rate FiO2 09/13/16 14:45 Nasal Cannula 3.00 09/13/16 14:41 Nasal Cannula 3.00 09/13/16 13:00 96.9 78 18 152/67 96 09/13/16 08:00 96.5 83 18 147/64 97 09/13/16 05:35 73 09/13/16 04:00 96.8 84 21 147/69 98 09/13/16 00:09 72 09/13/16 00:00 96.2 87 20 135/69 96 09/12/16 23:44 99 Nasal Cannula 3.00 09/12/16 20:17 90 09/12/16 20:00 96.7 101 19 129/77 97 09/12/16 16:48 83 I/O 09/12/16 09/12/16 09/12/16 09/13/16 09/13/16 09/13/16 07:00 15:00 23:00 07:00 15:00 23:00 Intake Total 240 ml 480 ml 240 ml 110 ml Output Total 500 ml 650 ml 400 ml Balance 240 ml -20 ml -410 ml -290 ml Intake Oral 240 ml 480 ml 240 ml IV Total 110 ml Output Urine Total 500 ml 650 ml 400 ml # Voids 1 1 1 # Bowel Movements 1 4 2 2 2 Result Diagram: 09/13/16 0639 09/13/16 0639 Objective Remarks Laboratory Tests Test 709/08/16 09/08/16 09/09/16 15:40 15:44 20:00 01:45 Potassium Level 5.9 MEQ/L 5.4 MEQ/L (3.5-5.1) (3.5-5.1) Blood Urea Nitrogen 57 MG/DL (7-18) Creatinine 3.32 MG/DL (0.50-1.00) Estimat Glomerular Filtration 14 ML/MIN (>89) Rate Random Glucose 195 MG/DL (74-106) Troponin I LESS THAN 0.02 NG/ML (0.02-0.05) B-Type Natriuretic Peptide 951 PG/ML (0-100) White Blood Count 11.1 TH/MM3 (4.0-11.0) Red Blood Count 3.32 MIL/MM3 (4.00-5.30) Hemoglobin 9.7 GM/DL (11.6-15.3) Hematocrit 31.0 % (35.0-46.0) Mean Corpuscular Hemoglobin 31.3 % Concent (32.0-36.0) Neutrophils (%) (Auto) 80.1 % (16.0-70.0) Neutrophils # (Auto) 8.9 TH/MM3 (1.8-7.7) Blood Gas HCO3 21 mmol/L (22-26) Blood Gas Base Excess -4.6 mmol/L (-2-2) Arterial Blood pH 7.30 (7.380-7.420) Arterial Blood Partial 44 mmHg (38-42) Pressure CO2 Arterial Blood Partial 233 mmHG Pressure O2 (61-120) Blood Gas Hemoglobin 10.2 G/DL (12.0-16.0) Urine Turbidity HAZY (CLEAR) Urine Occult Blood SMALL (NEG) Urine RBC 13 /hpf (0-3) Urine Bacteria MOD /hpf (NONE) Urine Yeast (Budding) RARE (NONE) Test 09/09/16 09/09/16 09/10/16 03:07 19:31 06:30 Red Blood Count 2.64 MIL/MM3 2.85 MIL/MM3 (4.00-5.30) (4.00-5.30) Hemoglobin 8.1 GM/DL 8.4 GM/DL (11.6-15.3) (11.6-15.3) Hematocrit 24.4 % 26.1 % (35.0-46.0) (35.0-46.0) Platelet Count 146 TH/MM3 (150-450) Neutrophils (%) (Auto) 92.2 % 93.9 % (16.0-70.0) (16.0-70.0) Lymphocytes (%) (Auto) 6.5 % 4.4 % (9.0-44.0) (9.0-44.0) Lymphocytes # (Auto) 0.3 TH/MM3 0.3 TH/MM3 (1.0-4.8) (1.0-4.8) Potassium Level 6.2 MEQ/L (3.5-5.1) Blood Urea Nitrogen 65 MG/DL (7-18) 74 MG/DL (7-18) 73 MG/DL (7-18) Creatinine 3.59 MG/DL 3.81 MG/DL 3.85 MG/DL (0.50-1.00) (0.50-1.00) (0.50-1.00) Estimat Glomerular Filtration 12 ML/MIN (>89) 12 ML/MIN (>89) 11 ML/MIN (>89) Rate Random Glucose 237 MG/DL 246 MG/DL 187 MG/DL (74-106) (74-106) (74-106) Calcium Level 8.1 MG/DL 7.9 MG/DL 8.1 MG/DL (8.5-10.1) (8.5-10.1) (8.5-10.1) Troponin I LESS THAN 0.02 NG/ML (0.02-0.05) Aspartate Amino Transf 9 U/L (15-37) (AST/SGOT) Total Protein 6.0 GM/DL (6.4-8.2) Albumin 2.5 GM/DL (3.4-5.0) Assessment and Plan Assessment and Plan ASS COPD EX. IMPROVING PNA PLAN O2 NEEDED ANTIBX. bronchodilator therapy Phuong Baca MD Sep 13, 2016 16:13
[2016-09-13] MEDS: RESP: ALBUTEROL 2.5 MG/IPRATROPIUM 0.5 MG NEB (SCH) NEB (20:51)
[2016-09-13] MEDS: INSULIN DETEMIR 100 UNITS/ML VIAL SQ SCH (21:51)
[2016-09-13] MEDS: LORazepam 2 MG TAB PO PRN (21:58)
[2016-09-14] VITALS (14 sets, daily range): BP systolic 114–150; BP diastolic 60–86; PULSE 69–86; RESP 18; TEMP 95.8–96.9; O2SAT 97–100
[2016-09-14] MEDS: SODIUM CHLORIDE 0.9% FLUSH 10 ML FLUSH IV FLUSH PRN ×2 (00:59→06:08)
[2016-09-14] MEDS: PIPERACIL-TAZO 2.25 GM PREMIX 50 ML IV SCH ×4 (00:59→17:22)
[2016-09-14] MEDS: methylPREDNISolone SOD SUCC 125 MG/2 ML VIAL IVP SCH ×4 (05:10→21:36)
[2016-09-14] MEDS: INSULIN ASPART SUPPLEMENTAL SCALE SQ SCH ×4 (06:05→21:22)
[2016-09-14] MEDS: RESP: ALBUTEROL 2.5 MG/IPRATROPIUM 0.5 MG NEB (SCH) NEB ×4 (08:10→19:45)
--- NOTE | 2016-09-14 08:15 | HHI.FPPN ---
Subjective Remarks No acute events overnight. Afebrile, BPs ranging 130s-150s/60-80s over past 24 hours. O2 sats appropriate on 3L via NC. 750 cc UOP past day. Patient reports lower chest pain bilaterally similar in nature to yesterday, also endorsing continued wet cough. Denies fevers or SOB. She states she is tolerating her appetite, making adequate urine, moving her bowels without difficulty. ( Dom Mayfield MD R1) Objective Vitals Vital Signs Date Time Temp Pulse Resp B/P Pulse Ox O2 Delivery O2 Flow Rate FiO2 09/14/16 08:13 100 Nasal Cannula 3.00 09/14/16 04:04 69 09/14/16 04:00 96.5 77 18 134/62 97 09/14/16 00:01 85 09/14/16 00:00 96.8 86 18 131/60 98 09/13/16 20:51 99 Nasal Cannula 3.00 09/13/16 20:45 97.3 80 18 142/63 99 09/13/16 20:17 80 09/13/16 16:17 74 09/13/16 16:00 96.5 76 18 150/70 99 09/13/16 14:45 Nasal Cannula 3.00 09/13/16 14:41 Nasal Cannula 3.00 09/13/16 13:00 96.9 78 18 152/67 96 09/13/16 12:18 80 09/13/16 08:43 72 I/O 09/13/16 09/13/16 09/13/16 09/14/16 09/14/16 09/14/16 07:00 15:00 23:00 07:00 15:00 23:00 Intake Total 240 ml 710 ml 730 ml 60 ml Output Total 650 ml 750 ml Balance -410 ml -40 ml 730 ml 60 ml Intake Oral 240 ml 600 ml 480 ml IV Total 110 ml 250 ml 60 ml Output Urine Total 650 ml 750 ml # Voids 1 2 # Bowel Movements 2 3 2 (Dom Mayfield MD R1) Result Diagram: 09/13/1639 09/13/16 0639 Objective Remarks GENERAL: Patient is obese, well-nourished pleasant female lying in bed with nasal cannula in place. SKIN: Warm and dry. Small areas of bruising on the right lateral leg, left medial ankle, right hand, and left forearm. HEAD: Atraumatic. Normocephalic. EYES: Pupils equal and round. No scleral icterus. No injection or drainage. ENT: No nasal bleeding or discharge. Mucous membranes pink and moist. NECK: Trachea midline. No JVD. CARDIOVASCULAR: Regular rate and rhythm, no murmurs appreciated RESPIRATORY: No accessory muscle use. Wheezing auscultated throughout, fine rales bilaterally. Breath sounds equal bilaterally. GASTROINTESTINAL: Abdomen soft, non-tender, obese, nondistended. MUSCULOSKELETAL: Extremities without clubbing, cyanosis, or edema. No obvious deformities. NEUROLOGICAL: Awake and alert. No obvious cranial nerve deficits. Motor grossly within normal limits. Normal speech. PSYCHIATRIC: Appropriate mood and affect; insight and judgment normal. ( Dom Mayfield MD R1) A/P Assessment and Plan 75-year-old female with history significant for COPD, CVA, CAD, atrial fibrillation presented with pneumonia, acute on chronic kidney disease. Pulmonology, cardiology, nephrology, palliative care have been consulted to assist with management and goals of care. Discharge Planning Patient currently being treated for HCAP. Discharge pending ID recommendations on appropriate antibiotic therapy. Patient not wanting Hospice at this time. May need an additional meeting with family prior to discharge. PT recommending PT at rehabilitation facility (Dom Mayfield MD R1) Attending Attestation Patient examined and case discussed with resident physicians I have read the above note and agree with the assessment/plan as discussed with me I was involved in all medical decision making for this patient Evan Dyer M.D. (Evan Dyer MD) Problem List: (1) Acute on chronic renal insufficiency Status: Acute Plan: Nephrology consult, has signed off Patient had expressed she would not want dialysis even if she had terminal renal failure Renal ultrasound: Echogenic kidneys with cortical thinning and decreased size, left greater than right. Per nephrology, Bumex 1 mg by mouth every 12 hours because of concern for fluid overload. Continue to monitor Cr, GFR. I/Os Per nephrology 09/09: If there is no significant improvement in the patient's volume status and or azotemia and she still wishes not to pursue dialytic support then comfort care would be appropriate in my opinion. This remains be determined however. Palliative care consult (2) COPD with exacerbation Status: Acute Plan: Pulmonology consult, Dr. Baca Continue Solu-Medrol 60 mg every 6 hours IV Duo nebs every 4 hours. Albuterol treatments when necessary Respiratory supportive care with incentive spirometry. Oxygen for O2 sats < 92% Antibiotics as below (3) Pneumonia Status: Acute Plan: Concern for HCAP CT on 09/10 shows patchy opacities in the right upper lobe, and to a lesser degree right middle lobe and lingula. Small right pleural effusion and adjacent atelectasis. Pulmonology consult Continue vancomycin and Ivana Infectious disease consulted for recommendations on antibiotic therapy if patient were to be discharged vs requiring continued therapy at an infusion center Blood culture 09/08 no growth after 5 days (4) Hypertension Status: Chronic Plan: Continue Metoprolol 50 mg po bid Holding home medications for low blood pressures: Amlodipine, lisinopri Continue to trend vitals q4h Will consider restarting home antihypertensives if BPs rise (5) DM (diabetes mellitus) Status: Chronic Plan: Chronic. Patient is on glipizide at home which is held. She'll be placed on low-dose sliding scale NovoLog, regular Accu-Cheks Started levemir 5 units subq bid (6) Atrial fibrillation Status: Chronic Plan: Cardiology consult Metoprolol 50 mg twice a day Poor candidate for anticoagulation, continue aspirin Continue conservative management, cardiology will follow as needed. Echo: Ejection fraction 55-60%. (7) Insomnia Status: Chronic Plan: Continue home medication. (8) Opiate dependence Status: Chronic Plan: Patient reports chronic use of morphine, 115mg daily. She's been taking this for years. Plan: * Continue morphine at this dose given risk of withdrawal * Monitor for signs of respiratory depression. * Narcan when necessary (9) Fluids/Electrolytes/Nutrition/Prophylaxis Status: Acute Plan: Fluids: Tolerating by mouth, given significant history, caution with fluid overload Electrolytes: Monitor and replace as needed Nutrition: heart-healthy diet DVT Prophylaxis: Early ambulation. Heparin GI Prophylaxis: Protonix 40 mg PO daily (Dom Mayfield MD R1) Problem Qualifiers (1) Pneumonia: Qualified Code: J18.1 - Pneumonia of right lower lobe due to infectious organism (2) Hypertension: Qualified Code: I10 - Essential hypertension (3) DM (diabetes mellitus): Qualified Code: E13.8 - Other specified diabetes mellitus with complication, without long-term current use of insulin (4) Atrial fibrillation: Qualified Code: I48.91 - Atrial fibrillation, unspecified type (5) Insomnia: Qualified Code: G47.00 - Insomnia, unspecified type (6) Opiate dependence: Qualified Code: F11.20 - Uncomplicated opioid dependence Dom Mayfield MD R1 Sep 14, 2016 08:15 Evan Dyer MD Sep 14, 2016 15:21
[2016-09-14] MEDS: DOCUSATE SODIUM 50 MG/SENNA 8.6 MG TAB PO SCH ×2 (09:51→21:00)
[2016-09-14] MEDS: METOLAZONE 5 MG TAB PO SCH (09:53)
[2016-09-14] MEDS: PANTOPRAZOLE SOD 40 MG DELAYED RELEASE TAB PO SCH (09:53)
[2016-09-14] MEDS: ASPIRIN EC 81 MG TABEC PO SCH (09:53)
[2016-09-14] MEDS: BUMETANIDE 1 MG TAB PO SCH ×2 (09:53→17:23)
[2016-09-14] MEDS: BUDESONIDE-FORMOTEROL 160/4.5 MCG INHALER INH SCH ×2 (09:54→22:46)
[2016-09-14] MEDS: POTASSIUM CHLORIDE 10 MEQ CONTROLLED RELEASE TAB PO SCH (09:54)
[2016-09-14] MEDS: METOPROLOL TARTRATE 50 MG TAB PO SCH ×2 (09:54→21:37)
[2016-09-14] MEDS: HEPARIN SODIUM - SQ 10,000 UNITS/ML VIAL SQ SCH ×2 (09:55→21:00)
[2016-09-14] MEDS: MORPHINE SULFATE 15 MG CONTROLLED RELEASE TAB PO SCH (09:55)
[2016-09-14] MEDS: MORPHINE SULFATE 100 MG CONTROLLED RELEASE TAB PO SCH (09:56)
[2016-09-14] MEDS: SODIUM CHLORIDE 0.9% FLUSH 10 ML FLUSH IV FLUSH SCH ×2 (09:56→21:37)
[2016-09-14] MEDS: INSULIN DETEMIR 100 UNITS/ML VIAL SQ SCH ×2 (10:06→21:34)
[2016-09-14] MEDS: MORPHINE SULFATE 4 MG/ML INJ IV PRN ×3 (10:09→21:36)
[2016-09-14] MEDS: ONDANSETRON HCL 4 MG/2 ML VIAL IV PRN (10:20)
--- NOTE | 2016-09-14 11:28 | PD.ID.CON ---
History of Present Illness Service ID Consult Requested By Dr. Mayfield Reason for Consult Evaluation and management of possible healthcare associated pneumonia. Primary Care Physician Jose Eduardo Mcgee MD Diagnoses: History of Present Illness Mrs. Sinclair is a 75 y/o CF with past medical history significant for COPD on oxygen, insulin-dependent diabetes mellitus, chronic kidney disease who has been offered dialysis but refuses dialysis at the present time. Past medical history is also significant for coronary artery disease status post coronary artery bypass graft. Patient reports that she had midsternal chest pain, nonradiating pleuritic, exacerbated by any movement. She can only walk 5 feet and gets very short of breath and experiences chest pain. Her oxygen saturation was noted to be in the 80s at home and therefore she was brought to the hospital in a car. She uses oxygen at home at 3 L nasal cannula and this is not changed prior to admission. Off note patient had a one-day visit in the chest pain center on August 26 for chest pain workup which was negative. At that time her BNP was noted to be 459. While in the ED patient was receiving duo nab and was found to have atrial fibrillation. Her troponins were negative. Baseline patient needs assistance getting up out of bed. She uses a wheelchair for mobility and has not been able to tolerate a walker for a while. Hospital course: Patient has been admitted to the floor and has been receiving Zosyn as well as vancomycin based on levels. She has been evaluated by cardiology, nephrology and palliative care services. Patient has prior history of CABG, mitral regurgitation. Patient also has a renal cyst and declining renal function over she has been advised hemodialysis but patient refuses to proceed with dialysis at the present time. Patient has also been evaluated by palliative care services and she is currently a no code DNR. Patient has been offered hospice services but she refuses to go with the services of the present time. Patient voiced her understanding that if she refuses hemodialysis she will continue to deteriorate and understand that some of her respiratory symptoms may be as a result of fluid backing up in her lungs. Patient reports to me that there was a change in the air conditioning system in her home just prior to her admission. This puts her at risk for Legionella. Patient denies any fever or chills or night sweats at the present time. Patient denies any chest pain at the present time. Patient does report shortness of breath on minimal exertion. He also reports that she was unable to participate in physical therapy today. Infectious disease is consulted for evaluation and management of possible healthcare associated pneumonia. Review of Systems ROS Limitations: Poor Historian Constitutional: COMPLAINS OF: Fever, Chills, DENIES: Diaphoretic episodes, Fatigue, Weight gain, Weight loss, Dizziness, Change in appetite, Night Sweats Endocrine: DENIES: Abnorml menstrual pattern, Heat/cold intolerance, Polydipsia , Polyuria, Polyphagia Eyes: DENIES: Blurred vision, Diplopia, Eye inflammation, Eye pain, Vision loss , Photosensitivity, Double Vision Ears, nose, mouth, throat: DENIES: Tinnitus, Hearing loss, Vertigo, Nasal discharge, Oral lesions, Throat pain, Hoarseness, Ear Pain, Running Nose, Epistaxis, Sinus Pain, Toothache, Odynophagia Respiratory: COMPLAINS OF: Cough, Sputum production, Shortness of breath, DENIES: Apneas, Snoring, Wheezing, Hemoptysis Cardiovascular: DENIES: Chest pain, Palpitations, Syncope, Dyspnea on Exertion , PND, Lower Extremity Edema, Orthopnea, Claudication Gastrointestinal: DENIES: Abdominal pain, Black stools, Bloody stools, Constipation, Diarrhea, Nausea, Vomiting, Difficulty Swallowing, Anorexia Genitourinary: DENIES: Abnormal vaginal bleeding, Dysmenorrhea, Dyspareunia, Sexual dysfunction, Urinary frequency, Urinary incontinence, Urgency, Hematuria , Dysuria, Nocturia, Vaginal discharge Musculoskeletal: DENIES: Joint pain, Muscle aches, Stiffness, Joint Swelling, Back pain, Neck pain Integumentary: DENIES: Abnormal pigmentation, Pruritus, Rash, Nail changes, Breast masses, Breast skin changes, Nipple discharge Hematologic/lymphatic: DENIES: Bruising, Lymphadenopathy Immunologic/allergic: DENIES: Eczema, Urticaria Neurologic: DENIES: Abnormal gait, Headache, Localized weakness, Paresthesias, Seizures, Speech Problems, Tremor, Poor Balance Psychiatric: DENIES: Anxiety, Confusion, Mood changes, Depression, Hallucinations, Agitation, Suicidal Ideation, Homicidal Ideation, Delusions Except as stated in HPI: all other systems reviewed are Neg Past Family Social History Allergies: Coded Allergies: Augmentin (Verified Allergy, Severe, Rash, 08/26/16) Haldol (Verified Allergy, Severe, Hallucinations, 08/26/16) Latex (Verified Allergy, Severe, HIVES, 08/26/16) Macrodantin (Verified Allergy, Severe, SHAKY , BLOOD SUGER PROBLEMS, ) Mirapex (Verified Allergy, Severe, LETHARGY,DIZZY,SHAKY, 08/26/16) Phenergan (Verified Allergy, Severe, Hallucinations, 08/26/16) Temazepam (Verified Allergy, Severe, Rash, 08/26/16) Lopid (Verified Allergy, Intermediate, 08/26/16) Lyrica (Verified Allergy, Unknown, 08/26/16) Soma (Verified Allergy, Unknown, 08/26/16) Amoxicillin (Verified Adverse Reaction, Severe, diarrhea, 08/26/16) HMG-CoA Reductase Inhibitors (Verified Adverse Reaction, Severe, LIVER DISEASE WITH SUBSEQUENT CHRONIC ITCHING UNTIL DC'D, 08/26/16) Trazodone (Verified Adverse Reaction, Intermediate, altered mental status , 08/26/16) *MDRO Multi-Drug Resistant Organism (Verified Adverse Reaction, Unknown, Cleared - 09/10/16, 09/13/16) MRSA Sputum 10/2008 *Cleared - MRSA PCR negative on 09/09/16 & 09/10/16* Uncoded Allergies: TAPE (Allergy, Mild, Rash, 11/06/09) USE PAPER TAPE ONLY ees (Allergy, Mild, itch, 11/06/09) advicor (Adverse Reaction, Intermediate, redness, itchin, 11/06/09) cipro,septra (Adverse Reaction, Intermediate, diarrhea,itching, 11/06/09) topramax (Adverse Reaction, Intermediate, 11/06/09) Past Medical History COPD, CVA, TIA, A. fib, diabetes, VT, hypertension, chronic renal failure, gout, oxygen dependent, history of renal cancer Past Surgical History CABG 4 in 1999 Appendectomy Hysterectomy Tonsillectomy Reported Medications Reported Meds & Active Scripts Active Triamcinolone Topical 0.5 % Cream 1 Applic TOPICAL TID Ms Contin (Morphine Sulfate) 15 Mg Tab 15 Mg PO DAILY Potassium Chloride ER (Potassium Chloride) 10 Meq Cap 10 Meq PO DAILY Furosemide 40 Mg Tab 40 Mg PO DAILY Fosinopril (Fosinopril Sodium) 10 Mg Tab 10 Mg PO DAILY Proair Hfa 8.5 GM Inh (Albuterol Sulfate) 90 Mcg/Act Aer 2 Puff INH Q4 PRN 108 mcg/actuation Amlodipine (Amlodipine Besylate) 10 Mg Tab 10 Mg PO DAILY Reported Ativan (Lorazepam) 2 Mg Tab 2 Mg PO DAILY PRN Morphine ER (Morphine Sulfate) 100 Mg Tab 100 Mg PO DAILY Metoprolol Tartrate 100 Mg Tab 100 Mg PO BID Glucotrol (Glipizide) 10 Mg Tab 10 Mg PO DAILY Take 30 minutes before a meal Symbicort Inh (Budesonide/Formoterol Fumarate) 160-4.5 Mcg/Act Aero 2 Puff INH BID Duoneb (Ipratropium-Albuterol Neb) 0.5-2.5 Mg/3 Ml Neb 1 Nebule INH Q4HR NEB Active Ordered Medications Current Medications Medications (Trade) Dose Ordered Sig/Saritha Route Start Time Stop Time Status Last Admin (NS Flush) 2 ml UNSCH PRN IV FLUSH 09/08/16 18:30 09/14/16 06:08 (NS Flush) 2 ml BID IV FLUSH 09/08/16 21:00 09/14/16 09:56 (Zofran Inj) 4 mg Q6H PRN IV 09/08/16 18:30 09/14/16 10:20 (Whitney-Colace) 1 tab BID PO 09/08/16 21:00 09/11/16 08:16 (Milk Of Magnesia Liq) 30 ml Q12H PRN PO 09/08/16 18:30 (Senokot) 17.2 mg Q12H PRN PO 09/08/16 18:30 (Dulcolax Supp) 10 mg DAILY PRN RECTAL 09/08/16 18:30 (Lactulose Liq) 30 ml DAILY PRN PO 09/08/16 18:30 (Symbicort 160-4.5 Inh) 2 puff BID INH 09/08/16 21:00 09/14/16 09:54 (Oramorph Sr) 100 mg DAILY PO 09/09/16 09:00 09/14/16 09:56 (Oramorph Sr) 15 mg DAILY PO 09/09/16 09:00 09/14/16 09:55 (Protonix) 40 mg DAILY PO 09/08/16 20:30 09/14/16 09:53 (SoluMEDROL INJ) 60 mg Q6H IVP 09/08/16 22:00 09/14/16 15:07 (Narcan Inj) 0.4 mg UNSCH PRN IV 09/08/16 20:45 (Ativan) 2 mg DAILY PRN PO 09/09/16 00:15 09/13/16 21:58 (Heparin Inj) 5,000 units Q12H SQ 09/09/16 09:00 09/14/16 09:55 (Lopressor) 50 mg BID PO 09/09/16 09:00 09/14/16 09:54 (Ecotrin Ec) 81 mg DAILY PO 09/09/16 09:00 09/14/16 09:53 (Bumetanide) 1 mg DAILY@09,18 PO 09/10/16 18:00 09/14/16 17:23 Metolazone 5 mg 5 mg DAILY PO 09/10/16 14:45 09/14/16 09:53 (Zosyn 2.25 Gm Premix) 50 ml @ 100 mls/hr Q6H IV 09/10/16 18:00 09/14/16 17:22 (Morphine Inj) 4 mg Q3H PRN IV 09/11/16 22:15 09/14/16 17:32 (KCl) 10 meq DAILY PO 09/14/16 09:00 09/14/16 09:54 (Levemir Inj) 5 units Q12HR SQ 09/13/16 21:00 09/14/16 10:06 Family History reviewed and NC to current ID problems. Social History Lives at home with one of her daughters. Physical Exam Vital Signs Vital Signs Date Time Temp Pulse Resp B/P Pulse Ox O2 Delivery O2 Flow Rate FiO2 09/14/16 08:46 83 09/14/16 08:40 96.6 73 18 143/86 99 09/14/16 08:13 100 Nasal Cannula 3.00 09/14/16 04:04 69 09/14/16 04:00 96.5 77 18 134/62 97 09/14/16 00:01 85 09/14/16 00:00 96.8 86 18 131/60 98 09/13/16 20:51 99 Nasal Cannula 3.00 09/13/16 20:45 97.3 80 18 142/63 99 09/13/16 20:17 80 09/13/16 16:17 74 09/13/16 16:00 96.5 76 18 150/70 99 09/13/16 14:45 Nasal Cannula 3.00 09/13/16 14:41 Nasal Cannula 3.00 09/13/16 13:00 96.9 78 18 152/67 96 09/13/16 12:18 80 Physical Exam GENERAL: Obese, well-developed patient, in no apparent distress. SKIN: No rashes, ecchymoses or lesions. Cool and dry. HEAD: Atraumatic. Normocephalic. No temporal or scalp tenderness. EYES: Pupils equal round and reactive. Extraocular motions intact. No scleral icterus. No injection or drainage. ENT: Nose without bleeding, purulent drainage or septal hematoma. Throat without erythema, tonsillar hypertrophy or exudate. Uvula midline. Airway patent. NECK: Trachea midline. Supple, nontender, no meningeal signs. CARDIOVASCULAR: HS audible. RESPIRATORY: Clear to auscultation. Breath sounds equal bilaterally but decreased in the bases. GASTROINTESTINAL: Abdomen soft, non-tender, nondistended. MUSCULOSKELETAL: Extremities without clubbing, cyanosis, or edema. No joint tenderness, effusion, or edema noted. No calf tenderness. Negative Homans sign bilaterally. NEUROLOGICAL: Awake and alert. Grossly non focal Psych: cooperative IV line sites with no e.o infection. Laboratory Laboratory Tests Test 09/14/16 11:55 White Blood Count 8.1 TH/MM3 Red Blood Count 3.37 MIL/MM3 Hemoglobin 10.1 GM/DL Hematocrit 30.4 % Mean Corpuscular Volume 90.1 FL Mean Corpuscular Hemoglobin 30.0 PG Mean Corpuscular Hemoglobin 33.2 % Concent Red Cell Distribution Width 14.3 % Platelet Count 177 TH/MM3 Mean Platelet Volume 8.0 FL Neutrophils (%) (Auto) 94.3 % Lymphocytes (%) (Auto) 3.8 % Monocytes (%) (Auto) 1.8 % Eosinophils (%) (Auto) 0.0 % Basophils (%) (Auto) 0.1 % Neutrophils # (Auto) 7.6 TH/MM3 Lymphocytes # (Auto) 0.3 TH/MM3 Monocytes # (Auto) 0.1 TH/MM3 Eosinophils # (Auto) 0.0 TH/MM3 Basophils # (Auto) 0.0 TH/MM3 CBC Comment AUTO DIFF Differential Comment AUTO DIFF CONFIRMED Sodium Level 140 MEQ/L Potassium Level 2.9 MEQ/L Chloride Level 101 MEQ/L Carbon Dioxide Level 27.2 MEQ/L Anion Gap 12 MEQ/L Blood Urea Nitrogen 64 MG/DL Creatinine 3.37 MG/DL Estimat Glomerular Filtration 13 ML/MIN Rate Random Glucose 254 MG/DL Calcium Level 8.4 MG/DL BC x negative Urine cx negative Result Diagram: 09/13/16 0639 09/13/1639 Imaging Last Impressions Chest X-Ray 09/14/16 0000 Signed Impressions: Service Date/Time: Wednesday, September 14, 2016 12:17 - CONCLUSION: Mild cardiomegaly. Clear lungs. Horace Mathew Jr., MD Chest CT 09/10/16 0000 Signed Impressions: Service Date/Time: Saturday, September 10, 2016 07:53 - CONCLUSION: 1. Patchy opacities in the right upper lobe and to lesser degree right middle lobe and lingula. 2. Small right pleural effusion and adjacent atelectasis. 3. Status post CABG and cardiomegaly. Connor Boyle MD Renal Ultrasound 09/09/16 0000 Signed Impressions: Service Date/Time: August 17:55 - CONCLUSION: Echogenic kidneys with cortical thinning and decreased size, left greater than right. Renal cysts. Oskar Sierra MD Assessment and Plan Assessment and Plan Pneumonia likely community-acquired pneumonia. Has risk factors for Legionella as stated in history of present illness. Less likely to be healthcare associated pneumonia. Chronic kidney disease(has been offered dialysis and refuses) Acute respiratory failure appears to be slowly improving with diuretics as well as antibiotics Recommendations: Discontinue vancomycin IV as is and the nephrotoxic agent. Check urine legionella antigen Check strep pneumo antigen Follow cultures Discontinue Zosyn IV Start Levaquin oral(this will help with controlling her fluid status as well.) Discussed with board certified family physician. Discussed with patient and her daughter in the room. Patient and family thankful of care provided. Infectious disease plan explained to the patient. Will follow along with you. Esther Sequeira MD Sep 14, 2016 11:28
[2016-09-14 12:37] LABS: AUTOMATED NEUTROPHIL # 7.6 TH/MM3 (1.8-7.7); BASOPHIL % 0.1 % (0.0-2.0); HEMATOCRIT 30.4 % (35.0-46.0); LYMPH % 3.8 % (9.0-44.0); LYMPHOCYTE # 0.3 TH/MM3 (1.0-4.8); MEAN CELL VOLUME 90.1 FL (80.0-100.0); MEAN CORPUSCULAR HGB CONC 33.2 % (32.0-36.0); MONO % 1.8 % (0.0-8.0); NEUT % 94.3 % (16.0-70.0); PLATELET COUNT 177 TH/MM3 (150-450); RED BLOOD COUNT 3.37 MIL/MM3 (4.00-5.30); RED CELL DISTRIBUTION WIDTH 14.3 % (11.6-17.2); WHITE BLOOD COUNT 8.1 TH/MM3 (4.0-11.0)
[2016-09-14 12:41] LABS: HEMO FLAGS AUTO DIFF
--- NOTE | 2016-09-14 13:13 | RADRPT ---
EXAM DATE/TIME: 09/14/2016 12:17 [facility] COMPARISON: CHEST SINGLE AP, September 10, 2016, 6:14. INDICATIONS : Pneumonia. MEDICAL HISTORY : Cardiovascular disease. Hypertension Chronic obstructive pulmonary disease. Renal cancer. SURGICAL HISTORY : CABG. Appendectomy. Cholecystectomy. ENCOUNTER: Subsequent ACUITY: 4 - 6 days PAIN SCORE: 0/10 LOCATION: Bilateral chest FINDINGS: A single view of the chest demonstrates the lungs to be symmetrically aerated without evidence of mas s, infiltrate or effusion. Stable mild cardiomegaly. Osseous structures are intact. CONCLUSION: Mild cardiomegaly. Clear lungs. Horace Mathew Jr., MD on September 14, 2016 at 13:11 Board Certified Radiologist. This report was verified electronically.
[2016-09-14 13:19] LABS: SCAN/DIFF AUTO DIFF CONFIRMED
[2016-09-14 14:02] LABS: BICARBONATE 27.2 MEQ/L (21.0-32.0)
[2016-09-14 14:14] LABS: POTASSIUM 2.9 MEQ/L (3.5-5.1)
[2016-09-14] MEDS ORDERED: POTASSIUM CHLORIDE 10 MEQ CONTROLLED RELEASE TAB PO ONE (15:00)
--- NOTE | 2016-09-14 16:39 | HHI.PR ---
Subjective Remarks ALERT LESS SOB cough thick mucoid secretion Objective Vital Signs Date Time Temp Pulse Resp B/P Pulse Ox O2 Delivery O2 Flow Rate FiO2 09/14/16 16:25 82 09/14/16 15:56 99 Nasal Cannula 3.00 09/14/16 12:24 74 09/14/16 12:00 95.8 84 18 114/62 100 09/14/16 08:46 83 09/14/16 08:40 96.6 73 18 143/86 99 09/14/16 08:13 100 Nasal Cannula 3.00 09/14/16 04:04 69 09/14/16 04:00 96.5 77 18 134/62 97 09/14/16 00:01 85 09/14/16 00:00 96.8 86 18 131/60 98 09/13/16 20:51 99 Nasal Cannula 3.00 09/13/16 20:45 97.3 80 18 142/63 99 09/13/16 20:17 80 I/O 09/13/16 09/13/16 09/13/16 09/14/16 09/14/16 09/14/16 06:59 14:59 22:59 06:59 14:59 22:59 Intake Total 240 ml 710 ml 730 ml 60 ml 72 ml Output Total 650 ml 750 ml Balance -410 ml -40 ml 730 ml 60 ml 72 ml Intake Oral 240 ml 600 ml 480 ml IV Total 110 ml 250 ml 60 ml 72 ml Output Urine Total 650 ml 750 ml # Voids 1 2 # Bowel Movements 2 3 2 Result Diagram: 09/14/16 1155 09/14/16 1155 Objective Remarks Laboratory Tests Test 09/08/16 09/08/16 09/08/16 09/09/16 15:40 15:44 20:00 01:45 Potassium Level 5.9 MEQ/L 5.4 MEQ/L (3.5-5.1) (3.5-5.1) Blood Urea Nitrogen 57 MG/DL (7-18) Creatinine 3.32 MG/DL (0.50-1.00) Estimat Glomerular Filtration 14 ML/MIN (>89) Rate Random Glucose 195 MG/DL (74-106) Troponin I LESS THAN 0.02 NG/ML (0.02-0.05) B-Type Natriuretic Peptide 951 PG/ML (0-100) White Blood Count 11.1 TH/MM3 (4.0-11.0) Red Blood Count 3.32 MIL/MM3 (4.00-5.30) Hemoglobin 9.7 GM/DL (11.6-15.3) Hematocrit 31.0 % (35.0-46.0) Mean Corpuscular Hemoglobin 31.3 % Concent (32.0-36.0) Neutrophils (%) (Auto) 80.1 % (16.0-70.0) Neutrophils # (Auto) 8.9 TH/MM3 (1.8-7.7) Blood Gas HCO3 21 mmol/L (22-26) Blood Gas Base Excess -4.6 mmol/L (-2-2) Arterial Blood pH 7.30 (7.380-7.420) Arterial Blood Partial 44 mmHg (38-42) Pressure CO2 Arterial Blood Partial 233 mmHG Pressure O2 (61-120) Blood Gas Hemoglobin 10.2 G/DL (12.0-16.0) Urine Turbidity HAZY (CLEAR) Urine Occult Blood SMALL (NEG) Urine RBC 13 /hpf (0-3) Urine Bacteria MOD /hpf (NONE) Urine Yeast (Budding) RARE (NONE) Test 09/09/16 09/09/16 09/10/16 03:07 19:31 06:30 Red Blood Count 2.64 MIL/MM3 2.85 MIL/MM3 (4.00-5.30) (4.00-5.30) Hemoglobin 8.1 GM/DL 8.4 GM/DL (11.6-15.3) (11.6-15.3) Hematocrit 24.4 % 26.1 % (35.0-46.0) (35.0-46.0) Platelet Count 146 TH/MM3 (150-450) Neutrophils (%) (Auto) 92.2 % 93.9 % (16.0-70.0) (16.0-70.0) Lymphocytes (%) (Auto) 6.5 % 4.4 % (9.0-44.0) (9.0-44.0) Lymphocytes # (Auto) 0.3 TH/MM3 0.3 TH/MM3 (1.0-4.8) (1.0-4.8) Potassium Level 6.2 MEQ/L (3.5-5.1) Blood Urea Nitrogen 65 MG/DL (7-18) 74 MG/DL (7-18) 73 MG/DL (7-18) Creatinine 3.59 MG/DL 3.81 MG/DL 3.85 MG/DL (0.50-1.00) (0.50-1.00) (0.50-1.00) Estimat Glomerular Filtration 12 ML/MIN (>89) 12 ML/MIN (>89) 11 ML/MIN (>89) Rate Random Glucose 237 MG/DL 246 MG/DL 187 MG/DL (74-106) (74-106) (74-106) Calcium Level 8.1 MG/DL 7.9 MG/DL 8.1 MG/DL (8.5-10.1) (8.5-10.1) (8.5-10.1) Troponin I LESS THAN 0.02 NG/ML (0.02-0.05) Aspartate Amino Transf 9 U/L (15-37) (AST/SGOT) Total Protein 6.0 GM/DL (6.4-8.2) Albumin 2.5 GM/DL (3.4-5.0) Assessment and Plan Assessment and Plan ASS COPD EX. IMPROVING PNA PLAN O2 NEEDED ANTIBX. bronchodilator therapy Phuong Baca MD Sep 14, 2016 16:39
[2016-09-14] MEDS: LEVOFLOXACIN 250 MG TAB PO SCH (20:20)
[2016-09-14] MEDS: LORazepam 2 MG TAB PO PRN (22:46)
[2016-09-15] VITALS (14 sets, daily range): BP systolic 116–165; BP diastolic 59–74; PULSE 59–78; RESP 16–26; TEMP 96.9–98; O2SAT 99–100
[2016-09-15] MEDS: methylPREDNISolone SOD SUCC 125 MG/2 ML VIAL IVP SCH ×4 (05:40→20:12)
[2016-09-15] MEDS: INSULIN ASPART SUPPLEMENTAL SCALE SQ SCH ×4 (07:25→20:50)
[2016-09-15 07:57] LABS: AUTOMATED NEUTROPHIL # 3.9 TH/MM3 (1.8-7.7); BASOPHIL % 0.1 % (0.0-2.0); EOSINOPHIL % 0.1 % (0.0-4.0); HEMATOCRIT 27.2 % (35.0-46.0); LYMPH % 6.1 % (9.0-44.0); LYMPHOCYTE # 0.3 TH/MM3 (1.0-4.8); MEAN CELL VOLUME 90.4 FL (80.0-100.0); MEAN CORPUSCULAR HEMOGLOBIN 29.7 PG (27.0-34.0); MEAN CORPUSCULAR HGB CONC 32.8 % (32.0-36.0); MONO % 3.7 % (0.0-8.0); PLATELET COUNT 145 TH/MM3 (150-450); WHITE BLOOD COUNT 4.4 TH/MM3 (4.0-11.0)
[2016-09-15 08:07] LABS: HEMO FLAGS AUTO DIFF
[2016-09-15 08:37] LABS: BICARBONATE 27.4 MEQ/L (21.0-32.0)
[2016-09-15 08:38] LABS: POTASSIUM 3.2 MEQ/L (3.5-5.1)
[2016-09-15] MEDS: RESP: ALBUTEROL 2.5 MG/IPRATROPIUM 0.5 MG NEB (SCH) NEB ×4 (08:54→20:07)
[2016-09-15] MEDS: METOLAZONE 5 MG TAB PO SCH (09:35)
[2016-09-15] MEDS: ASPIRIN EC 81 MG TABEC PO SCH (09:36)
[2016-09-15] MEDS: PANTOPRAZOLE SOD 40 MG DELAYED RELEASE TAB PO SCH (09:36)
[2016-09-15] MEDS: METOPROLOL TARTRATE 50 MG TAB PO SCH ×2 (09:36→20:20)
[2016-09-15] MEDS: BUMETANIDE 1 MG TAB PO SCH ×2 (09:36→17:31)
[2016-09-15] MEDS: LEVOFLOXACIN 250 MG TAB PO SCH (09:36)
[2016-09-15] MEDS: MORPHINE SULFATE 100 MG CONTROLLED RELEASE TAB PO SCH (09:37)
[2016-09-15] MEDS: MORPHINE SULFATE 15 MG CONTROLLED RELEASE TAB PO SCH (09:37)
[2016-09-15] MEDS: POTASSIUM CHLORIDE 10 MEQ CONTROLLED RELEASE TAB PO SCH (09:37)
[2016-09-15] MEDS: BUDESONIDE-FORMOTEROL 160/4.5 MCG INHALER INH SCH ×2 (09:38→20:24)
[2016-09-15] MEDS: SODIUM CHLORIDE 0.9% FLUSH 10 ML FLUSH IV FLUSH SCH ×2 (09:38→20:23)
[2016-09-15] MEDS: DOCUSATE SODIUM 50 MG/SENNA 8.6 MG TAB PO SCH ×2 (09:38→20:14)
[2016-09-15] MEDS: HEPARIN SODIUM - SQ 10,000 UNITS/ML VIAL SQ SCH ×2 (09:38→20:14)
[2016-09-15] MEDS: MORPHINE SULFATE 4 MG/ML INJ IV PRN ×3 (09:43→20:21)
[2016-09-15 09:44] LABS: BANDS 3 % (0-6); CORRECTED NUCLEATED RBC 1 /100 WBC (0-0); METAMYELOCYTES 1 % (0-1); NEUTROPHIL # MANUAL DIFF 4.1 TH/MM3 (1.8-7.7); POLYS (SEG NEUTROPHILS) 90 % (16-70); WBC DIFF SAMPLE 100
[2016-09-15 09:45] LABS: KERATOCYTES OCC (NORMAL); OVALOCYTES 1+ (NORMAL); PLATELET ESTIMATE SMEAR LOW (NORMAL); PLATELET MORPHOLOGY NORMAL (NORMAL); SCAN/DIFF FINAL DIFF MANUAL
[2016-09-15] MEDS: INSULIN DETEMIR 100 UNITS/ML VIAL SQ SCH ×2 (09:47→20:21)
--- NOTE | 2016-09-15 11:14 | HHI.HCPN ---
Reason for visit a. To assist with evaluation and management of symptoms including: chronic pain syndrome; chest pain; dyspnea; anxiety b. To assist medical decision maker(s) with: better understanding of current medical conditions; weighing benefits/burdens of medical treatment options; making medical treatment decisions. Subjective/Interval History Patient seen today to follow-up on pain, dyspnea, goals of treatment. Stable over the weekend. Was able to meet with hospice with her family. Has indicated that she is NOT interested in hospice at this time. Still with intermittent cough. ID following has discontinued vancomycin, Zosyn , added oral Levaquin. Nephrology has signed off--renal functions remain elevated though stable. [employer] Operator further notes that her prognosis is still likely less than 6 months without dialysis. Pulmonology following, stable from a pulmonary standpoint. CXR yesterday = clear lungs. Patient seen in room today no family present. She indicates her daughter has gone home for a little while, though she has been staying with her at night. She is alert, oriented. appears to have reasonable insight. She endorses intermittent dyspnea still though overall feels better. Endorses intermittent productive cough occasionally bringing up a little bit of thick phlegm. She tells me her appetite is fair, though limited as she does not like the hospital food offerings for her diabetic diet. She endorses some intermittent nausea which she has utilized Zofran with some relief. Asked her about her painshe endorses that right now she feels it is okay and managed by her oral regimen. Explore with her the past few days and her consultation with hospice--she becomes rather guarded and indicates that she is actually getting better not worse, and that she and her family are not interested in hospice at this time. She tells me that she is certain that she is improving and that she is in "no esteban "to get out of the hospital that she will do what she needs to do here to get well, that she does not want to be discharged before she is ready. She tells me the other doctors were trying to get her to wear the SCDs and that she does not want to, I explored with her that things like SCDs, PT, incentive spirometer etc. are meant to maximize her treatment and help minimize complications though she could still potentially experience complications in her current health status. She tells me that she knows her body and what is good for her and that she does not need the SCDs and she knows what treatments that she needs. She has advance directive forms provided by palliative, she is continuing to discuss with her family. Her goals remain to recover and get out of the hospital back home with her family. Discussed with PT, PT indicates the past 2 days she has been reluctant to participate, PT will continue to attempt to motivate her to participate. History per initial consult by Dr Villalta: Ms. Sinclair is a 75-year-old female with a known history of COPD (normally at home on 2-3 L/m of oxygen); coronary artery disease status post myocardial infarction and four-vessel CABG; diabetes mellitus; stroke; grade 1 diastolic dysfunction; gout; chronic pain syndrome with long-standing opiate use; dyslipidemia; diabetic nephropathy; enlarging kidney tumor; and multiple medication allergies who presented to the [facility] emergency Department on 09/08/16 complaining of severe dyspnea as well as chest pain. The pain was described as midsternal, nonradiating, pleuritic, and exacerbated by any movement. There was no associated diaphoresis or nausea. Her chest pains, when she gets them can last throughout the day and a constant fashion. The patient did report experiencing palpitations over the couple of weeks leading up to ER presentation. There were also 1 or 2 falls and she was unsure whether she might have lost consciousness or not prior to the falls. Oxygen saturation measured in the home was noted to be in the 80s while on oxygen. The patient had complained of occasional wheezing but has wheezing at baseline. She also reported a cough productive of a minimal amount of brownish sputum without hemoptysis. The patient was brought in by her daughter and son. The patient had been admitted to the family medicine teaching service approximately one month prior and had also been admitted to the chest pain center about 2 weeks prior. Workup was negative at the chest pain center on 08/26/16.. The patient had refused cardiac stress testing at that time. At the time of this emergency department presentation the patient said it was impossible for her to ambulate even a couple of steps due to the pain. At her baseline, the patient sleeps in a semirecumbent position because she is unable to lay flat. The patient has long-standing chronic pain syndrome and anxiety. She normally takes 115 mg of long acting morphine sulfate every morning. She normally uses 2 mg of alprazolam every night. Initial vital signs in the emergency department revealed the following > temperature 98.5; pulse 52; respiratory rate 20; blood pressure 117/57; pulse oximetry 100% on O2 via nasal cannula at 2 L a minute Initial physical examination by the emergency supervisor roving department revealed the following > patient was frail appearing and in significant respiratory distress. There is decreased air entry bilaterally and wheezing bilaterally in the lung chappell. The remainder the physical exam was unremarkable. Initial diagnostic testing revealed the following: * CBC showed a PBC 11.1; hemoglobin 9.7; platelet count 248 * Coagulation profile showed PT 11.2; INR 1.0 * Chemistry profile showed sodium 138; potassium 5.9; chloride 107; CO2 22.2; anion gap 9; BUN 57; creatinine 3.32; GFR 14; glucose 195; calcium 8.5; magnesium 2.3 * Cardiac serology show troponin at less than 0.02; B type natriuretic peptide at 951 * Arterial blood gas showed pH 7.3; PCO2 44; PaO2 233; bicarbonate 21; and base excess at -4.6. Oxygen was being administered at 8 L a minute via mask * 12-lead electrocardiogram showed atrial fibrillation with a heart rate of 51 * Chest x-ray. Showed new infiltrates in the right long Resuscitation status was discussed with the patient and her daughter. The patient was capacitated at the time and indicated she did not want to be intubated. The patient also recently refused heart attack stress testing. History and the emergency department indicated that dialysis had been recommended for the patient in the past and she refused that. With respiratory distress, renal failure, and significant cardiac disease, as well as history of a enlarging kidney tumor the patient was felt to be in multiorgan failure. Antibiotics were started for the apparent pneumonia in the emergency department. She was given nebulizer treatments 3. The patient was admitted to the residency service. The patient confirmed with the resident team that under no circumstances that she wanted to be intubated, receiving mechanical ventilation, undergoing renal dialysis. Hospice services were offered, but the patient declined indicating she is well cared for by her daughter and does not require the additional level of support from hospice. -Cardiology was consulted. Dr. Constance cabrera chest pains were quite atypical for myocardial ischemia. In addition, cardiac enzymes were negative and EKG did not suggest an acute coronary event. He did not feel she was a candidate for further invasive cardiac evaluation due to comorbid conditions and her renal failure. He felt her atrial fibrillation with bradycardia might be contributing to her dyspnea. He felt she was at high risk for thromboembolic events but also felt she was not a good candidate for anticoagulation therapy. He recommended conservative therapy for her coronary artery disease and symptomatic treatment. Echocardiogram came back showing an estimated ejection fraction 55-60%. No significant valvular dysfunction was noted. -Nephrology was also consulted. Dr. Wheeler noted that the patient was familiar to him from his office practice and had last seen her in September 2015. He confirmed that she had declined dialysis. He reported that the "tumor" that the patient was referring to was actually a complex cyst involving her left kidney. The patient did not want follow-up or evaluation of that problem as well. In 08/26/16 creatinine level was 2.29. Overall, Dr. Wheeler felt uncertain if there was an acute reversible component to her renal disease or if this was just progression of her underlying chronic kidney disease now to the point of end-stage renal disease. Renal ultrasound revealed echogenic kidneys with cortical thinning and decreased size, left greater than right. Renal cysts were also noted. -Pulmonology was consulted. A CT of the chest was ordered to see if there might be any kind of underlying mass. It revealed only patchy opacities in the right upper lobe and to a lesser degree right middle lobe and lingula. Small right pleural effusion was noted. Since admission, the patient continues to have her constant chest pain that she reports it is somewhat better. Breathing has improved slightly. Hemoglobin is falling to 8.4. Renal function has grown slightly worse with creatinine increasing to 3.85 and GFR declining to 11. Albumin is low at 2.5. Blood cultures from 09/08/16 have shown no growth to date. Urine culture from is pending. Chest x-ray from 09/10/16 showed COPD with mild interstitial vascular congestion but no evidence of consolidating airspace disease. She continues on IV stgeroids and iv antibiotics. Inpatient pain management includes ongoing use of her 115 mg/day of extended release PO morphine sulfate. Though Oromorph is usually dosed 2-3 times/day, single daily dosing appears appropriate given the patient's degree of renal failure and expected delays in metabolizing opiates. There is nothing being offered for breakthrough pain at this time buT patient does not appear to be requesting anything. Patient is awake and alert at time of my visit. Both of her daughters are present. She reports mild pain and mild dyspnea at the time. . Advance Directives Living Will: Never completed Health Care Surrogate: Never completed Durable Power of Occasional Caregiver: Never completed Advance Directive Specifics Date completed: No available advance directive at this time. Patient and family have been given forms to complete on 09/10/16. . Health Care Surrogate(s): No written designation of health care surrogate at this time. Patient was given forms to complete on 09/10/16. . Documented care wishes: No written documentation of health care goals/preferences. Patient was given advanced directive forms to complete on 09/10/16. . Objective Vital Signs Date Time Temp Pulse Resp B/P Pulse Ox O2 Delivery O2 Flow Rate FiO2 09/15/16 08:54 100 Nasal Cannula 3.00 09/15/16 08:00 97.8 70 18 152/70 100 09/15/16 04:30 96.9 71 16 147/64 100 09/15/16 04:04 63 09/15/16 00:14 72 09/15/16 00:00 97.2 75 18 149/68 100 09/14/16 20:02 80 09/14/16 20:00 96.9 85 18 143/63 98 09/14/16 16:25 82 09/14/16 16:00 96.3 83 18 150/72 100 09/14/16 15:56 99 Nasal Cannula 3.00 09/14/16 12:24 74 09/14/16 12:00 95.8 84 18 114/62 100 Intake & Output 09/15/16 09/15/16 07:00 19:00 Intake Total 720 ml Balance 720 ml Intake Oral 720 ml # Voids 6 # Bowel Movements 2 Physical Exam CONSTITUTIONAL/GENERAL: This is an adequately nourished patient, awake, alert TUBES/LINES/DRAINS: Peripheral IV left upper extremity; nasal cannula oxygen; Lion catheter SKIN: No jaundice, rashes, or lesions. Multiple areas of ecchymosis upper extremities, abdomen. No wounds seen anteriorly. Skin temperature appropriate. Not diaphoretic. CARDIOVASCULAR: Irregularly irregular rhythm without murmurs. Peripheral pulses symmetric. No peripheral edema. RESPIRATORY/CHEST: Symmetric, unlabored respirations. Lungs are clear with occasional scattered rhonchi, decreased air movement bilaterally. GASTROINTESTINAL: Abdomen soft, obese, non-tender, nondistended. No palpable masses. No guarding. Bowel sounds active.+ Small areas of ecchymosis GENITOURINARY: Without palpable bladder distension. Lion catheter in place. MUSCULOSKELETAL: Extremities without clubbing, cyanosis. Peripheral Edema has improved. No calf tenderness. No mottling . NEUROLOGICAL: Awake and alert. Oriented 3. Appears to have reasonable insight. Motor and sensory grossly within normal limits. Follows commands. Cognitively sharp. Moves all extremities. PSYCHIATRIC: Affect is slightly depressed. No apparent hallucinations or other psychotic thought process. . Diagnostic Tests Laboratory Laboratory Tests Test 09/13/16 09/14/16 09/15/16 06:39 11:55 06:17 White Blood Count 3.2 TH/MM3 8.1 TH/MM3 4.4 TH/MM3 (4.0-11.0) (4.0-11.0) (4.0-11.0) Red Blood Count 2.73 MIL/MM3 3.37 MIL/MM3 3.00 MIL/MM3 (4.00-5.30) (4.00-5.30) (4.00-5.30) Hemoglobin 8.1 GM/DL 10.1 GM/DL 8.9 GM/DL (11.6-15.3) (11.6-15.3) (11.6-15.3) Hematocrit 24.9 % 30.4 % 27.2 % (35.0-46.0) (35.0-46.0) (35.0-46.0) Mean Corpuscular Volume 91.3 FL 90.1 FL 90.4 FL (80.0-100.0) (80.0-100.0) (80.0-100.0) Mean Corpuscular Hemoglobin 29.7 PG 30.0 PG 29.7 PG (27.0-34.0) (27.0-34.0) (27.0-34.0) Mean Corpuscular Hemoglobin 32.5 % 33.2 % 32.8 % Concent (32.0-36.0) (32.0-36.0) (32.0-36.0) Red Cell Distribution Width 14.4 % 14.3 % 14.0 % (11.6-17.2) (11.6-17.2) (11.6-17.2) Platelet Count 145 TH/MM3 177 TH/MM3 145 TH/MM3 (150-450) (150-450) (150-450) Mean Platelet Volume 7.6 FL 8.0 FL 7.8 FL (7.0-11.0) (7.0-11.0) (7.0-11.0) Neutrophils (%) (Auto) 92.8 % 94.3 % 90.0 % (16.0-70.0) (16.0-70.0) (16.0-70.0) Lymphocytes (%) (Auto) 5.5 % 3.8 % 6.1 % (9.0-44.0) (9.0-44.0) (9.0-44.0) Monocytes (%) (Auto) 1.7 % (0.0-8.0) 1.8 % (0.0-8.0) 3.7 % (0.0-8.0) Eosinophils (%) (Auto) 0.0 % (0.0-4.0) 0.0 % (0.0-4.0) 0.1 % (0.0-4.0) Basophils (%) (Auto) 0.0 % (0.0-2.0) 0.1 % (0.0-2.0) 0.1 % (0.0-2.0) Neutrophils # (Auto) 2.9 TH/MM3 7.6 TH/MM3 3.9 TH/MM3 (1.8-7.7) (1.8-7.7) (1.8-7.7) Lymphocytes # (Auto) 0.2 TH/MM3 0.3 TH/MM3 0.3 TH/MM3 (1.0-4.8) (1.0-4.8) (1.0-4.8) Monocytes # (Auto) 0.1 TH/MM3 0.1 TH/MM3 0.2 TH/MM3 (0-0.9) (0-0.9) (0-0.9) Eosinophils # (Auto) 0.0 TH/MM3 0.0 TH/MM3 0.0 TH/MM3 (0-0.4) (0-0.4) (0-0.4) Basophils # (Auto) 0.0 TH/MM3 0.0 TH/MM3 0.0 TH/MM3 (0-0.2) (0-0.2) (0-0.2) CBC Comment DIFF FINAL AUTO DIFF AUTO DIFF Differential Comment AUTO DIFF FINAL DIFF CONFIRMED MANUAL Sodium Level 143 MEQ/L 140 MEQ/L 143 MEQ/L (136-145) (136-145) (136-145) Potassium Level 3.1 MEQ/L 2.9 MEQ/L 3.2 MEQ/L (3.5-5.1) (3.5-5.1) (3.5-5.1) Chloride Level 104 MEQ/L 101 MEQ/L 104 MEQ/L (98-107) (98-107) (98-107) Carbon Dioxide Level 26.1 MEQ/L 27.2 MEQ/L 27.4 MEQ/L (21.0-32.0) (21.0-32.0) (21.0-32.0) Anion Gap 13 MEQ/L (5-15) 12 MEQ/L (5-15) 12 MEQ/L (5-15) Blood Urea Nitrogen 67 MG/DL (7-18) 64 MG/DL (7-18) 67 MG/DL (7-18) Creatinine 3.55 MG/DL 3.37 MG/DL 3.39 MG/DL (0.50-1.00) (0.50-1.00) (0.50-1.00) Estimat Glomerular Filtration 13 ML/MIN (>89) 13 ML/MIN (>89) 13 ML/MIN (>89) Rate Random Glucose 215 MG/DL 254 MG/DL 153 MG/DL (74-106) (74-106) (74-106) Calcium Level 8.0 MG/DL 8.4 MG/DL 8.2 MG/DL (8.5-10.1) (8.5-10.1) (8.5-10.1) Random Vancomycin Level 23.1 COMMENT Differential Total Cells 100 Counted Neutrophils % (Manual) 90 % (16-70) Band Neutrophils % 3 % (0-6) Lymphocytes % 4 % (9-44) Monocytes % 2 % (0-8) Neutrophils # (Manual) 4.1 TH/MM3 (1.8-7.7) Metamyelocytes 1 % (0-1) Nucleated Red Blood Cells 1 /100 WBC (0-0) Platelet Estimate LOW (NORMAL) Platelet Morphology Comment NORMAL (NORMAL) Ovalocytes 1+ (NORMAL) Keratocytes OCC (NORMAL) Result Diagram: 09/15/1661609/15/16616 Imaging Last Impressions Chest X-Ray 09/14/16 0000 Signed Impressions: Service Date/Time: Wednesday, September 14, 2016 12:17 - CONCLUSION: Mild cardiomegaly. Clear lungs. Horace Mathew Jr., MD Chest CT 09/10/16 0000 Signed Impressions: Service Date/Time: Saturday, September 10, 2016 07:53 - CONCLUSION: 1. Patchy opacities in the right upper lobe and to lesser degree right middle lobe and lingula. 2. Small right pleural effusion and adjacent atelectasis. 3. Status post CABG and cardiomegaly. Connor Boyle MD Renal Ultrasound 09/09/16 0000 Signed Impressions: Service Date/Time: August 17:55 - CONCLUSION: Echogenic kidneys with cortical thinning and decreased size, left greater than right. Renal cysts. Oskar Sierra MD Assessment and Plan Disease Oriented Problem List: (1) COPD (chronic obstructive pulmonary disease) Comment: Normally on 02 at 3L/min at home . (2) Pneumonia Comment: Initally appeared to have infiltrates on admission. . (3) CKD (chronic kidney disease) Comment: Probably secondary to diabetic nephropathy. Patient has been refusing dialysis. . (4) Atrial fibrillation (5) Chronic pain Comment: Has been on chronic opiates for years. . (6) Opiate dependence (7) DM (diabetes mellitus) Symptom Scale: (1) Depression 0-10 Scale: Unable to quantify Comment: Patient indicates she is depressed. Has never been on antidepressant medications. . (2) Pain 0-10 Scale: 3 Comment: Patient has several different pain syndromes noted. She has her chronic musculoskeletal pain mostly involving back, left shoulder, pelvic area. She also has very painful lower extremity peripheral neuropathy. She also has ease episodes of severe chest pain. There is episodic gouty arthritis pain. (3) Dyspnea 0-10 Scale: Unable to quantify Comment: Patient is now reasonably comfortable at rest with nasal cannula oxygen. Dyspnea is probably multifactorial. She has underlying COPD. She appears to have an acute pneumonia and likely an element of pulmonary fluid congestion. . (4) Generalized weakness (5) Anxiety 0-10 Scale: Unable to quantify Pertinent Non-Medical Issues Psychosocial: Receives excellent psychosocial support from immediate family. She is close with her ex- who lives locally. She lives with one of her daughters who is the primary caregiver. 3 other children live in [facility] and [facility]. Spiritual: Identifies herself is [employer]. Druze and spirituality have not played an important part in her life of late. Legal: No advance directive on file. Patient has been given advance directive forms and will be completing them. Ethical issues impacting care: Patient is currently capacitated to make her own health care decisions. She defers frequently to family members, however, and I would recommend shared decision-making for any important decisions. . Important Contacts * Keara Sinclair (daughter -- normally lives with the patient) [phone] * Tayla Cortez (daughter; nurse at [employer]) [phone] . Prognosis Patient appears to be having worsening respiratory disease, cardiac disease, and renal disease. She does not want intubation/mechanical ventilation and does not want dialysis. It is unclear if we are going to be able to successfully treat her congestive symptoms without dialysis and without further impairing her renal function. I anticipate there will be some improvement in respiratory function with treatment of her apparent pneumonia. Either way, patient is shown evidence of decline over the last months, particularly the last month. This is her third time back to the hospital within the last 4-6 weeks. I anticipate this trend will continue. In my clinical opinion, given patient's current goals, life expectancy is less than 6 months. From my perspective, she is eligible for hospice services at such time that her goals become primarily comfort oriented. . Code Status: No Code Plan == Code Status: NO CODE. == Decision making: Patient is currently capacitated to make her own decisions. She relies on family to assist and I recommend that there be shared decision making for any major decisions. Patient has not designated a surrogate at this time palliative has provided her advance directive forms to complete with her family. Until such time as she designates a surrogate, proxy health care decision making would fall to the majority of her 4 children should the patient become incapacitated. == Goals of medical treatment: Patient initially met with palliative care last week, and after much discussion appeared open to further discussions regarding hospice and comfort oriented treatment. However, patient and her family met with hospice over the weekend and patient very strongly endorses that she is NOT interested in hospice, feels she is improving and not declining. == Pain: Patient has several types of pain. She has chronic musculoskeletal pain involving back , left shoulder , buttocks. She has neuropathic pain in her lower extremities. She has atypical chest pain. She intermittently gets gout attacks. Normally, she manages her chronic pain at home with the 115 mg/ day of long acting morphine and an occasional 10 mg Percocet for breakthrough pain. She is still having chest pains here but it is tolerable and she is not requesting further opiate changes at the moment. Should she opt for comfort care (e.g. hospice) we might want to consider some low dose methadone which does not require renal function to metabolize and might provide better relief via the NMDA receptor blockade pathway. Methadone can prolong QT intervals so we would only want low doses with her cardiac function and only if her goals become comfort oriented. *09/15 Today she endorses pain continues to be well managed does not desire change in regimen. == Dyspnea: Patient has underlying COPD but now appears to have pneumonia and an element of pulmonary fluid congestion. She is currently receiving antibiotics, nebs, steroids, she endorses some improvement overall in her breathing and cough If/when goals become comfort oriented would offer breathrough opiates and benzos to help manage dyspnea. No further recommendations at this time. == Depression: Patient might benefit from an anti-depressant. May want to consider using trazadone or mirtazapine at night instead of the benzo if she permits. Sertraline may be one of the safest SSRIs for her given her renal failure but would still start at 12.5 mg/day. == Anxiety: Normally just uses a benzo at night. Anxiety increased in the hospital due to overall illness and to IV steroids. If needed, would recommend lorazepam 0.5 mg PO q 4 hours prn daytime anxiety and continue her scheduled nighttime benzo. == Disposition: Patient lives with her daughter and daughter was getting overwhelmed with patient's increasing care needs over the last month or so. Patient and family are refusing half-way. If they decline hospice, home health will be the remaining choice. She remains high risk for further exacerbation/complications and readmissions. == Advance directives: Forms were provided to patient and family members. == Palliative care will continue to follow to assist with symptom management and further clarify goals of medical treatment as the clinical course evolves. . Attestation To help prompt me to consider important information that might be impacting today's encounter and assessment, information from prior notes written by myself or my colleagues may have been "brought forward" into today's note. My signature on this note, however, is an attestation that I personally performed the exam, history, and/or decision-making noted today, and, unless otherwise indicated, the interactions with patient, family, and staff as well as the review of records all occurred today. I also attest that the listed assessment and stated plan reflect my best clinical judgment today based on the combination of historical information, prior notes, and today's exam/ interactions. When time spent is documented, it refers only to time spent today by the signer, or if indicated, combined time spent today by collaborating physician/nurse practitioner. Sharron Yan Sep 15, 2016 11:14
--- NOTE | 2016-09-15 11:45 | HHI.FPPN ---
Subjective Remarks Patient seen and examined this morning. Temperature 96.9, pulse 71, respiratory rate 16, blood pressure 147/64, pulse ox 100 on 3 L nasal cannula. Patient reports that she feels very tired and weak. She is requesting going to a jail facility for further rehabilitation. She admits to continued cough and shortness of breath. The cough is a wet cough. She is also complaining of chest pain that is unchanged from previous days. Patient does not wish hospice at this time, and agrees with leaving the hospital as soon as placement to a jail facility can be obtained. (Pepito Bullard MD R2) Objective Vitals Vital Signs Date Time Temp Pulse Resp B/P Pulse Ox O2 Delivery O2 Flow Rate FiO2 09/15/16 08:54 100 Nasal Cannula 3.00 09/15/16 08:00 97.8 70 18 152/70 100 09/15/16 04:30 96.9 71 16 147/64 100 09/15/16 04:04 63 09/15/16 00:14 72 09/15/16 00:00 97.2 75 18 149/68 100 09/14/16 20:02 80 09/14/16 20:00 96.9 85 18 143/63 98 09/14/16 16:25 82 09/14/16 16:00 96.3 83 18 150/72 100 09/14/16 15:56 99 Nasal Cannula 3.00 09/14/16 12:24 74 09/14/16 12:00 95.8 84 18 114/62 100 I/O 09/14/16 09/14/16 09/14/16 09/15/16 09/15/16 09/15/16 07:00 15:00 23:00 07:00 15:00 23:00 Intake Total 60 ml 792 ml 480 ml 240 ml Balance 60 ml 792 ml 480 ml 240 ml Intake Oral 720 ml 480 ml 240 ml IV Total 60 ml 72 ml # Voids 2 3 4 2 # Bowel Movements 2 2 1 1 (Pepito Bullard MD R2) Result Diagram: 09/15/1617 09/15/1617 Imaging Last Impressions Chest X-Ray 09/14/16 0000 Signed Impressions: Service Date/Time: Wednesday, September 14, 2016 12:17 - CONCLUSION: Mild cardiomegaly. Clear lungs. Horace Mathew Jr., MD Chest CT 09/10/16 0000 Signed Impressions: Service Date/Time: Saturday, September 10, 2016 07:53 - CONCLUSION: 1. Patchy opacities in the right upper lobe and to lesser degree right middle lobe and lingula. 2. Small right pleural effusion and adjacent atelectasis. 3. Status post CABG and cardiomegaly. Connor Boyle MD Renal Ultrasound 09/09/16 0000 Signed Impressions: Service Date/Time: August 17:55 - CONCLUSION: Echogenic kidneys with cortical thinning and decreased size, left greater than right. Renal cysts. Oskra Sierra MD Objective Remarks GENERAL: Patient is obese, well-nourished pleasant female lying in bed with nasal cannula in place. SKIN: Warm and dry. Small areas of bruising on the right lateral leg, left medial ankle, right hand, and left forearm. HEAD: Atraumatic. Normocephalic. EYES: Pupils equal and round. No scleral icterus. No injection or drainage. ENT: No nasal bleeding or discharge. Mucous membranes pink and moist. NECK: Trachea midline. No JVD. CARDIOVASCULAR: Regular rate and rhythm, no murmurs appreciated RESPIRATORY: No accessory muscle use. Wheezing auscultated throughout, fine rales bilaterally. Breath sounds equal bilaterally. GASTROINTESTINAL: Abdomen soft, non-tender, obese, nondistended. MUSCULOSKELETAL: Extremities without clubbing, cyanosis, or edema. No obvious deformities. NEUROLOGICAL: Awake and alert. No obvious cranial nerve deficits. Motor grossly within normal limits. Normal speech. PSYCHIATRIC: Appropriate mood and affect; insight and judgment normal. Medications and IVs Current Medications Medications (Trade) Dose Ordered Sig/Saritha Route Start Time Stop Time Status Last Admin (NS Flush) 2 ml UNSCH PRN IV FLUSH 09/08/16 18:30 09/14/16 06:08 (NS Flush) 2 ml BID IV FLUSH 09/08/16 21:00 09/15/16 09:38 (Zofran Inj) 4 mg Q6H PRN IV 09/08/16 18:30 09/14/16 10:20 (Whitney-Colace) 1 tab BID PO 09/08/16 21:00 09/11/16 08:16 (Milk Of Magnesia Liq) 30 ml Q12H PRN PO 09/08/16 18:30 (Senokot) 17.2 mg Q12H PRN PO 09/08/16 18:30 (Dulcolax Supp) 10 mg DAILY PRN RECTAL 09/08/16 18:30 (Lactulose Liq) 30 ml DAILY PRN PO 09/08/16 18:30 (Symbicort 160-4.5 Inh) 2 puff BID INH 09/08/16 21:00 09/15/16 09:38 (Oramorph Sr) 100 mg DAILY PO 09/09/16 09:00 09/15/16 09:37 (Oramorph Sr) 15 mg DAILY PO 09/09/16 09:00 09/15/16 09:37 (Protonix) 40 mg DAILY PO 09/08/16 20:30 09/15/16 09:36 (SoluMEDROL INJ) 60 mg Q6H IVP 09/08/16 22:00 09/15/16 09:35 (Narcan Inj) 0.4 mg UNSCH PRN IV 09/08/16 20:45 (Ativan) 2 mg DAILY PRN PO 09/09/16 00:15 09/14/16 22:46 (Heparin Inj) 5,000 units Q12H SQ 09/09/16 09:00 09/15/16 09:38 (Lopressor) 50 mg BID PO 09/09/16 09:00 09/15/16 09:36 (Ecotrin Ec) 81 mg DAILY PO 09/09/16 09:00 09/15/16 09:36 (Bumetanide) 1 mg DAILY@,18 PO 09/10/16 18:00 09/15/16 09:36 (Zaroxolyn) 5 mg DAILY PO 09/10/16 14:45 09/15/16 09:35 (Morphine Inj) 4 mg Q3H PRN IV 09/11/16 22:15 09/15/16 09:43 (KCl) 10 meq DAILY PO 09/14/16 09:00 09/15/16 09:37 (Levaquin) 250 mg DAILY PO 09/14/16 18:15 09/15/16 09:36 (Levemir Inj) 10 units Q12HR SQ 09/14/16 21:30 09/15/16 09:47 (Pepito Bullard MD R2) A/P Assessment and Plan 75-year-old female with history significant for COPD, CVA, CAD, atrial fibrillation presented with pneumonia, acute on chronic kidney disease. Pulmonology, cardiology, nephrology, palliative care have been consulted to assist with management and goals of care. Discharge Planning Patient currently being treated for HCAP. Discharge pending placement in jail facility, case management consulted for helping with placement Patient not wanting Hospice at this time. PT recommending PT at rehabilitation facility (Pepito Bullard MD R2) Attending Attestation Patient examined and case discussed with resident physicians I have read the above note and agree with the assessment/plan is discussed with me I was involved in all medical decision making for this patient Evan Dyer M.D. (Evan Dyer MD) Problem List: (1) Acute on chronic renal insufficiency Status: Acute Plan: Nephrology consult, has signed off Patient had expressed she would not want dialysis even if she had terminal renal failure Renal ultrasound: Echogenic kidneys with cortical thinning and decreased size, left greater than right. Per nephrology, Bumex 1 mg by mouth every 12 hours because of concern for fluid overload. Continue to monitor Cr, GFR. I/Os Per nephrology 09/09: If there is no significant improvement in the patient's volume status and or azotemia and she still wishes not to pursue dialytic support then comfort care would be appropriate in my opinion. This remains be determined however. Palliative care consult (2) COPD with exacerbation Status: Acute Plan: Pulmonology consult, Dr. Baca Continue Solu-Medrol 60 mg every 6 hours IV Duo nebs every 4 hours. Albuterol treatments when necessary Respiratory supportive care with incentive spirometry. Oxygen for O2 sats < 92% Antibiotics as below (3) Pneumonia Status: Acute Plan: Concern for HCAP CT on 09/10 shows patchy opacities in the right upper lobe, and to a lesser degree right middle lobe and lingula. Small right pleural effusion and adjacent atelectasis. Pulmonology consult Per infectious disease recommendations: Continue Levaquin 250 mg by mouth daily Blood culture 09/08 no growth after 5 days (4) Hypertension Status: Chronic Plan: Continue Metoprolol 50 mg po bid Continue Amlodipine Holding home medications for kidney failure: lisinopril Continue to trend vitals q4h (5) DM (diabetes mellitus) Status: Chronic Plan: Chronic. Patient is on glipizide at home which is held. She'll be placed on low-dose sliding scale NovoLog, regular Accu-Cheks Started levemir 5 units subq bid (6) Atrial fibrillation Status: Chronic Plan: Cardiology consult Metoprolol 50 mg twice a day Poor candidate for anticoagulation, continue aspirin Continue conservative management, cardiology will follow as needed. Echo: Ejection fraction 55-60%. (7) Insomnia Status: Chronic Plan: Continue home medication. (8) Opiate dependence Status: Chronic Plan: Patient reports chronic use of morphine, 115mg daily. She's been taking this for years. Plan: * Continue morphine at this dose given risk of withdrawal * Monitor for signs of respiratory depression. * Narcan when necessary (9) Fluids/Electrolytes/Nutrition/Prophylaxis Status: Acute Plan: Fluids: Tolerating by mouth, given significant history, caution with fluid overload Electrolytes: Monitor and replace as needed Nutrition: heart-healthy diet DVT Prophylaxis: Early ambulation. Heparin GI Prophylaxis: Protonix 40 mg PO daily (Pepito Bullard MD R2) Problem Qualifiers (1) Pneumonia: Qualified Code: J18.1 - Pneumonia of right lower lobe due to infectious organism (2) Hypertension: Qualified Code: I10 - Essential hypertension (3) DM (diabetes mellitus): Qualified Code: E13.8 - Other specified diabetes mellitus with complication, without long-term current use of insulin (4) Atrial fibrillation: Qualified Code: I48.91 - Atrial fibrillation, unspecified type (5) Insomnia: Qualified Code: G47.00 - Insomnia, unspecified type (6) Opiate dependence: Qualified Code: F11.20 - Uncomplicated opioid dependence Pepito Bullard MD R2 Sep 15, 2016 11:45 Evan Dyer MD Sep 15, 2016 15:29
[2016-09-15] MEDS ORDERED: POTASSIUM CHLORIDE 10 MEQ CONTROLLED RELEASE TAB PO ONE (14:00)
[2016-09-15 15:20] LABS: AUTOMATED NEUTROPHIL # 5.8 TH/MM3 (1.8-7.7); BASOPHIL % 0.1 % (0.0-2.0); HEMATOCRIT 28.8 % (35.0-46.0); LYMPH % 4.4 % (9.0-44.0); LYMPHOCYTE # 0.3 TH/MM3 (1.0-4.8); MEAN CELL VOLUME 90.5 FL (80.0-100.0); MEAN CORPUSCULAR HEMOGLOBIN 29.4 PG (27.0-34.0); MEAN CORPUSCULAR HGB CONC 32.4 % (32.0-36.0); MONO % 2.5 % (0.0-8.0); PLATELET COUNT 147 TH/MM3 (150-450); RED BLOOD COUNT 3.18 MIL/MM3 (4.00-5.30); WHITE BLOOD COUNT 6.2 TH/MM3 (4.0-11.0)
[2016-09-15 15:29] LABS: HEMO FLAGS AUTO DIFF
[2016-09-15] MEDS: ONDANSETRON HCL 4 MG/2 ML VIAL IV PRN (15:54)
--- NOTE | 2016-09-15 15:55 | HHI.PR ---
Subjective Remarks ALERT LESS SOB cough thick mucoid secretion Objective Vital Signs Date Time Temp Pulse Resp B/P Pulse Ox O2 Delivery O2 Flow Rate FiO2 09/15/16 12:00 98.0 59 26 165/74 99 09/15/16 08:54 100 Nasal Cannula 3.00 09/15/16 08:00 97.8 70 18 152/70 100 09/15/16 04:30 96.9 71 16 147/64 100 09/15/16 04:04 63 09/15/16 00:14 72 09/15/16 00:00 97.2 75 18 149/68 100 09/14/16 20:02 80 09/14/16 20:00 96.9 85 18 143/63 98 09/14/16 16:25 82 09/14/16 16:00 96.3 83 18 150/72 100 09/14/16 15:56 99 Nasal Cannula 3.00 I/O 09/14/16 09/14/16 09/14/16 09/15/16 09/15/16 09/15/16 07:00 15:00 23:00 07:00 15:00 23:00 Intake Total 60 ml 792 ml 480 ml 240 ml Balance 60 ml 792 ml 480 ml 240 ml Intake Oral 720 ml 480 ml 240 ml IV Total 60 ml 72 ml # Voids 2 3 4 2 # Bowel Movements 2 2 1 1 Result Diagram: 09/15/16 1459 09/15/16616 Objective Remarks Laboratory Tests Test 09/08/16 09/08/16 09/08/16 09/09/16 15:40 15:44 20:00 01:45 Potassium Level 5.9 MEQ/L 5.4 MEQ/L (3.5-5.1) (3.5-5.1) Blood Urea Nitrogen 57 MG/DL (7-18) Creatinine 3.32 MG/DL (0.50-1.00) Estimat Glomerular Filtration 14 ML/MIN (>89) Rate Random Glucose 195 MG/DL (74-106) Troponin I LESS THAN 0.02 NG/ML (0.02-0.05) B-Type Natriuretic Peptide 951 PG/ML (0-100) White Blood Count 11.1 TH/MM3 (4.0-11.0) Red Blood Count 3.32 MIL/MM3 (4.00-5.30) Hemoglobin 9.7 GM/DL (11.6-15.3) Hematocrit 31.0 % (35.0-46.0) Mean Corpuscular Hemoglobin 31.3 % Concent (32.0-36.0) Neutrophils (%) (Auto) 80.1 % (16.0-70.0) Neutrophils # (Auto) 8.9 TH/MM3 (1.8-7.7) Blood Gas HCO3 21 mmol/L (22-26) Blood Gas Base Excess -4.6 mmol/L (-2-2) Arterial Blood pH 7.30 (7.380-7.420) Arterial Blood Partial 44 mmHg (38-42) Pressure CO2 Arterial Blood Partial 233 mmHG Pressure O2 (61-120) Blood Gas Hemoglobin 10.2 G/DL (12.0-16.0) Urine Turbidity HAZY (CLEAR) Urine Occult Blood SMALL (NEG) Urine RBC 13 /hpf (0-3) Urine Bacteria MOD /hpf (NONE) Urine Yeast (Budding) RARE (NONE) Test 09/09/16 09/09/16 09/10/16 03:07 19:31 06:30 Red Blood Count 2.64 MIL/MM3 2.85 MIL/MM3 (4.00-5.30) (4.00-5.30) Hemoglobin 8.1 GM/DL 8.4 GM/DL (11.6-15.3) (11.6-15.3) Hematocrit 24.4 % 26.1 % (35.0-46.0) (35.0-46.0) Platelet Count 146 TH/MM3 (150-450) Neutrophils (%) (Auto) 92.2 % 93.9 % (16.0-70.0) (16.0-70.0) Lymphocytes (%) (Auto) 6.5 % 4.4 % (9.0-44.0) (9.0-44.0) Lymphocytes # (Auto) 0.3 TH/MM3 0.3 TH/MM3 (1.0-4.8) (1.0-4.8) Potassium Level 6.2 MEQ/L (3.5-5.1) Blood Urea Nitrogen 65 MG/DL (7-18) 74 MG/DL (7-18) 73 MG/DL (7-18) Creatinine 3.59 MG/DL 3.81 MG/DL 3.85 MG/DL (0.50-1.00) (0.50-1.00) (0.50-1.00) Estimat Glomerular Filtration 12 ML/MIN (>89) 12 ML/MIN (>89) 11 ML/MIN (>89) Rate Random Glucose 237 MG/DL 246 MG/DL 187 MG/DL (74-106) (74-106) (74-106) Calcium Level 8.1 MG/DL 7.9 MG/DL 8.1 MG/DL (8.5-10.1) (8.5-10.1) (8.5-10.1) Troponin I LESS THAN 0.02 NG/ML (0.02-0.05) Aspartate Amino Transf 9 U/L (15-37) (AST/SGOT) Total Protein 6.0 GM/DL (6.4-8.2) Albumin 2.5 GM/DL (3.4-5.0) Medications and IVs GENERAL: SKIN: Warm and dry. HEAD: Atraumatic. Normocephalic. EYES: Pupils equal and round. No scleral icterus. No injection or drainage. ENT: No nasal bleeding or discharge. Mucous membranes pink and moist. NECK: Trachea midline. No JVD. CARDIOVASCULAR: Regular rate and rhythm. RESPIRATORY: No accessory muscle use. Clear to auscultation. Breath sounds equal bilaterally. GASTROINTESTINAL: Abdomen soft, non-tender, nondistended. Hepatic and splenic margins not palpable. MUSCULOSKELETAL: Extremities without clubbing, cyanosis, or edema. No obvious deformities. NEUROLOGICAL: Awake and alert. No obvious cranial nerve deficits. Motor grossly within normal limits. Five out of 5 muscle strength in the arms and legs. Normal speech. PSYCHIATRIC: Appropriate mood and affect; insight and judgment normal. Assessment and Plan Assessment and Plan ASS COPD EX. IMPROVING PNA PLAN O2 NEEDED ANTIBX. bronchodilator therapy Phuong Baca MD Sep 15, 2016 15:55
[2016-09-15 16:13] LABS: OVALOCYTES 1+ (NORMAL); PLATELET ESTIMATE SMEAR LOW (NORMAL); PLATELET MORPHOLOGY NORMAL (NORMAL); SCAN/DIFF AUTO DIFF CONFIRMED
--- NOTE | 2016-09-15 16:27 | PD.CONS ---
HPI History of Present Illness This is a 75 year old female with a PMH significant for CABG X 4, CKD, A-fib, COPD on oxygen, IDDM, CAD, chronic pain who presents for evaluation of severe shortness of breath and chest pain, date of admission (09/08). Currently she is being treated for COPD exacerbation, pneumonia. She has CKD stage V, she is being seen by supervisor phosphorus processing and refusing dialysis. She was evaluated by swatcher, EKG without scute ST/T changes, ECho unremarkable, and recommended conservative measures with BB and aspirin. She is being seen by pulmonology, Hospice and ID as well. Hospice has offered their services, but she has refused. GI have been consulted for anemia and gi bleed. Patient is accompanied by family members, one of her daughters who are present in the room is an RN. Patient started passing bloody stools last night, multiple times, last time was around 1 pm today. According to nurse, these consist of large bloody clots. Patient report nausea but no vomiting. Reports upper abd pain. Daughter attributes this to hemorrhoids that were aggravated due to starting Kayexalate for high potassium causing diarrhea and irritation. Patient denies previous hx of this. She had EGD/colonoscopy years ago. She endorses on going issues of chocking, she always has to watch what she eats and make sure food cut up into small pieces. Denies GERD. Denies hematemesis, or melena. She has been having diarrhea due to Kayexalate. H&H today 9.3/28.8 (Raven Velasco) [facility] Past Medical History * Diabetes mellitus * COPD * Coronary artery disease status post myocardial infarction * Grade 1 diastolic dysfunction without systolic dysfunction * History of atrial fibrillation after her bypass surgery in 1999 * History of stroke 1989 * Dyslipidemia * Hypertension * Gout * Irritable bowel syndrome * Spinal stenosis * Chronic pain syndrome with long-standing opiate use * Chronic kidney disease --probable diabetic nephropathy * Diabetic neuropathy in bilateral lower extremities * History of "kidney tumor" which the patient has said is cancerous but has been followed for approximately 10 years. * Depression * Insomnia * kidney tumor s/p cryo ablation . Past Surgical History * Four-vessel coronary artery bypass grafting in 1999 * Hysterectomy with bilateral salpingo-oophorectomy in 1995 * Tonsillectomy * Appendectomy * Cholecystectomy * Epigastric hernia repair * Failed cataract surgery (Raven Velasco) Coded Allergies: Augmentin (Verified Allergy, Severe, Rash, 08/26/16) Haldol (Verified Allergy, Severe, Hallucinations, 08/26/16) Latex (Verified Allergy, Severe, HIVES, 08/26/16) Macrodantin (Verified Allergy, Severe, SHAKY , BLOOD SUGER PROBLEMS, ) Mirapex (Verified Allergy, Severe, LETHARGY,DIZZY,SHAKY, 08/26/16) Phenergan (Verified Allergy, Severe, Hallucinations, 08/26/16) Temazepam (Verified Allergy, Severe, Rash, 08/26/16) Lopid (Verified Allergy, Intermediate, 08/26/16) Lyrica (Verified Allergy, Unknown, 08/26/16) Soma (Verified Allergy, Unknown, 08/26/16) Amoxicillin (Verified Adverse Reaction, Severe, diarrhea, 08/26/16) HMG-CoA Reductase Inhibitors (Verified Adverse Reaction, Severe, LIVER DISEASE WITH SUBSEQUENT CHRONIC ITCHING UNTIL DC'D, 08/26/16) Trazodone (Verified Adverse Reaction, Intermediate, altered mental status , 08/26/16) *MDRO Multi-Drug Resistant Organism (Verified Adverse Reaction, Unknown, Cleared - 09/10/16, 09/13/16) MRSA Sputum 10/2008 *Cleared - MRSA PCR negative on 09/09/16 & 09/10/16* Uncoded Allergies: TAPE (Allergy, Mild, Rash, 11/06/09) USE PAPER TAPE ONLY ees (Allergy, Mild, itch, 11/06/09) advicor (Adverse Reaction, Intermediate, redness, itchin, 11/06/09) cipro,septra (Adverse Reaction, Intermediate, diarrhea,itching, 11/06/09) topramax (Adverse Reaction, Intermediate, 11/06/09) Medications Current Medications Medications (Trade) Dose Ordered Sig/Saritha Route Start Time Stop Time Status Last Admin (NS Flush) 2 ml UNSCH PRN IV FLUSH 09/08/16 18:30 09/14/16 06:08 (NS Flush) 2 ml BID IV FLUSH 09/08/16 21:00 09/15/16 09:38 (Zofran Inj) 4 mg Q6H PRN IV 09/08/16 18:30 09/14/16 10:20 (Whitney-Colace) 1 tab BID PO 09/08/16 21:00 09/11/16 08:16 (Milk Of Magnesia Liq) 30 ml Q12H PRN PO 09/08/16 18:30 (Senokot) 17.2 mg Q12H PRN PO 09/08/16 18:30 (Dulcolax Supp) 10 mg DAILY PRN RECTAL 09/08/16 18:30 (Lactulose Liq) 30 ml DAILY PRN PO 09/08/16 18:30 (Symbicort 160-4.5 Inh) 2 puff BID INH 09/08/16 21:00 09/15/16 09:38 (Oramorph Sr) 100 mg DAILY PO 09/09/16 09:00 09/15/16 09:37 (Oramorph Sr) 15 mg DAILY PO 09/09/16 09:00 09/15/16 09:37 (Protonix) 40 mg DAILY PO 09/08/16 20:30 09/15/16 09:36 (SoluMEDROL INJ) 60 mg Q6H IVP 09/08/16 22:00 09/15/16 09:35 (Narcan Inj) 0.4 mg UNSCH PRN IV 09/08/16 20:45 (Ativan) 2 mg DAILY PRN PO 09/09/16 00:15 09/14/16 22:46 (Heparin Inj) 5,000 units Q12H SQ 09/09/16 09:00 09/15/16 09:38 (Lopressor) 50 mg BID PO 09/09/16 09:00 09/15/16 09:36 (Ecotrin Ec) 81 mg DAILY PO 09/09/16 09:00 09/15/16 09:36 (Bumetanide) 1 mg DAILY@18 PO 09/10/16 18:00 09/15/16 09:36 (Zaroxolyn) 5 mg DAILY PO 09/10/16 14:45 09/15/16 09:35 (Morphine Inj) 4 mg Q3H PRN IV 09/11/16 22:15 09/15/16 09:43 (KCl) 10 meq DAILY PO 09/14/16 09:00 09/15/16 09:37 (Levaquin) 250 mg DAILY PO 09/14/16 18:15 09/15/16 09:36 (Levemir Inj) 10 units Q12HR SQ 09/14/16 21:30 09/15/16 09:47 (Norvasc) 10 mg DAILY PO 09/15/16 11:45 Family History Father had CAD, DM, h/o CVA Mother due to an aneurysm, also with CAD . Social History No alcohol Former smoker No illicit drug use (Raven Velasco) Review of Systems Constitutional: COMPLAINS OF: Fatigue Endocrine: DENIES: Polyuria Eyes: DENIES: Double Vision Ears, nose, mouth, throat: DENIES: Hoarseness Respiratory: COMPLAINS OF: Shortness of breath Cardiovascular: COMPLAINS OF: Chest pain Gastrointestinal: COMPLAINS OF: Abdominal pain, Bloody stools, Diarrhea, Nausea , Difficulty Swallowing, DENIES: Black stools, Constipation, Vomiting, Anorexia , Odynophagia, Swelling of Abdomen, Heartburn, Hematemesis Genitourinary: DENIES: Hematuria Musculoskeletal: DENIES: Back pain Integumentary: DENIES: Jaundice Hematologic/lymphatic: COMPLAINS OF: Bruising Immunologic/allergic: DENIES: Eczema Neurologic: DENIES: Abnormal gait Psychiatric: DENIES: Anxiety (Raven Velasco) GI Exam Vitals I&O Vital Signs Date Time Temp Pulse Resp B/P Pulse Ox O2 Delivery O2 Flow Rate FiO2 09/15/16 12:00 98.0 59 26 165/74 99 09/15/16 08:54 100 Nasal Cannula 3.00 09/15/16 08:00 97.8 70 18 152/70 100 09/15/16 04:30 96.9 71 16 147/64 100 09/15/16 04:04 63 09/15/16 00:14 72 09/15/16 00:00 97.2 75 18 149/68 100 09/14/16 20:02 80 09/14/16 20:00 96.9 85 18 143/63 98 09/14/16 16:25 82 09/14/16 16:00 96.3 83 18 150/72 100 I/O 09/14/16 09/14/16 09/14/16 09/15/16 09/15/16 09/15/16 07:00 15:00 23:00 07:00 15:00 23:00 Intake Total 60 ml 792 ml 480 ml 240 ml Balance 60 ml 792 ml 480 ml 240 ml Intake Oral 720 ml 480 ml 240 ml IV Total 60 ml 72 ml # Voids 2 3 4 2 # Bowel Movements 2 2 1 1 Imaging Last Impressions Chest X-Ray 09/14/16 0000 Signed Impressions: Service Date/Time: Wednesday, September 14, 2016 12:17 - CONCLUSION: Mild cardiomegaly. Clear lungs. Horace Mathew Jr., MD Chest CT 09/10/16 0000 Signed Impressions: Service Date/Time: Saturday, September 10, 2016 07:53 - CONCLUSION: 1. Patchy opacities in the right upper lobe and to lesser degree right middle lobe and lingula. 2. Small right pleural effusion and adjacent atelectasis. 3. Status post CABG and cardiomegaly. Connor Boyle MD Renal Ultrasound 09/09/16 0000 Signed Impressions: Service Date/Time: August 17:55 - CONCLUSION: Echogenic kidneys with cortical thinning and decreased size, left greater than right. Renal cysts. Oskar Sierra MD Laboratory Test 09/15/16 09/15/16 06:17 14:59 White Blood Count 4.4 TH/MM3 6.2 TH/MM3 Red Blood Count 3.00 MIL/MM3 3.18 MIL/MM3 Hemoglobin 8.9 GM/DL 9.3 GM/DL Hematocrit 27.2 % 28.8 % Mean Corpuscular Volume 90.4 FL 90.5 FL Mean Corpuscular Hemoglobin 29.7 PG 29.4 PG Mean Corpuscular Hemoglobin 32.8 % 32.4 % Concent Red Cell Distribution Width 14.0 % 14.0 % Platelet Count 145 TH/MM3 147 TH/MM3 Mean Platelet Volume 7.8 FL 7.4 FL Neutrophils (%) (Auto) 90.0 % 93.0 % Lymphocytes (%) (Auto) 6.1 % 4.4 % Monocytes (%) (Auto) 3.7 % 2.5 % Eosinophils (%) (Auto) 0.1 % 0.0 % Basophils (%) (Auto) 0.1 % 0.1 % Neutrophils # (Auto) 3.9 TH/MM3 5.8 TH/MM3 Lymphocytes # (Auto) 0.3 TH/MM3 0.3 TH/MM3 Monocytes # (Auto) 0.2 TH/MM3 0.2 TH/MM3 Eosinophils # (Auto) 0.0 TH/MM3 0.0 TH/MM3 Basophils # (Auto) 0.0 TH/MM3 0.0 TH/MM3 CBC Comment AUTO DIFF AUTO DIFF Differential Total Cells 100 Counted Neutrophils % (Manual) 90 % Band Neutrophils % 3 % Lymphocytes % 4 % Monocytes % 2 % Neutrophils # (Manual) 4.1 TH/MM3 Metamyelocytes 1 % Nucleated Red Blood Cells 1 /100 WBC Differential Comment FINAL DIFF MANUAL Platelet Estimate LOW Platelet Morphology Comment NORMAL Ovalocytes 1+ Keratocytes OCC Sodium Level 143 MEQ/L Potassium Level 3.2 MEQ/L Chloride Level 104 MEQ/L Carbon Dioxide Level 27.4 MEQ/L Anion Gap 12 MEQ/L Blood Urea Nitrogen 67 MG/DL Creatinine 3.39 MG/DL Estimat Glomerular Filtration 13 ML/MIN Rate Random Glucose 153 MG/DL Calcium Level 8.2 MG/DL Physical Examination HEENT: normocephalic; atraumatic; no jaundice. Throat is clear. NECK: Neck is supple, no JVD, no lymphadenopathy. CHEST: Chest is clear to auscultation and percussion. CARDIAC: Regular rate and rhythm with no murmur gallop or rubs. ABDOMEN: Soft, nondistended, diffused tenderness; no hepatosplenomegaly; bowel sounds are present in all four quadrants. EXTREMITIES: gen. edema SKIN: ecchymosis OUTDOOR EDUCATION TEACHER: No focal deficits; alert and oriented times three. (Raven Velasco) Assessment and Plan Plan - GI bleed/ anemia- Patient started passing bloody stools last night, multiple times, last time was around 1 pm today. According to nurse, these consist of large bloody clots. Patient report nausea but no vomiting. Reports upper abd pain. Daughter attributes this to hemorrhoids that were aggravated due to starting Kayexalate for high potassium causing diarrhea and irritation. Patient denies previous hx of this. She had EGD/colonoscopy years ago. Denies hematemesis, or melena. She has been having diarrhea due to Kayexalate H&H today 9.3/28.8 which is stable - Chest pain- She was evaluated by swatcher, EKG without scute ST/T changes , ECho unremarkable, and recommended conservative measures with BB and aspirin. - Dysphagia- On going chocking episodes, she always has to watch what she eats and make sure food cut up into small pieces. Denies GERD. - CKD stage V- nephrology on the case, refusing dialysis - COPD exacerbation- Pulmonology on the case - Pneumonia- Pulmonology and ID on the case - Hx of A-fib on Lovenox - HX of DM, CABG, stroke, depression, htn per attending - Of note, patient is refusing hospice - DNR status Plan: - MITALI - Had a lengthy discussion with patient and family in regards to the need for EGD/colonoscopy but patient and family members who are present in the room refusing, they understand that active bleeding is life threatening, but insisted stating that she will not be able to tolerate prep or sedation - Monitor hh - Transfuse as needed - Cont. ppi - Notify GI for active bleeding - Patient is refusing hospice - If patient refusing all aggressive measure, palliative care is recommended - Supportive care - Patient seen and examined by Dr. Rico and myself and this note is written on his behalf (Raven Velasco) Physician Comments Patient seen and examined Agree with above Continue with current supportive care Monitor labs Not much to add from a GI perspective therefore we will sign off please reconsult as needed (Xander Rico MD) Raven Velasco Sep 15, 2016 16:27 Xander Rico MD Sep 15, 2016 21:37
--- NOTE | 2016-09-15 17:38 | HHI.IDPN ---
Subjective Subjective Remarks Mrs. iSnclair is a 75 y/o CF with past medical history significant for COPD on oxygen, insulin-dependent diabetes mellitus, chronic kidney disease who has been offered dialysis but refuses dialysis at the present time. Past medical history is also significant for coronary artery disease status post coronary artery bypass graft. Patient reports that she had midsternal chest pain, nonradiating pleuritic, exacerbated by any movement. She can only walk 5 feet and gets very short of breath and experiences chest pain. Her oxygen saturation was noted to be in the 80s at home and therefore she was brought to the hospital in a car. She uses oxygen at home at 3 L nasal cannula and this is not changed prior to admission. Off note patient had a one-day visit in the chest pain center on August 26 for chest pain workup which was negative. At that time her BNP was noted to be 459. While in the ED patient was receiving duo nab and was found to have atrial fibrillation. Her troponins were negative. Baseline patient needs assistance getting up out of bed. She uses a wheelchair for mobility and has not been able to tolerate a walker for a while. Hospital course: Patient has been admitted to the floor and has been receiving Zosyn as well as vancomycin based on levels. She has been evaluated by cardiology, nephrology and palliative care services. Patient has prior history of CABG, mitral regurgitation. Patient also has a renal cyst and declining renal function over she has been advised hemodialysis but patient refuses to proceed with dialysis at the present time. Patient has also been evaluated by palliative care services and she is currently a no code DNR. Patient has been offered hospice services but she refuses to go with the services of the present time. Patient voiced her understanding that if she refuses hemodialysis she will continue to deteriorate and understand that some of her respiratory symptoms may be as a result of fluid backing up in her lungs. Patient reports to me that there was a change in the air conditioning system in her home just prior to her admission. This puts her at risk for Legionella. Patient denies any fever or chills or night sweats at the present time. Patient denies any chest pain at the present time. Patient does report shortness of breath on minimal exertion. He also reports that she was unable to participate in physical therapy today. Infectious disease is consulted for evaluation and management of possible healthcare associated pneumonia. Overnight events reviewed No fevers no rash No diarrhea Antibiotics Levaquin Lines Line sites with no e.o infection Past Medical History reviewed Allergies: Coded Allergies: Augmentin (Verified Allergy, Severe, Rash, 08/26/16) Haldol (Verified Allergy, Severe, Hallucinations, 08/26/16) Latex (Verified Allergy, Severe, HIVES, 08/26/16) Macrodantin (Verified Allergy, Severe, SHAKY , BLOOD SUGER PROBLEMS, ) Mirapex (Verified Allergy, Severe, LETHARGY,DIZZY,SHAKY, 08/26/16) Phenergan (Verified Allergy, Severe, Hallucinations, 08/26/16) Temazepam (Verified Allergy, Severe, Rash, 08/26/16) Lopid (Verified Allergy, Intermediate, 08/26/16) Lyrica (Verified Allergy, Unknown, 08/26/16) Soma (Verified Allergy, Unknown, 08/26/16) Amoxicillin (Verified Adverse Reaction, Severe, diarrhea, 08/26/16) HMG-CoA Reductase Inhibitors (Verified Adverse Reaction, Severe, LIVER DISEASE WITH SUBSEQUENT CHRONIC ITCHING UNTIL DC'D, 08/26/16) Trazodone (Verified Adverse Reaction, Intermediate, altered mental status , 08/26/16) *MDRO Multi-Drug Resistant Organism (Verified Adverse Reaction, Unknown, Cleared - 09/10/16, 09/13/16) MRSA Sputum 10/2008 *Cleared - MRSA PCR negative on 09/09/16 & 09/10/16* Uncoded Allergies: TAPE (Allergy, Mild, Rash, 11/06/09) USE PAPER TAPE ONLY ees (Allergy, Mild, itch, 11/06/09) advicor (Adverse Reaction, Intermediate, redness, itchin, 11/06/09) cipro,septra (Adverse Reaction, Intermediate, diarrhea,itching, 11/06/09) topramax (Adverse Reaction, Intermediate, 11/06/09) Objective . Vital Signs Date Time Temp Pulse Resp B/P Pulse Ox O2 Delivery O2 Flow Rate FiO2 09/15/16 16:02 100 Nasal Cannula 3.00 09/15/16 16:00 98.0 73 20 116/63 99 09/15/16 12:00 98.0 59 26 165/74 99 09/15/16 08:54 100 Nasal Cannula 3.00 09/15/16 08:00 97.8 70 18 152/70 100 09/15/16 04:30 96.9 71 16 147/64 100 09/15/16 04:04 63 09/15/16 00:14 72 09/15/16 00:00 97.2 75 18 149/68 100 09/14/16 20:02 80 09/14/16 20:00 96.9 85 18 143/63 98 09/14/16 09/14/16 09/15/16 15:00 23:00 07:00 Intake Total 792 ml 480 ml 240 ml Balance 792 ml 480 ml 240 ml Intake Oral 720 ml 480 ml 240 ml IV Total 72 ml # Voids 3 4 2 # Bowel Movements 2 1 1 . Laboratory Tests Test 09/14/16 09/15/16 09/15/16 11:55 06:17 14:59 White Blood Count 8.1 TH/MM3 4.4 TH/MM3 6.2 TH/MM3 Red Blood Count 3.37 MIL/MM3 3.00 MIL/MM3 3.18 MIL/MM3 Hemoglobin 10.1 GM/DL 8.9 GM/DL 9.3 GM/DL Hematocrit 30.4 % 27.2 % 28.8 % Mean Corpuscular Volume 90.1 FL 90.4 FL 90.5 FL Mean Corpuscular Hemoglobin 30.0 PG 29.7 PG 29.4 PG Mean Corpuscular Hemoglobin 33.2 % 32.8 % 32.4 % Concent Red Cell Distribution Width 14.3 % 14.0 % 14.0 % Platelet Count 177 TH/MM3 145 TH/MM3 147 TH/MM3 Mean Platelet Volume 8.0 FL 7.8 FL 7.4 FL Neutrophils (%) (Auto) 94.3 % 90.0 % 93.0 % Lymphocytes (%) (Auto) 3.8 % 6.1 % 4.4 % Monocytes (%) (Auto) 1.8 % 3.7 % 2.5 % Eosinophils (%) (Auto) 0.0 % 0.1 % 0.0 % Basophils (%) (Auto) 0.1 % 0.1 % 0.1 % Neutrophils # (Auto) 7.6 TH/MM3 3.9 TH/MM3 5.8 TH/MM3 Lymphocytes # (Auto) 0.3 TH/MM3 0.3 TH/MM3 0.3 TH/MM3 Monocytes # (Auto) 0.1 TH/MM3 0.2 TH/MM3 0.2 TH/MM3 Eosinophils # (Auto) 0.0 TH/MM3 0.0 TH/MM3 0.0 TH/MM3 Basophils # (Auto) 0.0 TH/MM3 0.0 TH/MM3 0.0 TH/MM3 CBC Comment AUTO DIFF AUTO DIFF AUTO DIFF Differential Comment AUTO DIFF FINAL DIFF AUTO DIFF CONFIRMED MANUAL CONFIRMED Differential Total Cells 100 Counted Neutrophils % (Manual) 90 % Band Neutrophils % 3 % Lymphocytes % 4 % Monocytes % 2 % Neutrophils # (Manual) 4.1 TH/MM3 Metamyelocytes 1 % Nucleated Red Blood Cells 1 /100 WBC Platelet Estimate LOW LOW Platelet Morphology Comment NORMAL NORMAL Ovalocytes 1+ 1+ Keratocytes OCC Laboratory Tests Test 09/14/16 09/15/16 11:55 06:17 Sodium Level 140 MEQ/L 143 MEQ/L Potassium Level 2.9 MEQ/L 3.2 MEQ/L Chloride Level 101 MEQ/L 104 MEQ/L Carbon Dioxide Level 27.2 MEQ/L 27.4 MEQ/L Anion Gap 12 MEQ/L 12 MEQ/L Blood Urea Nitrogen 64 MG/DL 67 MG/DL Creatinine 3.37 MG/DL 3.39 MG/DL Estimat Glomerular Filtration 13 ML/MIN 13 ML/MIN Rate Random Glucose 254 MG/DL 153 MG/DL Calcium Level 8.4 MG/DL 8.2 MG/DL Imaging Last Impressions Chest X-Ray 09/14/16 0000 Signed Impressions: Service Date/Time: Wednesday, September 14, 2016 12:17 - CONCLUSION: Mild cardiomegaly. Clear lungs. Horace Mathew Jr., MD Chest CT 09/10/16 0000 Signed Impressions: Service Date/Time: Saturday, September 10, 2016 07:53 - CONCLUSION: 1. Patchy opacities in the right upper lobe and to lesser degree right middle lobe and lingula. 2. Small right pleural effusion and adjacent atelectasis. 3. Status post CABG and cardiomegaly. Connor Boyle MD Renal Ultrasound 09/09/16 0000 Signed Impressions: Service Date/Time: August 17:55 - CONCLUSION: Echogenic kidneys with cortical thinning and decreased size, left greater than right. Renal cysts. Oskar Sierra MD Physical Exam GENERAL: Obese, well-developed patient, in no apparent distress. SKIN: No rashes, ecchymoses or lesions. Cool and dry. HEAD: Atraumatic. Normocephalic. No temporal or scalp tenderness. EYES: Pupils equal round and reactive. Extraocular motions intact. No scleral icterus. No injection or drainage. ENT: Nose without bleeding, purulent drainage or septal hematoma. Throat without erythema, tonsillar hypertrophy or exudate. Uvula midline. Airway patent. NECK: Trachea midline. Supple, nontender, no meningeal signs. CARDIOVASCULAR: HS audible. RESPIRATORY: Clear to auscultation. Breath sounds equal bilaterally but decreased in the bases. GASTROINTESTINAL: Abdomen soft, non-tender, nondistended. MUSCULOSKELETAL: Extremities without clubbing, cyanosis, or edema. No joint tenderness, effusion, or edema noted. No calf tenderness. Negative Homans sign bilaterally. NEUROLOGICAL: Awake and alert. Grossly non focal Psych: cooperative IV line sites with no e.o infection. Assessment & Plan Remarks Pneumonia likely community-acquired pneumonia. Has risk factors for Legionella as stated in history of present illness. Less likely to be healthcare associated pneumonia. Chronic kidney disease(has been offered dialysis and refuses) Acute respiratory failure appears to be slowly improving with diuretics as well as antibiotics Recommendations: Follow cultures. Continue Levaquin oral(this will help with controlling her fluid status as well. ) Discussed with family development specialist: ok to DC from ID standpoint on Levaquin for 5 more days. Cough is wet but tracheobronchitis related. Lungs are clear to auscultation. Discussed with patient and her daughter in the room. Patient and family thankful of care provided. Infectious disease plan explained to the patient. Will sign off please call back if any change in clinical condition or questions. Esther Sequeira MD Sep 15, 2016 5:38 pm
[2016-09-15] MEDS: LORazepam 2 MG TAB PO PRN (20:13)
[2016-09-16] VITALS (10 sets, daily range): BP systolic 128–151; BP diastolic 60–67; PULSE 60–82; RESP 18–20; TEMP 96.4–97.2; O2SAT 97–100
[2016-09-16] MEDS: methylPREDNISolone SOD SUCC 125 MG/2 ML VIAL IVP SCH ×2 (04:22→09:53)
[2016-09-16] MEDS: INSULIN ASPART SUPPLEMENTAL SCALE SQ SCH ×2 (06:21→11:45)
[2016-09-16] MEDS: MORPHINE SULFATE 4 MG/ML INJ IV PRN (06:25)
[2016-09-16 07:14] LABS: BICARBONATE 25.6 MEQ/L (21.0-32.0); POTASSIUM 3.3 MEQ/L (3.5-5.1)
[2016-09-16 07:39] LABS: HEMATOCRIT 27.2 % (35.0-46.0); MEAN CELL VOLUME 89.6 FL (80.0-100.0); MEAN CORPUSCULAR HEMOGLOBIN 30.3 PG (27.0-34.0); MEAN CORPUSCULAR HGB CONC 33.8 % (32.0-36.0); PLATELET COUNT 162 TH/MM3 (150-450); RED BLOOD COUNT 3.03 MIL/MM3 (4.00-5.30); RED CELL DISTRIBUTION WIDTH 14.1 % (11.6-17.2); REVIEW FLAG FINAL; WHITE BLOOD COUNT 9.8 TH/MM3 (4.0-11.0)
[2016-09-16] MEDS: RESP: ALBUTEROL 2.5 MG/IPRATROPIUM 0.5 MG NEB (SCH) NEB ×3 (08:11→15:48)
--- NOTE | 2016-09-16 08:16 | HHI.FPPN ---
Subjective Remarks No acute events overnight. Remains afebrile. Patient lying comfortably in bed this morning. She reports noticing some blood in her stools yesterday afternoon as well. She continues to decline an EGD/colonoscopy. She reports she is voiding without difficulty. Denies fevers or chills. Reports a wet cough unchanged from prior days. She is agreeable to the idea of going to a custodial facility. (Dom Mayfield MD R1) Objective Vitals Vital Signs Date Time Temp Pulse Resp B/P Pulse Ox O2 Delivery O2 Flow Rate FiO2 09/16/16 08:11 97 Nasal Cannula 3.00 09/16/16 05:00 96.5 76 20 151/67 100 09/16/16 04:02 70 09/16/16 00:03 77 09/16/16 00:00 97.2 72 18 128/60 99 09/15/16 20:04 74 09/15/16 20:00 97.1 73 18 130/59 100 09/15/16 16:25 78 09/15/16 16:02 100 Nasal Cannula 3.00 09/15/16 16:00 98.0 73 20 116/63 99 09/15/16 12:34 64 09/15/16 12:00 98.0 59 26 165/74 99 09/15/16 08:54 100 Nasal Cannula 3.00 I/O 09/15/16 09/15/16 09/15/16 09/16/16 09/16/16 09/16/16 07:00 15:00 23:00 07:00 15:00 23:00 Intake Total 240 ml 1800 ml Balance 240 ml 1800 ml Intake Oral 240 ml 1800 ml # Voids 2 6 1 # Bowel Movements 1 2 1 (Dom Mayfield MD R1) Result Diagram: 09/16/1662309/16/16 0624 Objective Remarks GENERAL: Patient is obese, well-nourished pleasant female lying in bed with nasal cannula in place. SKIN: Warm and dry. Areas of bruising on the right lateral leg, left medial ankle, right hand, and left forearm. HEAD: Atraumatic. Normocephalic. EYES: Pupils equal and round. No scleral icterus. No injection or drainage. ENT: No nasal bleeding or discharge. Mucous membranes pink and moist. NECK: Trachea midline. No JVD. CARDIOVASCULAR: Regular rate and rhythm, no murmurs appreciated RESPIRATORY: No accessory muscle use. Wheezing auscultated throughout, fine rales bilaterally. Breath sounds equal bilaterally. GASTROINTESTINAL: Abdomen soft, non-tender, obese, nondistended. MUSCULOSKELETAL: Extremities without clubbing, cyanosis, or edema. No obvious deformities. NEUROLOGICAL: Awake and alert. No obvious cranial nerve deficits. Motor grossly within normal limits. Normal speech. PSYCHIATRIC: Appropriate mood and affect; insight and judgment normal. ( Dom Mayfield MD R1) A/P Assessment and Plan 75-year-old female with history significant for COPD, CVA, CAD, atrial fibrillation presented with pneumonia, acute on chronic kidney disease. Pulmonology, cardiology, nephrology, palliative care have been consulted to assist with management and goals of care. Discharge Planning Discharge pending placement in custodial facility, case management consulted for helping with placement Patient not wanting Hospice at this time. PT recommending PT at rehabilitation facility (Dom Mayfield MD R1) Attending Attestation Patient examined and case discussed with resident physician I have read the above note and agree with the assessment/plan as discussed with me I was involved in all medical decision making for this patient Patient refusing GI workup to further evaluate bleeding with bowel movements - Continue to monitor hemoglobin levels and transfuse as needed Appreciate infectious disease input, continue Levaquin for a total of 4 more days Plan to discharge to custodial facility later today if possible Evan Dyer M.D. (Evan Dyer MD) Problem List: (1) Acute on chronic renal insufficiency Status: Acute Plan: Nephrology consult, has signed off Patient had expressed she would not want dialysis even if she had terminal renal failure Renal ultrasound: Echogenic kidneys with cortical thinning and decreased size, left greater than right. Per nephrology, Bumex 1 mg by mouth every 12 hours because of concern for fluid overload. Continue to monitor Cr, GFR. I/Os Per nephrology 09/09: If there is no significant improvement in the patient's volume status and or azotemia and she still wishes not to pursue dialytic support then comfort care would be appropriate in my opinion. This remains be determined however. Palliative care consult (2) COPD with exacerbation Status: Acute Plan: Pulmonology consult, Dr. Baca Continue Solu-Medrol 60 mg every 6 hours IV Duo nebs QID. Albuterol treatments when necessary Incentive spirometer to bedside Oxygen for O2 sats < 92% Antibiotics as below (3) Pneumonia Status: Acute Plan: Concern for HCAP Infectious disease consulted CT on 09/10 shows patchy opacities in the right upper lobe, and to a lesser degree right middle lobe and lingula. Small right pleural effusion and adjacent atelectasis. Repeat CXR 09/14 showing clear lungs Per infectious disease recommendations: Continue Levaquin 250 mg by mouth daily for 5 days Stable for discharge from infectious disease standpoint Blood culture 09/08 no growth after 5 days (4) Hypertension Status: Chronic Plan: Continue Metoprolol 50 mg po bid Continue Amlodipine Holding home lisinopril due to renal function Continue to trend vitals q4h (5) DM (diabetes mellitus) Status: Chronic Plan: Chronic. Patient is on glipizide at home which is held. She'll be placed on low-dose sliding scale NovoLog, regular Accu-Cheks Continue levemir 10 units subq bid (6) Atrial fibrillation Status: Chronic Plan: Cardiology consult Metoprolol 50 mg twice a day Poor candidate for anticoagulation, continue aspirin Continue conservative management, cardiology will follow as needed. Echo: Ejection fraction 55-60%. (7) Insomnia Status: Chronic Plan: Continue home medication. (8) Opiate dependence Status: Chronic Plan: Patient reports chronic use of morphine, 115mg daily. She's been taking this for years. Plan: * Continue morphine at this dose given risk of withdrawal * Monitor for signs of respiratory depression. * Narcan when necessary (9) Fluids/Electrolytes/Nutrition/Prophylaxis Status: Acute Plan: Fluids: Tolerating by mouth, given significant history, caution with fluid overload Electrolytes: Monitor and replace as needed Nutrition: heart-healthy diet DVT Prophylaxis: b/l SCDs, early ambulation. Hold heparin due to GI bleeding GI Prophylaxis: Protonix 40 mg PO daily (Dom Mayfield MD R1) Problem Qualifiers (1) Pneumonia: Qualified Code: J18.1 - Pneumonia of right lower lobe due to infectious organism (2) Hypertension: Qualified Code: I10 - Essential hypertension (3) DM (diabetes mellitus): Qualified Code: E13.8 - Other specified diabetes mellitus with complication, without long-term current use of insulin (4) Atrial fibrillation: Qualified Code: I48.91 - Atrial fibrillation, unspecified type (5) Insomnia: Qualified Code: G47.00 - Insomnia, unspecified type (6) Opiate dependence: Qualified Code: F11.20 - Uncomplicated opioid dependence Dom Mayfield MD R1 Sep 16, 2016 08:16 Evan Dyer MD Sep 16, 2016 13:45
[2016-09-16] MEDS ORDERED: POTASSIUM CHLORIDE 10 MEQ CONTROLLED RELEASE TAB PO ONE (08:30)
[2016-09-16] MEDS: SODIUM CHLORIDE 0.9% FLUSH 10 ML FLUSH IV FLUSH SCH (09:00)
[2016-09-16] MEDS: ASPIRIN EC 81 MG TABEC PO SCH (09:00)
[2016-09-16] MEDS: DOCUSATE SODIUM 50 MG/SENNA 8.6 MG TAB PO SCH (09:00)
[2016-09-16] MEDS: METOPROLOL TARTRATE 50 MG TAB PO SCH (09:54)
[2016-09-16] MEDS: LEVOFLOXACIN 250 MG TAB PO SCH (09:54)
[2016-09-16] MEDS: PANTOPRAZOLE SOD 40 MG DELAYED RELEASE TAB PO SCH (09:55)
[2016-09-16] MEDS: BUMETANIDE 1 MG TAB PO SCH (09:55)
[2016-09-16] MEDS: MORPHINE SULFATE 100 MG CONTROLLED RELEASE TAB PO SCH (09:57)
[2016-09-16] MEDS: METOLAZONE 5 MG TAB PO SCH (09:57)
[2016-09-16] MEDS: MORPHINE SULFATE 15 MG CONTROLLED RELEASE TAB PO SCH (09:57)
[2016-09-16] MEDS: INSULIN DETEMIR 100 UNITS/ML VIAL SQ SCH (09:58)
[2016-09-16] MEDS: POTASSIUM CHLORIDE 10 MEQ CONTROLLED RELEASE TAB PO SCH (10:04)
[2016-09-16] MEDS: BUDESONIDE-FORMOTEROL 160/4.5 MCG INHALER INH SCH (10:04)
[2016-09-16] MEDS ORDERED: IPRASOL NEB (14:42)
[2016-09-16] MEDS ORDERED: SENN1TAB PO (14:42)
[2016-09-16] MEDS ORDERED: METO-309 PO (14:42)
[2016-09-16] MEDS ORDERED: PRED20 PO (14:42)
[2016-09-16] MEDS ORDERED: METO5TAB3 PO (14:42)
[2016-09-16] MEDS ORDERED: BUME1TAB PO (14:42)
[2016-09-16] MEDS ORDERED: ALBU0.08 NEB (14:42)
[2016-09-16] MEDS ORDERED: LEVA250T14 PO (14:42)
[2016-09-16] MEDS ORDERED: LEVEMIR SQ (14:42)
[2016-09-16] MEDS ORDERED: PANT40TA3 PO (14:42)
--- NOTE | 2016-09-16 14:45 | HHI.DCPOC ---
Discharge Care Plan Diagnosis: (1) COPD (chronic obstructive pulmonary disease) (2) CKD (chronic kidney disease) (3) DM (diabetes mellitus) (4) Pneumonia (5) Hypertension (6) Opiate dependence (7) Acute on chronic renal insufficiency Goals to Promote Your Health * To prevent worsening of your condition and complications, follow up closely with your medical providers and continue physical therapy after hospital discharge. Directions to Meet Your Goals Take your medications as prescribed Follow your dietary instruction Follow activity as directed Keep your appointments as scheduled Take your immunizations and boosters as scheduled If your symptoms worsen call your PCP, if no PCP go to Urgent Care Center or Emergency Room Smoking is Dangerous to Your Health. Avoid second hand smoke Call the 24-hour hour crisis hotline for domestic abuse at Dom Mayfield MD R1 Sep 16, 2016 14:45
[2016-09-16] MEDS ORDERED: HEPA10003 SQ (14:49)
--- NOTE | 2016-09-16 15:02 | HHI.PR ---
Subjective Remarks ALERT LESS SOB cough thick mucoid secretion TRACH PLUGGED , NO DISTRESS GOOD COUGH RELEX Objective Vital Signs Date Time Temp Pulse Resp B/P Pulse Ox O2 Delivery O2 Flow Rate FiO2 09/16/16 13:22 70 09/16/16 12:00 96.4 72 18 142/67 100 09/16/16 08:11 97 Nasal Cannula 3.00 09/16/16 08:00 60 09/16/16 08:00 96.7 65 18 131/63 98 09/16/16 05:00 96.5 76 20 151/67 100 09/16/16 04:02 70 09/16/16 00:03 77 09/16/16 00:00 97.2 72 18 128/60 99 09/15/16 20:04 74 09/15/16 20:00 97.1 73 18 130/59 100 09/15/16 16:25 78 09/15/16 16:02 100 Nasal Cannula 3.00 09/15/16 16:00 98.0 73 20 116/63 99 I/O 09/15/16 09/15/16 09/15/16 09/16/16 09/16/16 09/16/16 06:59 14:59 22:59 06:59 14:59 22:59 Intake Total 240 ml 1800 ml Balance 240 ml 1800 ml Intake Oral 240 ml 1800 ml # Voids 2 6 1 # Bowel Movements 1 2 1 Result Diagram: 09/16/1662309/16/16623 Objective Remarks Laboratory Tests Test 09/08/16 09/08/16 09/08/16 09/09/16 15:40 15:44 20:00 01:45 Potassium Level 5.9 MEQ/L 5.4 MEQ/L (3.5-5.1) (3.5-5.1) Blood Urea Nitrogen 57 MG/DL (7-18) Creatinine 3.32 MG/DL (0.50-1.00) Estimat Glomerular Filtration 14 ML/MIN (>89) Rate Random Glucose 195 MG/DL (74-106) Troponin I LESS THAN 0.02 NG/ML (0.02-0.05) B-Type Natriuretic Peptide 951 PG/ML (0-100) White Blood Count 11.1 TH/MM3 (4.0-11.0) Red Blood Count 3.32 MIL/MM3 (4.00-5.30) Hemoglobin 9.7 GM/DL (11.6-15.3) Hematocrit 31.0 % (35.0-46.0) Mean Corpuscular Hemoglobin 31.3 % Concent (32.0-36.0) Neutrophils (%) (Auto) 80.1 % (16.0-70.0) Neutrophils # (Auto) 8.9 TH/MM3 (1.8-7.7) Blood Gas HCO3 21 mmol/L (22-26) Blood Gas Base Excess -4.6 mmol/L (-2-2) Arterial Blood pH 7.30 (7.380-7.420) Arterial Blood Partial 44 mmHg (38-42) Pressure CO2 Arterial Blood Partial 233 mmHG Pressure O2 (61-120) Blood Gas Hemoglobin 10.2 G/DL (12.0-16.0) Urine Turbidity HAZY (CLEAR) Urine Occult Blood SMALL (NEG) Urine RBC 13 /hpf (0-3) Urine Bacteria MOD /hpf (NONE) Urine Yeast (Budding) RARE (NONE) Test 09/09/16 09/09/16 09/10/16 03:07 19:31 06:30 Red Blood Count 2.64 MIL/MM3 2.85 MIL/MM3 (4.00-5.30) (4.00-5.30) Hemoglobin 8.1 GM/DL 8.4 GM/DL (11.6-15.3) (11.6-15.3) Hematocrit 24.4 % 26.1 % (35.0-46.0) (35.0-46.0) Platelet Count 146 TH/MM3 (150-450) Neutrophils (%) (Auto) 92.2 % 93.9 % (16.0-70.0) (16.0-70.0) Lymphocytes (%) (Auto) 6.5 % 4.4 % (9.0-44.0) (9.0-44.0) Lymphocytes # (Auto) 0.3 TH/MM3 0.3 TH/MM3 (1.0-4.8) (1.0-4.8) Potassium Level 6.2 MEQ/L (3.5-5.1) Blood Urea Nitrogen 65 MG/DL (7-18) 74 MG/DL (7-18) 73 MG/DL (7-18) Creatinine 3.59 MG/DL 3.81 MG/DL 3.85 MG/DL (0.50-1.00) (0.50-1.00) (0.50-1.00) Estimat Glomerular Filtration 12 ML/MIN (>89) 12 ML/MIN (>89) 11 ML/MIN (>89) Rate Random Glucose 237 MG/DL 246 MG/DL 187 MG/DL (74-106) (74-106) (74-106) Calcium Level 8.1 MG/DL 7.9 MG/DL 8.1 MG/DL (8.5-10.1) (8.5-10.1) (8.5-10.1) Troponin I LESS THAN 0.02 NG/ML (0.02-0.05) Aspartate Amino Transf 9 U/L (15-37) (AST/SGOT) Total Protein 6.0 GM/DL (6.4-8.2) Albumin 2.5 GM/DL (3.4-5.0) Assessment and Plan Assessment and Plan ASS COPD EX. IMPROVING PNA PLAN O2 NEEDED ANTIBX. bronchodilator therapy REMOVE TRACH TOMORROW IF STABLE Phuong Baca MD Sep 16, 2016 15:02
--- NOTE | 2016-09-16 16:37 | HHI.DS ---
Discharge Summary Admission Date Sep 08, 2016 at 17:53 Discharge Date: Sep 16, 2016 Admitting Diagnosis chest pain, respiratory distress, pneumonia, hyperkalemia, CK (1) Acute on chronic renal insufficiency Diagnosis: Principal Plan: Nephrology consult, has signed off Patient had expressed she would not want dialysis even if she had terminal renal failure Renal ultrasound: Echogenic kidneys with cortical thinning and decreased size, left greater than right. Per nephrology, Bumex 1 mg by mouth every 12 hours because of concern for fluid overload. Continue to monitor Cr, GFR. I/Os Per nephrology 09/09: If there is no significant improvement in the patient's volume status and or azotemia and she still wishes not to pursue dialytic support then comfort care would be appropriate in my opinion. This remains be determined however. Palliative care consult (2) COPD with exacerbation Diagnosis: Principal Plan: Pulmonology consult, Dr. Baca Continue Solu-Medrol 60 mg every 6 hours IV Duo nebs QID. Albuterol treatments when necessary Incentive spirometer to bedside Oxygen for O2 sats < 92% Antibiotics as below (3) Pneumonia Diagnosis: Principal Plan: Concern for HCAP Infectious disease consulted CT on 09/10 shows patchy opacities in the right upper lobe, and to a lesser degree right middle lobe and lingula. Small right pleural effusion and adjacent atelectasis. Repeat CXR 09/14 showing clear lungs Per infectious disease recommendations: Continue Levaquin 250 mg by mouth daily for 5 days Stable for discharge from infectious disease standpoint Blood culture 09/08 no growth after 5 days (4) Hypertension Diagnosis: Secondary Plan: Continue Metoprolol 50 mg po bid Continue Amlodipine Holding home lisinopril due to renal function Continue to trend vitals q4h (5) DM (diabetes mellitus) Diagnosis: Secondary Plan: Chronic. Patient is on glipizide at home which is held. She'll be placed on low-dose sliding scale NovoLog, regular Accu-Cheks Continue levemir 10 units subq bid (6) Atrial fibrillation Diagnosis: Secondary Plan: Cardiology consult Metoprolol 50 mg twice a day Poor candidate for anticoagulation, continue aspirin Continue conservative management, cardiology will follow as needed. Echo: Ejection fraction 55-60%. (7) Insomnia Diagnosis: Secondary Plan: Continue home medication. (8) Opiate dependence Diagnosis: Secondary Plan: Patient reports chronic use of morphine, 115mg daily. She's been taking this for years. Plan: * Continue morphine at this dose given risk of withdrawal * Monitor for signs of respiratory depression. * Narcan when necessary (9) Fluids/Electrolytes/Nutrition/Prophylaxis Diagnosis: Secondary Plan: Fluids: Tolerating by mouth, given significant history, caution with fluid overload Electrolytes: Monitor and replace as needed Nutrition: heart-healthy diet DVT Prophylaxis: b/l SCDs, early ambulation. Hold heparin due to GI bleeding GI Prophylaxis: Protonix 40 mg PO daily Consultants Nephrology, palliative care, hospice, gastroenterology, cardiology, infectious disease, pulmonology Brief History Ms Sinclair is a 75 year old female with a PMH significant for COPD on oxygen, IDDM, CAD, chronic pain who presented to the ED with severe shortness of breath and chest pain. She was accompanied by her daughters and granddaughter at bedside. The patient stated she has had midsternal chest pain, nonradiating, pleuritic, exacerbated by any movement. She stated that she can only walk 5 feet or so before getting short of breath with chest pain. Her oxygen saturation was noted to be in the 80s% at home so she was brought in by car. She does of note use 3 L nasal cannula rate of oxygen at home and this has not changed. She had a recent one day hospitalization in the chest pain center on August 26 for chest pain workup which was negative. At that time her BNP was noted to be 459. ED course: Patient received DuoNeb 3. EKG performed and notable for atrial fibrillation with slow ventricular response. Troponin is negative. Per patient' s daughter, patient had atrial fibrillation in the past after her CABG in 1999. She was given amiodarone at that time and was symptomatic. She has respiratory symptoms but no current chest pain. The patient was previously in normal sinus rhythm at her last hospital stay. Of note, patient is reported to have fallen 1 week ago and hit her right hip leg and left arm. She states she fell to the floor and did not hit her head after getting up from the toilet. There was no loss of consciousness. She did not get evaluated. She states she normally needs assistance getting up and out of bed at baseline and this has not changed. She uses a wheelchair for mobility and has not been able to tolerate walker for a while. Her current pain is unchanged and of note she takes morphine 115 mg every morning as well as Xanax 2 mg every night. She insists that she takes both of these medications every day and does not have any adverse reactions to these. She states if she does not take these medications she will have significant pain and inability to sleep. Had discussion this am and she is still SOB but never wants to be on a ventilator. She at baseline needs to sleep in a semirecumbent state where she cannot lie flat. She becomes very SOB with exertion at baseline but is more SOB now. She requests oxygen to be able to leave the house and needs portable oxygen. She has a history of COPD and "needs air blowing on her at night". She had wheezing and coughing at home before she came in which is classic for her prior COPD exacerbations. We also discussed her renal failure. She reported that she has a history of renal cancer of some type 10 years ago and has seen an unknown [employer] on [facility]. She is clear about "never wanting dialysis". I informed her that her kidneys were very poor right now but she will decline dialysis even if it was necessary to save her life. She has good family support and her daughter she lives with "does everything" including dressing and bathing, etc. With her serious conditions, we discussed consideration of hospice and she feels she is well cared for now and does not need any extra services at this time. CBC/BMP: 09/16/16 0624 09/16/16 0624 Significant Findings Laboratory Tests Test 09/14/16 09/15/16 09/15/16 09/16/16 11:55 06:17 14:59 06:24 Red Blood Count 3.37 MIL/MM3 3.00 MIL/MM3 3.18 MIL/MM3 3.03 MIL/MM3 (4.00-5.30) (4.00-5.30) (4.00-5.30) (4.00-5.30) Hemoglobin 10.1 GM/DL 8.9 GM/DL 9.3 GM/DL 9.2 GM/DL (11.6-15.3) (11.6-15.3) (11.6-15.3) (11.6-15.3) Hematocrit 30.4 % 27.2 % 28.8 % 27.2 % (35.0-46.0) (35.0-46.0) (35.0-46.0) (35.0-46.0) Neutrophils (%) (Auto) 94.3 % 90.0 % 93.0 % (16.0-70.0) (16.0-70.0) (16.0-70.0) Lymphocytes (%) (Auto) 3.8 % 6.1 % 4.4 % (9.0-44.0) (9.0-44.0) (9.0-44.0) Lymphocytes # (Auto) 0.3 TH/MM3 0.3 TH/MM3 0.3 TH/MM3 (1.0-4.8) (1.0-4.8) (1.0-4.8) Potassium Level 2.9 MEQ/L 3.2 MEQ/L 3.3 MEQ/L (3.5-5.1) (3.5-5.1) (3.5-5.1) Blood Urea Nitrogen 64 MG/DL (7-18) 67 MG/DL (7-18) 72 MG/DL (7-18) Creatinine 3.37 MG/DL 3.39 MG/DL 3.48 MG/DL (0.50-1.00) (0.50-1.00) (0.50-1.00) Estimat Glomerular Filtration 13 ML/MIN (>89) 13 ML/MIN (>89) 13 ML/MIN (>89) Rate Random Glucose 254 MG/DL 153 MG/DL 250 MG/DL (74-106) (74-106) (74-106) Calcium Level 8.4 MG/DL 8.2 MG/DL 8.1 MG/DL (8.5-10.1) (8.5-10.1) (8.5-10.1) Platelet Count 145 TH/MM3 147 TH/MM3 (150-450) (150-450) Neutrophils % (Manual) 90 % (16-70) Lymphocytes % 4 % (9-44) Nucleated Red Blood Cells 1 /100 WBC (0-0) Platelet Estimate LOW (NORMAL) LOW (NORMAL) Ovalocytes 1+ (NORMAL) 1+ (NORMAL) Keratocytes OCC (NORMAL) Imaging Chest x-ray 09/08: Right lung infiltrates Renal ultrasound 09/09: Echogenic kidneys with cortical thinning and decreased size, left greater than right. Renal cysts Chest CT 09/10: Patchy opacities in the right upper lobe and lesser degree right middle lobe and lingula. Small right pleural effusion and adjacent atelectasis. Chest x-ray 09/14: Mild cardiomegaly. Clear lungs. PE at Discharge GENERAL: Patient is obese, well-nourished pleasant female lying in bed with nasal cannula in place. SKIN: Warm and dry. Areas of bruising on the right lateral leg, left medial ankle, right hand, and left forearm. HEAD: Atraumatic. Normocephalic. EYES: Pupils equal and round. No scleral icterus. No injection or drainage. ENT: No nasal bleeding or discharge. Mucous membranes pink and moist. NECK: Trachea midline. No JVD. CARDIOVASCULAR: Regular rate and rhythm, no murmurs appreciated RESPIRATORY: No accessory muscle use. Wheezing auscultated throughout, fine rales bilaterally. Breath sounds equal bilaterally. GASTROINTESTINAL: Abdomen soft, non-tender, obese, nondistended. MUSCULOSKELETAL: Extremities without clubbing, cyanosis, or edema. No obvious deformities. NEUROLOGICAL: Awake and alert. No obvious cranial nerve deficits. Motor grossly within normal limits. Normal speech. PSYCHIATRIC: Appropriate mood and affect; insight and judgment normal. Hospital Course Patient was started on Vancomycin and Zosyn, continued with Solumedrol 60 mg IV q6h with bronchodilator treatments. Cardiology was consulted, recommended discontinuing lasix and LETICIA-I given her acute on chronic renal insufficiency. 2D echo 09/09 showing EF 55-60%, mild to mod MV regurg, mild PV regurg. Nephrology was consulted given declining renal function. Patient stated she would not want dialytic support even if she had terminal renal failure. Patient was started on bumex 1 mg po bid. Patient transitioned to Levaquin PO per ID recommendations and has 4 additional days to complete at time of discharge to SNF. GI consulted as patient starting having bloody stools; patient elected for supportive care and did not want to pursue EGD/colonoscopy. Hgb remained stable ~9.0 and bloody stools resolved. Palliative care and hospice met with patient to clarify goals of care; patient not wanting to accept hospice at this time. Pt Condition on Discharge: Stable Discharge Disposition: Discharge to SNF Discharge Instructions DIET: Follow Instructions for: Diabetic Diet Activities you can perform: Weight Bearing as [place] Follow up Referrals: PCP Follow-up - 3-5 Days Pulmonology - 1 Week New Orders: CBC NO DIFF - 2-3 Days New Medications: Albuterol Neb (Albuterol Neb) 2.5 Mg/3 Ml Neb 2.5 MG NEB Q4HR NEB PRN SOB/WHEEZING #1 NEBULE Bumetanide (Bumetanide) 1 Mg Tab 1 MG PO BID #60 TAB Heparin Sodium (Porcine) (Heparin Sodium) 10,000 Unit/Ml Inj 5000 UNITS SQ Q12HR #20 INJECTION Insulin Detemir Inj (Levemir Inj) 1,000 unit/ 10 ML Vial 10 UNITS SQ Q12HR #1 INJECTION Ipratropium-Albuterol Neb (Duoneb) 0.5-2.5 Mg/3 Ml Neb 1 AMPULE NEB QID NEB #30 ML Levofloxacin (Levaquin) 250 Mg Tablet 250 MG PO DAILY #4 TAB Metolazone (Metolazone) 5 Mg Tab 5 MG PO DAILY #30 TAB Metoprolol Tartrate (Lopressor) 50 Mg Tab 50 MG PO BID #60 TAB Pantoprazole (Pantoprazole) 40 Mg Tab 40 MG PO DAILY #30 TAB Prednisone (Prednisone) 20 Mg Tab 40 MG PO BID Take 40 mg by mouth twice daily for 3 days then Take 40 mg by mouth once daily for 3 days then Take 20 mg by mouth once daily for 3 days. #21 TAB Sennosides-Docusate Sodium (Senna Plus 8.6-50 mg) 1 Tab Tab 1 TAB PO BID #30 TAB Continued Medications: Amlodipine (Amlodipine) 10 Mg Tab 10 MG PO DAILY Blood Pressure Management #90 Ref 3 TAB Budesonide-Formoterol Inh (Symbicort Inh) 160-4.5 Mcg/Act Aero 2 PUFF INH BID #1 Ref 0 INHALER Lorazepam (Ativan) 2 Mg Tab 2 MG PO DAILY PRN ANXIETY AND/OR AGITATION Ref 0 TAB Morphine ER (Morphine ER) 100 Mg Tab 100 MG PO DAILY Pain Management Ref 0 TAB Morphine ER (Ms Contin) 15 Mg Tab 15 MG PO DAILY Pain Management #31 Ref 0 TAB Potassium Chloride ER (Potassium Chloride ER) 10 Meq Cap 10 MEQ PO DAILY Electrolyte Replacement #93 Ref 1 CAP Discontinued Medications: Albuterol 8.5 GM Inh (Proair Hfa 8.5 GM Inh) 90 Mcg/Act Aer 2 PUFF INH q4 108 mcg/actuation PRN SHORTNESS OF BREATH #1 Ref 11 INHALER Fosinopril (Fosinopril) 10 Mg Tab 10 MG PO DAILY #30 Ref 11 TAB Furosemide (Furosemide) 40 Mg Tab 40 MG PO DAILY #30 Ref 11 TAB Glipizide (Glucotrol) 10 Mg Tab 10 MG PO DAILY Take 30 minutes before a meal Blood Sugar Management #30 Ref 0 TAB Ipratropium-Albuterol Neb (Duoneb) 0.5-2.5 Mg/3 Ml Neb 1 NEBULE INH Q4HR NEB SHORTNESS OF BREATH #120 Ref 0 NEBULE Metoprolol Tartrate (Metoprolol Tartrate) 100 Mg Tab 100 MG PO BID #60 Ref 0 TAB Triamcinolone Topical (Triamcinolone Topical) 0.5 % Cream 1 APPLIC TOPICAL TID #45 TUBE Dom Mayfield MD R1 Sep 16, 2016 16:37
[2016-09-16] MEDS ORDERED: HEPARIN SODIUM - SQ 10,000 UNITS/ML VIAL SQ SCH (21:00)
[2016-09-16] MEDS ORDERED: predniSONE 20 MG TAB PO SCH (21:00)
== END 2016-09-16 17:57 | DRG 190 ==
LOC: NEPE 15:16 → NEDA 17:53 → HOCA 22:43
PROVIDERS: ADMIT Family Medicine; ATTEND Family Medicine
DX: J44.0 Chronic obstructive pulmonary disease with (acute) lower respiratory infection (principal); J18.9 Pneumonia, unspecified organism; E11.21 Type 2 diabetes mellitus with diabetic nephropathy; N18.5 Chronic kidney disease, stage 5; I50.9 Heart failure, unspecified; F11.20 Opioid dependence, uncomplicated; I48.2 Chronic atrial fibrillation; K92.2 Gastrointestinal hemorrhage, unspecified; I12.9 Hypertensive chronic kidney disease with stage 1 through stage 4 chronic kidney disease, or unspecified chronic kidney disease; Z99.81 Dependence on supplemental oxygen; E87.5 Hyperkalemia; J44.1 Chronic obstructive pulmonary disease with (acute) exacerbation; G47.00 Insomnia, unspecified; I25.10 Atherosclerotic heart disease of native coronary artery without angina pectoris; Z95.1 Presence of aortocoronary bypass graft; Z99.3 Dependence on wheelchair; Z85.528 Personal history of other malignant neoplasm of kidney; E66.9 Obesity, unspecified; Z68.39 Body mass index [BMI] 39.0-39.9, adult; Z86.73 Personal history of transient ischemic attack (TIA), and cerebral infarction without residual deficits; M10.9 Gout, unspecified; Z79.84 Long term (current) use of oral hypoglycemic drugs; N28.9 Disorder of kidney and ureter, unspecified; E78.5 Hyperlipidemia, unspecified; Z91.14 Patient's other noncompliance with medication regimen; D64.9 Anemia, unspecified; I25.2 Old myocardial infarction; G89.4 Chronic pain syndrome; Z66 Do not resuscitate; R13.10 Dysphagia, unspecified; N28.1 Cyst of kidney, acquired; Z87.891 Personal history of nicotine dependence
CPT/HCPCS: 36600; 71010; 71250; 76775; 76937; 80048; 80053; 80202; 81001; 82550; 82805; 82948; 83735; 83880; 84132; 84484; 85007; 85025; 85027; 85610; 87040; 87086; 87641; 93005; 93306; 94002; 94150; 94640; 94664; 96365; 96375; J0610; J1644; J1650; J1815; J1940; J2270; J2405; J2543; J2930; J3370; J7050

== ENCOUNTER 2016-09-20 18:44 | Inpatient (IN) | payer MEDICARE, MEDICAID ==
[~2016-09-20] VITALS: Ht 162.6 cm; Wt 98.9 kg
[~2016-09-20 18:44] MED LIST changes: +ALBU0.08 NEB; -ALBUAER3 INH; +BUME1TAB PO; -COLC1CAP3 PO; -FOSI10TA PO; -FURO40TA PO; -GLUC10TA3 PO; -Glucometer; +HEPA10003 SQ; -HYDR-3133 PO; -IPRASOL INH; +IPRASOL NEB; +LEVA250T14 PO; +LEVEMIR SQ; -LORA2TAB7 PO; +METO-309 PO; -METO100T PO; +METO5TAB3 PO; -NITR0.4S SL; -NRDRIP SQ; +PANT40TA3 PO; -PERC7.5T13 PO; +PRED20 PO; +SENN1TAB PO; -TIOT12.9 INH; -[UNRECOGNIZED DRUG - SUPPLY]; -lancets
--- NOTE | 2016-09-20 19:09 | PD ---
HPI Chief Complaint: Abnormal Results Time Seen by Provider: 19:08 Travel History International Travel<30 days: No Contact w/Intl Traveler<30days: No History of Present Illness HPI The patient is a 75 year old female who presents to the [facility] emergency department with a history of generalized weakness and GI bleeding that began recently after being admitted to the hospital for renal failure and atrial fibrillation for which she was briefly placed on heparin. She developed a GI bleed that she attributes to hemorroids. She reports that she was experiencing diarrhea, however she reports that this resolved 2 days ago. She did have a small bowel movement today without blood. She reports that she has had a colonoscopy in the past. She reports that this was a few years ago. She reports that recently she has been experiencing chest pain with exertion along with shortness of breath with exertion. The patient reports having a history of COPD, congestive heart failure, and coronary artery disease with four-vessel bypass done previously. She reports that she will not undergo a stress test or cardiac catheterization in the future again related to some complications from prior procedures. She had blood work done today at her rehabilitation facility that revealed that she was anemic. The patient's hemoglobin at that time was noted to be 6.7. She was sent to the ER for evaluation and a transfusion. The patient reports having a generalized abdominal discomfort. She describes this as a cramping sensation that comes and goes. On review of systems, the patient denies having any known fevers cough, congestion, neck pain, vomiting, urinary symptoms, or other neurologic symptoms. PFSH Past Medical History Narrative Medical The patient's past medical history is significant for recent diagnosis of renal failure, however the patient was refusing dialysis, recent GI bleed, however according to the gastroenterology record the patient was refusing endoscopy and colonoscopy at that time, history of diabetes mellitus, COPD, coronary artery disease status post myocardial infarction, history of congestive heart failure, history of stroke in 1989, dyslipidemia, hypertension, gout, irritable bowel syndrome, spinal stenosis, chronic pain syndrome, diabetic neuropathy, history of a kidney tumor, depression, insomnia. Hx Anticoagulant Therapy: No Arthritis: Yes Asthma: Yes Autoimmune Disease: No Blood Disorders: No Anxiety: Yes Depression: Yes Heart Rhythm Problems: Yes (AFIB) Cancer: Yes (LEFT KIDNEY/ CAUDERIZATION) Cardiac Catheterization: Yes Cardiovascular Problems: Yes High Cholesterol: No Chemotherapy: No Chest Pain: Yes Congestive Heart Failure: Yes COPD: Yes Cerebrovascular Accident: Yes Diabetes: Yes Diminished Hearing: No Endocrine: Yes Gastrointestinal Disorders: Yes GERD: No Glaucoma: No Genitourinary: Yes (KIDNEY TUMOR CAUDERIZED) Headaches: Yes Hepatitis: No Hiatal Hernia: Yes (REPAIR) Hypertension: Yes Immune Disorder: No Kidney Stones: No 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) Neurologic: No Psychiatric: Yes Reproductive: No Respiratory: Yes Migraines: No Myocardial Infarction: Yes Radiation Therapy: No Renal Failure: Yes Seizures: No Sleep Apnea: No Thyroid Disease: No Ulcer: No Past Surgical History Narrative Surgical The patient's past surgical history is significant for coronary artery bypass grafting of 4 vessels in 1999, hysterectomy with bilateral salpingo- oophorectomy 1995, tonsillectomy, appendectomy, cholecystectomy, epigastric hernia repair, cataract surgery. Abdominal Surgery: Yes AICD: No Appendectomy: Yes Arteriovenous Shunt: No Cardiac Surgery: Yes (CABG X4 VESSEL IN 1999) Cholecystectomy: Yes Coronary Artery Bypass Graft: Yes Ear Surgery: No Endocrine Surgery: No Eye Surgery: No Genitourinary Surgery: No Gynecologic Surgery: Yes Hysterectomy: Yes Insulin Pump: No Joint Replacement: No Oral Surgery: Yes (teeth) Pacemaker: No Thoracic Surgery: No Tonsillectomy: Yes Other Surgery: Yes Social History Alcohol Use: No Tobacco Use: No Substance Use: No Allergies-Medications (Allergen,Severity, Reaction): Coded Allergies: Augmentin (Verified Allergy, Severe, Rash, 09/20/16) Haldol (Verified Allergy, Severe, Hallucinations, 09/20/16) Latex (Verified Allergy, Severe, HIVES, 09/20/16) Macrodantin (Verified Allergy, Severe, SHAKY , BLOOD SUGER PROBLEMS, ) Mirapex (Verified Allergy, Severe, LETHARGY,DIZZY,SHAKY, 09/20/16) Phenergan (Verified Allergy, Severe, Hallucinations, 09/20/16) Temazepam (Verified Allergy, Severe, Rash, 09/20/16) Lopid (Verified Allergy, Intermediate, 09/20/16) Lyrica (Verified Allergy, Unknown, 09/20/16) Soma (Verified Allergy, Unknown, 09/20/16) Amoxicillin (Verified Adverse Reaction, Severe, diarrhea, 09/20/16) HMG-CoA Reductase Inhibitors (Verified Adverse Reaction, Severe, LIVER DISEASE WITH SUBSEQUENT CHRONIC ITCHING UNTIL DC'D, 09/20/16) Trazodone (Verified Adverse Reaction, Intermediate, altered mental status , 09/20/16) *MDRO Multi-Drug Resistant Organism (Verified Adverse Reaction, Unknown, Cleared - 09/10/16, 09/20/16) MRSA Sputum 10/2008 *Cleared - MRSA PCR negative on 09/09/16 & 09/10/16* Uncoded Allergies: TAPE (Allergy, Mild, Rash, 11/06/09) USE PAPER TAPE ONLY ees (Allergy, Mild, itch, 11/06/09) advicor (Adverse Reaction, Intermediate, redness, itchin, 11/06/09) cipro,septra (Adverse Reaction, Intermediate, diarrhea,itching, 11/06/09) topramax (Adverse Reaction, Intermediate, 11/06/09) Reported Meds & Prescriptions Reported Meds & Active Scripts Active Heparin Sodium (Heparin Sodium (Porcine)) 10,000 Unit/Ml Inj 5,000 Units SQ Q12HR Prednisone 20 Mg Tab 40 Mg PO BID Take 40 mg by mouth twice daily for 3 days then Take 40 mg by mouth once daily for 3 days then Take 20 mg by mouth once daily for 3 days. Pantoprazole (Pantoprazole Sodium) 40 Mg Tab 40 Mg PO DAILY Lopressor (Metoprolol Tartrate) 50 Mg Tab 50 Mg PO BID Metolazone 5 Mg Tab 5 Mg PO DAILY Levaquin (Levofloxacin) 250 Mg Tablet 250 Mg PO DAILY Duoneb (Ipratropium-Albuterol Neb) 0.5-2.5 Mg/3 Ml Neb 1 Ampule NEB QID NEB Bumetanide 1 Mg Tab 1 Mg PO BID Albuterol Neb (Albuterol Sulfate) 2.5 Mg/3 Ml Neb 2.5 Mg NEB Q4HR NEB PRN Potassium Chloride ER (Potassium Chloride) 10 Meq Cap 10 Meq PO DAILY Amlodipine (Amlodipine Besylate) 10 Mg Tab 10 Mg PO DAILY Reported Morphine ER (Morphine Sulfate) 30 Mg Tab 30 Mg PO Q8H Humulin R Inj (Insulin Human Regular) 1,000 Unit/10 Ml Vial 2-10 Units SQ ACHS SLIDING SCALE: 0-200=0 UNITS,201-250=2 UNITS,251-300=4 UNITS,301-350=6 UNITS,351-400=8 UNITS,401-450=10 UNITS, <60 OR >450=CALL Dulcolax Supp (Bisacodyl) 10 Mg Supp 10 Mg RECTAL IN THE AM PRN Basaglar Kwikpen (Insulin Glargine) 100 Unit/Ml Pen 10 Units SQ Q12HR Tylenol (Acetaminophen) 325 Mg Tab 650 Mg PO Q4H PRN Lorazepam 1 Mg Tab 1 Mg PO HS Symbicort Inh (Budesonide/Formoterol Fumarate) 160-4.5 Mcg/Act Aero 2 Puff INH BID Review of Systems Except as stated in HPI: all other systems reviewed are Neg General / Constitutional: No: Fever Eyes: No: Visual changes HENT: No: Headaches Cardiovascular: No: Chest Pain or Discomfort Respiratory: No: Shortness of Breath Gastrointestinal: Positive: Diarrhea, Hematochezia, Changes in Bowel Habits, Indigestion, No: Nausea, Vomiting, Abdominal Pain, Hematemesis, Loss of Appetite Genitourinary: No: Dysuria Musculoskeletal: No: Pain Skin: No Rash Neurologic: Positive: Weakness (generalized weakness), No: Focal Abnormalities , Change in Mentation, Slurred Speech, Sensory Disturbance Psychiatric: No: Depression Endocrine: No: Polydipsia Hematologic/Lymphatic: No: Easy Bruising Physical Exam Narrative General: The patient is a well-developed well-nourished female in no acute distress. Head and Neck exam: Head is normocephalic atraumatic. Eyes: EOMI, pupils are equal round and reactive to light. Nose: Midline septum with pink mucous membranes Mouth: Dentition unremarkable. Moist mucus membranes. Posterior oropharynx is not erythematous. No tonsillar hypertrophy. Uvula midline. Airway patent. Neck: No palpable lymphadenopathy. No nuchal rigidity. No thyromegaly. Cardiovascular: Regular rate and rhythm with a 1 to 2/6 systolic murmur, no gallops or rubs. Lungs: Clear to auscultation bilaterally. No wheezes, rhonchi, or rales. Abdomen: Soft, with tenderness on palpation reported along bilateral lower quadrants of the abdomen and suprapubic area, no other tenderness on palpation of the other quadrants. No guarding, rebound, or rigidity. No focal tenderness on palpation over McBurney's point. Normal bowel sounds are audible. Negative [place] sign. Extremities: No clubbing, cyanosis, or edema. 2+ pulses in all 4 extremities. No calf tenderness on palpation. Back: No costovertebral angle tenderness to palpation. Neurologic Exam: Grossly nonfocal. Skin Exam: No rash noted. Intact skin that is warm and dry. The patient is pale appearing on examination. Data Data Last Documented VS Vital Signs Date Time Temp Pulse Resp B/P Pulse Ox O2 Delivery O2 Flow Rate FiO2 09/20/16 21:00 78 18 119/69 98 Nasal Cannula 3 Orders Complete Blood Count With Diff (09/20/16 19:13) Comprehensive Metabolic Panel (09/20/16 19:13) Creatine Kinase (Cpk) (09/20/16 19:13) Ckmb (Isoenzyme) Profile (09/20/16 19:13) Troponin I (09/20/16 19:13) B-Type Natriuretic Peptide (09/20/16 19:13) Prothrombin Time / Inr (Pt) (09/20/16 19:13) Act Partial Throm Time (Ptt) (09/20/16 19:13) Lipase (09/20/16 19:13) Urinalysis - C+S If Indicated (09/20/16 19:13) Chest, Single Ap (09/20/16 19:13) Iv Access Insert/Monitor (09/20/16 19:13) Ecg Monitoring (09/20/16 19:13) Oximetry (09/20/16 19:13) Type And Screen (09/20/16 19:13) Red Blood Cells (Rbc) (09/20/16 19:13) Sodium Chlor 0.9% 1000 Ml Inj (Ns 1000 M (09/20/16 19:15) Ondansetron Inj (Zofran Inj) (09/20/16 20:15) Oral Contrast - Adult (09/20/16 20:06) Diatrizoate Liq ( Gastrofrank Liq) (09/20/16 20:11) Pantoprazole Inj (Protonix Inj) (09/20/16 20:30) Ct Abd/Pel W/O Iv Contrast (09/20/16 20:02) Consult Gastroenterology (09/20/16 ) Admit Order (Ed Use Only) (09/20/16 20:56) Labs Laboratory Tests Test 09/20/16 19:35 White Blood Count 12.0 TH/MM3 Red Blood Count 2.72 MIL/MM3 Hemoglobin 7.9 GM/DL Hematocrit 24.9 % Mean Corpuscular Volume 91.5 FL Mean Corpuscular Hemoglobin 29.2 PG Mean Corpuscular Hemoglobin 31.9 % Concent Red Cell Distribution Width 14.6 % Platelet Count 141 TH/MM3 Mean Platelet Volume 8.9 FL Neutrophils (%) (Auto) 92.9 % Lymphocytes (%) (Auto) 3.8 % Monocytes (%) (Auto) 3.1 % Eosinophils (%) (Auto) 0.0 % Basophils (%) (Auto) 0.2 % Neutrophils # (Auto) 11.1 TH/MM3 Lymphocytes # (Auto) 0.5 TH/MM3 Monocytes # (Auto) 0.4 TH/MM3 Eosinophils # (Auto) 0.0 TH/MM3 Basophils # (Auto) 0.0 TH/MM3 CBC Comment AUTO DIFF Differential Total Cells 100 Counted Neutrophils % (Manual) 93 % Band Neutrophils % 1 % Lymphocytes % 4 % Monocytes % 2 % Neutrophils # (Manual) 11.3 TH/MM3 Differential Comment FINAL DIFF MANUAL Platelet Estimate LOW Platelet Morphology Comment NORMAL Red Cell Morphology Comment NORMAL Prothrombin Time 11.9 SEC Prothromb Time International 1.1 RATIO Ratio Activated Partial 19.3 SEC Thromboplast Time Sodium Level 140 MEQ/L Potassium Level 3.9 MEQ/L Chloride Level 100 MEQ/L Carbon Dioxide Level 26.9 MEQ/L Anion Gap 13 MEQ/L Blood Urea Nitrogen 72 MG/DL Creatinine 3.27 MG/DL Estimat Glomerular Filtration 14 ML/MIN Rate Random Glucose 297 MG/DL Calcium Level 8.0 MG/DL Total Bilirubin 0.4 MG/DL Aspartate Amino Transf 17 U/L (AST/SGOT) Alanine Aminotransferase 27 U/L (ALT/SGPT) Alkaline Phosphatase 74 U/L Total Creatine Kinase 73 U/L Troponin I 0.03 NG/ML B-Type Natriuretic Peptide 403 PG/ML Total Protein 5.7 GM/DL Albumin 2.7 GM/DL Lipase 287 U/L Blood Type A NEGATIVE Antibody Screen NEGATIVE Crossmatch Leukocyte-Reduced Red Blood Cells Blood Bank Comment MDM Medical Decision Making Medical Screen Exam Complete: Yes Emergency Medical Condition: Yes Medical Record Reviewed: Yes Interpretation(s) Last Impressions Abdomen/Pelvis CT 09/20/162001 Signed Impressions: Service Date/Time: Tuesday, September 20, 2016 21:21 - CONCLUSION: 1. Biliary stent in place, but the common hepatic duct and the central intrahepatic ducts are markedly dilated to 3.5 cm. 2. Large right pleural effusion, mild ascites about the lateral margin of the liver, free fluid tracking in the left paracolic gutter at the root of the mesentery. There is also induration of the central mesentery 3. Peripherally calcified lesion midpole left kidney measuring 2.1 cm. This cannot be further assessed on noncontrast study, but does correspond to location of a solid mass seen on prior CT scan in 2009 Horace Rubin MD Chest X-Ray 09/20/16 191 Signed Impressions: Service Date/Time: Tuesday, September 20, 2016 19:19 - CONCLUSION: No acute findings. No definite infiltrate seen. Horace Rubin MD Differential Diagnosis Diverticulosis with bleeding, versus hemorrhoidal bleeding, versus peptic ulcer bleeding, versus AVM malformation. Narrative Course During the course of the patients emergency department visit, the patients history, examination, and differential diagnosis were reviewed with the patient. The patient had IV access obtained and blood work sent for analysis. The patient was placed on a supervisor cigar making machine with oximetry and blood pressure monitoring. The patient's electronic medical record was reviewed. According to the GI record the patient was refusing endoscopy and colonoscopy at that time when she was having GI bleeding, however today the patient's family and the patient reports that she would undergo endoscopy and colonoscopy if it is recommended at this point to stop bleeding. The patient's hemoglobin prior to arrival at the rehabilitation facility was noted to be 6.7. She'll be typed and crossmatched for 2 units of blood to be administered. A CT scan of the abdomen and pelvis has been ordered as imaging of the abdomen and pelvis was not done during her last admission. The patient was initially provided normal saline IV fluids at maintenance rate. The patient was given Protonix IV. The patients laboratory studies were reviewed and remarkable for a white count of 12, hemoglobin 7.9, platelets 141 with 92.9, CMP is remarkable for a BUN of 72, creatinine 3.27, glucose 297, CPK 73, troponin I 0.03, BNP 403, lipase 287, PT 11.9, PTT 19.3 Radiology studies were reviewed and remarkable for a chest x-ray that shows no acute abnormality. CT scan of the abdomen and pelvis shows biliary stent in place but the common hepatic duct and the central intrahepatic ducts are markedly dilated 3.5 cm. Large right pleural effusion, mild ascites about the lateral margin of the liver, no free fluid tracking in the left paracolic gutter at the root of the mesentery. There is also induration of the central mesentery, peripheral calcified lesion midpole of the left kidney measuring 2.1 cm. This cannot be further assessed on noncontrast study but does correspond to the location of a solid mass seen on CT scan in 2009. The patient's results were discussed with the patient, including the plan of care. I explained that further testing and/ or monitoring is indicated based on the patients history, examination, and/ or laboratory findings. Therefore, I recommended admission for additional evaluation. The patient expressed understanding and was agreeable with this plan. The patient was admitted to the hospital in guarded condition and sent to a bed under the care of Dr. Delgado. Physician Communication Physician Communication The patient's case was discussed with Dr. Delgado who did agree to admit the patient for further evaluation and treatment at this time. Diagnosis Primary Impression: Symptomatic anemia Additional Impression: GI bleed Qualified Code: K92.2 - Gastrointestinal hemorrhage, unspecified gastrointestinal hemorrhage type Admitting Information Admitting Physician Requests: Admit Ruth Ann Liang MD Sep 20, 2016 19:09
[2016-09-20 19:39] VITALS: RESP 16; O2SAT 96
[2016-09-20] MEDS: SODIUM CHLOR 0.9% 1000 ML INJ 1,000 ML IV SCH (19:39)
--- NOTE | 2016-09-20 19:49 | RADRPT ---
EXAM DATE/TIME: 09/20/2016 19:19 [facility] COMPARISON: CHEST SINGLE AP, September 14, 2016, 12:17. INDICATIONS : Shortness of breath. MEDICAL HISTORY : Chronic obstructive pulmonary disease. Cardiovascular disease. Hypertension. Bronchiitis, Heart m urmur, Renal Failure. SURGICAL HISTORY : Appendectomy. CABG. Cholecystectomy. ENCOUNTER: Initial ACUITY: 3 days PAIN SCORE: 0/10 LOCATION: Bilateral chest FINDINGS: A single view of the chest demonstrates the lungs to be symmetrically aerated without evidence of mas s, infiltrate or effusion. Stable mild cardiomegaly. Hemoclips in the left mediastinum. Stable mild tortuosity descending thoracic aorta. Mild curvature of the thoracolumbar spine towards the right. CONCLUSION: No acute findings. No definite infiltrate seen. Horace Rubin MD on September 20, 2016 at 19:46 Board Certified Radiologist. This report was verified electronically.
[2016-09-20] MEDS ORDERED: MORP1TAB25 PO (20:06)
[2016-09-20] MEDS ORDERED: LORA1TAB12 PO (20:06)
[2016-09-20] MEDS ORDERED: INSU100V2 SQ (20:06)
[2016-09-20] MEDS ORDERED: DULC10SU3 RECTAL (20:06)
[2016-09-20] MEDS ORDERED: TYLE325T PO (20:06)
[2016-09-20] MEDS ORDERED: CITRSOL4 PO (20:06)
[2016-09-20] MEDS ORDERED: INSU1INJ18 SQ (20:06)
[2016-09-20] MEDS ORDERED: MILKSUS PO (20:06)
[2016-09-20] MEDS ORDERED: ENEMENE5 RECTAL (20:06)
[2016-09-20] MEDS ORDERED: DIATRIZOATE MEGLUM/DIATRIZOATE SOD 9 ML CUP ONE (20:11)
[2016-09-20 20:15] LABS: AUTOMATED NEUTROPHIL # 11.1 TH/MM3 (1.8-7.7); BASOPHIL % 0.2 % (0.0-2.0); HEMATOCRIT 24.9 % (35.0-46.0); LYMPH % 3.8 % (9.0-44.0); LYMPHOCYTE # 0.5 TH/MM3 (1.0-4.8); MEAN CELL VOLUME 91.5 FL (80.0-100.0); MEAN CORPUSCULAR HEMOGLOBIN 29.2 PG (27.0-34.0); MEAN CORPUSCULAR HGB CONC 31.9 % (32.0-36.0); MONO % 3.1 % (0.0-8.0); NEUT % 92.9 % (16.0-70.0); PLATELET COUNT 141 TH/MM3 (150-450); RED BLOOD COUNT 2.72 MIL/MM3 (4.00-5.30); RED CELL DISTRIBUTION WIDTH 14.6 % (11.6-17.2)
[2016-09-20] MEDS ORDERED: ONDANSETRON HCL 4 MG/2 ML VIAL IV ONE (20:15)
[2016-09-20 20:16] LABS: HEMO FLAGS AUTO DIFF
[2016-09-20 20:27] LABS: ALKALINE PHOSPHATASE 74 U/L (45-117); ALT (GPT) 27 U/L (10-53); ANION GAP 13 MEQ/L (5-15); AST (GOT) 17 U/L (15-37); BICARBONATE 26.9 MEQ/L (21.0-32.0); BLOOD UREA NITROGEN 72 MG/DL (7-18); CHLORIDE 100 MEQ/L (98-107); CREATINE KINASE 73 U/L (26-192); GLOMERULAR FILTRATION RATE 14 ML/MIN (>89); POTASSIUM 3.9 MEQ/L (3.5-5.1); SODIUM (NA) 140 MEQ/L (136-145); TOTAL BILIRUBIN ADULT 0.4 MG/DL (0.2-1.0)
[2016-09-20 20:28] LABS: INTERNATIONAL NORMALIZED RATIO 1.1 RATIO; PROTHROMBIN TIME - PATIENT 11.9 SEC (9.8-11.6)
[2016-09-20] MEDS ORDERED: PANTOPRAZOLE SODIUM 40 MG VIAL IV PUSH ONE (20:30)
[2016-09-20 20:39] LABS: BANDS 1 % (0-6); NEUTROPHIL # MANUAL DIFF 11.3 TH/MM3 (1.8-7.7); PLATELET ESTIMATE SMEAR LOW (NORMAL); PLATELET MORPHOLOGY NORMAL (NORMAL); POLYS (SEG NEUTROPHILS) 93 % (16-70); SCAN/DIFF FINAL DIFF MANUAL; WBC DIFF SAMPLE 100
[2016-09-20 20:46] LABS: APTT (PATIENT) 19.3 SEC (24.3-30.1)
[2016-09-20 21:00] VITALS: BP 119/69; PULSE 78; RESP 18; O2SAT 98
[2016-09-20] MEDS ORDERED: ACETAMINOPHEN 325 MG TAB PO PRN (21:15)
[2016-09-20] MEDS ORDERED: NALOXONE HCL 0.4 MG/ML AMP IV PRN (21:15)
[2016-09-20] MEDS ORDERED: BISACODYL 10 MG SUPP RECTAL PRN (21:15)
[2016-09-20] MEDS ORDERED: RESP: ALBUTEROL 2.5 MG/3 ML NEB (PRN) NEB (21:15)
[2016-09-20] MEDS ORDERED: SODIUM CHLORIDE 0.9% FLUSH 10 ML FLUSH IV FLUSH PRN (21:15)
[2016-09-20 21:23] VITALS: BP 136/62; PULSE 67; RESP 17; TEMP 97.6; O2SAT 94
[2016-09-20] MEDS: predniSONE 20 MG TAB PO SCH (22:17)
[2016-09-20] MEDS: LORazepam 1 MG TAB PO SCH (22:17)
[2016-09-20] MEDS: INSULIN DETEMIR 100 UNITS/ML VIAL SQ SCH (22:18)
--- NOTE | 2016-09-20 22:32 | RADRPT ---
EXAM DATE/TIME: 09/20/2016 21:21 [facility] COMPARISON: CT THORAX W/O CONTRAST, September 10, 2016, 7:53. CT ABDOMEN & PELVIS W CONTRAST, November 12, 2009, 19: 30. US KIDNEY/RENAL/BLADDER, September 09, 2016, 17:55. INDICATIONS : Abnormal blood results, anemic. Recent GI bleed. ORAL CONTRAST: Partial prescribed oral contrast ingested. RADIATION DOSE: 27.21 CTDIvol (mGy) ; Patient body habitus MEDICAL HISTORY : Chronic obstructive pulmonary disease. Cardiovascular disease Congestive heart failure.CVA. Hypertens ion. Left renal tumor. SURGICAL HISTORY : CABG Cholecystectomy.Hysterectomy.Hiatal hernia repair. Left renal tumor cauderization. ENCOUNTER: Initial ACUITY: 1 day PAIN SCALE: 3/10 LOCATION: Bilateral abdomen TECHNIQUE: Volumetric scanning of the abdomen and pelvis was performed. Using automated exposure control and ad justment of the mA and/or kV according to patient size, radiation dose was kept as low as reasonably achievable to obtain optimal diagnostic quality images. DICOM format image data is available electro nically for review and comparison. FINDINGS: LOWER LUNGS: Large right pleural effusion measuring 4.4 cm. No left-sided pleural effusion. LIVER: Cholecystectomy. There is a biliary stent in place. The proximal stent tip is in the mid common zeny t and the distal tip is in duodenum. The extrahepatic biliary system proximal to the stent is dilate d up to 3.6 cm. There is also dilation of the central biliary system. No focal lesions seen within the liver for noncontrast technique. There is some free fluid about the lateral margin of the liver which does not track into the paracolic gutters. SPLEEN: Anastomosis sutures seen with in the spleen and there is a lobular configuration to the spleen. Mult iple serpiginous structures seen medial to the splenic hilum could represent varices, but cannot be c onfirmed on a noncontrast scan. PANCREAS: No gross pancreatic abnormalities seen. The head of the pancreas is not well-seen due to the distent ion of the common bile duct. KIDNEYS: The right kidney is unremarkable. There is a 2.1 cm lesion in the midpole the left kidney which is e xophytic from the cortex and contains rim calcification. There is also a dominant cyst in the mid to lower pole which measures 7.8 cm. Nonobstructing 2 mm stone in the lower pole collecting system. ADRENAL GLANDS: Within normal limits. VASCULAR: There is no aortic aneurysm. Atherosclerotic calcification BOWEL/MESENTERY: No dilated loops of small or large bowel. Oral contrast passes through to the cecum. ABDOMINAL WALL: Within normal limits. RETROPERITONEUM: There is a focal collection of fluid near the root of the mesentery and there is a moderate amount of free fluid tracking in the left paracolic gutter. There is induration of the central mesentery exte nding to the left hypogastric region. No evidence of mesenteric adenopathy. No free fluid seen in t he pelvis. BLADDER: Smooth margins. Moderately distended. REPRODUCTIVE: Hysterectomy. INGUINAL: There is no lymphadenopathy or hernia. MUSCULOSKELETAL: Within normal limits for patient age. CONCLUSION: 1. Biliary stent in place, but the common hepatic duct and the central intrahepatic ducts are markedl y dilated to 3.5 cm. 2. Large right pleural effusion, mild ascites about the lateral margin of the liver, free fluid track ing in the left paracolic gutter at the root of the mesentery. There is also induration of the centr al mesentery 3. Peripherally calcified lesion midpole left kidney measuring 2.1 cm. This cannot be further assess ed on noncontrast study, but does correspond to location of a solid mass seen on prior CT scan in 201 0 Horace Rubin MD on September 20, 2016 at 22:17 Board Certified Radiologist. This report was verified electronically.
[2016-09-20] MEDS: MORPHINE SULFATE 30 MG CONTROLLED RELEASE TAB PO SCH (23:08)
[2016-09-21] VITALS (12 sets, daily range): BP systolic 111–153; BP diastolic 56–70; PULSE 61–77; RESP 18–20; TEMP 97.6–98.4; O2SAT 96–100
[2016-09-21] MEDS: MORPHINE SULFATE 30 MG CONTROLLED RELEASE TAB PO SCH ×3 (05:29→21:09)
[2016-09-21] MEDS: SODIUM CHLOR 0.9% 1000 ML INJ 1,000 ML IV SCH ×2 (05:29→19:05)
[2016-09-21] MEDS: RESP: ALBUTEROL 2.5 MG/IPRATROPIUM 0.5 MG NEB (SCH) NEB ×4 (07:41→19:04)
[2016-09-21] MEDS: SODIUM CHLORIDE 0.9% FLUSH 10 ML FLUSH IV FLUSH SCH ×2 (09:00→21:00)
[2016-09-21] MEDS ORDERED: PANTOPRAZOLE SOD 40 MG DELAYED RELEASE TAB PO SCH (09:00)
[2016-09-21] MEDS: INSULIN DETEMIR 100 UNITS/ML VIAL SQ SCH ×2 (09:00→21:16)
[2016-09-21] MEDS ORDERED: LEVOFLOXACIN 250 MG TAB PO SCH (09:00)
[2016-09-21] MEDS ORDERED: HEPARIN SODIUM - SQ 10,000 UNITS/ML VIAL SQ SCH (09:00)
[2016-09-21] MEDS: BUMETANIDE 1 MG TAB PO SCH ×2 (09:27→21:46)
[2016-09-21] MEDS: BUDESONIDE-FORMOTEROL 160/4.5 MCG INHALER INH SCH ×2 (09:27→21:00)
[2016-09-21] MEDS: predniSONE 20 MG TAB PO SCH ×2 (09:28→21:08)
[2016-09-21] MEDS: POTASSIUM CHLORIDE 10 MEQ CAP PO SCH (09:28)
[2016-09-21] MEDS: METOPROLOL TARTRATE 50 MG TAB PO SCH ×2 (09:29→21:09)
[2016-09-21] MEDS: METOLAZONE 5 MG TAB PO SCH (09:30)
--- NOTE | 2016-09-21 09:38 | MB ---
cc: HORTENCIA CONTRERAS MD DATE OF CONSULTATION 09/21/[address] Delgado REASON FOR CONSULTATION Anemia and GI bleeding HISTORY This is a 75-year-old female with multiple medical problems who was transferred to the emergency department yesterday after being found to have a hemoglobin of 6.7. The hemoglobin was repeated in the ED and came back at 7.9. She was given a transfusion. She denies any abdominal pain. She does have some occasional heartburn and some occasional dysphagia to solid food. She was hospitalized here in August last month and was just discharged last week after being admitted with pneumonia and chest pain. She was seen by Dr. Nolasco, her rehabilitation case coordinator and Dr. Baca. She also seen by Nephrology for worsening renal function, but refuses hemodialysis. The patient cannot remember when her last EGD or colonoscopy was, but looking back in the hospital record, she did have an ERCP in [address] Gaona because of common bile duct dilation. She had a very large bile duct over 2 cm, but no obvious etiology, however, an 8.5 Latvian stent was placed and appears to still be in the bile duct. CT scan yesterday on admission shows several findings detailed below. The patient denies any abdominal pain. When she was in the hospital last week, she did have some passage of blood clots which the family is certain was from her hemorrhoids and being on heparin. She was seen by Dr. Rico last week and offered EGD and colonoscopy, but refused. SOCIAL HISTORY The patient does not use tobacco or alcohol. She had four children and her son and daughter are at the bedside. PAST MEDICAL HISTORY Her medical history is remarkable for: 1. COPD 2. CVA 3. TIA 4. Atrial fibrillation 5. Diabetes mellitus 6. Heart disease status post bypass graft surgery 7. Hypertension 8. Chronic kidney disease 9. History of gout. 10. History of oxygen-dependent COPD. PAST SURGICAL HISTORY 1. She had CABG x4 in 1999. 2. She has had an appendectomy. 3. Hysterectomy 4. Tonsillectomy MEDICATIONS Current medications include: 1. Pantoprazole 2. Amlodipine 3. Budesonide tonight inhaler 4. Bumex 5. Levaquin 6. Zaroxolyn 7. Lopressor 8. Levemir 9. Prednisone 40 mg twice daily 10. Albuterol inhaler ALLERGIES SHE IS ALLERGIC TO AMOXICILLIN, AUGMENTIN, HMG-CoA REDUCTASE INHIBITORS, HALDOL, LATEX, LOPID, LYRICA, MACRODANTIN, MIRAPEX, PHENERGAN, SOMA, TAPE AND TEMAZEPAM. REVIEW OF SYSTEMS Remarkable for her solid food dysphagia, history of heartburn, history hemorrhoids which have been bothering her, as well as some small ulcers on her presacral region. She has been having intermittent chest pain. She is making urine. She denies any nausea or vomiting. She is not currently short of breath. PHYSICAL EXAM Physical exam reveals a chronically ill appearing female in no acute distress. VITAL SIGNS: Blood pressure is 153/70, pulse 64 and irregular, respirations 18 nonlabored, temperature is 97.7 orally. HEAD, EYES, EARS, NOSE, AND THROAT: Sclerae anicteric. LUNGS: Revealed decreased breath sounds bilaterally without appreciable rales, rhonchi or wheezes. HEART: Heart sounds are irregular without murmur, gallop or rub. ABDOMEN: Rounded, obese, soft and nontender. No palpable masses. She has right upper quadrant cholecystectomy scar and a lower midline hysterectomy scar. RECTAL: Exam was done with her nurse Bobo assisting. She does have some small presacral ulcerations approximately 5-7 mm, but no sign of infection. She has some obvious junctional and external hemorrhoids without thrombosis or signs of acute bleeding. Digital exam did not reveal any palpable masses. There was a small amount of formed stool in the rectal vault. EXTREMITIES: She has multiple bruises over her upper extremities. No significant peripheral edema. NEUROLOGIC: She was alert and oriented. LABORATORY FINDINGS Her hemoglobin in the ED was 7.9 and has not yet been repeated. Her platelet count is 141,000. Her INR is 1.1. BUN 72, creatinine 3.27 which is relatively stable since she was here last week, total bilirubin 0.4, transaminases are normal, alk phos is normal in 74, albumin is low at 2.7. CT ABDOMEN AND PELVIS Shows a biliary stent in place with common hepatic duct and central intrahepatic ducts markedly dilated to 3.5 cm. She has a large right pleural effusion, mild ascites about the lateral margin of the liver with some tracking to the left paracolic gutter. There is also some induration of the central mesentery. This was a noncontrast study. There was also mention of possible perisplenic varices. Her chest x-ray showed no acute findings. No definite infiltrate. IMPRESSION Anemia MCV is 91.5. The patient had passage of blood clots about a week ago, but states she has not seen any blood since then. Unclear why she had the recent drop in hemoglobin. There are signs of possible chronic liver disease. I discussed EGD and colonoscopy, but the patient and her son adamantly refused any endoscopic procedures. They are concerned about the risks. I also discussed alternatives such as upper and lower GI series. CT colonography is also another option which does not require sedation. They prefer to take a conservative expectant approach and not do anything else at this time. I suggested she avoid NSAIDs and anticoagulants as possible and continue a low dose PPI. I discussed the case with Dr. Sandy Alejo's back office medical assistant and if the patient's hemoglobin remains stable, we will discharge her back to her living facility. Biliary dilation. This has been chronic since at least 2009. I discussed with the patient and her family that she has a biliary stent in place on a CT scan which I suspect is the original one placed in 2009. Usually we would not leave these in this long, but she appears to be tolerating it with no symptoms and with normal LFTs. Removing it would involve upper endoscopy which they declined. Since the patient refuses any endoscopic evaluation, we will not follow, but be available if needed. Thank you this consult. MD RAFAL Miller/JERONIMO /9:05 AM /9:20 AM SHERRY
--- NOTE | 2016-09-21 10:09 | HHI.HP ---
History of Present Illness Primary Care Physician Jose Eduardo Mcgee MD Admission Diagnosis GI Bleed, symptomatic anemia Diagnoses: (1) Anemia History of Present Illness The patient is a 75 year old female who presents to the [facility] emergency department from [facility] with a history of generalized weakness and GI bleeding that began recently after being admitted to the hospital for renal failure and atrial fibrillation for which she was briefly placed on heparin. She developed a GI bleed that she attributes to hemorrhoids. She reports that she was experiencing diarrhea, however she reports that this resolved 2 days ago. The patient reports having a history of COPD, stage IV ESRD, congestive heart failure, and coronary artery disease with four-vessel bypass done previously. She had blood work done today at her rehabilitation facility that revealed that she was anemic. The patient's hemoglobin at that time was noted to be 6.7. She was sent to the ER for evaluation and a transfusion. The patient reports having a generalized abdominal discomfort. She describes this as a cramping sensation that comes and goes. CT of abdomen and pelvis and chest XRay. GI consulted. Review of Systems Constitutional: COMPLAINS OF: Fatigue Respiratory: DENIES: Cough, Snoring, Wheezing, Sputum production Cardiovascular: COMPLAINS OF: Chest pain, DENIES: Palpitations Gastrointestinal: COMPLAINS OF: Abdominal pain, Bloody stools, Diarrhea, Difficulty Swallowing Neurologic: DENIES: Headache, Seizures Psychiatric: DENIES: Anxiety, Confusion Past Family Social History Allergies: Coded Allergies: Augmentin (Verified Allergy, Severe, Rash, 09/20/16) Haldol (Verified Allergy, Severe, Hallucinations, 09/20/16) Latex (Verified Allergy, Severe, HIVES, 09/20/16) Macrodantin (Verified Allergy, Severe, SHAKY , BLOOD SUGER PROBLEMS, ) Mirapex (Verified Allergy, Severe, LETHARGY,DIZZY,SHAKY, 09/20/16) Phenergan (Verified Allergy, Severe, Hallucinations, 09/20/16) Temazepam (Verified Allergy, Severe, Rash, 09/20/16) Lopid (Verified Allergy, Intermediate, 09/20/16) Lyrica (Verified Allergy, Unknown, 09/20/16) Soma (Verified Allergy, Unknown, 09/20/16) Amoxicillin (Verified Adverse Reaction, Severe, diarrhea, 09/20/16) HMG-CoA Reductase Inhibitors (Verified Adverse Reaction, Severe, LIVER DISEASE WITH SUBSEQUENT CHRONIC ITCHING UNTIL DC'D, 09/20/16) Trazodone (Verified Adverse Reaction, Intermediate, altered mental status , 09/20/16) *MDRO Multi-Drug Resistant Organism (Verified Adverse Reaction, Unknown, Cleared - 09/10/16, 09/20/16) MRSA Sputum 10/2008 *Cleared - MRSA PCR negative on 09/09/16 & 09/10/16* Uncoded Allergies: TAPE (Allergy, Mild, Rash, 11/06/09) USE PAPER TAPE ONLY ees (Allergy, Mild, itch, 11/06/09) advicor (Adverse Reaction, Intermediate, redness, itchin, 11/06/09) cipro,septra (Adverse Reaction, Intermediate, diarrhea,itching, 11/06/09) topramax (Adverse Reaction, Intermediate, 11/06/09) Past Medical History The patient's past medical history is significant for recent diagnosis of renal failure, however the patient was refusing dialysis, recent GI bleed, however according to the gastroenterology record the patient was refusing endoscopy and colonoscopy at that time, history of diabetes mellitus, COPD, coronary artery disease status post myocardial infarction, history of congestive heart failure, history of stroke in 1989, dyslipidemia, hypertension, gout, irritable bowel syndrome, spinal stenosis, chronic pain syndrome, diabetic neuropathy, history of a kidney tumor, depression, insomnia. Past Surgical History The patient's past surgical history is significant for coronary artery bypass grafting of 4 vessels in 1999, hysterectomy with bilateral salpingo- oophorectomy 1995, tonsillectomy, appendectomy, cholecystectomy, epigastric hernia repair, cataract surgery. Active Ordered Medications Current Medications Medications (Trade) Dose Ordered Sig/Saritha Route Start Time Stop Time Status Last Admin (NS 1000 ml Inj) 1,000 ml @ 84 mls/hr [id number] IV 09/20/16 19:15 09/20/16 19:39 (NS Flush) 2 ml UNSCH PRN IV FLUSH 09/20/16 21:15 (NS Flush) 2 ml BID IV FLUSH 09/21/16 09:00 (Narcan Inj) 0.4 mg UNSCH PRN IV 09/20/16 21:15 (Dulcolax Supp) 10 mg DAILY PRN RECTAL 09/20/16 21:15 (Tylenol) 650 mg Q4H PRN PO 09/20/16 21:15 (Norvasc) 10 mg DAILY PO 09/21/16 09:00 09/21/16 09:29 (Symbicort 160-4.5 Inh) 2 puff BID INH 09/21/16 09:00 09/21/16 09:27 (Bumetanide) 1 mg BID PO 09/21/16 09:00 09/21/16 09:27 (Heparin Inj) 5,000 units Q12HR SQ 09/21/16 09:00 Hold (Levaquin) 250 mg DAILY PO 09/21/16 09:00 09/21/16 09:28 (Ativan) 1 mg HS PO 09/20/16 21:32 09/20/16 22:17 (Zaroxolyn) 5 mg DAILY PO 09/21/16 09:00 09/21/16 09:30 (Lopressor) 50 mg BID PO 09/21/16 09:00 09/21/16 09:29 (Oramorph Sr) 30 mg Q8H PO 09/20/16 22:00 09/21/16 05:29 (KCl) 10 meq DAILY PO 09/21/16 09:00 09/21/16 09:28 (Deltasone) 40 mg BID PO 09/20/16 21:39 09/21/16 09:28 (Levemir Inj) 10 units BID SQ 09/20/16 21:45 09/20/16 22:18 (Protonix) 20 mg DAILY PO 09/22/16 09:00 Social History Quit smoking in 1999 Does not use ETOH Live with DTR however at [facility] rehab after last hospitalization Physical Exam Vital Signs Vital Signs Date Time Temp Pulse Resp B/P Pulse Ox O2 Delivery O2 Flow Rate FiO2 09/21/16 08:00 98.4 72 18 151/68 98 09/21/16 07:58 18 09/21/16 07:45 99 Nasal Cannula 2.00 09/21/16 04:00 97.7 64 18 153/70 96 09/21/16 01:15 97.8 64 20 125/58 99 09/21/16 01:00 97.9 69 20 111/56 99 09/21/16 00:00 97.9 69 20 111/56 99 09/20/16 23:00 Nasal Cannula 3.00 09/20/16 21:23 97.6 67 17 136/62 94 09/20/16 21:00 78 18 119/69 98 Nasal Cannula 3 09/20/16 19:39 16 96 Nasal Cannula 2 Physical Exam GENERAL: This is a alert and oriented well-developed patient, in no apparent distress. SKIN: Cool and dry. Stage 2 wound noted on coccyx and bruising on abdomen EYES: Pupils equal round and reactive. Extraocular motions intact. No scleral icterus. No injection or drainage. NECK: Trachea midline. No JVD or lymphadenopathy. Supple, nontender, no meningeal signs. CARDIOVASCULAR: Regular rate and rhythm without murmurs, gallops, or rubs. RESPIRATORY: Clear to auscultation. Breath sounds equal bilaterally. No wheezes , rales, or rhonchi. GASTROINTESTINAL: Abdomen obese, soft, non-tender, nondistended. No guarding. MUSCULOSKELETAL: Extremities without edena, Negative Homans sign bilaterally. NEUROLOGICAL: Awake and alert. Normal speech. Laboratory Laboratory Tests Test 09/20/16 09/20/16 19:35 21:43 White Blood Count 12.0 Red Blood Count 2.72 Hemoglobin 7.9 Hematocrit 24.9 Mean Corpuscular Volume 91.5 Mean Corpuscular Hemoglobin 29.2 Mean Corpuscular Hemoglobin 31.9 Concent Red Cell Distribution Width 14.6 Platelet Count 141 Mean Platelet Volume 8.9 Neutrophils (%) (Auto) 92.9 Lymphocytes (%) (Auto) 3.8 Monocytes (%) (Auto) 3.1 Eosinophils (%) (Auto) 0.0 Basophils (%) (Auto) 0.2 Neutrophils # (Auto) 11.1 Lymphocytes # (Auto) 0.5 Monocytes # (Auto) 0.4 Eosinophils # (Auto) 0.0 Basophils # (Auto) 0.0 CBC Comment AUTO DIFF Differential Total Cells 100 Counted Neutrophils % (Manual) 93 Band Neutrophils % 1 Lymphocytes % 4 Monocytes % 2 Neutrophils # (Manual) 11.3 Differential Comment FINAL DIFF MANUAL Platelet Estimate LOW Platelet Morphology Comment NORMAL Red Cell Morphology Comment NORMAL Prothrombin Time 11.9 Prothromb Time International 1.1 Ratio Activated Partial 19.3 Thromboplast Time Sodium Level 140 Potassium Level 3.9 Chloride Level 100 Carbon Dioxide Level 26.9 Anion Gap 13 Blood Urea Nitrogen 72 Creatinine 3.27 Estimat Glomerular Filtration 14 Rate Random Glucose 297 Calcium Level 8.0 Total Bilirubin 0.4 Aspartate Amino Transf 17 (AST/SGOT) Alanine Aminotransferase 27 (ALT/SGPT) Alkaline Phosphatase 74 Total Creatine Kinase 73 Troponin I 0.03 B-Type Natriuretic Peptide 403 Total Protein 5.7 Albumin 2.7 Lipase 287 Blood Type A NEGATIVE A NEGATIVE Antibody Screen NEGATIVE Crossmatch Leukocyte-Reduced Red Blood Cells Blood Bank Comment Result Diagram: 09/20/16193409/20/161934 Imaging Last 72 hours Impressions Abdomen/Pelvis CT 09/20/162001 Signed Impressions: Service Date/Time: Tuesday, September 20, 2016 21:21 - CONCLUSION: 1. Biliary stent in place, but the common hepatic duct and the central intrahepatic ducts are markedly dilated to 3.5 cm. 2. Large right pleural effusion, mild ascites about the lateral margin of the liver, free fluid tracking in the left paracolic gutter at the root of the mesentery. There is also induration of the central mesentery 3. Peripherally calcified lesion midpole left kidney measuring 2.1 cm. This cannot be further assessed on noncontrast study, but does correspond to location of a solid mass seen on prior CT scan in 2009 Horace Rubin MD Chest X-Ray 09/20/16 191 Signed Impressions: Service Date/Time: Tuesday, September 20, 2016 19:19 - CONCLUSION: No acute findings. No definite infiltrate seen. Horace Rubin MD Assessment and Plan Problem List: (1) Anemia Status: Acute Plan: HGB pending this AM. [facility] so patient was sent to ER. HGB at [place] was 7.9. She was transfused 1 unit of PRBC. No obvious signs of bleeding. GI consulted they are currently refusing any procedures. Discussed at length with patient and son Will recheck in AM (2) DM (diabetes mellitus) Status: Chronic Plan: BS AC and HS. BS in 200's will continue current insulin and monitor (3) CKD (chronic kidney disease) stage 4, GFR 15-29 ml/min Status: Acute Plan: Patient with stage IV kidney disease. Continues to make urine and is not uremic. She is not interested in dialysis so we will continue to monitor (4) Generalized weakness Status: Acute Plan: Will order PT (5) COPD (chronic obstructive pulmonary disease) Status: Chronic Plan: Continue breathing treatments. No SOB noted. (6) GERD (gastroesophageal reflux disease) Status: Acute Plan: Continue low dose PPI and monitor. Patient is asymptomatic (7) Chronic pain Status: Acute Plan: Continue current pain medication. Will be adjusted per Dr. Delgado (8) Musculoskeletal chest pain Status: Chronic Plan: Patient with intermittent chest discomfort. Reports that this is not new and has been going on for years. Trops negative Assessment and Plan Assessment and plan discussed with Dr. Sandy RED Discussed Condition With Nursing Discharge Planning SNF Physician Attestation I and the AUTOMATION LEAD have both examined this patient and reviewed this note and I agree with these findings and plan of care. Sapna Corona [facility] Sep 21, 2016 10:09
[2016-09-21 12:18] LABS: AUTOMATED NEUTROPHIL # 9.3 TH/MM3 (1.8-7.7); EOSINOPHIL % 0.1 % (0.0-4.0); HEMATOCRIT 25.9 % (35.0-46.0); HEMO FLAGS AUTO DIFF; LYMPH % 4.5 % (9.0-44.0); LYMPHOCYTE # 0.5 TH/MM3 (1.0-4.8); MEAN CELL VOLUME 88.9 FL (80.0-100.0); MEAN CORPUSCULAR HEMOGLOBIN 29.7 PG (27.0-34.0); MEAN CORPUSCULAR HGB CONC 33.4 % (32.0-36.0); MONO % 2.2 % (0.0-8.0); NEUT % 93.2 % (16.0-70.0); PLATELET COUNT 93 TH/MM3 (150-450); RED BLOOD COUNT 2.92 MIL/MM3 (4.00-5.30); RED CELL DISTRIBUTION WIDTH 14.4 % (11.6-17.2); WHITE BLOOD COUNT 9.9 TH/MM3 (4.0-11.0)
[2016-09-21 12:27] LABS: ALT (GPT) 23 U/L (10-53); ANION GAP 17 MEQ/L (5-15); AST (GOT) 21 U/L (15-37); CHLORIDE 102 MEQ/L (98-107); GLOMERULAR FILTRATION RATE 15 ML/MIN (>89); POTASSIUM 3.6 MEQ/L (3.5-5.1); SODIUM (NA) 143 MEQ/L (136-145)
[2016-09-21 12:28] LABS: BLOOD UREA NITROGEN 63 MG/DL (7-18)
[2016-09-21 12:29] LABS: ALKALINE PHOSPHATASE 62 U/L (45-117); TOTAL BILIRUBIN ADULT 0.9 MG/DL (0.2-1.0)
[2016-09-21 12:48] LABS: PLATELET ESTIMATE SMEAR LOW (NORMAL); PLATELET MORPHOLOGY NORMAL (NORMAL); SCAN/DIFF AUTO DIFF CONFIRMED
--- NOTE | 2016-09-21 17:51 | HHI.GIFU ---
GI Follow-up Note Consult Follow-up I reviewed her recent CT A&P with Dr Bustamante. The mesenteric induration was present on CT back in [address] Bustamante did not feel it was pathological and need further evaluation. She has no abd pain. I also discussed this with patient and her son and also discussed the biliary stent again. I explained that these are typically left in place a few months not years and leaving it in this long could lead to complications such as strictures, obstruction and infection but they still refuse to have it removed. Removal is usually done endoscopically. Will sign off. It was a pleasure seeing Jennifer Sinclair. Thank you for this consult. Entered by: Junior Medrano MD Sep 21, 2016 17:50
[2016-09-21] MEDS ORDERED: INSULIN ASPART 1,000 UNITS/10 ML VIAL SQ ONE (20:00)
[2016-09-21] MEDS ORDERED: DEXTROSE 50% IN WATER 50 ML VIAL(D50) IV PUSH PRN (20:30)
[2016-09-21] MEDS ORDERED: GLUCAGON 1 MG/ML VIAL OTHER PRN (20:30)
[2016-09-21] MEDS: INDIVIDUALIZED INSULIN NOVOLOG SUPPLEMENTAL SCALE SQ SCH ×2 (21:00→21:17)
[2016-09-21] MEDS ORDERED: PANTOPRAZOLE SODIUM 40 MG VIAL IV PUSH SCH (21:00)
[2016-09-21] MEDS: LORazepam 1 MG TAB PO SCH (21:09)
[2016-09-22] VITALS: BP 131/62; PULSE 79; RESP 18; TEMP 97.7; O2SAT 100
[2016-09-22 04:00] VITALS: BP 146/73; PULSE 73; RESP 18; TEMP 97.8; O2SAT 100
[2016-09-22] MEDS: SODIUM CHLOR 0.9% 1000 ML INJ 1,000 ML IV SCH (05:24)
[2016-09-22] MEDS: MORPHINE SULFATE 30 MG CONTROLLED RELEASE TAB PO SCH (05:24)
[2016-09-22] MEDS: INDIVIDUALIZED INSULIN NOVOLOG SUPPLEMENTAL SCALE SQ SCH (06:18)
[2016-09-22 07:29] LABS: AUTOMATED NEUTROPHIL # 6.3 TH/MM3 (1.8-7.7); BASOPHIL % 0.1 % (0.0-2.0); HEMATOCRIT 23.8 % (35.0-46.0); LYMPH % 3.6 % (9.0-44.0); LYMPHOCYTE # 0.2 TH/MM3 (1.0-4.8); MEAN CELL VOLUME 89.2 FL (80.0-100.0); MEAN CORPUSCULAR HEMOGLOBIN 30.2 PG (27.0-34.0); MEAN CORPUSCULAR HGB CONC 33.8 % (32.0-36.0); MONO % 2.5 % (0.0-8.0); NEUT % 93.8 % (16.0-70.0); PLATELET COUNT 73 TH/MM3 (150-450); RED BLOOD COUNT 2.67 MIL/MM3 (4.00-5.30); RED CELL DISTRIBUTION WIDTH 14.8 % (11.6-17.2); WHITE BLOOD COUNT 6.7 TH/MM3 (4.0-11.0)
[2016-09-22 07:35] LABS: HEMO FLAGS AUTO DIFF
[2016-09-22] MEDS: RESP: ALBUTEROL 2.5 MG/IPRATROPIUM 0.5 MG NEB (SCH) NEB ×2 (07:38→11:50)
[2016-09-22 07:40] VITALS: O2SAT 100
[2016-09-22 08:00] VITALS: BP 105/53; PULSE 70; RESP 20; TEMP 98; O2SAT 99
[2016-09-22 08:08] LABS: BICARBONATE 28.9 MEQ/L (21.0-32.0); POTASSIUM 3.3 MEQ/L (3.5-5.1)
[2016-09-22] MEDS ORDERED: PANTOPRAZOLE SOD 20 MG DELAYED RELEASE TAB PO SCH (09:00)
[2016-09-22] MEDS: BUDESONIDE-FORMOTEROL 160/4.5 MCG INHALER INH SCH (09:04)
[2016-09-22] MEDS: INSULIN DETEMIR 100 UNITS/ML VIAL SQ SCH (09:05)
[2016-09-22] MEDS: METOPROLOL TARTRATE 50 MG TAB PO SCH (09:05)
[2016-09-22] MEDS: predniSONE 20 MG TAB PO SCH (09:05)
[2016-09-22] MEDS: METOLAZONE 5 MG TAB PO SCH (09:05)
[2016-09-22] MEDS: BUMETANIDE 1 MG TAB PO SCH (09:05)
[2016-09-22] MEDS: POTASSIUM CHLORIDE 10 MEQ CAP PO SCH (09:05)
[2016-09-22] MEDS: SODIUM CHLORIDE 0.9% FLUSH 10 ML FLUSH IV FLUSH SCH (09:06)
[2016-09-22 09:39] LABS: BANDS 1 % (0-6); CORRECTED NUCLEATED RBC 1 /100 WBC (0-0); METAMYELOCYTES 1 % (0-1); NEUTROPHIL # MANUAL DIFF 6.4 TH/MM3 (1.8-7.7); POLYS (SEG NEUTROPHILS) 93 % (16-70); WBC DIFF SAMPLE 100
[2016-09-22 09:40] LABS: PLATELET ESTIMATE SMEAR LOW (NORMAL); PLATELET MORPHOLOGY NORMAL (NORMAL); SCAN/DIFF FINAL DIFF MANUAL
[2016-09-22] MEDS ORDERED: PRED20 PO (09:52)
[2016-09-22] MEDS ORDERED: PANT20 PO (09:52)
[2016-09-22] MEDS ORDERED: POTASSIUM CHLORIDE 20 MEQ CONTROLLED RELEASE TAB PO ONE (10:00)
--- NOTE | 2016-09-22 10:07 | HHI.DS ---
Discharge Summary Admission Date Sep 20, 2016 at 21:03 Discharge Date: Sep 22, 2016 Admitting Diagnosis GI Bleed, symptomatic anemia (1) Type 2 diabetes mellitus with diabetic neuropathy (2) Anemia (3) Atrial fibrillation (4) Acute on chronic renal insufficiency Brief History The patient is a 75 year old female who presents to the [facility] emergency department from [facility] with a history of generalized weakness and GI bleeding that began recently after being admitted to the hospital for renal failure and atrial fibrillation for which she was briefly placed on heparin. She developed a GI bleed that she attributes to hemorrhoids. She reports that she was experiencing diarrhea, however she reports that this resolved 2 days ago. The patient reports having a history of COPD, stage IV ESRD, congestive heart failure, and coronary artery disease with four-vessel bypass done previously. She had blood work done today at her rehabilitation facility that revealed that she was anemic. The patient's hemoglobin at that time was noted to be 6.7. She was sent to the ER for evaluation and a transfusion. The patient reports having a generalized abdominal discomfort. She describes this as a cramping sensation that comes and goes. CT of abdomen and pelvis and chest XRay. GI consulted. CBC/BMP: 09/22/16 0606 09/22/16 0606 Significant Findings Laboratory Tests Test 09/20/16 09/21/16 09/21/16 09/22/16 19:35 11:11 23:25 06:06 White Blood Count 12.0 TH/MM3 (4.0-11.0) Red Blood Count 2.72 MIL/MM3 2.92 MIL/MM3 2.67 MIL/MM3 (4.00-5.30) (4.00-5.30) (4.00-5.30) Hemoglobin 7.9 GM/DL 8.7 GM/DL 8.0 GM/DL (11.6-15.3) (11.6-15.3) (11.6-15.3) Hematocrit 24.9 % 25.9 % 23.8 % (35.0-46.0) (35.0-46.0) (35.0-46.0) Mean Corpuscular Hemoglobin 31.9 % Concent (32.0-36.0) Platelet Count 141 TH/MM3 93 TH/MM3 73 TH/MM3 (150-450) (150-450) (150-450) Neutrophils (%) (Auto) 92.9 % 93.2 % 93.8 % (16.0-70.0) (16.0-70.0) (16.0-70.0) Lymphocytes (%) (Auto) 3.8 % 4.5 % 3.6 % (9.0-44.0) (9.0-44.0) (9.0-44.0) Neutrophils # (Auto) 11.1 TH/MM3 9.3 TH/MM3 (1.8-7.7) (1.8-7.7) Lymphocytes # (Auto) 0.5 TH/MM3 0.5 TH/MM3 0.2 TH/MM3 (1.0-4.8) (1.0-4.8) (1.0-4.8) Neutrophils % (Manual) 93 % (16-70) 93 % (16-70) Lymphocytes % 4 % (9-44) 4 % (9-44) Neutrophils # (Manual) 11.3 TH/MM3 (1.8-7.7) Platelet Estimate LOW (NORMAL) LOW (NORMAL) LOW (NORMAL) Prothrombin Time 11.9 SEC (9.8-11.6) Activated Partial 19.3 SEC Thromboplast Time (24.3-30.1) Blood Urea Nitrogen 72 MG/DL (7-18) 63 MG/DL (7-18) 64 MG/DL (7-18) Creatinine 3.27 MG/DL 2.98 MG/DL 2.76 MG/DL (0.50-1.00) (0.50-1.00) (0.50-1.00) Estimat Glomerular Filtration 14 ML/MIN (>89) 15 ML/MIN (>89) 17 ML/MIN (>89) Rate Random Glucose 297 MG/DL 218 MG/DL 383 MG/DL 252 MG/DL (74-106) (74-106) (74-106) (74-106) Calcium Level 8.0 MG/DL 7.6 MG/DL 7.6 MG/DL (8.5-10.1) (8.5-10.1) (8.5-10.1) B-Type Natriuretic Peptide 403 PG/ML (0-100) Total Protein 5.7 GM/DL 5.0 GM/DL (6.4-8.2) (6.4-8.2) Albumin 2.7 GM/DL 2.5 GM/DL (3.4-5.0) (3.4-5.0) Anion Gap 17 MEQ/L (5-15) Nucleated Red Blood Cells 1 /100 WBC (0-0) Potassium Level 3.3 MEQ/L (3.5-5.1) Imaging Last 72 hours Impressions Abdomen/Pelvis CT 09/20/162001 Signed Impressions: Service Date/Time: Tuesday, September 20, 2016 21:21 - CONCLUSION: 1. Biliary stent in place, but the common hepatic duct and the central intrahepatic ducts are markedly dilated to 3.5 cm. 2. Large right pleural effusion, mild ascites about the lateral margin of the liver, free fluid tracking in the left paracolic gutter at the root of the mesentery. There is also induration of the central mesentery 3. Peripherally calcified lesion midpole left kidney measuring 2.1 cm. This cannot be further assessed on noncontrast study, but does correspond to location of a solid mass seen on prior CT scan in 2009 Horace Rubin MD Chest X-Ray 09/20/16 191 Signed Impressions: Service Date/Time: Tuesday, September 20, 2016 19:19 - CONCLUSION: No acute findings. No definite infiltrate seen. Horace Rubin MD PE at Discharge GENERAL: Alert and cooperative SKIN: Warm and dry. HEAD: Normocephalic. EYES: No scleral icterus. No injection or drainage. NECK: Supple, trachea midline. No JVD or lymphadenopathy. CARDIOVASCULAR: Regular rate and rhythm without murmurs, gallops, or rubs. RESPIRATORY: Breath sounds equal bilaterally. No accessory muscle use. GASTROINTESTINAL: Abdomen soft, non-tender, nondistended. MUSCULOSKELETAL: No cyanosis, or edema. BACK: Nontender without obvious deformity. No CVA tenderness. Hospital Course The patient is a 75 year old female who presents to the [facility] emergency department from [facility] with a history of generalized weakness and GI bleeding that began recently after being admitted to the hospital for renal failure and atrial fibrillation for which she was briefly placed on heparin. HGB at the [facility] was found to be 6.7. The patient reports having a history of COPD, stage IV ESRD, congestive heart failure, and coronary artery disease with four-vessel bypass done previously GI was consulted during her stay however patient and son who is POA does not want any procedures done. In depth conversation with patient and son about risks and benefits. She also has stage IV ESRD and is not wanting any dialysis even in the future. She is being discharged to [facility] rehab and will have blood work drawn regularly to monitor. She will be followed by Dr. Delgado DO Pt Condition on Discharge: Fair Discharge Disposition: Discharge to SNF Discharge Instructions DIET: Follow Instructions for: Renal Failure Diet Activities you can perform: Regular-No Restrictions Follow up Referrals: PCP Follow-up - 1 Month with shanti will be followed by Dr Delgado New Orders: BASIC METABOLIC PROF - 2 Days CBC NO DIFF - 2 Days @ [facility] New Medications: Prednisone (Prednisone) 20 Mg Tab 40 MG PO DAILY Take 40 mg (2 tablets) daily for 5 days Broncospasm #7 Ref 0 TAB Pantoprazole (Protonix) 20 Mg Tab 20 MG PO DAILY Heartburn Management #30 TAB Continued Medications: Acetaminophen (Tylenol) 325 Mg Tab 650 MG PO Q4H PRN PAIN 1-10 AND/OR FEVER >101F Ref 0 TAB Albuterol Neb (Albuterol Neb) 2.5 Mg/3 Ml Neb 2.5 MG NEB Q4HR NEB PRN SOB/WHEEZING #1 NEBULE Amlodipine (Amlodipine) 10 Mg Tab 10 MG PO DAILY Blood Pressure Management #90 Ref 3 TAB Bisacodyl Supp (Dulcolax Supp) 10 Mg Supp 10 MG RECTAL IN THE AM PRN IF NO RESULTS 1 DAY AFTER MOM #12 Ref 0 SUPP Budesonide-Formoterol Inh (Symbicort Inh) 160-4.5 Mcg/Act Aero 2 PUFF INH BID #1 Ref 0 INHALER Bumetanide (Bumetanide) 1 Mg Tab 1 MG PO BID #60 TAB Insulin Glargine (Basaglar Kwikpen) 100 Unit/Ml Pen 10 UNITS SQ Q12HR Blood Sugar Management #5 Ref 0 PEN Insulin Human Regular Inj (Humulin R Inj) 1,000 Unit/10 Ml Vial 2-10 UNITS SQ ACHS SLIDING SCALE: 0-200=0 UNITS,201-250=2 UNITS,251-300=4 UNITS, 301-350=6 UNITS,351-400=8 UNITS,401-450=10 UNITS, <60 OR >450=CALL Blood Sugar Management #10 Ref 0 ML Ipratropium-Albuterol Neb (Duoneb) 0.5-2.5 Mg/3 Ml Neb 1 AMPULE NEB QID NEB #30 ML Lorazepam (Lorazepam) 1 Mg Tab 1 MG PO HS Anxiety Ref 0 TAB Metolazone (Metolazone) 5 Mg Tab 5 MG PO DAILY #30 TAB Metoprolol Tartrate (Lopressor) 50 Mg Tab 50 MG PO BID #60 TAB Morphine ER (Morphine ER) 30 Mg Tab 30 MG PO Q8H Pain Management Ref 0 TAB Potassium Chloride ER (Potassium Chloride ER) 10 Meq Cap 10 MEQ PO DAILY Electrolyte Replacement #93 Ref 1 CAP Discontinued Medications: Heparin Sodium (Porcine) (Heparin Sodium) 10,000 Unit/Ml Inj 5000 UNITS SQ Q12HR #20 INJECTION Levofloxacin (Levaquin) 250 Mg Tablet 250 MG PO DAILY #4 TAB Pantoprazole (Pantoprazole) 40 Mg Tab 40 MG PO DAILY #30 TAB Prednisone (Prednisone) 20 Mg Tab 40 MG PO BID Take 40 mg by mouth twice daily for 3 days then Take 40 mg by mouth once daily for 3 days then Take 20 mg by mouth once daily for 3 days. #21 TAB Sapna Boyd Sep 22, 2016 10:07
[2016-09-23] MEDS ORDERED: LEVOFLOXACIN 250 MG TAB PO SCH (09:00)
== END 2016-09-22 11:51 | DRG 812 ==
LOC: NEPC 18:44 → NEDA 21:03 → N04A 22:21
PROVIDERS: ADMIT Family Medicine; ATTEND Family Medicine
PROC: 30233N1 Transfusion of Nonautologous Red Blood Cells into Peripheral Vein, Percutaneous Approach (ICD-10-PCS; principal; 2016-09-21)
DX: D64.9 Anemia, unspecified (principal); I12.9 Hypertensive chronic kidney disease with stage 1 through stage 4 chronic kidney disease, or unspecified chronic kidney disease; N18.4 Chronic kidney disease, stage 4 (severe); E11.22 Type 2 diabetes mellitus with diabetic chronic kidney disease; E11.40 Type 2 diabetes mellitus with diabetic neuropathy, unspecified; Z79.4 Long term (current) use of insulin; K92.2 Gastrointestinal hemorrhage, unspecified; K64.9 Unspecified hemorrhoids; E78.5 Hyperlipidemia, unspecified; I48.91 Unspecified atrial fibrillation; J44.9 Chronic obstructive pulmonary disease, unspecified; I50.9 Heart failure, unspecified; N28.9 Disorder of kidney and ureter, unspecified; I25.10 Atherosclerotic heart disease of native coronary artery without angina pectoris; Z95.1 Presence of aortocoronary bypass graft; I25.2 Old myocardial infarction; Z86.73 Personal history of transient ischemic attack (TIA), and cerebral infarction without residual deficits; Z87.891 Personal history of nicotine dependence; K21.9 Gastro-esophageal reflux disease without esophagitis; G89.29 Other chronic pain; R07.89 Other chest pain
CPT/HCPCS: 36430; 71010; 74176; 76937; 80048; 80053; 82550; 82947; 82948; 83690; 83880; 84484; 85007; 85025; 85027; 85610; 85730; 86850; 86900; 86901; 86920; 94640; 94664; 96361; 96374; 96375; C9113; J1815; J2405; J7030; J7512; P9016; Q9963

== ENCOUNTER 2016-10-02 18:36 | Inpatient (IN) | payer MEDICARE, MEDICAID ==
[~2016-10-02] VITALS: Ht 172.7 cm; Wt 91.1 kg
[~2016-10-02 18:36] MED LIST changes: +DULC10SU3 RECTAL; -HEPA10003 SQ; +INSU100V2 SQ; +INSU1INJ18 SQ; -LEVA250T14 PO; -LEVEMIR SQ; -LORA-475 PO; +LORA1TAB12 PO; +MORP1TAB25 PO; -MORP1TAB27 PO; -MS C15TA2 PO; +PANT20 PO; -PANT40TA3 PO; -SENN1TAB PO; +TYLE325T PO
[2016-10-02 18:40] VITALS: BP 143/80; PULSE 86; RESP 20; TEMP 97.6; O2SAT 99
[2016-10-02 18:42] VITALS: BP 139/63; PULSE 93; RESP 18; TEMP 100.1; O2SAT 98
[2016-10-02] MEDS ORDERED: CEFEPIME INJ 2,000 MG in SODIUM CHLORIDE 0.9% INJ 100 ML IV STA (18:57)
[2016-10-02] MEDS ORDERED: VANCOMYCIN INJ 1,000 MG in SODIUM CHLOR 0.9% 250 ML INJ 250 ML IV STA (18:57)
[2016-10-02] MEDS ORDERED: SODIUM CHLORID 0.9% 500 ML INJ 500 ML IV ONE (19:00)
--- NOTE | 2016-10-02 19:03 | PD ---
HPI Chief Complaint: General Weakness Time Seen by Provider: 19:03 Travel History International Travel<30 days: No Contact w/Intl Traveler<30days: No Traveled to known affect area: No History of Present Illness HPI 75-year-old female with history of CAD, COPD, hypertension, CABG 4, remote CVA , CKD, diabetes, presents to the emergency department from a rehabilitation facility for evaluation of altered mental status. Patient has had 3 falls, most recent 2 days ago. She is not evaluated following this most recent fall. Family was concerned because the patient has been running fevers for the last 2- 3 days and today she did not seem as alert. Patient states that she does not feel well. Her entire body aches. She reports shortness of breath with substernal chest pain that radiates to the left. Patient also reports mild nausea without vomiting. States she has been with normal bowel movements and voids. Denies any headache. Reports no acute focal deficits. Her primary care provider is Dr. Mcgee. She has no other symptoms to report at this time. PFSH Past Medical History Hx Anticoagulant Therapy: No Arthritis: Yes Asthma: Yes Autoimmune Disease: No Blood Disorders: No Anxiety: Yes Depression: Yes Heart Rhythm Problems: Yes (AFIB) Cancer: Yes (LEFT KIDNEY/ CAUDERIZATION) Cardiac Catheterization: Yes Cardiovascular Problems: Yes High Cholesterol: No Chemotherapy: No Chest Pain: Yes Congestive Heart Failure: Yes COPD: Yes Cerebrovascular Accident: Yes Diabetes: Yes Diminished Hearing: No Endocrine: Yes Gastrointestinal Disorders: Yes GERD: No Glaucoma: No Genitourinary: Yes (KIDNEY TUMOR CAUDERIZED) Headaches: Yes Hepatitis: No Hiatal Hernia: Yes (REPAIR) Hypertension: Yes Immune Disorder: No Kidney Stones: No 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) Neurologic: No Psychiatric: Yes Reproductive: No Respiratory: Yes Migraines: No Myocardial Infarction: Yes Radiation Therapy: No Renal Failure: Yes Seizures: No Sleep Apnea: No Thyroid Disease: No Ulcer: No Past Surgical History Abdominal Surgery: Yes AICD: No Appendectomy: Yes Arteriovenous Shunt: No Cardiac Surgery: Yes (CABG X4 VESSEL IN 1999) Cholecystectomy: Yes Coronary Artery Bypass Graft: Yes Ear Surgery: No Endocrine Surgery: No Eye Surgery: No Genitourinary Surgery: No Gynecologic Surgery: Yes Hysterectomy: Yes Insulin Pump: No Joint Replacement: No Neurologic Surgery: No Oral Surgery: Yes (teeth) Pacemaker: No Thoracic Surgery: No Tonsillectomy: Yes Other Surgery: Yes Social History Alcohol Use: No Tobacco Use: No Substance Use: No Allergies-Medications (Allergen,Severity, Reaction): Coded Allergies: Augmentin (Verified Allergy, Severe, Rash, 09/20/16) Haldol (Verified Allergy, Severe, Hallucinations, 09/20/16) Latex (Verified Allergy, Severe, HIVES, 09/20/16) Macrodantin (Verified Allergy, Severe, SHAKY , BLOOD SUGER PROBLEMS, ) Mirapex (Verified Allergy, Severe, LETHARGY,DIZZY,SHAKY, 09/20/16) Phenergan (Verified Allergy, Severe, Hallucinations, 09/20/16) Temazepam (Verified Allergy, Severe, Rash, 09/20/16) Lopid (Verified Allergy, Intermediate, 09/20/16) Lyrica (Verified Allergy, Unknown, 09/20/16) Soma (Verified Allergy, Unknown, 09/20/16) Amoxicillin (Verified Adverse Reaction, Severe, diarrhea, 09/20/16) HMG-CoA Reductase Inhibitors (Verified Adverse Reaction, Severe, LIVER DISEASE WITH SUBSEQUENT CHRONIC ITCHING UNTIL DC'D, 09/20/16) Trazodone (Verified Adverse Reaction, Intermediate, altered mental status , 09/20/16) *MDRO Multi-Drug Resistant Organism (Verified Adverse Reaction, Unknown, Cleared - 09/10/16, 09/20/16) MRSA Sputum 10/2008 *Cleared - MRSA PCR negative on 09/09/16 & 09/10/16* Uncoded Allergies: TAPE (Allergy, Mild, Rash, 11/06/09) USE PAPER TAPE ONLY ees (Allergy, Mild, itch, 11/06/09) advicor (Adverse Reaction, Intermediate, redness, itchin, 11/06/09) cipro,septra (Adverse Reaction, Intermediate, diarrhea,itching, 11/06/09) topramax (Adverse Reaction, Intermediate, 11/06/09) Reported Meds & Prescriptions Reported Meds & Active Scripts Active Prednisone 20 Mg Tab 40 Mg PO DAILY Take 40 mg (2 tablets) daily for 5 days Protonix (Pantoprazole Sodium) 20 Mg Tab 20 Mg PO DAILY Lopressor (Metoprolol Tartrate) 50 Mg Tab 50 Mg PO BID Metolazone 5 Mg Tab 5 Mg PO DAILY Duoneb (Ipratropium-Albuterol Neb) 0.5-2.5 Mg/3 Ml Neb 1 Ampule NEB QID NEB Bumetanide 1 Mg Tab 1 Mg PO BID Albuterol Neb (Albuterol Sulfate) 2.5 Mg/3 Ml Neb 2.5 Mg NEB Q4HR NEB PRN Potassium Chloride ER (Potassium Chloride) 10 Meq Cap 10 Meq PO DAILY Amlodipine (Amlodipine Besylate) 10 Mg Tab 10 Mg PO DAILY Reported Oxycodone (Oxycodone HCl) 10 Mg Tab 10 Mg PO Q4H PRN Glipizide 10 Mg Tab 10 Mg PO DAILY Take 30 minutes before a meal Morphine ER (Morphine Sulfate) 30 Mg Tab 30 Mg PO Q8H Humulin R Inj (Insulin Human Regular) 1,000 Unit/10 Ml Vial 2-10 Units SQ ACHS SLIDING SCALE: 0-200=0 UNITS,201-250=2 UNITS,251-300=4 UNITS,301-350=6 UNITS,351-400=8 UNITS,401-450=10 UNITS, <60 OR >450=CALL Dulcolax Supp (Bisacodyl) 10 Mg Supp 10 Mg RECTAL IN THE AM PRN Basaglar Kwikpen (Insulin Glargine) 100 Unit/Ml Pen 10 Units SQ Q12HR Tylenol (Acetaminophen) 325 Mg Tab 650 Mg PO Q4H PRN Lorazepam 1 Mg Tab 1 Mg PO HS Symbicort Inh (Budesonide/Formoterol Fumarate) 160-4.5 Mcg/Act Aero 2 Puff INH BID Review of Systems Except as stated in HPI: all other systems reviewed are Neg Physical Exam Narrative GENERAL: Well-nourished female patient, lying in bed, in no acute distress. Patient does appear tired however she is arousable and oriented 3. SKIN: Focused skin assessment warm/dry. Patient does have a decubiti on her coccyx. Large area of dark purple ecchymosis on the right upper extremity. Small ecchymosis on the right anterior chest. Patient does have other scattered areas of ecchymosis of various healing stages. HEAD: Atraumatic. Normocephalic. EYES: Pupils round. Left pupil is 3 mm while the right is 2 mm. EOMI. no scleral icterus. No injection or drainage. ENT: No nasal bleeding or discharge. Mucous membranes pink and dry. NECK: Trachea midline. No JVD. CARDIOVASCULAR: Elevated rate. RESPIRATORY: No accessory muscle use. Diminished. Breath sounds equal bilaterally. GASTROINTESTINAL: Abdomen soft, non-tender, nondistended. Hepatic and splenic margins not palpable. MUSCULOSKELETAL: No obvious deformities. No clubbing. No cyanosis. No edema. NEUROLOGICAL: Awake and alert. No obvious cranial nerve deficits. Patient does move all extremities. Normal speech. PSYCHIATRIC: Appropriate mood and affect; insight and judgment normal. Data Data Last Documented VS Vital Signs Date Time Temp Pulse Resp B/P Pulse Ox O2 Delivery O2 Flow Rate FiO2 10/02/16 19:00 97 Nasal Cannula 2 10/02/16 18:46 91 16 10/02/16 18:42 100.1 139/63 Orders Electrocardiogram (10/02/16 ) Electrocardiogram (10/02/16 18:57) Complete Blood Count With Diff (10/02/16 18:57) Comprehensive Metabolic Panel (10/02/16 18:57) Prothrombin Time / Inr (Pt) (10/02/16 18:57) Act Partial Throm Time (Ptt) (10/02/16 18:57) Lactic Acid Sepsis Protocol (10/02/16 18:57) Magnesium (Mg) (10/02/16 18:57) Ckmb (Isoenzyme) Profile (10/02/16 18:57) Troponin I (10/02/16 18:57) Urinalysis - C+S If Indicated (10/02/16 18:57) Blood Culture (10/02/16 18:57) Chest, Single Ap (10/02/16 18:57) Blood Glucose (10/02/16 18:57) Ecg Monitoring (10/02/16 18:57) Iv Access Insert/Monitor (10/02/16 18:57) Oximetry (10/02/16 18:57) Oxygen Administration (10/02/16 18:57) Ct Brain W/O Iv Contrast(Rout) (10/02/16 18:57) Humerus (Min 2vws) (10/02/16 ) Sodium Chlorid 0.9% 500 Ml Inj (Ns 500 M (10/02/16 19:00) Vancomycin Inj (Vancomycin Inj) (10/02/16 18:57) Cefepime Inj (Maxipime Inj) (10/02/16 18:57) Pelvis, Ap Only (Routine) (10/02/16 ) Vascular Access Team Consult/P PRN (10/02/16 19:03) Vascular Poc Ultrasound (10/02/16 ) Azithromycin Inj (Zithromax Inj) (10/02/16 20:00) Ceftriaxone Inj (Rocephin Inj) (10/02/16 20:00) Morphine Inj (Morphine Inj) (10/02/16 20:45) Ondansetron Inj (Zofran Inj) (10/02/16 20:45) Labs Laboratory Tests Test 10/02/16 19:55 White Blood Count 1.9 TH/MM3 Red Blood Count 2.87 MIL/MM3 Hemoglobin 8.4 GM/DL Hematocrit 25.7 % Mean Corpuscular Volume 89.8 FL Mean Corpuscular Hemoglobin 29.4 PG Mean Corpuscular Hemoglobin 32.8 % Concent Red Cell Distribution Width 14.8 % Platelet Count 69 TH/MM3 Mean Platelet Volume 8.5 FL Neutrophils (%) (Auto) 64.3 % Lymphocytes (%) (Auto) 15.9 % Monocytes (%) (Auto) 13.1 % Eosinophils (%) (Auto) 5.7 % Basophils (%) (Auto) 1.0 % Neutrophils # (Auto) 1.2 TH/MM3 Lymphocytes # (Auto) 0.3 TH/MM3 Monocytes # (Auto) 0.3 TH/MM3 Eosinophils # (Auto) 0.1 TH/MM3 Basophils # (Auto) 0.0 TH/MM3 CBC Comment AUTO DIFF Differential Total Cells 50 Counted Neutrophils % (Manual) 64 % Band Neutrophils % 4 % Lymphocytes % 22 % Monocytes % 6 % Eosinophils % 4 % Neutrophils # (Manual) 1.3 TH/MM3 Differential Comment FINAL DIFF MANUAL Platelet Estimate LOW Platelet Morphology Comment ENLARGED Prothrombin Time 12.0 SEC Prothromb Time International 1.1 RATIO Ratio Activated Partial 28.7 SEC Thromboplast Time Sodium Level 137 MEQ/L Potassium Level 3.7 MEQ/L Chloride Level 93 MEQ/L Carbon Dioxide Level 35.3 MEQ/L Anion Gap 9 MEQ/L Blood Urea Nitrogen 77 MG/DL Creatinine 3.65 MG/DL Estimat Glomerular Filtration 12 ML/MIN Rate Random Glucose 154 MG/DL Lactic Acid Level 2.6 mmol/L Calcium Level 7.8 MG/DL Magnesium Level 1.9 MG/DL Total Bilirubin 0.9 MG/DL Aspartate Amino Transf 16 U/L (AST/SGOT) Alanine Aminotransferase 25 U/L (ALT/SGPT) Alkaline Phosphatase 113 U/L Total Creatine Kinase 21 U/L Troponin I 0.02 NG/ML Total Protein 5.4 GM/DL Albumin 2.0 GM/DL MDM Medical Decision Making Medical Screen Exam Complete: Yes Emergency Medical Condition: Yes Medical Record Reviewed: Yes Differential Diagnosis Pneumonia versus sepsis versus UTI versus intracranial hemorrhage versus minor head injury versus electrolyte abnormality versus dehydration Narrative Course 75-year-old female presents to the emergency department for evaluation. Patient appears without distress. She does have diminished breath sounds. She has a low-grade temperature and her heart rate is elevated. Imaging studies of the brain, chest, pelvis, and right humerus are complete. Results are as follow. Last Impressions Head CT 10/02/161856 Signed Impressions: Service Date/Time: Sunday, October 02, 2016 19:30 - CONCLUSION: Age-related findings unchanged. No acute intracranial findings. Jamison Vergara MD Chest X-Ray 10/02/161856 Signed Impressions: Service Date/Time: Sunday, October 02, 2016 19:23 - CONCLUSION: Mild right upper lung zone pulmonary parenchymal opacity. Jamison Vergara MD Pelvis X-Ray 10/02/16 0000 Signed Impressions: Service Date/Time: Sunday, October 02, 2016 19:16 - CONCLUSION: No evidence of fracture. Jamison Vergara MD Humerus X-Ray 10/02/16 0000 Signed Impressions: Service Date/Time: Sunday, October 02, 2016 19:18 - CONCLUSION: No evidence of fracture. Jamison Veragra MD Patient's white count has decreased to 1.9. Her platelet count is also significantly reduced to 65 when compared to lab work completed earlier this month. Patient has 4 bands. Laboratory Tests Test 10/02/16 19:55 White Blood Count 1.9 TH/MM3 Red Blood Count 2.87 MIL/MM3 Hemoglobin 8.4 GM/DL Hematocrit 25.7 % Mean Corpuscular Volume 89.8 FL Mean Corpuscular Hemoglobin 29.4 PG Mean Corpuscular Hemoglobin 32.8 % Concent Red Cell Distribution Width 14.8 % Platelet Count 69 TH/MM3 Mean Platelet Volume 8.5 FL Neutrophils (%) (Auto) 64.3 % Lymphocytes (%) (Auto) 15.9 % Monocytes (%) (Auto) 13.1 % Eosinophils (%) (Auto) 5.7 % Basophils (%) (Auto) 1.0 % Neutrophils # (Auto) 1.2 TH/MM3 Lymphocytes # (Auto) 0.3 TH/MM3 Monocytes # (Auto) 0.3 TH/MM3 Eosinophils # (Auto) 0.1 TH/MM3 Basophils # (Auto) 0.0 TH/MM3 CBC Comment AUTO DIFF Differential Total Cells 50 Counted Neutrophils % (Manual) 64 % Band Neutrophils % 4 % Lymphocytes % 22 % Monocytes % 6 % Eosinophils % 4 % Neutrophils # (Manual) 1.3 TH/MM3 Differential Comment FINAL DIFF MANUAL Platelet Estimate LOW Platelet Morphology Comment ENLARGED Prothrombin Time 12.0 SEC Prothromb Time International 1.1 RATIO Ratio Activated Partial 28.7 SEC Thromboplast Time Sodium Level 137 MEQ/L Potassium Level 3.7 MEQ/L Chloride Level 93 MEQ/L Carbon Dioxide Level 35.3 MEQ/L Anion Gap 9 MEQ/L Blood Urea Nitrogen 77 MG/DL Creatinine 3.65 MG/DL Estimat Glomerular Filtration 12 ML/MIN Rate Random Glucose 154 MG/DL Lactic Acid Level 2.6 mmol/L Calcium Level 7.8 MG/DL Magnesium Level 1.9 MG/DL Total Bilirubin 0.9 MG/DL Aspartate Amino Transf 16 U/L (AST/SGOT) Alanine Aminotransferase 25 U/L (ALT/SGPT) Alkaline Phosphatase 113 U/L Total Creatine Kinase 21 U/L Troponin I 0.02 NG/ML Total Protein 5.4 GM/DL Albumin 2.0 GM/DL Patient's creatinine is 2.65. BUN is 77. This is fairly consistent with previous lab work. Lactic acid is 2.6. Troponin 0.02. I discussed the patient Pain physician. Patient does meet sepsis criteria. She'll be treated for pneumonia here in emergency department. Urinalysis is not yet collected are resulted. I discussed with the family the results. Patient will be admitted for further evaluation, IV antibiotics, and close observation. Sepsis Criteria SIRS Criteria (2 or more): Heart rate over 90, WBC > 70628, < 4000 or > 10% bands Sepsis Criteria (SIRS+source): Infect source susp/known Severe Sepsis (+one): Lactate >2 Diagnosis Primary Impression: Sepsis Qualified Code: A41.9 - Sepsis, due to unspecified organism Additional Impressions: Pneumonia Qualified Code: J18.1 - Pneumonia of right upper lobe due to infectious organism Contusion, multiple sites Pancytopenia Admitting Information Admitting Physician Requests: Admit Condition: Stable Erika Almeida Oct 02, 2016 19:03
[2016-10-02] MEDS ORDERED: OXYC-395 PO (19:30)
[2016-10-02] MEDS ORDERED: GLIP10TA6 PO (19:30)
--- NOTE | 2016-10-02 19:47 | RADRPT ---
EXAM DATE/TIME: 10/02/2016 19:18 [facility] COMPARISON: No previous studies available for comparison. INDICATIONS : Fell 2 days ago right arm pain. MEDICAL HISTORY : None. SURGICAL HISTORY : None. ENCOUNTER: Initial ACUITY: 2 days PAIN SCORE: 2/10 LOCATION: Right humerus FINDINGS: 2 views of the right humerus. Bone alignment within normal limits. No evidence of fracture. CONCLUSION: No evidence of fracture. Jamison Vergara MD on October 02, 2016 at 19:45 Board Certified Radiologist. This report was verified electronically.
--- NOTE | 2016-10-02 19:47 | RADRPT ---
EXAM DATE/TIME: 10/02/2016 19:16 [facility] COMPARISON: No previous studies available for comparison. INDICATIONS : Fell 2 days ago. MEDICAL HISTORY : None. SURGICAL HISTORY : None. ENCOUNTER: Initial ACUITY: 2 days PAIN SCORE: 0/10 LOCATION: pelvis FINDINGS: Single AP view of the pelvis. Bone alignment within normal limits. No evidence of fracture. Small os teophytes of the hips. CONCLUSION: No evidence of fracture. Jamison Vergara MD on October 02, 2016 at 19:44 Board Certified Radiologist. This report was verified electronically.
--- NOTE | 2016-10-02 19:49 | RADRPT ---
EXAM DATE/TIME: 10/02/2016 19:23 [facility] COMPARISON: CHEST SINGLE AP, September 20, 2016, 19:19. INDICATIONS : Shortness of breath. MEDICAL HISTORY : None. SURGICAL HISTORY : quadruple bypass ENCOUNTER: Initial ACUITY: 2 days PAIN SCORE: 0/10 LOCATION: Bilateral chest FINDINGS: Single AP view of the chest. Mild hazy opacity in the right upper lung zone indicating mild asymmetri c pulmonary edema or early consolidation. Cardiomediastinal silhouette within normal limits. No evide nce of pleural effusion or pneumothorax. CONCLUSION: Mild right upper lung zone pulmonary parenchymal opacity. Jamison Vergara MD on October 02, 2016 at 19:46 Board Certified Radiologist. This report was verified electronically.
--- NOTE | 2016-10-02 19:53 | RADRPT ---
EXAM DATE/TIME: 10/02/2016 19:30 [facility] COMPARISON: CT BRAIN W/O CONTRAST, July 12, 2015, 8:34. INDICATIONS : Altered mental status. RADIATION DOSE: 62.37 CTDIvol (mGy) ; Tabletop CT Head MEDICAL HISTORY : Stroke. Myocardial infarction. Chronic obstructive pulmonary disease.Hypertension. Hiatal hernia. Con gestive heart failure. Left kidney cancer. SURGICAL HISTORY : CABG Cholecystectomy.Hysterectomy.Hernia repair. ENCOUNTER: Initial ACUITY: 1 day PAIN SCALE: 0/10 LOCATION: cranial TECHNIQUE: Multiple contiguous axial images were obtained of the head. Using automated exposure control and adj ustment of the mA and/or kV according to patient size, radiation dose was kept as low as reasonably a chievable to obtain optimal diagnostic quality images. DICOM format image data is available electro nically for review and comparison. FINDINGS: CEREBRUM: Diffusely prominent ventricles, sulci, and cisterns indicating diffuse atrophy. Periventricular white matter hypodensity indicating chronic small vessel ischemic change. No evidence of midline shift, ma ss lesion, hemorrhage or acute infarction. No extra-axial fluid collections are seen. POSTERIOR FOSSA: The cerebellum and brainstem are intact. The 4th ventricle is midline. The cerebellopontine angle i s unremarkable. EXTRACRANIAL: The visualized portion of the orbits is intact. SKULL: The calvaria is intact. No evidence of skull fracture. CONCLUSION: Age-related findings unchanged. No acute intracranial findings. Jamison Vergara MD on October 02, 2016 at 19:49 Board Certified Radiologist. This report was verified electronically.
[2016-10-02] MEDS ORDERED: cefTRIAXone INJ 1,000 MG in SODIUM CHLORIDE 0.9% INJ 100 ML IV ONE (20:00)
[2016-10-02] MEDS ORDERED: AZITHROMYCIN INJ 500 MG in SODIUM CHLOR 0.9% 250 ML INJ 250 ML IV ONE (20:00)
[2016-10-02 20:10] LABS: AUTOMATED NEUTROPHIL # 1.2 TH/MM3 (1.8-7.7); EOSINOPHIL # 0.1 TH/MM3 (0-0.4); EOSINOPHIL % 5.7 % (0.0-4.0); HEMATOCRIT 25.7 % (35.0-46.0); LYMPH % 15.9 % (9.0-44.0); LYMPHOCYTE # 0.3 TH/MM3 (1.0-4.8); MEAN CELL VOLUME 89.8 FL (80.0-100.0); MEAN CORPUSCULAR HEMOGLOBIN 29.4 PG (27.0-34.0); MEAN CORPUSCULAR HGB CONC 32.8 % (32.0-36.0); MONO % 13.1 % (0.0-8.0); NEUT % 64.3 % (16.0-70.0); PLATELET COUNT 69 TH/MM3 (150-450); RED BLOOD COUNT 2.87 MIL/MM3 (4.00-5.30); RED CELL DISTRIBUTION WIDTH 14.8 % (11.6-17.2); WHITE BLOOD COUNT 1.9 TH/MM3 (4.0-11.0)
[2016-10-02 20:14] LABS: HEMO FLAGS AUTO DIFF
[2016-10-02 20:20] LABS: APTT (PATIENT) 28.7 SEC (24.3-30.1); INTERNATIONAL NORMALIZED RATIO 1.1 RATIO
[2016-10-02 20:27] LABS: ALT (GPT) 25 U/L (10-53); ANION GAP 9 MEQ/L (5-15); AST (GOT) 16 U/L (15-37); BICARBONATE 35.3 MEQ/L (21.0-32.0); BLOOD UREA NITROGEN 77 MG/DL (7-18); CHLORIDE 93 MEQ/L (98-107); GLOMERULAR FILTRATION RATE 12 ML/MIN (>89); MAGNESIUM 1.9 MG/DL (1.5-2.5); POTASSIUM 3.7 MEQ/L (3.5-5.1); SODIUM (NA) 137 MEQ/L (136-145)
[2016-10-02 20:32] LABS: ALKALINE PHOSPHATASE 113 U/L (45-117); TOTAL BILIRUBIN ADULT 0.9 MG/DL (0.2-1.0)
[2016-10-02 20:40] LABS: CREATINE KINASE 21 U/L (26-192)
[2016-10-02] MEDS ORDERED: MORPHINE SULFATE 4 MG/ML INJ IV PUSH ONE (20:45)
[2016-10-02] MEDS ORDERED: ONDANSETRON HCL 4 MG/2 ML VIAL IV PUSH ONE (20:45)
[2016-10-02 20:56] LABS: BANDS 4 % (0-6); EOSINOPHILS 4 % (0-4); NEUTROPHIL # MANUAL DIFF 1.3 TH/MM3 (1.8-7.7); POLYS (SEG NEUTROPHILS) 64 % (16-70); WBC DIFF SAMPLE 50
[2016-10-02 20:57] LABS: PLATELET ESTIMATE SMEAR LOW (NORMAL); PLATELET MORPHOLOGY ENLARGED (NORMAL); SCAN/DIFF FINAL DIFF MANUAL
[2016-10-02 22:04] LABS: BACTERIA, URINE OCC /hpf; BLOOD, URINE NEG (NEG); COMMENT (UR) CATH-CULTURE IND; CULTURE IF INDICATED CATH CULTURE IND; GLUCOSE,URINE NEG (NEG); KETONE, URINE NEG (NEG); NITRITE,URINE NEG (NEG); PH, URINE 6.5 (5.0-8.5); SQUAMOUS EPITHELIAL CELL URINE 12 /hpf (0-5); URINE COLOR YELLOW (YELLW/STRAW)
[2016-10-02 22:04] LABS: LACTIC ACID GHOST NOT REPORTABLE
[2016-10-02] MEDS ORDERED: ACETAMINOPHEN 325 MG TAB PO PRN (22:30)
[2016-10-02] MEDS ORDERED: BISACODYL 10 MG SUPP RECTAL PRN (22:30)
[2016-10-02] MEDS ORDERED: MAGNESIUM HYDROXIDE SUSP 30 ML CUP PO PRN (22:30)
[2016-10-02] MEDS ORDERED: NALOXONE HCL 0.4 MG/ML AMP IV PRN (22:30)
[2016-10-02] MEDS ORDERED: LACTULOSE SYRUP 20 GM/30 ML CUP PO PRN (22:30)
[2016-10-02] MEDS ORDERED: SENNOSIDES 8.6 MG TAB PO PRN (22:30)
[2016-10-02 22:44] VITALS: O2SAT 97
[2016-10-02] MEDS ORDERED: RESP: ALBUTEROL 2.5 MG/3 ML NEB (PRN) NEB (23:30)
[2016-10-03] VITALS (12 sets, daily range): BP systolic 102–135; BP diastolic 49–64; PULSE 60–100; RESP 16–18; TEMP 97.8–99.3; O2SAT 94–99
--- NOTE | 2016-10-03 00:08 | HHI.HP ---
HPI Service Family Medicine Primary Care Physician Jose Eduardo Mcgee MD Admission Diagnosis SEPSIS; PNA; AMS Diagnoses: International Travel<30 Days: No Contact w/Intl Traveler<30days: No Known Affected Area: No History of Present Illness 75 yo F with extensive pmhx brought in by [facility] from [facility] due to AMS accompanied by 2 day hx of fever (102F). Pt's Daughter at bedside contributed to HPI, stated mother appeared more altered today and decided to have her come to the ED. Pt had recent fall from bed at rehab 2 nights ago and since then could not move legs. Pt denies hitting her head. Pt also complains of generalized pain all over her body and nausea. Pt has been given morphine 50mg TID for chronic pain. Pt AAOx2, not oriented to place. Poor historian. Pt denies difficulty breathing, CP, vomiting, diarrhea. Last BM today non-bloody. Daughter stated pt has adverse effect to oxycodone--makes pt more altered, would like to avoid administration of oxycodone. of note: pt was recently hospitalized for a GI bleed. Review of Systems ROS Limitations: Altered Mental Status Constitutional: COMPLAINS OF: Fever Integumentary: COMPLAINS OF: Abnormal pigmentation (dark bruising on arms, chest, legs and lower abd) Past Family Social History Past Medical History COPD, DM, CHF, HTN, A. fib, CKD, insomnia Allergies: Coded Allergies: Augmentin (Verified Allergy, Severe, Rash, 09/20/16) Haldol (Verified Allergy, Severe, Hallucinations, 09/20/16) Latex (Verified Allergy, Severe, HIVES, 09/20/16) Macrodantin (Verified Allergy, Severe, SHAKY , BLOOD SUGER PROBLEMS, ) Mirapex (Verified Allergy, Severe, LETHARGY,DIZZY,SHAKY, 09/20/16) Phenergan (Verified Allergy, Severe, Hallucinations, 09/20/16) Temazepam (Verified Allergy, Severe, Rash, 09/20/16) Lopid (Verified Allergy, Intermediate, 09/20/16) Lyrica (Verified Allergy, Unknown, 09/20/16) Soma (Verified Allergy, Unknown, 09/20/16) Amoxicillin (Verified Adverse Reaction, Severe, diarrhea, 09/20/16) HMG-CoA Reductase Inhibitors (Verified Adverse Reaction, Severe, LIVER DISEASE WITH SUBSEQUENT CHRONIC ITCHING UNTIL DC'D, 09/20/16) Trazodone (Verified Adverse Reaction, Intermediate, altered mental status , 09/20/16) *MDRO Multi-Drug Resistant Organism (Verified Adverse Reaction, Unknown, Cleared - 09/10/16, 09/20/16) MRSA Sputum 10/2008 *Cleared - MRSA PCR negative on 09/09/16 & 09/10/16* Uncoded Allergies: TAPE (Allergy, Mild, Rash, 11/06/09) USE PAPER TAPE ONLY ees (Allergy, Mild, itch, 11/06/09) advicor (Adverse Reaction, Intermediate, redness, itchin, 11/06/09) cipro,septra (Adverse Reaction, Intermediate, diarrhea,itching, 11/06/09) topramax (Adverse Reaction, Intermediate, 11/06/09) Social History Pt has been living at [facility] for the past 2 weeks. Physical Exam Vital Signs Vital Signs Date Time Temp Pulse Resp B/P Pulse Ox O2 Delivery O2 Flow Rate FiO2 10/03/16 00:00 90 16 102/49 99 Nasal Cannula 2 10/02/16 22:44 97 Nasal Cannula 2.00 10/02/16 19:00 97 Nasal Cannula 2 10/02/16 18:46 91 16 100 Nasal Cannula 3 10/02/16 18:42 100.1 93 18 139/63 98 10/02/16 18:40 97.6 86 20 143/80 99 Room Air Physical Exam GENERAL: This is a well-nourished, well-developed patient, AAOx2, mildly altered during exam SKIN: ecchymoses on extremities BL, lower abd, bruising on legs and right chest. Cool and dry. EYES: Left pupil larger and mildly reactive compared to Right pupil, possible attributed to cataract surgery. Extraocular motions intact, however pt unable to continuously follow No scleral icterus. No injection or drainage. ENT: Throat without erythema, tonsillar hypertrophy or exudate. Uvula midline. Airway patent. dried bloody blister noted on Right upper lip. two small ulceration noted on tongue. NECK: Trachea midline. No JVD or lymphadenopathy. Supple, nontender, no meningeal signs. CARDIOVASCULAR:Normal s1 and s2. No murmurs, gallops, or rubs. RESPIRATORY: Clear to auscultation. limited due to positioning and pain. GASTROINTESTINAL: obese abd, mildly distended, soft, slight tenderness on palpation of lower abd. No masses. No guarding. MUSCULOSKELETAL: Extremities without clubbing, cyanosis, or edema. No joint tenderness, effusion, or edema noted. No calf tenderness. Negative Homans sign bilaterally. pt refused to let us exam her feet or sores on buttocks area. NEUROLOGICAL: Awake and alert. Cranial nerves II through XII intact. limited mobility and range of motion. 3/5 muscle strength in all muscle groups. Laboratory Laboratory Tests Test 10/02/16 10/02/16 19:55 21:30 White Blood Count 1.9 Red Blood Count 2.87 Hemoglobin 8.4 Hematocrit 25.7 Mean Corpuscular Volume 89.8 Mean Corpuscular Hemoglobin 29.4 Mean Corpuscular Hemoglobin 32.8 Concent Red Cell Distribution Width 14.8 Platelet Count 69 Mean Platelet Volume 8.5 Neutrophils (%) (Auto) 64.3 Lymphocytes (%) (Auto) 15.9 Monocytes (%) (Auto) 13.1 Eosinophils (%) (Auto) 5.7 Basophils (%) (Auto) 1.0 Neutrophils # (Auto) 1.2 Lymphocytes # (Auto) 0.3 Monocytes # (Auto) 0.3 Eosinophils # (Auto) 0.1 Basophils # (Auto) 0.0 CBC Comment AUTO DIFF Differential Total Cells 50 Counted Neutrophils % (Manual) 64 Band Neutrophils % 4 Lymphocytes % 22 Monocytes % 6 Eosinophils % 4 Neutrophils # (Manual) 1.3 Differential Comment FINAL DIFF MANUAL Platelet Estimate LOW Platelet Morphology Comment ENLARGED Prothrombin Time 12.0 Prothromb Time International 1.1 Ratio Activated Partial 28.7 Thromboplast Time Sodium Level 137 Potassium Level 3.7 Chloride Level 93 Carbon Dioxide Level 35.3 Anion Gap 9 Blood Urea Nitrogen 77 Creatinine 3.65 Estimat Glomerular Filtration 12 Rate Random Glucose 154 Lactic Acid Level 2.6 Calcium Level 7.8 Magnesium Level 1.9 Total Bilirubin 0.9 Aspartate Amino Transf 16 (AST/SGOT) Alanine Aminotransferase 25 (ALT/SGPT) Alkaline Phosphatase 113 Total Creatine Kinase 21 Troponin I 0.02 Total Protein 5.4 Albumin 2.0 Urine Color YELLOW Urine Turbidity HAZY Urine pH 6.5 Urine Specific [place] 1.010 Urine Protein TRACE Urine Glucose (UA) NEG Urine Ketones NEG Urine Occult Blood NEG Urine Nitrite NEG Urine Bilirubin NEG Urine Urobilinogen LESS THAN 2.0 Urine Leukocyte Esterase MOD Urine RBC 3 Urine WBC 3 Urine Squamous Epithelial 12 Cells Urine Amorphous Sediment RARE Urine Bacteria OCC Microscopic Urinalysis Comment CATH-CULTURE IND Date/Time Procedure Status Source Growth 10/02/16 21:30 Urine Culture Received Urine Catheterized Urine Pending 10/02/16 19:55 Aerobic Blood Culture Received Blood Peripheral Pending 10/02/16 19:55 Anaerobic Blood Culture Received Blood Peripheral Pending Result Diagram: 10/02/16195410/02/161954 Imaging Last [address] 10/02/161856 Signed Impressions: Service Date/Time: Tuesday, October 02, 2016 19:30 - CONCLUSION: Age-related findings unchanged. No acute intracranial findings. Jamison Vergara MD Chest X-Ray 10/02/161856 Signed Impressions: Service Date/Time: Tuesday, October 02, 2016 19:23 - CONCLUSION: Mild right upper lung zone pulmonary parenchymal opacity. Jamison Vergara MD Septic Shock Reassessment Heart: Regular rate and rhythm Lungs: Clear Skin: Dry Peripheral Pulses: Weak Right Posterior Tibial Weak Left Posterior Tibial Assessment and Plan Assessment and Plan 75 yo F with extensive pmhx brought to ED from [facility] rehab facility due to AMS and 2 day hx of fever. Pt found to meet sepsis criteria upon evaluation in the ED. Leukopenia at 1.9, Temp: 100.1, HR: 93, lactic acid 2.1, positive Leuk esterase on UA. CXR showed opacity of Right upper lobe suggestive of early consolidation. Admitted for treatment of hospital acquired pneumonia. Code Status DNR Discussed Condition With Dr. Ovalle, PGY3 Problem List: (1) Sepsis Status: Acute Plan: -monitor vs -UA positive for leuk esterase -pending: blood cx, urine cx - see plan for pneumonia (2) Hospital acquired PNA Status: Acute Plan: HCAP given recent hospitalization at end of August 2016 for GI bleed -CXR showed opacity of Right upper lobe suggestive of early consolidation -azithromycin, cefepime and Flagyl (pt allergic to amoxicillin) -oxygen titrated as need, pt O2 sat 97 on NC 2L -f/u legionella and pneumococcal urine ag -monitor vs -f/u repeat lactic acid, on admission 2.6 (3) COPD (chronic obstructive pulmonary disease) Status: Chronic Plan: -pt saturating well on 2L NC, o2 sat @ 97 -c/w home meds: albuterol, duonebs, symbicort -consider adding prednisone if sxs worsen (4) Anemia Status: Chronic Plan: -f/u hemocult due to recent GI bleed -f/u rect count -pt blood work indicative of pancytopenia, consider heme consult (5) Hypertension Status: Chronic Plan: -c/w with home med (6) DM (diabetes mellitus) Status: Chronic Plan: -low dose SSI (7) Atrial fibrillation Status: Chronic Plan: -rate controlled -c/w home med (8) CKD (chronic kidney disease) Status: Chronic Plan: - cr on admission 3.65 -refused dialysis (9) Insomnia Status: Chronic Plan: -c/w ativan 1 mg QHS (10) Chronic pain Status: Acute Plan: -c/w with morphine 30mg Q8hr as dosed in rehab facility, consider increased if needed -pt has adverse rxn to [employer], requested not to be given this med Physician Certification 2 Midnight Certification Type: Admission for Inpatient Services Order for Inpatient Services The services are ordered in accordance with Medicare regulations or non- Medicare payer requirements, as applicable. In the case of services not specified as inpatient-only, they are appropriately provided as inpatient services in accordance with the 2-midnight benchmark. Estimated LOS (days): 5 days is the estimated time the patient will need to remain in the hospital, assuming treatment plan goals are met and no additional complications. Post-Hospital Plan: Not yet determined Problem Qualifiers (1) Sepsis: Qualified Code: A41.9 - Sepsis, due to unspecified organism Marilee Adkins MD R1 Oct 03, 2016 00:08
[2016-10-03] MEDS: metroNIDAZOLE 500 MG INJ 100 ML IV SCH ×4 (00:37→22:00)
[2016-10-03] MEDS: MORPHINE SULFATE 30 MG CONTROLLED RELEASE TAB PO SCH ×3 (01:53→15:18)
[2016-10-03 03:15] LABS: AUTOMATED NEUTROPHIL # 1.1 TH/MM3 (1.8-7.7); BASOPHIL % 0.6 % (0.0-2.0); EOSINOPHIL # 0.1 TH/MM3 (0-0.4); EOSINOPHIL % 6.6 % (0.0-4.0); LYMPH % 18.4 % (9.0-44.0); LYMPHOCYTE # 0.3 TH/MM3 (1.0-4.8); MEAN CELL VOLUME 88.8 FL (80.0-100.0); MEAN CORPUSCULAR HEMOGLOBIN 29.8 PG (27.0-34.0); MEAN CORPUSCULAR HGB CONC 33.6 % (32.0-36.0); MONO % 15.5 % (0.0-8.0); NEUT % 58.9 % (16.0-70.0); PLATELET COUNT 64 TH/MM3 (150-450); RED BLOOD COUNT 2.48 MIL/MM3 (4.00-5.30); RED CELL DISTRIBUTION WIDTH 14.8 % (11.6-17.2); WHITE BLOOD COUNT 1.8 TH/MM3 (4.0-11.0)
[2016-10-03 03:17] LABS: HEMO FLAGS AUTO DIFF
[2016-10-03 03:20] LABS: ALT (GPT) 24 U/L (10-53); ANION GAP 8 MEQ/L (5-15); AST (GOT) 16 U/L (15-37); BICARBONATE 34.7 MEQ/L (21.0-32.0); BLOOD UREA NITROGEN 76 MG/DL (7-18); CHLORIDE 95 MEQ/L (98-107); GLOMERULAR FILTRATION RATE 12 ML/MIN (>89); POTASSIUM 3.3 MEQ/L (3.5-5.1); SODIUM (NA) 138 MEQ/L (136-145)
[2016-10-03 03:23] LABS: ALKALINE PHOSPHATASE 102 U/L (45-117); TOTAL BILIRUBIN ADULT 0.8 MG/DL (0.2-1.0)
[2016-10-03 03:40] LABS: BANDS 1 % (0-6); EOSINOPHILS 7 % (0-4); NEUTROPHIL # MANUAL DIFF 1.1 TH/MM3 (1.8-7.7); POLYS (SEG NEUTROPHILS) 62 % (16-70); WBC DIFF SAMPLE 100
[2016-10-03 03:41] LABS: OVALOCYTES 1+ (NORMAL); PLATELET ESTIMATE SMEAR LOW (NORMAL); PLATELET MORPHOLOGY NORMAL (NORMAL); SCAN/DIFF FINAL DIFF MANUAL
[2016-10-03] MEDS ORDERED: GLUCAGON 1 MG/ML VIAL OTHER PRN (03:45)
[2016-10-03] MEDS ORDERED: DEXTROSE 50% IN WATER 50 ML VIAL(D50) IV PRN (03:45)
[2016-10-03] MEDS ORDERED: POTASSIUM CHLORIDE 10 MEQ CAP PO ONE (03:45)
[2016-10-03 04:17] LABS: RETIC % 3.3 % (0.4-3.0)
[2016-10-03 04:18] LABS: REVIEW FLAG FINAL
[2016-10-03] MEDS ORDERED: CEFEPIME INJ 2,000 MG in SODIUM CHLORIDE 0.9% INJ 100 ML IV SCH (06:00)
[2016-10-03] MEDS: INSULIN ASPART SUPPLEMENTAL SCALE SQ SCH ×4 (06:43→22:08)
[2016-10-03] MEDS: RESP: ALBUTEROL 2.5 MG/IPRATROPIUM 0.5 MG NEB (SCH) NEB ×4 (08:00→21:59)
[2016-10-03] MEDS ORDERED: SODIUM CHLOR 0.9% 250 ML INJ 250 ML IV ONE (08:30)
[2016-10-03] MEDS ORDERED: FUROSEMIDE 20 MG/2 ML VIAL IV ONE (08:30)
[2016-10-03] MEDS ORDERED: METOLAZONE 5 MG TAB PO SCH (09:00)
[2016-10-03] MEDS ORDERED: POTASSIUM CHLORIDE 10 MEQ CAP PO SCH (09:00)
[2016-10-03] MEDS: BUDESONIDE-FORMOTEROL 160/4.5 MCG INHALER INH SCH ×2 (09:27→21:01)
[2016-10-03] MEDS: DOCUSATE SODIUM 50 MG/SENNA 8.6 MG TAB PO SCH ×2 (09:28→20:59)
[2016-10-03] MEDS: PANTOPRAZOLE SOD 20 MG DELAYED RELEASE TAB PO SCH (09:28)
[2016-10-03] MEDS: BUMETANIDE 1 MG TAB PO SCH ×2 (09:28→21:00)
[2016-10-03] MEDS: METOPROLOL TARTRATE 50 MG TAB PO SCH ×2 (09:28→20:59)
[2016-10-03] MEDS: POTASSIUM CHLORIDE 10 MEQ CAP PO SCH (09:31)
--- NOTE | 2016-10-03 09:45 | RADRPT ---
EXAM DATE/TIME: 10/03/2016 09:09 [facility] COMPARISON: SHOULDER LEFT LTD (2VWS), August 26, 2016, 11:36. INDICATIONS : Left shoulder pain post fall. MEDICAL HISTORY : Torn left rotator cuff. SURGICAL HISTORY : None. ENCOUNTER: Initial ACUITY: 2 days PAIN SCORE: 6/10 LOCATION: Left shoulder. FINDINGS: Two view examination of the left shoulder demonstrates no evidence of fracture or dislocation. The g lenohumeral and acromioclavicular joints are maintained. Bony mineralization is normal. CONCLUSION: Negative trauma study with no acute fracture or malalignment. Aguila Morfin MD on October 03, 2016 at 9:43 Board Certified Radiologist. This report was verified electronically.
--- NOTE | 2016-10-03 09:49 | RADRPT ---
EXAM DATE/TIME: 10/03/2016 09:07 [facility] COMPARISON: HUMERUS LEFT (MIN 2VWS), August 26, 2016, 11:33. INDICATIONS : Left arm pain post fall. MEDICAL HISTORY : Torn left rotator cuff. SURGICAL HISTORY : ENCOUNTER: Initial ACUITY: 2 days PAIN SCORE: 6/10 LOCATION: Left humerus. FINDINGS: Two view examination of the left humerus demonstrates no evidence of fracture or dislocation. Bony m ineralization is normal. The soft tissue structures are intact. CONCLUSION: Negative trauma study with no acute fracture or malalignment. Aguila Morfin MD on October 03, 2016 at 9:47 Board Certified Radiologist. This report was verified electronically.
--- NOTE | 2016-10-03 11:11 | HHI.FPPN ---
Subjective Remarks Medicine attending note: Extremely complex 75-year-old woman admitted through the emergency room with history of a fever 202 and shortness of breath with cough. Patient's son and daughter at bedside, patient seen with the resident team. History was reviewed. Old records were reviewed, the patient has been in and out of [facility] multiple times over the last 1-2 months. Most recently she was getting [facility] care and there was a history of some type of fall, the patient could not give the exact details of family was unsure. Patient has had x-rays since admission although the left shoulder which has been painful has not been x-rayed. Patient doesn't think that she lost consciousness. Patient has for many years been on high-dose opiates MS Contin 100 mg in the morning and 15 mg at bedtime. She was recently weaned by the undersigned physician down 10% per month from Percocet. Family is concerned that she has been on the medications over many years and they think she should have her pain medicines as well as Ativan 2 mg at bedtime for sleep. Currently the patient feels weak, complains of left shoulder pain on movement, cough nonproductive. See resident history and physical for complete discussion admitting history of present illness, past medical history, review of systems and social and family history. Objective Vitals Vital signs noted. Afebrile. Gen. appearance: Elderly appearing, somewhat pale, makes eye contact, gives minimal history when spoken to, does not give narratives of any of her conditions. Resting on a hospital gurney, HEENT: Presence of dentures, no oral pharyngeal lesions, grossly nonlocalizing. Neck: No bruits. Cardiac: Very distant heart sounds, S1-S2, difficult to appreciate if there is significant murmurs or S3. Lungs: Listening superiorly clear, Rales at the left base, scattered rhonchi on the right. Abdomen: Protuberant, no distinct tenderness or masses evident, bowel sounds are present. Extremities: Ulcer left shoulder in position asked her chest, resist any type of movement of the left shoulder as being very painful. (Does relate a prior history of rotator cuff tear). Lower extremities warm and dry, intact pedal pulses. Calves are supple. Vital Signs Date Time Temp Pulse Resp B/P Pulse Ox O2 Delivery O2 Flow Rate FiO2 10/03/16 10:28 20 10/03/16 09:28 97.8 68 18 121/64 96 10/03/16 08:01 97 Nasal Cannula 2.00 10/03/16 04:08 98.6 92 17 110/56 98 10/03/16 01:19 99.3 92 17 135/60 99 10/03/16 00:00 90 16 102/49 99 Nasal Cannula 2 10/02/16 22:44 97 Nasal Cannula 2.00 10/02/16 19:00 97 Nasal Cannula 2 10/02/16 18:46 91 16 100 Nasal Cannula 3 10/02/16 18:42 100.1 93 18 139/63 98 10/02/16 18:40 97.6 86 20 143/80 99 Room Air I/O 10/02/16 10/02/16 10/02/16 10/03/16 10/03/16 10/03/16 07:00 15:00 23:00 07:00 15:00 23:00 # Voids 1 Result Diagram: 10/03/16 0243 10/03/16 0243 A/P Assessment and Plan Clinical assessment: 75-year-old woman with extremely past medical history admitted with a history of recent fever 202, cough, suspected possible aspiration. Chronic opioid usage for long-term nonmalignant pain. Continued attempts to wean patient from opiates without creating clinical crisis. Multiple medication allergies Abnormal left shoulder exam with soft tissue swelling and pain on any motion Abnormal CBC with white blood cell count of 1.9, hemoglobin 8.4, platelets 69, 000 Acute on chronic renal failure with creatinine of 3.65 and BUN of 77 History of COPD History of atrial fibrillation, not a candidate for anticoagulation Chronic anxiety history of hypertension and history of insomnia Patient seen and examined. Case reviewed and discussed with resident team. Agree with plan of care as discussed with me and documented in the resident note. Problem List: (1) Sepsis Status: Acute Plan: -monitor vs -UA positive for leuk esterase -pending: blood cx, urine cx - see plan for pneumonia (2) Hospital acquired PNA Status: Acute Plan: HCAP given recent hospitalization at end of August 2016 for GI bleed -CXR showed opacity of Right upper lobe suggestive of early consolidation -azithromycin, cefepime and Flagyl (pt allergic to amoxicillin) -oxygen titrated as need, pt O2 sat 97 on NC 2L -f/u legionella and pneumococcal urine ag -monitor vs -f/u repeat lactic acid, on admission 2.6 (3) COPD (chronic obstructive pulmonary disease) Status: Chronic Plan: -pt saturating well on 2L NC, o2 sat @ 97 -c/w home meds: albuterol, duonebs, symbicort -consider adding prednisone if sxs worsen (4) Anemia Status: Chronic Plan: -f/u hemocult due to recent GI bleed -f/u rect count -pt blood work indicative of pancytopenia, consider heme consult (5) Hypertension Status: Chronic Plan: -c/w with home med (6) DM (diabetes mellitus) Status: Chronic Plan: -low dose SSI (7) Atrial fibrillation Status: Chronic Plan: -rate controlled -c/w home med (8) CKD (chronic kidney disease) Status: Chronic Plan: - cr on admission 3.65 -refused dialysis (9) Insomnia Status: Chronic Plan: -c/w ativan 1 mg QHS (10) Chronic pain Status: Acute Plan: -c/w with morphine 30mg Q8hr as dosed in rehab facility, consider increased if needed -pt has adverse rxn to [employer] requested not to be given this med Problem Qualifiers (1) Sepsis: Qualified Code: A41.9 - Sepsis, due to unspecified organism Jose Eduardo Mcgee MD Oct 03, 2016 11:11
[2016-10-03] MEDS: LORazepam 1 MG TAB PO SCH (21:00)
[2016-10-03] MEDS: AZITHROMYCIN INJ 500 MG in SODIUM CHLOR 0.9% 250 ML INJ 250 ML IV SCH (22:00)
[2016-10-04] VITALS (17 sets, daily range): BP systolic 94–125; BP diastolic 51–60; PULSE 79–104; RESP 18–20; TEMP 96.6–100.6; O2SAT 93–98
[2016-10-04] MEDS: MORPHINE SULFATE 30 MG CONTROLLED RELEASE TAB PO SCH ×4 (00:06→23:20)
[2016-10-04] MEDS: CEFEPIME INJ 2,000 MG in SODIUM CHLORIDE 0.9% INJ 100 ML IV SCH (06:00)
[2016-10-04] MEDS: metroNIDAZOLE 500 MG INJ 100 ML IV SCH ×3 (06:00→21:11)
[2016-10-04] MEDS: INSULIN ASPART SUPPLEMENTAL SCALE SQ SCH ×4 (06:51→21:00)
[2016-10-04] MEDS: RESP: ALBUTEROL 2.5 MG/IPRATROPIUM 0.5 MG NEB (SCH) NEB ×4 (08:00→20:26)
[2016-10-04] MEDS: METOPROLOL TARTRATE 50 MG TAB PO SCH ×2 (09:16→21:12)
[2016-10-04] MEDS: DOCUSATE SODIUM 50 MG/SENNA 8.6 MG TAB PO SCH ×2 (09:17→21:11)
[2016-10-04] MEDS: PANTOPRAZOLE SOD 20 MG DELAYED RELEASE TAB PO SCH (09:17)
[2016-10-04] MEDS: BUMETANIDE 1 MG TAB PO SCH ×2 (09:17→21:12)
[2016-10-04] MEDS: BUDESONIDE-FORMOTEROL 160/4.5 MCG INHALER INH SCH ×2 (09:19→21:12)
--- NOTE | 2016-10-04 10:10 | EKG ---
Date Performed: 10/02/2016 Time Performed: 18:54:37 PTAGE: 75 years EKG: Sinus rhythm with PACs First degree heart block Nonspecific ST-T wave changes Clinical correlation is recommended PREVIOUS TRACING : 09/09/2016 01.46 DOCTOR: Renan Bhagat Interpretating Date/Time 10/04/2016 10:09:10
[2016-10-04] MEDS: POTASSIUM CHLORIDE 10 MEQ CAP PO SCH (10:49)
[2016-10-04 10:55] LABS: HEMATOCRIT 32.8 % (35.0-46.0); MEAN CELL VOLUME 90.6 FL (80.0-100.0); MEAN CORPUSCULAR HEMOGLOBIN 29.4 PG (27.0-34.0); MEAN CORPUSCULAR HGB CONC 32.5 % (32.0-36.0); PLATELET COUNT 43 TH/MM3 (150-450); RED BLOOD COUNT 3.62 MIL/MM3 (4.00-5.30); WHITE BLOOD COUNT 2.7 TH/MM3 (4.0-11.0)
[2016-10-04 10:56] LABS: HEMO FLAGS AUTO DIFF
[2016-10-04 10:58] LABS: BICARBONATE 26.9 MEQ/L (21.0-32.0)
[2016-10-04 14:44] LABS: BANDS 6 % (0-6); EOSINOPHILS 1 % (0-4); POLYS (SEG NEUTROPHILS) 67 % (16-70); WBC DIFF SAMPLE 100
[2016-10-04 14:45] LABS: PLATELET ESTIMATE SMEAR LOW (NORMAL); PLATELET MORPHOLOGY NORMAL (NORMAL); SCAN/DIFF FINAL DIFF MANUAL
--- NOTE | 2016-10-04 18:03 | HHI.FPPN ---
Subjective Remarks Patient seen and examined this morning by medical team with daughter at bedside. No acute events overnight. Patient with fever of 100.6 degrees overnight which resolved without medical therapy. Patient lost IV access overnight, and missed her scheduled azithromycin and ceftriaxone antibiotics. This morning the patient reports that she "feels awful," but does state she feels better since her admission. Her daughter is concerned about her blood sugar stating that it was "very high to the 400s" at her prior residents, however during her admission her blood sugar has been only elevated to 220 requiring only 3 units of sliding scale insulin. She is also concerned about her mother's sacral wound. Otherwise they have no complaints. Patient denies any chest pain, cough, shortness of breath, NVD, abdominal pain, or calf tenderness. (Raymundo Triana MD R2) Objective Vitals Vital Signs Date Time Temp Pulse Resp B/P Pulse Ox O2 Delivery O2 Flow Rate FiO2 10/04/16 16:06 97.1 92 20 121/56 94 10/04/16 12:17 96.6 99 20 125/57 95 10/04/16 11:50 95 Nasal Cannula 3.00 10/04/16 08:56 90 10/04/16 08:03 97.9 96 20 107/59 95 10/04/16 04:00 97.3 96 18 112/60 93 10/04/16 04:00 97.3 96 18 112/60 93 10/04/16 02:28 98.2 104 18 108/55 10/04/16 02:28 98.2 104 18 108/55 96 10/04/16 01:52 98.7 94 18 110/59 96 10/04/16 01:52 98.7 94 18 110/59 96 10/04/16 01:22 98.6 99 18 96/55 96 10/04/16 01:22 98.6 99 18 96/55 96 10/04/16 01:05 98.0 100 18 100/59 96 10/04/16 01:05 98.0 100 18 100/59 96 10/04/16 00:45 98.8 100 18 94/51 96 10/04/16 00:45 98.8 100 18 94/51 96 10/04/16 00:30 100.6 93 18 102/52 96 10/04/16 00:00 98.3 79 18 117/56 98 10/03/16 23:47 96 Nasal Cannula 3.00 10/03/16 20:00 100 10/03/16 19:32 98.2 86 18 114/55 98 10/03/16 18:15 99.2 90 17 110/57 98 10/03/16 17:23 99.0 87 18 108/52 95 I/O 10/03/16 10/03/16 10/03/16 10/04/16 10/04/16 10/04/16 06:59 14:59 22:59 06:59 14:59 22:59 Intake Total 480 ml Balance 480 ml Intake Oral 480 ml # Voids 1 4 # Bowel Movements 0 (Raymundo Triana MD R2) Result Diagram: 10/04/1693910/04/16939 Objective Remarks GENERAL: Elderly female lying in bed in no acute distress. SKIN: Warm and dry. No rash. Gluteal cleft: Stage II to 3 pressure ulcer appreciated at the superior gluteal cleft. Wound with ulceration and erythema measuring approximately 2-3 cm in diameter. No purulence or hemorrhage appreciated. Wound currently covered by adhesive bandage. HEENT: Atraumatic, normocephalic with EOMI. MMM. No rhinorrhea. No LAD or JVD appreciated. CARDIOVASCULAR: Regular rate and rhythm with distant heart sounds. No MGR appreciated. RESPIRATORY: Scattered rhonchi throughout bilateral lung chappell via anterior examination. No increased work of breathing. GASTROINTESTINAL: Abdomen soft, protuberant with positive bowel sounds. No masses appreciated. MUSCULOSKELETAL: No cyanosis or edema. Strength grossly WNL. Patient refuses to move left upper extremity citing pain from prior rotator cuff injury. Patient keeps arm at 90 and to not close to her body. No calf tenderness. NEURO/PSYCH: Afocal neurologically. Awake, alert, and oriented x3. Normal speech and judgment. (Raymundo Triana MD R2) A/P Assessment and Plan Mrs. Sinclair is 75 yo F with extensive pmhx brought to ED from [facility] rehab facility due to AMS and 2 day hx of fever. Pt found to meet sepsis criteria upon evaluation in the ED. Leukopenia at 1.9, Temp: 100.1, HR: 93, lactic acid 2.1, positive Leuk esterase on UA. CXR showed opacity of Right upper lobe suggestive of early consolidation. Admitted for treatment of hospital acquired pneumonia. Discharge Planning Pending clinical improvement and decreasing oxygen requirement. Case management consult to assist with placement at time of discharge. (Raymundo Triana MD R2) Assessment and Plan Patient seen and examined. Case reviewed and discussed with the resident team. Agree with plan of care as discussed with me an documented in the resident note. (Jose Eduardo Mcgee MD) Problem List: (1) Hospital acquired PNA Status: Acute Plan: HCAP given recent hospitalization at end of August 2016 for GI bleed -CXR showed opacity of Right upper lobe suggestive of early consolidation -Azithromycin, cefepime and Flagyl (pt allergic to amoxicillin), patient did not receive IV medications overnight as she lost access, restart 10/04 -Oxygen titrated as need, pt O2 sat 97 on NC 2L -Incentive spirometer and a cappella ordered every 4 hours -Legionella and pneumococcal urine antigens: Negative -Repeat lactic acid 1.3, on admission 2.6 (2) Sepsis Status: Acute Plan: Patient meeting sepsis criteria upon admission -Please see plan as below for HCAP -UA positive for leuk esterase -Urine culture: Mixed gram positives, probable contaminant (3) Pressure ulcer Status: Acute Plan: Patient found to have stage II to III pressure ulcer of the sacrum near the gluteal cleft. Wound care nurse consult placed, appreciate recommendations (4) COPD (chronic obstructive pulmonary disease) Status: Chronic Plan: -Patient saturating well on 3L NC -Continue home meds: albuterol, duonebs, symbicort -Consider adding prednisone if symptoms worsen (5) Anemia Status: Chronic Plan: -Hemoccult: Pending -Reticulocyte count: Elevated to 3.3 -CBC indicative of pancytopenia, consider heme consult without improvement (6) Hypertension Status: Chronic Plan: Continue home amlodipine, metolazone, bumetanide, and metoprolol (7) DM (diabetes mellitus) Status: Chronic Plan: Sliding scale insulin per protocol Hold home glipizide (8) Atrial fibrillation Status: Chronic Plan: Patient currently rate controlled Continue with medications as above No anticoagulation per chart review, likely due to recent GI bleed and current anemia (9) CKD (chronic kidney disease) Status: Chronic Plan: -Creatinine on admission 3.65 -Refused dialysis on admission (10) Insomnia Status: Chronic Plan: Continue home ativan 1 mg QHS (11) Chronic pain Status: Acute Plan: -Continue home morphine 30mg Q8hr as dosed in rehab facility, consider increased if needed -Patient has adverse rxn to norco, requested not to be given this med (12) Nutrition, metabolism, and development symptoms Status: Acute Plan: Fluids: Tolerating fluids by mouth Nutrition: Diabetic diet as tolerated Electrolytes: Within normal limits, continue to monitor (13) Contraindication to deep vein thrombosis (DVT) prophylaxis Status: Acute Plan: QUAN/SCD Contraindication to pharmacologic DVT prophylaxis as patient is currently anemic and has recent history of GI bleed (Raymundo Triana MD R2) Problem Qualifiers (1) Sepsis: Qualified Code: A41.9 - Sepsis, due to unspecified organism Raymundo Triana MD R2 Oct 04, 2016 18:03 Jose Eduardo Mcgee MD Oct 04, 2016 18:14
[2016-10-04] MEDS: LORazepam 1 MG TAB PO SCH (21:12)
[2016-10-04] MEDS: AZITHROMYCIN INJ 500 MG in SODIUM CHLOR 0.9% 250 ML INJ 250 ML IV SCH (23:20)
[2016-10-05] VITALS (8 sets, daily range): BP systolic 103–113; BP diastolic 50–56; PULSE 88–97; RESP 19–20; TEMP 98–98.9; O2SAT 91–96
[2016-10-05] MEDS: metroNIDAZOLE 500 MG INJ 100 ML IV SCH ×3 (05:31→21:31)
[2016-10-05] MEDS: CEFEPIME INJ 2,000 MG in SODIUM CHLORIDE 0.9% INJ 100 ML IV SCH (05:31)
[2016-10-05] MEDS: RESP: ALBUTEROL 2.5 MG/IPRATROPIUM 0.5 MG NEB (SCH) NEB ×4 (07:58→21:05)
[2016-10-05] MEDS: DOCUSATE SODIUM 50 MG/SENNA 8.6 MG TAB PO SCH ×2 (08:40→21:30)
[2016-10-05] MEDS: METOPROLOL TARTRATE 50 MG TAB PO SCH ×2 (08:40→21:30)
[2016-10-05] MEDS: PANTOPRAZOLE SOD 20 MG DELAYED RELEASE TAB PO SCH (08:40)
[2016-10-05] MEDS: POTASSIUM CHLORIDE 10 MEQ CAP PO SCH (08:40)
[2016-10-05] MEDS: BUMETANIDE 1 MG TAB PO SCH ×2 (08:40→21:30)
[2016-10-05] MEDS: MORPHINE SULFATE 30 MG CONTROLLED RELEASE TAB PO SCH ×3 (08:41→23:01)
[2016-10-05] MEDS: BUDESONIDE-FORMOTEROL 160/4.5 MCG INHALER INH SCH ×2 (08:41→21:30)
[2016-10-05 11:05] LABS: AUTOMATED NEUTROPHIL # 2.1 TH/MM3 (1.8-7.7); BASOPHIL % 0.5 % (0.0-2.0); EOSINOPHIL # 0.3 TH/MM3 (0-0.4); EOSINOPHIL % 8.5 % (0.0-4.0); HEMATOCRIT 32.4 % (35.0-46.0); LYMPH % 13.6 % (9.0-44.0); LYMPHOCYTE # 0.4 TH/MM3 (1.0-4.8); MEAN CELL VOLUME 89.1 FL (80.0-100.0); MEAN CORPUSCULAR HEMOGLOBIN 30.3 PG (27.0-34.0); MONO % 11.1 % (0.0-8.0); NEUT % 66.3 % (16.0-70.0); PLATELET COUNT 91 TH/MM3 (150-450); RED BLOOD COUNT 3.64 MIL/MM3 (4.00-5.30); RED CELL DISTRIBUTION WIDTH 14.7 % (11.6-17.2); WHITE BLOOD COUNT 3.2 TH/MM3 (4.0-11.0)
[2016-10-05 11:06] LABS: BICARBONATE 32.6 MEQ/L (21.0-32.0); POTASSIUM 3.6 MEQ/L (3.5-5.1)
[2016-10-05 11:10] LABS: HEMO FLAGS DIFF FINAL
--- NOTE | 2016-10-05 11:48 | PD.WCN.NOT ---
Wound Consult Description: Consult for Wound Management of sacrum per MD Kong R2 Communicated with: LAMAR Martinez Patient Patient daughter at bedside Recommendation: Cleanse bilateral buttocks (do not remove all of the Calazime when cleansing) BID and PRN for moisture and apply Calazime skin protectant Encourage patient to reposition every 2 hours and PRN for comfort Additional Information: Patient seen on for wound evaluation of sacrum. Patient was minimally assisted to her right side with assistance from LAMAR Martinez. Brief removed to reveal jagged sharp wound margins surrounding a partial thickness skin loss area of the Left buttock measuring 3.3cm x 1.6cm x 0.3cm with no odor and no active drainage. Right buttock is noted with a wound measuring 2.3cm x 0.7cm x 0.2cm with jagged irregular wound margins and partial thickness skin loss with moist, red, non granulating wound bed and no active drainage or odor. Within this wounds periwound is another wound measuring 0.4cm x 0.2cm x 0.1cm that presents as a slit in the skin. Wounds are of moisture and friction etiology with pressure indications as evidenced by the slow to blanching discolored periwounds. Bilateral buttocks were covered in a thick layer of Calazime skin protectant. Betsy Pena [facility] Oct 05, 2016 11:48
[2016-10-05] MEDS: INSULIN ASPART SUPPLEMENTAL SCALE SQ SCH ×4 (12:35→21:33)
[2016-10-05 15:26] LABS: BLOOD, URINE NEG (NEG); COMMENT (UR) CULT NOT INDICATED; CULTURE IF INDICATED CULT NOT INDICATED; GLUCOSE,URINE NEG (NEG); KETONE, URINE NEG (NEG); NITRITE,URINE NEG (NEG); PH, URINE 5.5 (5.0-8.5); SQUAMOUS EPITHELIAL CELL URINE 4 /hpf (0-5); URINE COLOR YELLOW (YELLW/STRAW)
--- NOTE | 2016-10-05 15:32 | HHI.FPPN ---
Subjective Remarks Patient seen and examined by medical team this morning with daughter at bedside. No acute events overnight. Patient remains tachycardic to the low 100s overnight, otherwise vital signs stable while on 3 L nasal cannula. Patient states that she feels better than at admission, however does not "feel good." She states that she continues to have pain all over from her fall and having difficulty breathing. She also endorses a mild nonproductive cough. Her daughter states that she is worried about her urine as she thinks it is darker than normal and her mother's pain could be due to an infection. Otherwise they both have no other complaints. She denies any recent fevers, chills, chest pain , NVD, abdominal pain, or calf tenderness. Objective Vitals Vital Signs Date Time Temp Pulse Resp B/P Pulse Ox O2 Delivery O2 Flow Rate FiO2 10/05/16 15:16 98.6 88 20 105/55 93 10/05/16 11:59 95 10/05/16 11:56 98.0 88 20 111/51 94 10/05/16 08:25 94 Nasal Cannula 3.00 10/05/16 08:06 98.1 92 20 113/50 91 10/05/16 04:09 98.9 94 19 103/56 94 10/04/16 23:00 101 10/04/16 20:26 96 Nasal Cannula 3.00 10/04/16 20:05 97.6 92 20 117/53 94 10/04/16 20:00 101 10/04/16 16:06 97.1 92 20 121/56 94 I/O 10/04/16 10/04/16 10/04/16 10/05/16 10/05/16 10/05/16 07:00 15:00 23:00 07:00 15:00 23:00 Intake Total 480 ml 100 ml 240 ml Output Total 500 ml 300 ml Balance 480 ml -500 ml 100 ml -60 ml Intake Oral 480 ml 240 ml IV Total 100 ml Output Urine Total 500 ml 300 ml # Voids 4 # Bowel Movements 0 1 1 Result Diagram: 10/05/16 1019 10/05/16 1019 Objective Remarks GENERAL: Elderly female lying in bed in no acute distress with daughter at bedside. SKIN: Warm and dry. No rash. Multiple areas of ecchymosis at different stages of healing secondary to recent fall. Gluteal cleft: Stage II to III pressure ulcer appreciated at the superior gluteal cleft. Wound with ulceration and erythema measuring approximately 2-3 cm in diameter. No purulence or hemorrhage appreciated. Wound currently covered by adhesive bandage. HEENT: Atraumatic, normocephalic with EOMI. MMM. No rhinorrhea. No LAD or JVD appreciated. CARDIOVASCULAR: Regular rate and rhythm with distant heart sounds. No MGR appreciated. RESPIRATORY: Scattered rhonchi throughout bilateral lung chappell via anterior examination. No increased work of breathing. GASTROINTESTINAL: Abdomen soft, protuberant with positive bowel sounds. No masses appreciated. MUSCULOSKELETAL: No cyanosis or edema. Strength grossly WNL. Patient refuses to move left upper extremity citing pain from prior rotator cuff injury. Patient keeps arm at 90 and to not close to her body. No calf tenderness. NEURO/PSYCH: Afocal neurologically. Awake, alert, and oriented x3. Normal speech and judgment. A/P Assessment and Plan Mrs. Sinclair is 75 yo F with [facility] and 2 day hx of fever. Pt found to meet sepsis criteria upon evaluation in the ED. Leukopenia at 1.9, Temp: 100.1, HR: 93, lactic acid 2.1, positive Leuk esterase on UA. CXR showed opacity of Right upper lobe suggestive of early consolidation. Admitted for treatment of hospital acquired pneumonia. Discharge Planning Pending clinical improvement and decreasing oxygen requirement. Case management consult to assist with placement at time of discharge. Problem List: (1) Hospital acquired PNA Status: Acute Plan: HCAP given recent hospitalization at end of August 2016 for GI bleed -CXR showed opacity of Right upper lobe suggestive of early consolidation -Azithromycin, cefepime and Flagyl (pt allergic to amoxicillin), patient did not receive IV medications overnight as she lost access, restart 8/14 -Oxygen titrated as need, pt O2 sat 97 on NC 2L -Incentive spirometer and a cappella ordered every 4 hours -Legionella and pneumococcal urine antigens: Negative -Blood cultures: No growth in 3 days -Repeat lactic acid 1.3, on admission 2.6 (2) Sepsis Status: Acute Plan: Patient meeting sepsis criteria upon admission -Please see plan as below for HCAP -UA positive for leuk esterase -Urine culture: Mixed gram positives, probable contaminant -Repeat UA ordered (3) Pressure ulcer Status: Acute Plan: Patient found to have stage II to III pressure ulcer of the sacrum near the gluteal cleft. Wound care nurse consult placed, appreciate recommendations (4) COPD (chronic obstructive pulmonary disease) Status: Chronic Plan: -Patient saturating well on 3L NC -Continue home meds: albuterol, duonebs, symbicort -Consider adding prednisone if symptoms worsen (5) Anemia Status: Chronic Plan: -Hemoccult: Negative -Reticulocyte count: Elevated to 3.3 -CBC indicative of pancytopenia, consider heme consult without improvement (6) Hypertension Status: Chronic Plan: Continue home amlodipine, metolazone, bumetanide, and metoprolol (7) DM (diabetes mellitus) Status: Chronic Plan: Sliding scale insulin per protocol Hold home glipizide (8) Atrial fibrillation Status: Chronic Plan: Patient currently rate controlled Continue with medications as above No anticoagulation per chart review, likely due to recent GI bleed and current anemia (9) CKD (chronic kidney disease) Status: Chronic Plan: -Creatinine on admission 3.65 -Refused dialysis on admission (10) Insomnia Status: Chronic Plan: Continue home ativan 1 mg QHS (11) Chronic pain Status: Acute Plan: -Continue home morphine 30mg Q8hr as dosed in rehab facility, consider increased if needed -Patient has adverse rxn to norco, requested not to be given this med (12) Nutrition, metabolism, and development symptoms Status: Acute Plan: Fluids: Tolerating fluids by mouth Nutrition: Diabetic diet as tolerated Electrolytes: Within normal limits, continue to monitor Physical therapy and occupational therapy consulted, appreciate recommendations (13) Contraindication to deep vein thrombosis (DVT) prophylaxis Status: Acute Plan: QUAN/SCD Contraindication to pharmacologic DVT prophylaxis as patient is currently anemic and has recent history of GI bleed Problem Qualifiers (1) Sepsis: Qualified Code: A41.9 - Sepsis, due to unspecified organism Raymundo Triana MD R2 Oct 05, 2016 15:31
[2016-10-05] MEDS: LORazepam 1 MG TAB PO SCH (21:30)
[2016-10-05] MEDS: AZITHROMYCIN INJ 500 MG in SODIUM CHLOR 0.9% 250 ML INJ 250 ML IV SCH (23:01)
[2016-10-05] MEDS: ONDANSETRON HCL 4 MG/2 ML VIAL IVP PRN (23:03)
[2016-10-06] VITALS (10 sets, daily range): BP systolic 87–118; BP diastolic 51–57; PULSE 89–107; RESP 16–22; TEMP 97.5–98.9; O2SAT 93–97
[2016-10-06] MEDS: CEFEPIME INJ 2,000 MG in SODIUM CHLORIDE 0.9% INJ 100 ML IV SCH (05:18)
[2016-10-06] MEDS: metroNIDAZOLE 500 MG INJ 100 ML IV SCH ×3 (05:50→21:51)
[2016-10-06] MEDS: INSULIN ASPART SUPPLEMENTAL SCALE SQ SCH ×4 (06:35→21:00)
[2016-10-06] MEDS: RESP: ALBUTEROL 2.5 MG/IPRATROPIUM 0.5 MG NEB (SCH) NEB ×4 (07:59→20:03)
[2016-10-06] MEDS: METOPROLOL TARTRATE 50 MG TAB PO SCH ×3 (09:00→21:50)
[2016-10-06 09:39] LABS: HEMATOCRIT 31.9 % (35.0-46.0); MEAN CELL VOLUME 87.8 FL (80.0-100.0); MEAN CORPUSCULAR HEMOGLOBIN 29.7 PG (27.0-34.0); MEAN CORPUSCULAR HGB CONC 33.8 % (32.0-36.0); PLATELET COUNT 102 TH/MM3 (150-450); RED BLOOD COUNT 3.64 MIL/MM3 (4.00-5.30); RED CELL DISTRIBUTION WIDTH 14.6 % (11.6-17.2); REVIEW FLAG FINAL; WHITE BLOOD COUNT 3.1 TH/MM3 (4.0-11.0)
[2016-10-06 10:15] LABS: BICARBONATE 29.7 MEQ/L (21.0-32.0); POTASSIUM 3.7 MEQ/L (3.5-5.1)
--- NOTE | 2016-10-06 11:07 | RADRPT ---
EXAM DATE/TIME: 10/06/2016 10:38 [place] COMPARISON: CT ABDOMEN & PELVIS W/O CONTRAST, September 20, 2016, 21:21. INDICATIONS : Abdomen distention. MEDICAL HISTORY : Hypertension. Chronic obstructive pulmonary disease. Stroke. Myocardial infarction.Left kidney c ancer. SURGICAL HISTORY : CABG Cholecystectomy.Hysterectomy.Hernia repair ercp. ENCOUNTER: Subsequent ACUITY: 1 week PAIN SCORE: 10/10 LOCATION: Bilateral Abdomen, FINDINGS: 2 AP erect views of the upper and mid abdomen were obtained as well as a supine view. This demonstrat e an abnormal bowel gas pattern with multiple loops of borderline dilated air-containing small bowel with multiple air-fluid levels. There is an air-fluid level in the stomach. Some gas and stool is not ed segmentally in the right colon. There surgical clips in right upper quadrant consistent with prior cholecystectomy. A biliary stent catheter is again noted. No definite free air. CONCLUSION: 1. Abnormal bowel gas pattern of concern for early or partial small bowel obstruction. 2. Biliary stent catheter remains in place. Aguila Morfin MD on October 06, 2016 at 11:03 Board Certified Radiologist. This report was verified electronically.
[2016-10-06] MEDS: BUMETANIDE 1 MG TAB PO SCH (11:34)
[2016-10-06] MEDS: PANTOPRAZOLE SOD 20 MG DELAYED RELEASE TAB PO SCH (11:34)
[2016-10-06] MEDS: DOCUSATE SODIUM 50 MG/SENNA 8.6 MG TAB PO SCH ×2 (11:34→21:50)
[2016-10-06] MEDS: POTASSIUM CHLORIDE 10 MEQ CAP PO SCH (11:34)
[2016-10-06] MEDS: MORPHINE SULFATE 30 MG CONTROLLED RELEASE TAB PO SCH ×3 (11:35→23:51)
[2016-10-06] MEDS: BUDESONIDE-FORMOTEROL 160/4.5 MCG INHALER INH SCH ×2 (11:36→21:51)
[2016-10-06] MEDS ORDERED: BISACODYL 10 MG SUPP RECTAL ONE (13:45)
[2016-10-06] MEDS: ONDANSETRON HCL 4 MG/2 ML VIAL IVP PRN (14:15)
--- NOTE | 2016-10-06 14:15 | HHI.FPPN ---
Subjective Remarks Patient seen and examined this morning the medical team with daughter at bedside. No acute events overnight. Patient continues to require 3 L nasal cannula to maintain oxygenation greater than 93%. She reports that her breathing is better, but continues to have a nonproductive cough. She also complains of hurting all over, but daughter states that this is her baseline. She endorses some nausea and upon further investigation some abdominal distention. Otherwise she denies any fevers, chills, chest pain, V/D, or calf tenderness. Of note medical team had thorough discussion about patient's long-term care. We discussed the possibility of dialysis and palliative care consult. At this time patient is open to having nephrology consult for discussion of dialysis. The patient and her daughter report that she has never seen a rn cvor. Family is also open to palliative care consult in order to assist with further care planning. (Raymundo Triana MD R2) Remarks Patient seen and examined. Case reviewed and discussed with the resident team. Agree with plan of care as discussed with me and documented in the resident note. Patient considering dialysis, palliative care. (Jose Eduardo Mcgee MD) Objective Vitals Vital Signs Date Time Temp Pulse Resp B/P Pulse Ox O2 Delivery O2 Flow Rate FiO2 10/06/16 12:00 98.3 96 16 92/56 95 10/06/16 08:22 98.3 103 16 91/55 93 10/06/16 08:01 97 Nasal Cannula 3.00 10/06/16 04:04 98.9 100 22 99/56 94 10/06/16 02:06 97 10/06/16 00:00 98.4 97 22 118/56 95 10/05/16 21:07 96 Nasal Cannula 3.00 10/05/16 20:09 98.2 97 20 110/55 96 10/05/16 15:16 98.6 88 20 105/55 93 I/O 10/05/16 10/05/16 10/05/16 10/06/16 10/06/16 10/06/16 07:00 15:00 23:00 07:00 15:00 23:00 Intake Total 100 ml 695 ml 200 ml Output Total 500 ml 400 ml Balance -500 ml 100 ml 295 ml 200 ml Intake Oral 240 ml IV Total 100 ml 455 ml 200 ml Output Urine Total 500 ml 400 ml # Voids 2 1 # Bowel Movements 1 1 (Raymundo Trinaa MD R2) Result Diagram: 10/06/16 0849 10/06/16 0849 Objective Remarks GENERAL: Elderly female lying in bed in no acute distress with daughter at bedside. SKIN: Warm and dry. No rash. Multiple areas of ecchymosis at different stages of healing secondary to recent fall. Gluteal cleft: Stage II to III pressure ulcer appreciated at the superior gluteal cleft. Wound with ulceration and erythema measuring approximately 2-3 cm in diameter. No purulence or hemorrhage appreciated. Wound currently covered by adhesive bandage. HEENT: Atraumatic, normocephalic with EOMI. MMM. No rhinorrhea. No LAD or JVD appreciated. CARDIOVASCULAR: Regular rate and rhythm with distant heart sounds. No MGR appreciated. RESPIRATORY: Scattered rhonchi throughout bilateral lung chappell via anterior examination. No increased work of breathing. GASTROINTESTINAL: Abdomen distended with palpable bowel pattern in the lower 2 quadrants. Patient mildly tender to palpation. Positive bowel sounds in the upper 2 quadrants. No masses or hepatosplenomegaly appreciated. No rebound tenderness or fluid wave appreciated. Negative Stiles sign. MUSCULOSKELETAL: No cyanosis or edema. Strength grossly WNL. Patient refuses to move left upper extremity citing pain from prior rotator cuff injury. Patient keeps arm at 90 and to not close to her body. No calf tenderness. NEURO/PSYCH: Afocal neurologically. Awake, alert, and oriented x3. Normal speech and judgment. (Raymundo Triana MD R2) A/P Assessment and Plan Mrs. Sinclair is 75 yo F with extensive pmhx brought to ED from [facility] rehab facility due to AMS and 2 day hx of fever. Pt found to meet sepsis criteria upon evaluation in the ED. Leukopenia at 1.9, Temp: 100.1, HR: 93, lactic acid 2.1, positive Leuk esterase on UA. CXR showed opacity of Right upper lobe suggestive of early consolidation. Admitted for treatment of hospital acquired pneumonia. Discharge Planning Pending clinical improvement and decreasing oxygen requirement. Case management consult to assist with placement at time of discharge. (Raymundo Triana MD R2) Problem List: (1) Partial small bowel obstruction Status: Acute Plan: Patient presenting with acute abdominal distention and palpable bowel pattern of the lower 2 quadrants. Abdominal upright in flat x-ray: Abnormal gas pattern concern for early/ partial small bowel obstruction. Biliary stent catheter remains in place Diet: Clear liquid as tolerated Continue with constipation protocol Dulcolax suppository ordered (defer enema due to renal failure) (2) CKD (chronic kidney disease) Status: Chronic Plan: -Creatinine on admission 3.65, trending upward -Refused dialysis on admission, reports never staining rn cvor 10/06 patient and family open to nephrology consult to discuss possible dialysis Consult nephrology, appreciate recommendations (3) Hospital acquired PNA Status: Acute Plan: HCAP given recent hospitalization at end of August 2016 for GI bleed -CXR showed opacity of Right upper lobe suggestive of early consolidation -Azithromycin, cefepime and Flagyl (pt allergic to amoxicillin), patient did not receive IV medications overnight as she lost access, restart 10/04 -Oxygen titrated as need, pt O2 sat 97 on NC 2L -Incentive spirometer and a cappella ordered every 4 hours -Legionella and pneumococcal urine antigens: Negative -Blood cultures: No growth in 4 days -Repeat lactic acid 1.3, on admission 2.6 (4) Sepsis Status: Acute Plan: Patient meeting sepsis criteria upon admission -Please see plan as below for HCAP -UA positive for leuk esterase -Urine culture: Mixed gram positives, probable contaminant -Repeat UA: Within normal limits (5) Pressure ulcer Status: Acute Plan: Patient found to have stage II to III pressure ulcer of the sacrum near the gluteal cleft. Wound care nurse consult placed, appreciate recommendations Patient refusing wound care at this time per nursing staff (6) COPD (chronic obstructive pulmonary disease) Status: Chronic Plan: -Patient saturating well on 3L NC -Continue home meds: albuterol, duonebs, symbicort -Consider adding prednisone if symptoms worsen (7) Anemia Status: Chronic Plan: -Hemoccult: Negative -Reticulocyte count: Elevated to 3.3 -CBC indicative of pancytopenia, consider heme consult without improvement (8) Hypertension Status: Chronic Plan: Continue home amlodipine, metolazone, bumetanide, and metoprolol (9) DM (diabetes mellitus) Status: Chronic Plan: Sliding scale insulin per protocol Hold home glipizide (10) Atrial fibrillation Status: Chronic Plan: Patient currently rate controlled Continue with medications as above No anticoagulation per chart review, likely due to recent GI bleed and current anemia (11) Insomnia Status: Chronic Plan: Continue home ativan 1 mg QHS (12) Chronic pain Status: Acute Plan: -Continue home morphine 30mg Q8hr as dosed in rehab facility, consider increased if needed -Patient has adverse rxn to norco, requested not to be given this med (13) Nutrition, metabolism, and development symptoms Status: Acute Plan: Fluids: Tolerating fluids by mouth Nutrition: Clear liquid Electrolytes: Within normal limits, continue to monitor Physical therapy and occupational therapy consulted, appreciate recommendations (14) Contraindication to deep vein thrombosis (DVT) prophylaxis Status: Acute Plan: QUAN/SCD Contraindication to pharmacologic DVT prophylaxis as patient is currently anemic and has recent history of GI bleed (Raymundo Triana MD R2) Problem Qualifiers (1) Sepsis: Qualified Code: A41.9 - Sepsis, due to unspecified organism Raymundo Triana MD R2 Oct 06, 2016 14:15 Jose Eduardo Mcgee MD Oct 06, 2016 16:31
--- NOTE | 2016-10-06 18:28 | PD.CONS ---
[facility] Service Nephrology Consult Requested By Dr. Triana Reason for Consult Known to our services, progressive renal dysfunction Primary Care Physician Jose Eduardo Mcgee MD History of Present Illness This patient is a 75-year-old female known to me from the office who has a history of CKD stage IV. She was last seen in the office September 2015 and subsequently missed a follow-up appointment and did not reschedule. At that time she did indicate to me that she did not want dialysis even with terminal renal failure. There was also a complex cyst involving her left kidney for which she did not want follow-up or evaluation. Was admitted in August at this facility for PNA and fluid overload. It was determined at that visit that she had progressed to stage 5 CKD and had indicated at that admission that she did not want dialysis. She was discharged in August to the [facility] and was brought back to the ED on by her daughter for altered mental status. Has been on Lasix at the facility as well as Metolazone. Currently being treated for PNA. Overall, appears she is deteriorating. Daughter and son at bedside. Patient is alert, but drowsy Admitting SCr 3.52 that has worsened to 4.72 at consult. UOP declining, but approximately 350mL today per nurse. Bumex has been held today 09/22 SCr was 2.76 08/26 SCr was 2.29 Review of Systems Constitutional: COMPLAINS OF: Fatigue, Change in appetite Past Family Social History Allergies: Coded Allergies: amoxicillin (Unverified Allergy, Severe, Rash, 10/05/16) clavulanic acid (Unverified Allergy, Severe, Rash, 10/05/16) haloperidol (Unverified Allergy, Severe, Hallucinations, 10/05/16) nitrofurantoin (Unverified Allergy, Severe, SHAKY , BLOOD SUGER PROBLEMS, 10/05/16) pramipexole (Unverified Allergy, Severe, LETHARGY,DIZZY,SHAKY, 10/05/16) promethazine (Unverified Allergy, Severe, Hallucinations, 10/05/16) temazepam (Unverified Allergy, Severe, Rash, 10/05/16) gemfibrozil (Unverified Allergy, Intermediate, 10/05/16) carisoprodol (Unverified Allergy, Unknown, 10/05/16) pregabalin (Unverified Allergy, Unknown, 10/05/16) amlodipine (Unverified Adverse Reaction, Severe, LIVER DISEASE WITH SUBSEQUENT CHRONIC ITCHING UNTIL DC'D, 10/05/16) atorvastatin (Unverified Adverse Reaction, Severe, LIVER DISEASE WITH SUBSEQUENT CHRONIC ITCHING UNTIL DC'D, 10/05/16) pravastatin (Unverified Adverse Reaction, Severe, LIVER DISEASE WITH SUBSEQUENT CHRONIC ITCHING UNTIL DC'D, 10/05/16) simvastatin (Unverified Adverse Reaction, Severe, LIVER DISEASE WITH SUBSEQUENT CHRONIC ITCHING UNTIL DC'D, 10/05/16) trazodone (Unverified Adverse Reaction, Intermediate, altered mental status, 10/05/16) latex (Unverified Adverse Reaction, Mild, Stomach pain, 10/05/16) *MDRO Multi-Drug Resistant Organism (Verified Adverse Reaction, Unknown, Cleared - 09/10/16, 09/20/16) MRSA Sputum 10/2008 *Cleared - MRSA PCR negative on 09/09/16 & 09/10/16* Uncoded Allergies: TAPE (Allergy, Mild, Rash, 11/06/09) USE PAPER TAPE ONLY ees (Allergy, Mild, itch, 11/06/09) advicor (Adverse Reaction, Intermediate, redness, itchin, 11/06/09) cipro,septra (Adverse Reaction, Intermediate, diarrhea,itching, 11/06/09) topramax (Adverse Reaction, Intermediate, 11/06/09) Past Medical History CKD stage 5 Diabetes mellitus Proteinuria Hypertension Coronary artery disease Anemia COPD Debilitation Chronic pain Complex cystic mass left kidney (declined work up in the past) Coronary artery disease with previous CABG. Past Surgical History As above Reported Medications Reported Meds & Active Scripts Active Prednisone 20 Mg Tab 40 Mg PO DAILY Take 40 mg (2 tablets) daily for 5 days Protonix (Pantoprazole Sodium) 20 Mg Tab 20 Mg PO DAILY Lopressor (Metoprolol Tartrate) 50 Mg Tab 50 Mg PO BID Metolazone 5 Mg Tab 5 Mg PO DAILY Duoneb (Ipratropium-Albuterol Neb) 0.5-2.5 Mg/3 Ml Neb 1 Ampule NEB QID NEB Bumetanide 1 Mg Tab 1 Mg PO BID Albuterol Neb (Albuterol Sulfate) 2.5 Mg/3 Ml Neb 2.5 Mg NEB Q4HR NEB PRN Potassium Chloride ER (Potassium Chloride) 10 Meq Cap 10 Meq PO DAILY Amlodipine (Amlodipine Besylate) 10 Mg Tab 10 Mg PO DAILY Reported Oxycodone (Oxycodone HCl) 10 Mg Tab 10 Mg PO Q4H PRN Glipizide 10 Mg Tab 10 Mg PO DAILY Take 30 minutes before a meal Morphine ER (Morphine Sulfate) 30 Mg Tab 30 Mg PO Q8H Humulin R Inj (Insulin Human Regular) 1,000 Unit/10 Ml Vial 2-10 Units SQ ACHS SLIDING SCALE: 0-200=0 UNITS,201-250=2 UNITS,251-300=4 UNITS,301-350=6 UNITS,351-400=8 UNITS,401-450=10 UNITS, <60 OR >450=CALL Dulcolax Supp (Bisacodyl) 10 Mg Supp 10 Mg RECTAL IN THE AM PRN Basaglar Kwikpen (Insulin Glargine) 100 Unit/Ml Pen 10 Units SQ Q12HR Tylenol (Acetaminophen) 325 Mg Tab 650 Mg PO Q4H PRN Lorazepam 1 Mg Tab 1 Mg PO HS Symbicort Inh (Budesonide/Formoterol Fumarate) 160-4.5 Mcg/Act Aero 2 Puff INH BID Active Ordered Medications Current Medications Medications (Trade) Dose Ordered Sig/Saritha Route Start Time Stop Time Status Last Admin Metronidazole 100 ml @ 100 mls/hr Q8H IV 10/02/16 22:00 10/06/16 14:15 (Zithromax Inj/ NS 250 ml Inj) 250 ml @ 250 mls/hr Q24H IV 10/03/16 22:00 10/05/16 23:01 (Tylenol) 650 mg Q4H PRN PO 10/02/16 22:30 (Zofran Inj) 4 mg Q6H PRN IVP 10/02/16 22:30 10/06/16 14:15 (Narcan Inj) 0.4 mg UNSCH PRN IV 10/02/16 22:30 (Whitney-Colace) 1 tab BID PO 10/03/16 09:00 10/06/16 11:34 (Milk Of Magnesia Liq) 30 ml Q12H PRN PO 10/02/16 22:30 (Senokot) 17.2 mg Q12H PRN PO 10/02/16 22:30 (Dulcolax Supp) 10 mg DAILY PRN RECTAL 10/02/16 22:30 (Lactulose Liq) 30 ml DAILY PRN PO 10/02/16 22:30 (Norvasc) 10 mg DAILY PO 10/03/16 09:00 10/05/16 08:40 (Symbicort 160-4.5 Inh) 2 puff BID INH 10/03/16 09:00 10/06/16 11:36 (Bumetanide) 1 mg BID PO 10/03/16 09:00 Hold 10/06/16 11:34 (Ativan) 1 mg HS PO 10/03/16 21:00 10/05/16 21:30 (Lopressor) 50 mg BID PO 10/03/16 09:00 10/05/16 21:30 (Oramorph Sr) 30 mg Q8H PO 10/03/16 00:00 10/06/16 16:59 (Protonix) 20 mg DAILY PO 10/03/16 09:00 10/06/16 11:34 (D50w (Vial) Inj) 50 ml UNSCH PRN IV 10/03/16 03:45 (Glucagon Inj) 1 mg UNSCH PRN OTHER 10/03/16 03:45 Potassium Chloride 20 meq 20 meq DAILY PO 10/03/16 09:00 10/06/16 11:34 (Maxipime Inj/NS Inj) 100 ml @ 200 mls/hr Q24H IV 10/04/16 06:00 10/06/16 05:18 Family History NC Social History Debilitated with dependency on children for daily activities Non-smoker No EtOH Physical Exam Vital Signs Vital Signs Date Time Temp Pulse Resp B/P Pulse Ox O2 Delivery O2 Flow Rate FiO2 10/06/16 16:16 95 Nasal Cannula 3.00 10/06/16 15:49 97.5 89 20 102/51 96 Automatic Cuff 10/06/16 12:00 98.3 96 16 92/56 95 10/06/16 08:22 98.3 103 16 91/55 93 10/06/16 08:01 97 Nasal Cannula 3.00 10/06/16 04:04 98.9 100 22 99/56 94 10/06/16 02:06 97 10/06/16 00:00 98.4 97 22 118/56 95 10/05/16 21:07 96 Nasal Cannula 3.00 10/05/16 20:09 98.2 97 20 110/55 96 Physical Exam GENERAL: Very debilitated woman who appears older than her stated age SKIN: Warm and dry. HEAD: Atraumatic. Normocephalic. EYES: Pupils equal and round. No scleral icterus. No injection or drainage. ENT: No nasal bleeding or discharge. Mucous membranes pink and moist. NECK: Trachea midline. No JVD. CARDIOVASCULAR: Regular rate and rhythm. RESPIRATORY: No accessory muscle use. Clear to auscultation. Breath sounds equal bilaterally. GASTROINTESTINAL: Abdomen soft, non-tender, nondistended. Hepatic and splenic margins not palpable. MUSCULOSKELETAL: Extremities without clubbing, cyanosis, or edema. No obvious deformities. NEUROLOGICAL: Awake but drowsy PSYCHIATRIC: Appropriate mood and affect; insight and judgment normal. Laboratory Laboratory Tests Test 10/06/16 08:49 White Blood Count 3.1 Red Blood Count 3.64 Hemoglobin 10.8 Hematocrit 31.9 Mean Corpuscular Volume 87.8 Mean Corpuscular Hemoglobin 29.7 Mean Corpuscular Hemoglobin 33.8 Concent Red Cell Distribution Width 14.6 Platelet Count 102 Mean Platelet Volume 9.7 Sodium Level 137 Potassium Level 3.7 Chloride Level 95 Carbon Dioxide Level 29.7 Anion Gap 12 Blood Urea Nitrogen 74 Creatinine 4.72 Estimat Glomerular Filtration 9 Rate Random Glucose 135 Calcium Level 7.9 Date/Time Procedure Status Source Growth 10/05/16 10:10 Stool Occult Blood (SUPA) - Final Complete Stool Stool HEMOCCULT NEGATIVE 10/02/16 21:30 Urine Culture - Final Complete Urine Catheterized Urine 50-100,000 CFU/ML MIXED GRAM POSITIVE... 10/02/16 21:30 Legionella Antigen - Final Complete Urine Clean Catch PRESUMPTIVE NEGATIVE FOR LEGIONELLA P... 10/02/16 21:30 Streptococcus pneumoniae Antigen (M - Final Complete Urine Clean Catch PRESUMPTIVE NEGATIVE FOR STREPTOCOCCU... 10/02/16 19:55 Aerobic Blood Culture - Preliminary Resulted Blood Peripheral NO GROWTH IN 4 DAYS 10/02/16 19:55 Anaerobic Blood Culture - Preliminary Resulted Blood Peripheral NO GROWTH IN 4 DAYS Result Diagram: 10/06/16 0849 10/06/16 0849 Imaging Last Impressions Abdomen X-Ray 10/06/16 0000 Signed Impressions: Service Date/Time: WedOctober 06, 2016 10:38 - CONCLUSION: 1. Abnormal bowel gas pattern of concern for early or partial small bowel obstruction. 2. Biliary stent catheter remains in place. Aguila Morfin MD Shoulder X-Ray 10/03/16 Signed Impressions: Service Date/Time: Monday, October 03, 2016 09:09 - CONCLUSION: Negative trauma study with no acute fracture or malalignment. Aguila Morfin MD Humerus X-Ray 10/03/16 Signed Impressions: Service Date/Time: Monday, October 03, 2016 09:07 - CONCLUSION: Negative trauma study with no acute fracture or malalignment. Aguila Morfin MD Head CT 10/02/161856 Signed Impressions: Service Date/Time: Sunday, October 02, 2016 19:30 - CONCLUSION: Age-related findings unchanged. No acute intracranial findings. Jamison Vergara MD Chest X-Ray 10/02/161856 Signed Impressions: Service Date/Time: Sunday, October 02, 2016 19:23 - CONCLUSION: Mild right upper lung zone pulmonary parenchymal opacity. Jamison Vergara MD Pelvis X-Ray 10/02/16 Signed Impressions: Service Date/Time: Sunday, October 02, 2016 19:16 - CONCLUSION: No evidence of fracture. Jamison Vergara MD Assessment and Plan Problem List: (1) Chronic kidney disease, stage V Plan: Her renal deterioration has been somewhat rapid in the past few months and she presents at this visit in renal failure. She had previously indicated that she did not want to pursue dialytic intervention, even if this meant she would be terminal, but asked for us to be consulted for further discussion. At this point in time, it does not appear that her renal functions will rebound and that she is in renal failure. We had a prolonged discussion about dialysis, PermCath placement, risks, and benefits of proceeding. She says that she wishes to think about it and discuss further with her family tonight. Her son and daughter are present in the room and have been involved with the entirety of exam and history taking. Her daughter seems to be leaning toward, non-dialytic management of renal failure, but her son seems more enthusiastic with proceeding with dialysis. She was advised of the potential risk of infection, cardiac arrhythmia, hypotension, syncope, and that can be associated with dialysis. Advised that she would be required to sit in a recliner for each session that would last between 3-3.5h for 3 days per week. She is quite debilitated so would likely have to transfer via [facility] that would have to be arranged with case management before discharge. Her BP is low in house and she is on a significant amount of narcotic analgesia which she was advised she may not be able to take prior to HD if her vitals are not stable. Given her multitude of medical issues and severely debilitated state, I am not sure she would be a good candidate; however, she has been advised that she may choose to withdraw dialysis support at any time. It is certainly appropriate to consider palliative input at this point. Hospice would be advisable if she chooses not to proceed with dialysis. We will touch base with the patient and her family in the AM. Labs in the AM Hold diuretics for the present as her po intake is poor and she appears dry. Malnourished with worsening hypoalbuminemia. Given her azotemia, she and her family were advised that she will likely becoming more encephalopathic within the upcoming days, so decisions will have to be made within a reasonable time. Medications should be adjusted for the patient's renal disease. Avoid gadolinium (2) Pneumonia Plan: Mgmt as per primary (3) Hypertension Plan: Hypotensive for the past couple days. Hold BP medications (4) DM (diabetes mellitus) Plan: Mgmt as per primary (5) Anemia Plan: Repeat CBC with Fe panel. Likely has anemia of renal disease (6) Chronic pain (7) CAD (coronary artery disease) (8) COPD (chronic obstructive pulmonary disease) Assessment and Plan Time spent: 70 minutes Problem Qualifiers (1) Pneumonia: Qualified Code: J18.1 - Pneumonia of right upper lobe due to infectious organism Luzmaria Good Oct 06, 2016 18:28
[2016-10-06] MEDS: LORazepam 1 MG TAB PO SCH (21:50)
[2016-10-06] MEDS: AZITHROMYCIN INJ 500 MG in SODIUM CHLOR 0.9% 250 ML INJ 250 ML IV SCH (23:51)
[2016-10-07] VITALS (8 sets, daily range): BP systolic 100–114; BP diastolic 53–64; PULSE 95–107; RESP 16–20; TEMP 97.6–98.1; O2SAT 92–98
[2016-10-07] MEDS: CEFEPIME INJ 2,000 MG in SODIUM CHLORIDE 0.9% INJ 100 ML IV SCH (06:11)
[2016-10-07] MEDS: metroNIDAZOLE 500 MG INJ 100 ML IV SCH ×3 (06:11→22:20)
[2016-10-07] MEDS: INSULIN ASPART SUPPLEMENTAL SCALE SQ SCH ×4 (06:18→20:38)
[2016-10-07] MEDS: PANTOPRAZOLE SOD 40 MG DELAYED RELEASE TAB PO SCH (09:00)
[2016-10-07] MEDS: METOPROLOL TARTRATE 50 MG TAB PO SCH ×2 (09:00→20:32)
[2016-10-07] MEDS: ONDANSETRON HCL 4 MG/2 ML VIAL IVP PRN (09:04)
[2016-10-07] MEDS: DOCUSATE SODIUM 50 MG/SENNA 8.6 MG TAB PO SCH ×2 (09:07→20:33)
[2016-10-07 09:08] LABS: HEMATOCRIT 34.2 % (35.0-46.0); MEAN CELL VOLUME 89.7 FL (80.0-100.0); MEAN CORPUSCULAR HEMOGLOBIN 29.8 PG (27.0-34.0); MEAN CORPUSCULAR HGB CONC 33.2 % (32.0-36.0); PLATELET COUNT 155 TH/MM3 (150-450); RED BLOOD COUNT 3.81 MIL/MM3 (4.00-5.30); RED CELL DISTRIBUTION WIDTH 15.3 % (11.6-17.2); REVIEW FLAG FINAL; WHITE BLOOD COUNT 4.1 TH/MM3 (4.0-11.0)
[2016-10-07] MEDS: MORPHINE SULFATE 30 MG CONTROLLED RELEASE TAB PO SCH ×3 (09:08→17:33)
[2016-10-07] MEDS: POTASSIUM CHLORIDE 10 MEQ CAP PO SCH (09:08)
[2016-10-07] MEDS: PANTOPRAZOLE SODIUM 40 MG VIAL IV PUSH SCH (09:14)
[2016-10-07 09:46] LABS: ANION GAP 15 MEQ/L (5-15); BICARBONATE 26.5 MEQ/L (21.0-32.0); BLOOD UREA NITROGEN 87 MG/DL (7-18); CHLORIDE 94 MEQ/L (98-107); FERRITIN 177 NG/ML (8-252); GLOMERULAR FILTRATION RATE 8 ML/MIN (>89); POTASSIUM 3.7 MEQ/L (3.5-5.1); SODIUM (NA) 135 MEQ/L (136-145); TRANSFERRIN IRON PROFILE 148 MG/DL (200-360)
[2016-10-07] MEDS: SIMETHICONE SUSP DROPS 40 MG/0.6 ML 30 ML BTL PO SCH ×2 (09:48→20:34)
[2016-10-07] MEDS: BUDESONIDE-FORMOTEROL 160/4.5 MCG INHALER INH SCH ×2 (09:48→20:34)
[2016-10-07] MEDS ORDERED: SODIUM CHLOR 0.9% 1000 ML INJ 1,000 ML IV SCH (10:00)
[2016-10-07] MEDS ORDERED: DEXT 5%-NACL 0.9% 1000 ML INJ 1,000 ML IV SCH (11:00)
[2016-10-07] MEDS: DEXT 5%-NACL 0.45% 1000 ML INJ 1,000 ML IV SCH (14:23)
[2016-10-07] MEDS ORDERED: SODIUM CHLOR 0.9% 1000 ML INJ 1,000 ML IV PRN ×3 (15:05)
[2016-10-07] MEDS ORDERED: ONDANSETRON HCL 4 MG/2 ML VIAL IV PRN (15:15)
[2016-10-07] MEDS ORDERED: HEPARIN SODIUM - IV 10,000 UNITS/10 ML VIAL IVF PRN (15:15)
[2016-10-07] MEDS ORDERED: ALBUMIN HUMAN 25% 25 GM/100 ML BAGP IV PRN (15:15)
[2016-10-07] MEDS ORDERED: NITROGLYCERIN 0.4 MG SL 25 TABS/BTL SL PRN (15:15)
[2016-10-07] MEDS ORDERED: GELATIN 12 MM/7 MM FOAM TOP PRN (15:15)
[2016-10-07] MEDS ORDERED: HEPARIN SODIUM - IV 10,000 UNITS/10 ML VIAL PRN (15:15)
[2016-10-07] MEDS ORDERED: GENTAMICIN SULFATE (DIALYSIS USE ONLY) 20 MG/2 ML VIAL IV PRN (15:15)
[2016-10-07] MEDS ORDERED: diphenhydrAMINE HCL 25 MG CAP PO PRN (15:15)
[2016-10-07] MEDS ORDERED: cloNIDine HCL 0.1 MG TAB PO PRN (15:15)
[2016-10-07] MEDS ORDERED: SODIUM CHLORIDE 0.9% FLUSH 10 ML FLUSH IV FLUSH PRN (15:15)
[2016-10-07] MEDS ORDERED: MANNITOL 12.5 GM/50 ML VIAL IV PRN (15:15)
[2016-10-07] MEDS ORDERED: ACETAMINOPHEN 325 MG TAB PO PRN (15:15)
--- NOTE | 2016-10-07 15:29 | HHI.NPPN ---
Subjective History of Present Illness This patient is a 75-year-old female known to me from the office who has a history of CKD stage IV. She was last seen in the office September 2015 and subsequently missed a follow-up appointment and did not reschedule. At that time she did indicate to me that she did not want dialysis even with terminal renal failure. There was also a complex cyst involving her left kidney for which she did not want follow-up or evaluation. Was admitted in August at this facility for PNA and fluid overload. It was determined at that visit that she had progressed to stage 5 CKD and had indicated at that admission that she did not want dialysis. She was discharged in August to the [facility] and was brought back to the ED on by her daughter for altered mental status. Has been on Lasix at the facility as well as Metolazone. Currently being treated for PNA. Overall, appears she is deteriorating. son at bedside. Interval History Son at bedside and patient is responding to questions appropriately. Despite what was indicated in the records as patient has seen myself and my PA repeatedly in the past. She was advised last year of the severity of her renal insufficiency and she specifically declined dialysis if she were to progress to end-stage renal disease and was made aware that this was a terminal condition. She subsequently labs from follow-up but she was seen last August and her GFR was at that time less than 15. She was advised of the severity of her renal insufficiency and that she had stage V CKD and would be terminal without dialysis and she again indicated to me that she did not want dialysis even if she had a terminal condition. I indicated that that time that her renal function appeared to be at a terminal point. Today however both son and patient indicated to me that she wanted to start dialysis. I discussed with her today [id number] issues associated with dialysis and responsibilities of being on dialysis i.e. being compliant with dialysis sessions which could be approximately 4 hours in length re-days a week and she indicated that she would be compliant. I also advised that given her current debilitated state rehabilitation would probably be difficult and require much effort on her part. Objective Data Data Vital Signs Date Time Temp Pulse Resp B/P Pulse Ox O2 Delivery O2 Flow Rate FiO2 10/07/16 14:03 98 Nasal Cannula 3.00 10/07/16 12:00 98.1 107 20 114/59 95 10/07/16 10:08 18 10/07/16 08:00 98.1 96 20 101/64 95 10/07/16 05:18 96 Nasal Cannula 3.00 10/07/16 04:57 97.9 97 16 102/55 97 10/07/16 00:00 97.7 95 16 103/53 92 10/06/16 21:51 107 117/57 10/06/16 20:30 97.7 92 18 87/53 95 10/06/16 16:16 95 Nasal Cannula 3.00 10/06/16 15:49 97.5 89 20 102/51 96 Automatic Cuff -: 10/07/16 0834 10/07/16 0834 Physical Exam General Appearance: No Acute Distress, Comfortable, Obese Eyes Eye Exam: Sclera White Pulmonary Resp Exam: Clear Bilaterally, Breath Sounds Equal, No Distress Cardiology CV Exam: Regular, Normal Sinus Rhythm, Good Perfusion Gastrointestinal/Abdomen GI Exam: Non-Tender Integumentary Skin Exam: Clear, Warm Extremeties Extremities Exam: Trace Edema (lower extremities.) Neurologic Neuro Exam: Alert, Awake, Speech Clear Assessment/Plan Problem List: (1) Chronic kidney disease, stage V Plan: Her renal deterioration has been somewhat rapid in the past few months and she presents at this visit in renal failure. During this encounter and she now indicated to me despite previous statements that she wishes to proceed with dialysis. The patient however is more debilitated than she was last encounter and unsure at this time that she will regain a reasonably functional status. She does wish to proceed with dialysis however. As indicated above I discussed with the patient and her son technical procedures associated with dialysis including placement of a healed acid PermCath, dialysis shunt subsequently as well as responsibilities of dialysis including going to the dialysis center 3 days a week and being on a dialysis machine for approximately 4 hours and she indicated that she would still want to proceed. Risks associated with dialysis including hypotension and arrhythmia infection and were reviewed with her also. Radiology will be counseled it for him dialysis PermCath placement. Hemodialysis will take place tentatively tomorrow and Tuesday and then most likely subsequently 3 days weekly. Consultation placed to oil field caser and the social work supervisor the dialysis facility was notified of potential admission. Given her multitude of medical issues and severely debilitated state, I am not sure she would be a good candidate; however, she has been advised that she may choose to withdraw dialysis support at any time. Medications should be adjusted for the patient's renal disease. Avoid gadolinium (2) Pneumonia Plan: Mgmt as per primary (3) Hypertension Plan: Hypotensive for the past couple days. Hold BP medications (4) DM (diabetes mellitus) Plan: Mgmt as per primary (5) Anemia Plan: Repeat CBC with Fe panel. Likely has anemia of renal disease (6) Chronic pain (7) CAD (coronary artery disease) (8) COPD (chronic obstructive pulmonary disease) Plan Total time spent in direct patient care 38 minutes. Problem Qualifiers (1) Pneumonia: Qualified Code: J18.1 - Pneumonia of right upper lobe due to infectious organism Marii Wheeler MD Oct 07, 2016 15:29
--- NOTE | 2016-10-07 18:49 | HHI.FPPN ---
Subjective Remarks Since he had examined bedside. Patient is continuing to complain of abdominal pain that is unrelieved by medications. Patient complains of constant dull pain in abdomen. Patient continues to have nausea/ vomiting and has been nothing by mouth per order by M.D. for partial small bowel obstruction. Patient denies fever/chills. Patient denies shortness of breath/chest pain/dizziness. Per family, the patient is much more lethargic than usual and is obviously in pain. Patient and family are continuing to discuss end-of-life cares; palliative versus dialysis. Patient and family would wake to continue considering their options and would like to speak with the used car make ready mechanic today. (Katherine Soto MD R2) Objective Vitals Vital Signs Date Time Temp Pulse Resp B/P Pulse Ox O2 Delivery O2 Flow Rate FiO2 10/07/16 16:00 97.6 96 19 103/56 97 10/07/16 14:03 98 Nasal Cannula 3.00 10/07/16 12:00 98.1 107 20 114/59 95 10/07/16 10:08 18 10/07/16 08:00 98.1 96 20 101/64 95 10/07/16 05:18 96 Nasal Cannula 3.00 10/07/16 04:57 97.9 97 16 102/55 97 10/07/16 00:00 97.7 95 16 103/53 92 10/06/16 21:51 107 117/57 10/06/16 20:30 97.7 92 18 87/53 95 (Katherine Soto MD R2) Result Diagram: 10/07/16 0834 10/07/16 0834 Objective Remarks GENERAL: Elderly female lying in bed in no acute distress with daughter at bedside. SKIN: Warm and dry. No rash. Multiple areas of ecchymosis at different stages of healing secondary to recent fall. Gluteal cleft: Stage II to III pressure ulcer appreciated at the superior gluteal cleft. Wound with ulceration and erythema measuring approximately 2-3 cm in diameter. No purulence or hemorrhage appreciated. Wound currently covered by adhesive bandage. HEENT: Atraumatic, normocephalic with EOMI. MMM. No rhinorrhea. No LAD or JVD appreciated. CARDIOVASCULAR: Regular rate and rhythm with distant heart sounds. No MGR appreciated. RESPIRATORY: Scattered rhonchi throughout bilateral lung chappell via anterior examination. No increased work of breathing. GASTROINTESTINAL: Abdomen distended ( less distended than yesterday) with palpable bowel pattern in the lower 2 quadrants. Patient mildly tender to palpation. Hypoactive bowel sounds. No masses or hepatosplenomegaly appreciated. No rebound tenderness or fluid wave appreciated. Negative Stiles sign. MUSCULOSKELETAL: No cyanosis or edema. Strength grossly WNL. Patient refuses to move left upper extremity citing pain from prior rotator cuff injury. Patient keeps arm at 90 and to not close to her body. No calf tenderness. NEURO/PSYCH: Afocal neurologically. Awake, alert, and oriented x3. Normal speech and judgment. (Katherine Soto MD R2) A/P Assessment and Plan Mrs. Sinclair is 75 yo F with [facility] and 2 day hx of fever. Pt found to meet sepsis criteria upon evaluation in the ED. Leukopenia at 1.9, Temp: 100.1, HR: 93, lactic acid 2.1, positive Leuk esterase on UA. CXR showed opacity of Right upper lobe suggestive of early consolidation. Admitted for treatment of hospital acquired pneumonia. Patient now with chronic kidney disease stage V, partial small bowel obstruction , and general deterioration. Discharge Planning No plan for discharge in the next day (Katherine Soto MD R2) Assessment and Plan Medicine Attending note: Patient seen and examined. Case reviewed and discussed with resident team. Agree with plan of care is discussed with me and documented in the resident note. (Jose Eduardo Mcgee MD) Problem List: (1) Partial small bowel obstruction Status: Acute Plan: Patient presenting with acute abdominal distention and palpable bowel pattern of the lower 2 quadrants. Abdominal upright in flat x-ray: Abnormal gas pattern concern for early/ partial small bowel obstruction. 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 - Patient and family made decision today to continue with dialysis - Patient for PermCath placement tomorrow (3) Hospital acquired PNA Status: Acute Plan: HCAP given recent hospitalization at end of August 2016 for GI bleed -CXR showed opacity of Right upper lobe suggestive of early consolidation -Azithromycin, cefepime and Flagyl (pt allergic to amoxicillin), patient did not receive IV medications overnight as she lost access, restart 10/04 -Oxygen titrated as need, pt O2 sat 97 on NC 2L -Incentive spirometer and a cappella ordered every 4 hours -Legionella and pneumococcal urine antigens: Negative -Blood cultures: No growth in 4 days -Repeat lactic acid 1.3, on admission 2.6 (4) Sepsis Status: Acute Plan: Patient meeting sepsis criteria upon admission -Please see plan as below for HCAP -UA positive for leuk esterase -Urine culture: Mixed gram positives, probable contaminant -Repeat UA: Within normal limits (5) Pressure ulcer Status: Acute Plan: Patient found to have stage II to III pressure ulcer of the sacrum near the gluteal cleft. Wound care nurse consult placed, appreciate recommendations Patient refusing wound care at this time per nursing staff (6) COPD (chronic obstructive pulmonary disease) Status: Chronic Plan: -Patient saturating well on 3L NC -Continue home meds: albuterol, duonebs, symbicort -Consider adding prednisone if symptoms worsen (7) Anemia Status: Chronic Plan: -Hemoccult: Negative -Reticulocyte count: Elevated to 3.3 -CBC indicative of pancytopenia, consider heme consult without improvement (8) Hypertension Status: Chronic Plan: Continue home amlodipine, metolazone, bumetanide, and metoprolol (9) DM (diabetes mellitus) Status: Chronic Plan: Sliding scale insulin per protocol Hold home glipizide (10) Atrial fibrillation Status: Chronic Plan: Patient currently rate controlled Continue with medications as above No anticoagulation per chart review, likely due to recent GI bleed and current anemia (11) Insomnia Status: Chronic Plan: Continue home ativan 1 mg QHS (12) Chronic pain Status: Acute Plan: -Continue home morphine 30mg Q8hr as dosed in rehab facility, consider increased if needed -Patient has adverse rxn to norco, requested not to be given this med (13) Nutrition, metabolism, and development symptoms Status: Acute Plan: Fluids: Tolerating fluids by mouth Nutrition: Clear liquid Electrolytes: Within normal limits, continue to monitor Physical therapy and occupational therapy consulted, appreciate recommendations (14) Contraindication to deep vein thrombosis (DVT) prophylaxis Status: Acute Plan: QUAN/SCD Contraindication to pharmacologic DVT prophylaxis as patient is currently anemic and has recent history of GI bleed (Katherine Soto MD R2) Problem Qualifiers (1) Sepsis: Qualified Code: A41.9 - Sepsis, due to unspecified organism Katherine Soto MD R2 Oct 07, 2016 18:49 Jose Eduardo Mcgee MD Oct 08, 2016 11:42
[2016-10-07] MEDS ORDERED: BISACODYL 10 MG SUPP RECTAL ONE (19:00)
[2016-10-07] MEDS: LORazepam 1 MG TAB PO SCH (20:33)
--- NOTE | 2016-10-07 21:18 | HHI.PR ---
Addendum to Inpatient Note Addendum Reason: Additional Documentation Additional Information Subjective Patient c/o chest pain when being repositioned on side for suppository and trial of bowel movement. Stated to RN pain was substernal pressure. On MD arrival, patient no longer c/o chest pain. Endorses fatigue and mild nausea. Objective Gen: WDWN elderly white female, very pale with bruises, resting in bed. Fatigued , NAD Vitals: RR 14-18, SpO2 98% on 2L NC, HR 135, BP 100/60 Chest: Pressing on chest with stethoscope produces pain Resp: CTAB, no crackles or wheezes Heart: Tachycardic with irregularly irregular rhythm; no murmur Abd: Soft, mildly distended, non-tender. Neuro: Drowsy but awakens to name & touch. Oriented to person and place (did not assess time). EKG: Rate 94, sinus rhythm, 1st degree heart block, non-specific T-wave changes (mostly inversions) in anterior leads stable from prior EKG A/P 75 yo with h/o coronary bypass, AFib admitted for sepsis due to PNA and small bowel obstruction now with chest pain exacerbated by motion and pressing on chest. EKG not suggestive of AL - Likely costochondral pain; Tylenol if needed - Troponin to r/o AL - Zofran PRN for nausea - Continue telemetry Flynn Vaughn MD R2 Oct 07, 2016 21:18
[2016-10-07] MEDS: AZITHROMYCIN INJ 500 MG in SODIUM CHLOR 0.9% 250 ML INJ 250 ML IV SCH (22:20)
[2016-10-08] VITALS (8 sets, daily range): BP systolic 101–153; BP diastolic 56–69; PULSE 92–124; RESP 16–20; TEMP 97.3–98; O2SAT 96–99
[2016-10-08] MEDS: DEXT 5%-NACL 0.45% 1000 ML INJ 1,000 ML IV SCH ×2 (03:01→13:50)
[2016-10-08] MEDS: ONDANSETRON HCL 4 MG/2 ML VIAL IVP PRN (03:07)
[2016-10-08] MEDS: metroNIDAZOLE 500 MG INJ 100 ML IV SCH ×3 (04:59→22:00)
[2016-10-08] MEDS: CEFEPIME INJ 2,000 MG in SODIUM CHLORIDE 0.9% INJ 100 ML IV SCH (06:12)
[2016-10-08] MEDS: INSULIN ASPART SUPPLEMENTAL SCALE SQ SCH ×4 (06:14→21:00)
[2016-10-08] MEDS: POTASSIUM CHLORIDE 10 MEQ CAP PO SCH (09:00)
[2016-10-08] MEDS: PANTOPRAZOLE SOD 40 MG DELAYED RELEASE TAB PO SCH (09:00)
[2016-10-08] MEDS: DOCUSATE SODIUM 50 MG/SENNA 8.6 MG TAB PO SCH ×2 (09:00→22:51)
[2016-10-08] MEDS: SIMETHICONE SUSP DROPS 40 MG/0.6 ML 30 ML BTL PO SCH ×3 (09:00→22:53)
[2016-10-08] MEDS: BUDESONIDE-FORMOTEROL 160/4.5 MCG INHALER INH SCH ×2 (09:00→22:53)
[2016-10-08] MEDS: METOPROLOL TARTRATE 50 MG TAB PO SCH ×2 (09:00→22:51)
[2016-10-08] MEDS: MORPHINE SULFATE 30 MG CONTROLLED RELEASE TAB PO SCH ×4 (09:28→22:51)
[2016-10-08] MEDS: PANTOPRAZOLE SODIUM 40 MG VIAL IV PUSH SCH (10:12)
--- NOTE | 2016-10-08 11:06 | HHI.FPPN ---
Subjective Remarks Patient seen and examined bedside. Patient had an episode of chest pain overnight and was seen and examined by the overnight team. Patient stated at the time that she felt pressure on her chest as if an alternate sitting on her chest; the team subsequently ordered troponins and EKG as the workup was negative. The patient does not currently complain of any chest pain. The patient 's vitals have been stable overnight. The patient continues to vomit and spit up green fluid. She had 1 small bowel movement yesterday. She states she continues to have severe abdominal pain that is only mildly alleviated by medications. She feels very lethargic and has not been able to tolerate PO meals or fluids over the last 24hrs. The patient and family continue to hope to re-stabilize the pt and start dialysis. this has been discussed with the risks and benefits in depth with our medicine team AND nephrology. (Katherine Soto MD R2) Objective Vitals Vital Signs Date Time Temp Pulse Resp B/P Pulse Ox O2 Delivery O2 Flow Rate FiO2 10/08/16 08:00 97.4 95 18 101/66 99 10/08/16 04:00 97.4 102 16 115/56 99 10/08/16 00:00 98.0 101 16 107/63 99 10/07/16 20:00 97.8 96 16 100/60 98 10/07/16 16:00 97.6 96 19 103/56 97 10/07/16 14:03 98 Nasal Cannula 3.00 10/07/16 12:00 98.1 107 20 114/59 95 I/O 10/07/16 10/07/16 10/07/16 10/08/16 10/08/16 10/08/16 07:00 15:00 23:00 07:00 15:00 23:00 Output Total 525 ml Balance -525 ml Output Urine Total 525 ml # Voids 3 0 2 # Bowel Movements 0 (Katherine Soto MD R2) Result Diagram: 10/07/1683310/07/16833 Objective Remarks GENERAL: Elderly female lying in bed in no acute distress with daughter at bedside. SKIN: Warm and dry. No rash. Multiple areas of ecchymosis at different stages of healing secondary to recent fall. Gluteal cleft: Stage II to III pressure ulcer appreciated at the superior gluteal cleft. Wound with ulceration and erythema measuring approximately 2-3 cm in diameter. No purulence or hemorrhage appreciated. Wound currently covered by adhesive bandage. HEENT: Atraumatic, normocephalic with EOMI. MMM. No rhinorrhea. No LAD or JVD appreciated. CARDIOVASCULAR: Regular rate and rhythm with distant heart sounds. No MGR appreciated. RESPIRATORY: Scattered rhonchi throughout bilateral lung chappell via anterior examination. No increased work of breathing. GASTROINTESTINAL: Abdomen mildly distended ( same as exam yesterday) with palpable bowel pattern in the lower 2 quadrants. Patient mildly tender to palpation. Hypoactive bowel sounds. No masses or hepatosplenomegaly appreciated. No rebound tenderness or fluid wave appreciated. Negative Stiles sign. MUSCULOSKELETAL: No cyanosis or edema. Strength grossly WNL. Patient refuses to move left upper extremity citing pain from prior rotator cuff injury. Patient keeps arm at 90 and to not close to her body. No calf tenderness. NEURO/PSYCH: Afocal neurologically. Awake, alert, and oriented x3. Normal speech and judgment. (Katherine Soto MD R2) A/P Assessment and Plan Mrs. Sinclair is 75 yo F with extensive [facility] and 2 day hx of fever. Pt found to meet sepsis criteria upon evaluation in the ED. Leukopenia at 1.9, Temp: 100.1, HR: 93, lactic acid 2.1, positive Leuk esterase on UA. CXR showed opacity of Right upper lobe suggestive of early consolidation. Admitted for treatment of hospital acquired pneumonia. Patient now with chronic kidney disease stage V, partial small bowel obstruction , and general deterioration. Discharge Planning No plan for discharge in the next day (Katherine Soto MD R2) Assessment and Plan Medicine Attending note: Patient seen and examined. Case reviewed and discussed with resident team. Agree with plan of care is discussed with me and documented in the resident note. (Jose Eduardo Mcgee MD) Problem List: (1) Partial small bowel obstruction Status: Acute Plan: Patient presenting with acute abdominal distention and palpable bowel pattern of the lower 2 quadrants. Pt continues to have pain and bilious vomiting. 1small BM yesterday Previous Abdominal upright in flat x-ray: Abnormal gas pattern concern for early/partial small bowel obstruction. Biliary stent catheter remains in place Diet: NPO Continue with constipation protocol, add Dulcolax - NG tube placement (2) CKD (chronic kidney disease) Status: Chronic Plan: -Creatinine on admission 3.65, trending upward - Pt and family have decided to move forward with dialysis, have talked with nephrology - IR was to place PermCath today - (IR) said we need to stabilize pt current condition first before placing permcath (3) Hospital acquired PNA Status: Acute Plan: HCAP given recent hospitalization at end of August 2016 for GI bleed -CXR showed opacity of Right upper lobe suggestive of early consolidation -Azithromycin, cefepime and Flagyl (pt allergic to amoxicillin), patient did not receive IV medications overnight as she lost access, restart 10/04 -Oxygen titrated as need, pt O2 sat 97 on NC 2L -Incentive spirometer and a cappella ordered every 4 hours -Legionella and pneumococcal urine antigens: Negative -Blood cultures: No growth in 4 days (4) Sepsis Status: Acute Plan: Patient meeting sepsis criteria upon admission -Please see plan as below for HCAP - no current signs of sepsis (5) Pressure ulcer Status: Acute Plan: Patient found to have stage II to III pressure ulcer of the sacrum near the gluteal cleft. Wound care nurse consult placed, appreciate recommendations Patient refusing wound care at this time per nursing staff (6) COPD (chronic obstructive pulmonary disease) Status: Chronic Plan: -Patient saturating well on 3L NC -Continue home meds: albuterol, duonebs, symbicort -Consider adding prednisone if symptoms worsen - consider anemia of renal origin (7) Anemia Status: Chronic Plan: -Hemoccult: Negative -Reticulocyte count: Elevated to 3.3 -CBC indicative of pancytopenia, consider heme consult without improvement (8) Hypertension Status: Chronic Plan: Continue home amlodipine, metolazone, bumetanide, and metoprolol (9) DM (diabetes mellitus) Status: Chronic Plan: Sliding scale insulin per protocol Hold home glipizide (10) Atrial fibrillation Status: Chronic Plan: Patient currently rate controlled Continue with medications as above No anticoagulation per chart review, likely due to recent GI bleed and current anemia (11) Insomnia Status: Chronic Plan: Continue home ativan 1 mg QHS (12) Chronic pain Status: Acute Plan: -Continue home morphine 30mg Q8hr as dosed in rehab facility, consider increased if needed -Patient has adverse rxn to norco, requested not to be given this med (13) Nutrition, metabolism, and development symptoms Status: Acute Plan: Fluids: Tolerating fluids by mouth Nutrition: Clear liquid Electrolytes: Within normal limits, continue to monitor Physical therapy and occupational therapy consulted, appreciate recommendations (14) Contraindication to deep vein thrombosis (DVT) prophylaxis Status: Acute Plan: QUAN/SCD Contraindication to pharmacologic DVT prophylaxis as patient is currently anemic and has recent history of GI bleed (Katherine Soto MD R2) Problem Qualifiers (1) Sepsis: Qualified Code: A41.9 - Sepsis, due to unspecified organism Katherine Soto MD R2 Oct 08, 2016 11:05 Jose Eduardo Mcgee MD Oct 08, 2016 11:43 Jose Eduardo Mcgee MD Oct 08, 2016 11:43
[2016-10-08 11:54] LABS: BICARBONATE 22.3 MEQ/L (21.0-32.0)
[2016-10-08 11:57] LABS: POTASSIUM 4.5 MEQ/L (3.5-5.1)
--- NOTE | 2016-10-08 12:14 | HHI.NPPN ---
Subjective History of Present Illness This patient is a 75-year-old female known to me from the office who has a history of CKD stage IV. She was last seen in the office September 2015 and subsequently missed a follow-up appointment and did not reschedule. At that time she did indicate to me that she did not want dialysis even with terminal renal failure. There was also a complex cyst involving her left kidney for which she did not want follow-up or evaluation. Was admitted in August at this facility for PNA and fluid overload. It was determined at that visit that she had progressed to stage 5 CKD and had indicated at that admission that she did not want dialysis. She was discharged in August to the [facility] and was brought back to the ED on by her daughter for altered mental status. Has been on Lasix at the facility as well as Metolazone. Currently being treated for PNA. Overall, appears she is deteriorating. son at bedside. Interval History Pt is resting. Son present in room. Says she had a restless night coughing up bile Pending PC placement today. Appears NG tube to be placed as well as she has a SBO (Luzmaria Good) Review of Systems General Constitutional: Fatigue (Luzmaria Good) Gastrointestinal Gastrointestinal: Abdominal Pain, Nausea & Vomiting (Luzmaria Good) Objective Data Data 10/07/16 10/08/16 19:00 07:00 Output Total 525 ml Balance -525 ml Output Urine Total 525 ml # Voids 3 2 # Bowel Movements 0 Vital Signs Date Time Temp Pulse Resp B/P Pulse Ox O2 Delivery O2 Flow Rate FiO2 10/08/16 12:00 97.9 101 18 113/59 99 10/08/16 08:00 97.4 95 18 101/66 99 10/08/16 04:00 97.4 102 16 115/56 99 10/08/16 00:00 98.0 101 16 107/63 99 10/07/16 20:00 97.8 96 16 100/60 98 10/07/16 16:00 97.6 96 19 103/56 97 10/07/16 14:03 98 Nasal Cannula 3.00 (Luzmaria Good) -: 10/07/16 0834 10/08/16 1056 Imaging Last Impressions Abdomen X-Ray 10/06/16 0000 Signed Impressions: Service Date/Time: Thursday, October 06, 2016 10:38 - CONCLUSION: 1. Abnormal bowel gas pattern of concern for early or partial small bowel obstruction. 2. Biliary stent catheter remains in place. Aguila Morfin MD Shoulder X-Ray 10/03/16 0000 Signed Impressions: Service Date/Time: Monday, October 03, 2016 09:09 - CONCLUSION: Negative trauma study with no acute fracture or malalignment. Aguila Morfin MD Humerus X-Ray 10/03/16 0000 Signed Impressions: Service Date/Time: Monday, October 03, 2016 09:07 - CONCLUSION: Negative trauma study with no acute fracture or malalignment. Aguila Morfin MD Head CT 10/02/161856 Signed Impressions: Service Date/Time: Sunday, October 02, 2016 19:30 - CONCLUSION: Age-related findings unchanged. No acute intracranial findings. Jamison Vergara MD Chest X-Ray 10/02/161856 Signed Impressions: Service Date/Time: Sunday, October 02, 2016 19:23 - CONCLUSION: Mild right upper lung zone pulmonary parenchymal opacity. Jamison Vergara MD Pelvis X-Ray 10/02/16 0000 Signed Impressions: Service Date/Time: Sunday, October 02, 2016 19:16 - CONCLUSION: No evidence of fracture. Jamison Vergara MD Medication Review Current Medications Medications (Trade) Dose Ordered Sig/Saritha Route Start Time Stop Time Status Last Admin Metronidazole 100 ml @ 100 mls/hr Q8H IV 10/02/16 22:00 10/08/16 04:59 (Zithromax Inj/ NS 250 ml Inj) 250 ml @ 250 mls/hr Q24H IV 10/03/16 22:00 10/07/16 22:20 (Tylenol) 650 mg Q4H PRN PO 10/02/16 22:30 (Zofran Inj) 4 mg Q6H PRN IVP 10/02/16 22:30 10/08/16 03:07 (Narcan Inj) 0.4 mg UNSCH PRN IV 10/02/16 22:30 (Whitney-Colace) 1 tab BID PO 10/03/16 09:00 10/07/16 20:33 (Milk Of Magnesia Liq) 30 ml Q12H PRN PO 10/02/16 22:30 10/08/16 09:26 (Senokot) 17.2 mg Q12H PRN PO 10/02/16 22:30 (Dulcolax Supp) 10 mg DAILY PRN RECTAL 10/02/16 22:30 (Lactulose Liq) 30 ml DAILY PRN PO 10/02/16 22:30 (Norvasc) 10 mg DAILY PO 10/03/16 09:00 Hold 10/05/16 08:40 (Symbicort 160-4.5 Inh) 2 puff BID INH 10/03/16 09:00 10/07/16 20:34 (Bumetanide) 1 mg BID PO 10/03/16 09:00 Hold 10/06/16 11:34 (Ativan) 1 mg HS PO 10/03/16 21:00 10/07/16 20:33 (Lopressor) 50 mg BID PO 10/03/16 09:00 10/05/16 21:30 (Oramorph Sr) 30 mg Q8H PO 10/03/16 00:00 10/08/16 09:28 (D50w (Vial) Inj) 50 ml UNSCH PRN IV 10/03/16 03:45 (Glucagon Inj) 1 mg UNSCH PRN OTHER 10/03/16 03:45 Potassium Chloride 20 meq 20 meq DAILY PO 10/03/16 09:00 10/07/16 09:08 (Maxipime Inj/NS Inj) 100 ml @ 200 mls/hr Q24H IV 10/04/16 06:00 10/08/16 06:12 (Protonix) 40 mg DAILY PO 10/07/16 09:00 (Protonix Inj) 40 mg Q24H IV PUSH 10/07/16 09:00 10/08/16 10:12 Simethicone 40 mg 40 mg BID PO 10/07/16 09:00 10/07/16 20:34 Dextrose/Sodium Chloride 1,000 ml @ 84 mls/hr [id number] IV 10/07/16 14:00 10/08/16 03:01 (NS 1000 ml Inj) 1,000 ml @ 0 mls/hr Q0M PRN IV 10/07/16 15:05 Heparin Sodium (Porcine) 8000 units 8,000 units UNSCH PRN IVF 10/07/16 15:15 Sodium Chloride 1,000 ml @ 200 mls/hr Q5H PRN IV 10/07/16 15:05 (NS 1000 ml Inj) 1,000 ml @ 0 mls/hr Q0M PRN IV 10/07/16 15:05 (Mannitol Inj) 12.5 gm UNSCH PRN IV 10/07/16 15:15 (Albumin 25% Inj) 25 gm UNSCH PRN IV 10/07/16 15:15 (NS Flush) 5 ml UNSCH PRN IV FLUSH 10/07/16 15:15 (Heparin Inj) UNSCH PRN .XX 10/07/16 15:15 (Gentamicin (Dialysis) Inj) 20 mg UNSCH PRN IV 10/07/16 15:15 (Zofran Inj) 4 mg UNSCH PRN IV 10/07/16 15:15 (Tylenol) 650 mg UNSCH PRN PO 10/07/16 15:15 (Benadryl) 25 mg UNSCH PRN PO 10/07/16 15:15 (Nitrostat Sl) 0.4 mg UNSCH PRN SL 10/07/16 15:15 (Catapres) 0.1 mg UNSCH PRN PO 10/07/16 15:15 (Gelfoam 12 Mm/7 Mm Top) 1 foam UNSCH PRN TOP 10/07/16 15:15 (Luzmaria Good) Physical Exam General Appearance: No Acute Distress, Pale, Sleeping, Obese (Luzmaria Good) Eyes Eye Exam: Sclera White (Luzmaria Good) Pulmonary Resp Exam: Clear Bilaterally, Breath Sounds Equal, No Distress (Luzmaria Good) Cardiology CV Exam: Regular, Normal Sinus Rhythm, Good Perfusion (Luzmaria Good) Gastrointestinal/Abdomen GI Exam: Distended, Bowel Sounds Hypoactive (Luzmaria Good) Integumentary Skin Exam: Clear, Warm (Luzmaria Good) Extremeties Extremities Exam: Trace Edema (lower extremities.) (Luzmaria Good) Assessment/Plan Problem List: (1) Chronic kidney disease, stage V Plan: Pending PC placement today with 1st HD session thereafter. 2nd treatment tomorrow with start of MWF thereafter. The patient and her son are still wishing to proceed with PermCath placement as well as dialysis. Has been made well aware of risks of dialysis as noted in previous visits. Consultation placed to case picker and the social services analyst the dialysis facility was notified of potential admission. Given her multitude of medical issues and severely debilitated state, I am not sure she would be a good candidate; however, she has been advised that she may choose to withdraw dialysis support at any time. Medications should be adjusted for the patient's renal disease. Avoid gadolinium (2) Pneumonia Plan: Mgmt as per primary (3) Hypertension Plan: Hypotensive for the past couple days. Hold BP medications (4) DM (diabetes mellitus) Plan: Mgmt as per primary (5) Anemia Plan: Repeat CBC with Fe panel. Likely has anemia of renal disease (6) Chronic pain (7) CAD (coronary artery disease) (8) COPD (chronic obstructive pulmonary disease) (Luzmaria Good) Problem List: (1) Chronic kidney disease, stage V Plan: Patient completed her second treatment today. Vas-Cath with poor flow. If the patient wishes to continue dialysis will consult radiology next week to replace Vas-Cath with a hemodialysis PermCath. Surgical notes were reviewed. Hopefully GI issues will be resolved. Regardless patient will need intense rehabilitation. Long-term prognosis on dialysis most likely guarded to poor. Consultation placed to case picker and the social services analyst the dialysis facility was notified of potential admission. Given her multitude of medical issues and severely debilitated state, I am not sure she would be a good candidate; however, she has been advised that she may choose to withdraw dialysis support at any time. Medications should be adjusted for the patient's renal disease. Avoid gadolinium (2) Pneumonia Plan: Mgmt as per primary (3) Hypertension Plan: Hypotensive for the past couple days. Hold BP medications (4) DM (diabetes mellitus) Plan: Mgmt as per primary (5) Anemia Plan: Repeat CBC with Fe panel. Likely has anemia of renal disease (6) Chronic pain (7) CAD (coronary artery disease) (8) COPD (chronic obstructive pulmonary disease) (Marii Wheeler MD) Problem Qualifiers (1) Pneumonia: Qualified Code: J18.1 - Pneumonia of right upper lobe due to infectious organism Luzmaria Good Oct 08, 2016 12:14 Marii Wheeler MD Oct 09, 2016 18:38
[2016-10-08 13:44] LABS: HEMATOCRIT 36.2 % (35.0-46.0); MEAN CELL VOLUME 89.7 FL (80.0-100.0); MEAN CORPUSCULAR HEMOGLOBIN 29.8 PG (27.0-34.0); MEAN CORPUSCULAR HGB CONC 33.2 % (32.0-36.0); PLATELET COUNT 166 TH/MM3 (150-450); RED BLOOD COUNT 4.04 MIL/MM3 (4.00-5.30); RED CELL DISTRIBUTION WIDTH 15.8 % (11.6-17.2); REVIEW FLAG FINAL; WHITE BLOOD COUNT 4.2 TH/MM3 (4.0-11.0)
--- NOTE | 2016-10-08 14:43 | EKG ---
Date Performed: 10/07/2016 Time Performed: 21:30:43 PTAGE: 75 years EKG: Sinus rhythm WITH FIRST DEGREE AV BLOCK MODERATE T-WAVE ABNORMALITY, CONSIDER ANTERIOR ISCHEMIA ABNORMAL ECG PREVIOUS TRACING : 10/02/2016 18.54 Since previous tracing, no significant change noted DOCTOR: Herminio Ovalle Interpretating Date/Time 10/08/2016 14:41:13
--- NOTE | 2016-10-08 15:05 | PD.RAD ---
Post Procedure Progress Note Pre Procedure Diagnosis: (1) Renal failure Post Procedure Diagnosis: (1) Renal failure Procedure Date: Oct 08, 2016 Supervising Radiologist: Horace Mathew JR Proceduralist/Assist: Velma Stone, RT(R)(CV), Maddie Quispe RT(R) Anesthesia: Other Plan of Activity Patient to Unit: Nursing Unit Patient Condition: Good Additional Comments: Placed NG tube under fluoro guidance. Bilious return noted with tip in body of stomach. See PACS Report for procedural detail/treatment Central Venous Access Device Procedure 1 Left Internal Jugular Hemodialysis Catheter Non-Tunneled Placement dual lumen Barbadian: 14 Findings: Occluded right IJ at confluence. Place left IJ vascath. Patient vomiting and not a sedation candidate due to fear of aspiration. For this reason did NOT place Permcath as requested. Can convert this vascath to Permcath when clinically improved and able to be sedated. Jr. Quincy,Horace Cook MD Oct 08, 2016 15:05
[2016-10-08] MEDS ORDERED: HEPARIN SODIUM - IV 2,000 UNITS/2 ML VIAL IV FLUSH PRN (15:15)
[2016-10-08] MEDS ORDERED: SODIUM CHLORIDE 0.9% FLUSH 10 ML FLUSH IVF PRN (15:15)
--- NOTE | 2016-10-08 16:04 | RADRPT ---
EXAM DATE/TIME: 10/08/2016 13:39 [facility] COMPARISON: No previous studies available for comparison. INDICATIONS : Patient with elevated bun and creatine. MEDICAL HISTORY : 1.AMS 2.COPD 3.HTN 4.DM 5. Asthma 6. PAD 7. A fib 8. CKD 9. nasal AVM SURGICAL HISTORY : information not avalible ENCOUNTER: Initial ACUITY: 4-6 days PAIN SCORE: 3/10 LOCATION: abdomen FLUORO TIME: 3.5 minutes IMAGE SERIES: 3 ACCESS: Left internal jugular vein DEVICE(S): 1.) 14 Hungarian dual lumen 20 cm Schon catheter PROCEDURE : 1. Ultrasound guided venipuncture. 2. Fluoroscopic guidance. 3. Central line placement. The original order was for a perm catheter. The patient is actively vomiting and not able to be sedat ed secondary to inability to protect her airway. I do not feel comfortable sedated as patient current ly. A vas catheter will be placed and this can be converted to a PermCath once the patient is clinica lly improved. The risks, benefits and alternatives to the procedure were explained and verbal and written consent w as obtained. The site was prepped in sterile fashion. Full sterile technique was used, including ca p, mask, sterile gloves and gown and a large sterile sheet. Hand hygiene and 2% chlorhexidine prep w as utilized per protocol for cutaneous antisepsis with appropriate dry time for site. The skin and subcutaneous tissues were infiltrated with local anesthetic solution. A suitable site a mila the right internal jugular vein was selected with ultrasound and fluoroscopic guidance. A small incision was made. The vein was accessed under direct ultrasound visualization using the micropunct ure technique. I was unable to get to 0.018 wire passed into the central venous system. This was desp ite 3 different access point. The jugular vein is felt occluded at the base of the neck. The left int ernal jugular vein was therefore selected and the above fashion. A 0.018 wire was passed into the ernesto tral venous system under fluoroscopic control. The micropuncture set was exchanged for a 0.035 wire. The tract was dilated. The catheter was advanced into position under direct fluoroscopic visualizat ion. The catheter was fixed in place with suture and a sterile dressing was applied. The patient tolerated the procedure well and there were no complications. CONCLUSION: 1. Suspected occlusion of the right internal jugular vein at the base of the neck. 2. Successful Vas-Cath placed on the left. 3. The patient is not able to be sedated due to the ongoing vomiting. Once the patient's clinical sta tus improves we can convert this to a PermCath. Horace Mathew Jr., MD on October 08, 2016 at 15:55 Board Certified Radiologist. This report was verified electronically.
--- NOTE | 2016-10-08 16:05 | RADRPT ---
EXAM DATE/TIME: 10/08/2016 13:39 [facility] COMPARISON: No previous studies available for comparison. INDICATIONS : Patient with nausea and vomiting. MEDICAL HISTORY : 1. COPD 2. DM 3. CHF 4. HTN 5. A fib 6.CKD 7. nasal AVM SURGICAL HISTORY : 1. Vas cath ENCOUNTER: Initial ACUITY: 4-6 days PAIN SCORE: 3/10 abd FLUORO TIME: 3.5 minutes IMAGE SERIES: 1 DEVICE(S): 1.) 14 fr NG tube PROCEDURE : 1. Fluoroscopically guided enteric feeding tube placement. The risks, benefits and alternatives to the procedure were explained and verbal and written consent w as obtained. With fluoroscopic guidance a nasogastric tube was passed through the nasal cavity into the stomach. The tip is positioned in the antrum. The patient was actively vomiting bilious material during this process. This procedure was performed with the patient in the right lateral decubitus po sition to help protect her airway. CONCLUSION: Nasogastric tube placement with fluoroscopy guidance as above. Horace Mathew Jr., MD on October 08, 2016 at 16:03 Board Certified Radiologist. This report was verified electronically.
[2016-10-08] MEDS: LORazepam 1 MG TAB PO SCH (22:51)
[2016-10-08] MEDS: AZITHROMYCIN INJ 500 MG in SODIUM CHLOR 0.9% 250 ML INJ 250 ML IV SCH (22:52)
[2016-10-09 00:04] VITALS: BP 126/71; PULSE 97; RESP 18; TEMP 97.5; O2SAT 99
[2016-10-09] MEDS: DEXT 5%-NACL 0.45% 1000 ML INJ 1,000 ML IV SCH ×2 (01:45→13:40)
[2016-10-09 03:01] LABS: HEMATOCRIT 32.4 % (35.0-46.0); MEAN CELL VOLUME 89.7 FL (80.0-100.0); MEAN CORPUSCULAR HGB CONC 33.5 % (32.0-36.0); PLATELET COUNT 154 TH/MM3 (150-450); RED BLOOD COUNT 3.62 MIL/MM3 (4.00-5.30); RED CELL DISTRIBUTION WIDTH 15.4 % (11.6-17.2); REVIEW FLAG FINAL; WHITE BLOOD COUNT 5.7 TH/MM3 (4.0-11.0)
[2016-10-09 03:35] LABS: BICARBONATE 28.2 MEQ/L (21.0-32.0); POTASSIUM 3.9 MEQ/L (3.5-5.1)
[2016-10-09] MEDS: CEFEPIME INJ 2,000 MG in SODIUM CHLORIDE 0.9% INJ 100 ML IV SCH (05:44)
[2016-10-09] MEDS: metroNIDAZOLE 500 MG INJ 100 ML IV SCH ×3 (05:46→21:20)
[2016-10-09] MEDS: INSULIN ASPART SUPPLEMENTAL SCALE SQ SCH ×4 (06:00→21:00)
--- NOTE | 2016-10-09 06:47 | MB ---
cc: GERMAINE COVINGTON M.D. DATE OF CONSULTATION: 10/08/2016 REASON FOR CONSULTATION: Partial bowel obstruction. HISTORY OF PRESENT ILLNESS The patient is an unfortunate complex very ill 75-year-old female with multiple medical problems who recently began dialysis and he was found to have abnormal gas pattern concerning for partial small-bowel obstruction. This was diagnosed on 10/06 or 2 days ago. Nasogastric tube was placed today in interventional radiology as there was difficulty placing this yesterday. We have been asked to see the patient for her bowel obstruction. PAST MEDICAL HISTORY 1. The patient's previous medical problems include; 2. Coronary artery disease 3. Chronic obstructive pulmonary disease 4. Hypertension 5. history of cerebrovascular accident. 6. Diabetes. 7. Renal failure. 8. The patient has had three falls just prior to her admission on 10/02/2016. 9. The patient is on chronic pain medicine for neuropathy in both legs. PAST SURGICAL HISTORY: 1. The other surgery includes appendectomy as a teenager. 2. The patient has undergone cholecystectomy many years ago. many years ago as well. 3. Myocardial infarction in the past. 4. Coronary artery bypass graft times four in 1999. SOCIAL HISTORY: The patient does not drink or use tobacco or other substances. ALLERGIES The patient has multiple allergies including; 1. AUGMENTIN 2. HALDOL 3. LATEX 4. MACRODANTIN 5. MIRAPEX 6. PHENERGAN 7. TEMAZEPAM 8. <<2:34>> 9. LYRICA 10. SOMA 11. AMOXICILLIN 12. HMG-CoA REDUCTASE INHIBITORS. 13. TRAZODONE. 14. TAPE 15. CIPRO 16. SEPTRA 17. TOPAMAX. 18. ERYTHROMYCIN PHYSICAL EXAMINATION: IN GENERAL: Physical exam reveals an obese female who is lying in bed. She is alert and conversant. VITAL SIGNS: BP 153/67, pulse 120, respirations 18, temperature 97.6, 97% saturation on 3 liters nasal cannula. HEAD, EYES, EARS, NOSE, AND THROAT: Sclerae anicteric. CHEST: The chest reveals some occasional inspiratory rhonchi, left greater than right. CARDIAC: Cardiac exam reveals tachycardia without murmurs. ABDOMEN: Soft, distended with a well-healed right paramedian scar. An infraumbilical midline scar and a right lower quadrant transverse scar. The patient is nontender to palpation. Bowel sounds were decreased. I do not appreciate any hernias. Pulses are present but decreased. EXTREMITIES: The patient has multiple ecchymoses on both arms and the lower quadrants of both abdomen. LABORATORY FINDINGS: Laboratory values demonstrate WBCs of 4.2, platelets 166,000, hemoglobin 12.0. Chemistries demonstrate potassium of 4.5, BUN and creatinine are 97 in 5.8, sodium 131. Coags demonstrate INR of 1.1. Serology is negative for hepatitis. IMAGING: Imaging is as noted above. ASSESSMENT Partial small-bowel obstruction likely secondary to multiple medical problems including compounded by chronic narcotic use. PLAN We will obtain gastrograph and enema of this evening as the patient declined small bowel series via her NG tube. This is reasonable as she has multiple procedures going on over the last 2 days. I have discussed the patient's care with the family members and the patient. They are agreeable to proceed with Gastrografin enema to see whether or not this will improve her partial bowel obstruction. The patient is a very poor operative candidate given her multiple medical problems for any exploration or even diagnostic laparoscopy. The patient will undergo Gastrografin enema tonight. Would leave NG tube in the low intermittent suction for the time being. We will follow with you. MD PAULINO Epstein/mack /11:26 PM /6:33 AM
[2016-10-09 07:54] VITALS: BP 122/57; PULSE 100; RESP 20; TEMP 97.5; O2SAT 100
[2016-10-09] MEDS: PANTOPRAZOLE SODIUM 40 MG VIAL IV PUSH SCH (08:45)
[2016-10-09] MEDS: DOCUSATE SODIUM 50 MG/SENNA 8.6 MG TAB PO SCH ×2 (08:46→21:20)
[2016-10-09] MEDS: MORPHINE SULFATE 30 MG CONTROLLED RELEASE TAB PO SCH ×2 (08:46→16:00)
[2016-10-09] MEDS: METOPROLOL TARTRATE 50 MG TAB PO SCH ×2 (08:46→21:20)
[2016-10-09] MEDS: POTASSIUM CHLORIDE 10 MEQ CAP PO SCH (08:46)
[2016-10-09] MEDS: SIMETHICONE SUSP DROPS 40 MG/0.6 ML 30 ML BTL PO SCH ×2 (09:00→21:21)
[2016-10-09] MEDS: PANTOPRAZOLE SOD 40 MG DELAYED RELEASE TAB PO SCH (09:00)
[2016-10-09] MEDS: BUDESONIDE-FORMOTEROL 160/4.5 MCG INHALER INH SCH ×2 (11:00→21:21)
--- NOTE | 2016-10-09 11:14 | RADRPT ---
EXAM DATE/TIME: 10/09/2016 09:32 [facility] COMPARISON: ABDOMEN FLAT & UPRIGHT, October 06, 2016, 10:38. INDICATIONS : Abdominal pain and distention. MEDICAL HISTORY : Venous insufficiency. Hypertension. Chronic obstructive pulmonary disease. Stroke. Myocardial i nfarction. Left kidney cancer. SURGICAL HISTORY : Umbilical hernia repair. CABG Cholecystectomy.Hysterectomy.Hernia repair ercp. ENCOUNTER: Initial ACUITY: 2 weeks PAIN SCORE: 5/10 LOCATION: Bilateral abdomen. FINDINGS: Supine and upright views of the abdomen were performed. Diffuse small bowel distention again seen. Na sogastric tube tip in stomach. The common bile duct. Cholecystectomy clips.. The visualized lower geo ngs are clear. No evidence of free intraperitoneal gas. The osseous structures are unremarkable. CONCLUSION: Persistent diffuse small bowel dilatation which can be seen with ileus/obstruction. Connor Boyle MD on October 09, 2016 at 11:10 Board Certified Radiologist. This report was verified electronically.
--- NOTE | 2016-10-09 11:20 | RADRPT ---
EXAM DATE/TIME: 10/09/2016 10:09 [facility] COMPARISON: ABDOMEN FLAT & UPRIGHT, October 09, 2016, 9:32. ABDOMEN FLAT & UPRIGHT, October 06, 2016, 10:38. INDICATIONS : Abdominal pain and distention, evaluation for obstruction. FLUORO TIME: 1.8 minutes IMAGE COUNT: 15 CONTRAST: 1. Gastroview MEDICAL HISTORY : Hypertension. Chronic obstructive pulmonary disease. Stroke. Myocardial infarction. Left kidney cance r. SURGICAL HISTORY : CABG Cholecystectomy.Hysterectomy.Hernia repair ercp. ENCOUNTER: Initial ACUITY: 2 weeks PAIN SCORE: 5/10 LOCATION: Bilateral abdomen. FINDINGS: Preliminary film is unremarkable. Under fluoroscopic guidance a Gastrografin enema was performed with free flow of contrast to the ceca l tip. No dilated large bowel loops. There was reflux into the terminal ileum. Portions of the distal ileum appear mildly prominent. Post evacuation radiographs are unremarkable. CONCLUSION: No large bowel obstruction. Connor Boyle MD on October 09, 2016 at 11:12 Board Certified Radiologist. This report was verified electronically.
--- NOTE | 2016-10-09 12:12 | HHI.FPPN ---
Subjective Remarks Patient seen and examined bedside after she had just returned from Gastrografin enema. Last night the patient did go to dialysis for an hour and a half although she was slotted to go to dialysis for 2 hours. After an hour and a half of dialysis the patient said this is too much and went back to her room. Patient states that she is feeling better today than yesterday and her pain has decreased. She did not have any bowel movements overnight. She had her NG tube placed yesterday and green bilious material can be visualized in the suction container. She has been on low intermittent suctioning. Patient and family denies any fevers/chills overnight. Patient denies any chest pain/shortness of breath/dizziness overnight. The family continues to desire dialysis, and plans to proceed with dialysis tonight. (Katherine Soto MD R2) Objective Vitals Vital Signs Date Time Temp Pulse Resp B/P Pulse Ox O2 Delivery O2 Flow Rate FiO2 10/09/16 07:54 97.5 100 20 122/57 100 10/09/16 00:04 97.5 97 18 126/71 99 10/08/16 23:48 97.3 92 18 137/64 97 10/08/16 20:00 97.6 124 18 153/67 97 10/08/16 18:00 97.4 96 20 127/69 96 10/08/16 17:31 96 I/O 10/08/16 10/08/16 10/08/16 10/09/16 10/09/16 10/09/16 07:00 15:00 23:00 07:00 15:00 23:00 Output Total 350 ml 300 ml Balance -350 ml -300 ml Gastric Drainage Total 350 ml 300 ml # Voids 2 2 2 3 # Bowel Movements 0 (Katherine Soto MD R2) Result Diagram: 10/09/16 0242 10/09/16 0242 Objective Remarks GENERAL: Elderly female lying in bed in no acute distress with daughter at bedside. SKIN: Warm and dry. No rash. Multiple areas of ecchymosis at different stages of healing secondary to recent fall. Gluteal cleft: Stage II to III pressure ulcer appreciated at the superior gluteal cleft. Wound with ulceration and erythema measuring approximately 2-3 cm in diameter. No purulence or hemorrhage appreciated. Wound currently covered by adhesive bandage. HEENT: Atraumatic, normocephalic with EOMI. MMM. No rhinorrhea. No LAD or JVD appreciated. NG tube in place, bilious/brown fluid in suction container CARDIOVASCULAR: Regular rate and rhythm with distant heart sounds. No MGR appreciated. RESPIRATORY: Scattered rhonchi throughout bilateral lung chappell via anterior examination. No increased work of breathing. GASTROINTESTINAL: Abdomen mildly distended ( same as exam yesterday) with palpable bowel pattern in the lower 2 quadrants. Patient mildly tender to palpation. Hypoactive bowel sounds. No masses or hepatosplenomegaly appreciated. No rebound tenderness or fluid wave appreciated. Negative Stiles sign. MUSCULOSKELETAL: No cyanosis or edema. Strength grossly WNL. Patient refuses to move left upper extremity citing pain from prior rotator cuff injury. Patient keeps arm at 90 and to not close to her body. No calf tenderness. NEURO/PSYCH: Afocal neurologically. Awake, alert, and oriented x3. Normal speech and judgment. (Katherine Soto MD R2) A/P Assessment and Plan Mrs. Sinclair is 75 yo F with extensive [facility]x [facility] and 2 day hx of fever. Pt found to meet sepsis criteria upon evaluation in the ED. Leukopenia at 1.9, Temp: 100.1, HR: 93, lactic acid 2.1, positive Leuk esterase on UA. CXR showed opacity of Right upper lobe suggestive of early consolidation. Admitted for treatment of hospital acquired pneumonia. Patient now with chronic kidney disease stage V, partial small bowel obstruction , and general deterioration. Discharge Planning No plan for discharge in the next day (Katherine Soto MD R2) Assessment and Plan Patient seen and examined. Case reviewed and discussed with the resident team. Agree wit the plan of care as discussed with me and documented in the resident note. (Jose Eduardo Mcgee MD) Problem List: (1) Partial small bowel obstruction Status: Acute Plan: Patient presenting with acute abdominal distention and palpable bowel pattern of the lower 2 quadrants. Pt pain has decreased with nothing by mouth status and NG tube suctioning. Previous Abdominal upright in flat x-ray (10/06): Abnormal gas pattern concern for early/partial small bowel obstruction. Biliary stent catheter remains in place - Repeat abdomen x-ray (10/09) : Persistent diffuse small bowel dilatation which can be seen with ileus/obstruction Diet: NPO - Gen. surgery: Followingsee recommendations per note. Patient not good candidate for surgical procedure due to multiple comorbid Conditions. Continue with constipation protocol, add Dulcolax - NG tube placed, clamped for medications only (2) CKD (chronic kidney disease) Status: Chronic Plan: -Creatinine on admission 3.65, trending upward, creatinine today 4.82 - Pt has left vas catheter - IR unable to place PermCath because patient cannot be under sedation due to unstable condition - Patient status post 1.5 hours of dialysis yesterday, plan for dialysis again today - Nephrology following (3) Hospital acquired PNA Status: Acute Plan: HCAP given recent hospitalization at end of August 2016 for GI bleed -CXR showed opacity of Right upper lobe suggestive of early consolidation -Azithromycin, cefepime and Flagyl (pt allergic to amoxicillin) -Oxygen titrated as need, pt O2 sat 96-100 on NC 2L -Incentive spirometer and a cappella ordered every 4 hours -Legionella and pneumococcal urine antigens: Negative -Blood cultures: No growth in 4 days (4) Sepsis Status: Resolved Plan: Patient meeting sepsis criteria upon admission -Please see plan as below for HCAP - no current signs of sepsis (5) Pressure ulcer Status: Acute Plan: Patient found to have stage II to III pressure ulcer of the sacrum near the gluteal cleft. Wound care nurse consult placed, appreciate recommendations Patient refusing wound care at this time per nursing staff (6) COPD (chronic obstructive pulmonary disease) Status: Chronic Plan: -Patient saturating well on 3L NC -Continue home meds: albuterol, duonebs, symbicort -Consider adding prednisone if symptoms worsen - consider anemia of renal origin (7) Anemia Status: Chronic Plan: - Hemoglobin 10.9 (from 12 yesterday), white blood count 5.7 - Likely dilutional anemia playing a part -Hemoccult: Negative -Reticulocyte count: Elevated to 3.3 -CBC indicative of pancytopenia, consider heme consult without improvement (8) Hypertension Status: Chronic Plan: Continue home amlodipine, metolazone, bumetanide, and metoprolol (9) DM (diabetes mellitus) Status: Chronic Plan: Sliding scale insulin per protocol Hold home glipizide (10) Atrial fibrillation Status: Chronic Plan: Patient currently rate controlled Continue with medications as above No anticoagulation per chart review, likely due to recent GI bleed and current anemia (11) Insomnia Status: Chronic Plan: Continue home ativan 1 mg QHS (12) Chronic pain Status: Acute Plan: -Continue home morphine 30mg Q8hr as dosed in rehab facility, consider increased if needed -Patient has adverse rxn to norco, requested not to be given this med (13) Nutrition, metabolism, and development symptoms Status: Acute Plan: Fluids: Tolerating fluids by mouth Nutrition: Clear liquid Electrolytes: Within normal limits, continue to monitor Physical therapy and occupational therapy consulted, appreciate recommendations (14) Contraindication to deep vein thrombosis (DVT) prophylaxis Status: Acute Plan: QUAN/SCD Contraindication to pharmacologic DVT prophylaxis as patient is currently anemic and has recent history of GI bleed (Katherine Soto MD R2) Problem Qualifiers (1) Sepsis: Katherine Soto MD R2 Oct 09, 2016 12:12 Jose Eduardo Mcgee MD Oct 11, 2016 15:53
[2016-10-09 12:18] VITALS: BP 104/56; PULSE 88; RESP 20; TEMP 97.3; O2SAT 98
[2016-10-09 12:20] VITALS: PULSE 103
[2016-10-09 14:00] VITALS: O2SAT 98
[2016-10-09] MEDS ORDERED: DIATRIZOATE MEGLUM/DIATRIZOATE SOD 120 ML BTL (for RAD DIAG) RECTAL ONE (14:30)
--- NOTE | 2016-10-09 18:41 | HHI.NPPN ---
Subjective History of Present Illness This patient is a 75-year-old female known to me from the office who has a history of CKD stage IV. She was last seen in the office September 2015 and subsequently missed a follow-up appointment and did not reschedule. At that time she did indicate to me that she did not want dialysis even with terminal renal failure. There was also a complex cyst involving her left kidney for which she did not want follow-up or evaluation. Was admitted in August at this facility for PNA and fluid overload. It was determined at that visit that she had progressed to stage 5 CKD and had indicated at that admission that she did not want dialysis. She was discharged in August to the [facility] and was brought back to the ED on by her daughter for altered mental status. Has been on Lasix at the facility as well as Metolazone. Currently being treated for PNA. Overall, appears she is deteriorating. son at bedside. Interval History Patient was seen in the dialysis room having completed his second dialysis session. Indicated that she was still having some abdominal discomfort. Dialysis and this indicated the Vas-Cath was with poor flow today but treatment was completed. Review of Systems General Constitutional: Fatigue Gastrointestinal Gastrointestinal: Abdominal Pain, Nausea & Vomiting Objective Data Data 10/08/16 10/09/16 19:00 07:00 Output Total 350 ml Balance -350 ml Gastric Drainage Total 350 ml # Voids 2 5 # Bowel Movements 0 Vital Signs Date Time Temp Pulse Resp B/P Pulse Ox O2 Delivery O2 Flow Rate FiO2 10/09/16 14:00 98 Nasal Cannula 2.00 10/09/16 12:20 103 10/09/16 12:18 97.3 88 20 104/56 98 10/09/16 09:46 17 10/09/16 07:54 97.5 100 20 122/57 100 10/09/16 00:04 97.5 97 18 126/71 99 10/08/16 23:48 97.3 92 18 137/64 97 10/08/16 20:00 97.6 124 18 153/67 97 -: 10/09/16 0242 10/09/16 0242 Physical Exam General Appearance: No Acute Distress, Pale, Sleeping, Obese Eyes Eye Exam: Sclera White Pulmonary Resp Exam: Clear Bilaterally, Breath Sounds Equal, No Distress Cardiology CV Exam: Regular, Normal Sinus Rhythm, Good Perfusion Gastrointestinal/Abdomen GI Exam: Distended, Bowel Sounds Hypoactive Integumentary Skin Exam: Clear, Warm Extremeties Extremities Exam: Trace Edema (lower extremities.) Assessment/Plan Problem List: (1) Chronic kidney disease, stage V Plan: Patient completed her second treatment today. Vas-Cath with poor flow. If the patient wishes to continue dialysis will consult radiology next week to replace Vas-Cath with a hemodialysis PermCath. Surgical notes were reviewed. Hopefully GI issues will be resolved. Regardless patient will need intense rehabilitation. Long-term prognosis on dialysis most likely guarded to poor unless significant rehabilitation occurs.. Consultation placed to case consultant and the long term care social worker the dialysis facility was notified of potential admission. Given her multitude of medical issues and severely debilitated state, I am not sure she would be a good candidate; however, she has been advised that she may choose to withdraw dialysis support at any time. Medications should be adjusted for the patient's renal disease. Avoid gadolinium (2) Pneumonia Plan: Mgmt as per primary (3) Hypertension Plan: Hypotensive for the past couple days. Hold BP medications (4) DM (diabetes mellitus) Plan: Mgmt as per primary (5) Anemia Plan: Repeat CBC with Fe panel. Likely has anemia of renal disease (6) Chronic pain (7) CAD (coronary artery disease) (8) COPD (chronic obstructive pulmonary disease) Problem Qualifiers (1) Pneumonia: Qualified Code: J18.1 - Pneumonia of right upper lobe due to infectious organism Marii Wheeler MD Oct 09, 2016 18:41
[2016-10-09 19:49] VITALS: BP 105/59; PULSE 88; RESP 18; TEMP 97.6; O2SAT 98
--- NOTE | 2016-10-09 20:23 | HHI.PR ---
Subjective Subjective Notes Sleeping; more comfortable than yesterday Objective Vitals/I&O Vital Signs Date Time Temp Pulse Resp B/P Pulse Ox O2 Delivery O2 Flow Rate FiO2 10/09/16 19:49 97.6 88 18 105/59 98 10/09/16 14:00 Nasal Cannula 2.00 Labs Laboratory Tests Test 10/09/16 02:42 White Blood Count 5.7 Red Blood Count 3.62 Hemoglobin 10.9 Hematocrit 32.4 Mean Corpuscular Volume 89.7 Mean Corpuscular Hemoglobin 30.0 Mean Corpuscular Hemoglobin 33.5 Concent Red Cell Distribution Width 15.4 Platelet Count 154 Mean Platelet Volume 8.8 Sodium Level 137 Potassium Level 3.9 Chloride Level 96 Carbon Dioxide Level 28.2 Anion Gap 13 Blood Urea Nitrogen 64 Creatinine 4.82 Estimat Glomerular Filtration 9 Rate Random Glucose 134 Calcium Level 7.7 Phosphorus Level 4.1 Albumin 1.6 Date/Time Procedure Status Source Growth 10/05/16 10:10 Stool Occult Blood (SUPA) - Final Complete Stool Stool HEMOCCULT NEGATIVE Abdomen: Non-distended, Non-tender A/P Assessment and Plan Partial SBO; gastrografin shows no colonic component/pathology Abdomen softer; may be improving with NPO status and NG suction, although output is not great.j Continue NG to suction for now. May try clamping in AM if output remains low and abdomen remains soft Aguila Wing MD Oct 09, 2016 20:23
[2016-10-09] MEDS ORDERED: LACTULOSE SYRUP 20 GM/30 ML CUP NG ONE (20:30)
[2016-10-09] MEDS: LORazepam 1 MG TAB PO SCH (21:20)
[2016-10-09] MEDS: AZITHROMYCIN INJ 500 MG in SODIUM CHLOR 0.9% 250 ML INJ 250 ML IV SCH (21:21)
[2016-10-10] VITALS: BP 118/57; PULSE 88; RESP 20; TEMP 97.7; O2SAT 97
[2016-10-10] MEDS: MORPHINE SULFATE 30 MG CONTROLLED RELEASE TAB PO SCH
[2016-10-10] MEDS: DEXT 5%-NACL 0.45% 1000 ML INJ 1,000 ML IV SCH ×2 (01:35→13:30)
[2016-10-10 04:00] VITALS: BP 118/57; PULSE 88; RESP 20; TEMP 97.7; O2SAT 97
[2016-10-10] MEDS: CEFEPIME INJ 2,000 MG in SODIUM CHLORIDE 0.9% INJ 100 ML IV SCH (04:51)
[2016-10-10] MEDS: metroNIDAZOLE 500 MG INJ 100 ML IV SCH ×3 (04:51→21:15)
[2016-10-10 06:53] LABS: BICARBONATE 27.3 MEQ/L (21.0-32.0)
[2016-10-10 06:56] LABS: HEMATOCRIT 35.2 % (35.0-46.0); MEAN CORPUSCULAR HEMOGLOBIN 29.5 PG (27.0-34.0); MEAN CORPUSCULAR HGB CONC 32.4 % (32.0-36.0); PLATELET COUNT 108 TH/MM3 (150-450); RED BLOOD COUNT 3.87 MIL/MM3 (4.00-5.30); RED CELL DISTRIBUTION WIDTH 16.4 % (11.6-17.2); WHITE BLOOD COUNT 8.1 TH/MM3 (4.0-11.0)
[2016-10-10 06:58] LABS: REVIEW FLAG FINAL
[2016-10-10] MEDS: INSULIN ASPART SUPPLEMENTAL SCALE SQ SCH ×4 (07:00→21:00)
[2016-10-10 07:43] VITALS: BP 96/54; PULSE 88; RESP 20; TEMP 97.8; O2SAT 97
[2016-10-10] MEDS: METOPROLOL TARTRATE 50 MG TAB PO SCH ×2 (09:00→21:00)
[2016-10-10] MEDS: BUDESONIDE-FORMOTEROL 160/4.5 MCG INHALER INH SCH ×2 (09:00→21:00)
[2016-10-10] MEDS: DOCUSATE SODIUM 50 MG/SENNA 8.6 MG TAB PO SCH ×2 (09:00→21:00)
[2016-10-10] MEDS: POTASSIUM CHLORIDE 10 MEQ CAP PO SCH (09:00)
[2016-10-10] MEDS: PANTOPRAZOLE SOD 40 MG DELAYED RELEASE TAB PO SCH (09:00)
[2016-10-10] MEDS: SIMETHICONE SUSP DROPS 40 MG/0.6 ML 30 ML BTL PO SCH ×2 (09:00→21:21)
[2016-10-10] MEDS: PANTOPRAZOLE SODIUM 40 MG VIAL IV PUSH SCH (09:00)
[2016-10-10 13:30] VITALS: BP 101/59; PULSE 75; RESP 22; TEMP 97.4; O2SAT 95
--- NOTE | 2016-10-10 14:16 | HHI.FPPN ---
Subjective Remarks Patient seen and examined this morning by medical team. No acute events overnight per nursing staff. Patient hypotensive this morning to 96/54, but remains asymptomatic endorsing no dizziness, chest pain, or syncope. Patient's daughter and brother at the bedside. Family agrees patient has improved from a respiratory standpoint with treatment of her hospital-acquired pneumonia. They are concerned regarding her small bowel obstruction as enema showed no large bowel obstruction. Counseled family that obstruction could be proximal to the large bowel and conservative treatment would require patience and letting her body recover. They are also concerned that she continues to complain of heartburn despite NG tube placement. Patient is sleeping during most the interview, however upon waking states that she is in pain but is unable to identify the location. She denied any fever, shortness of breath, cardiac chest pain, or calf tenderness at this time. Objective Vitals Vital Signs Date Time Temp Pulse Resp B/P (MAP) Pulse Ox O2 Delivery O2 Flow Rate FiO2 10/10/16 07:43 97.8 88 20 96/54 (68) 97 10/10/16 04:00 97.7 88 20 118/57 (77) 97 10/10/16 00:00 97.7 88 20 118/57 (77) 97 10/09/16 20:11 Nasal Cannula 3.00 10/09/16 19:49 97.6 88 18 105/59 (74) 98 10/09/16 14:00 98 Nasal Cannula 2.00 I/O 10/09/16 10/09/16 10/09/16 10/10/16 10/10/16 10/10/16 07:00 15:00 23:00 07:00 15:00 23:00 Intake Total 1150 ml Output Total 300 ml 1000 ml 450 ml Balance -300 ml -1000 ml 700 ml IV Total 990 ml Tube Irrigant 160 ml Gastric Drainage Total 300 ml 450 ml Hemodialysis 1000 ml # Voids 3 Result Diagram: 10/10/1661210/10/1613 Objective Remarks GENERAL: Elderly female lying in bed asleep in no acute distress with daughter and son at bedside. SKIN: Warm and dry. No rash. Multiple areas of ecchymosis at different stages of healing secondary to recent fall. Gluteal cleft: Stage II to III pressure ulcer appreciated at the superior gluteal cleft. Wound with ulceration and erythema measuring approximately 2-3 cm in diameter. No purulence or hemorrhage appreciated. Wound currently covered by adhesive bandage. HEENT: Atraumatic, normocephalic with EOMI. MMM. No rhinorrhea. No LAD or JVD appreciated. NG tube in place, bilious/brown fluid in suction container, approximately 120 mL. CARDIOVASCULAR: Regular rate and rhythm with distant heart sounds. No MGR appreciated. RESPIRATORY: Scattered rhonchi throughout bilateral lung chappell via anterior examination. No increased work of breathing. GASTROINTESTINAL: Abdomen mildly distended (no change from prior exam) with palpable bowel pattern in the lower 2 quadrants. Patient mildly tender to palpation in all 4 quadrants. Bowel sounds improved in all 4 quadrants. No masses or hepatosplenomegaly appreciated. No rebound tenderness or fluid wave appreciated. Negative Stiles sign. MUSCULOSKELETAL: No cyanosis or edema. Strength grossly WNL. Patient refuses to move left upper extremity citing pain from prior rotator cuff injury. Patient keeps arm at 90 and close to her body at all times. No calf tenderness. NEURO/PSYCH: Patient sleeping upon entering the room, however does awake to stimulation. Afocal. Awake, alert, and oriented x3. Normal speech and judgment. A/P Assessment and Plan Mrs. Sinclair is 75 yo F with extensive pmhx brought to ED from [facility] rehab facility due to AMS and 2 day hx of fever. Pt found to meet sepsis criteria upon evaluation in the ED. Leukopenia at 1.9, Temp: 100.1, HR: 93, lactic acid 2.1, positive Leuk esterase on UA. CXR showed opacity of Right upper lobe suggestive of early consolidation. Admitted for treatment of hospital acquired pneumonia. Patient now with chronic kidney disease stage IV, partial small bowel obstruction, and general deterioration. Discharge Planning No plan for discharge in the next day Problem List: (1) Partial small bowel obstruction ICD Codes: K56.69 - Other intestinal obstruction Status: Acute Plan: Patient presenting with acute abdominal distention and palpable bowel pattern of the lower 2 quadrants. Pt pain has decreased with nothing by mouth status and NG tube suctioning. Previous Abdominal upright in flat x-ray (10/06): Abnormal gas pattern concern for early/partial small bowel obstruction. Biliary stent catheter remains in place - Repeat abdomen x-ray (10/09) : Persistent diffuse small bowel dilatation which can be seen with ileus/obstruction -Enema with contrast 10/10: No large bowel obstruction -Abdominal x-ray 10/10: Persistent diffuse small bowel dilation which can be seen with ileus/obstruction. Diet: NPO - Gen. surgery: Followingsee recommendations per note. Patient not good candidate for surgical procedure due to multiple comorbid Conditions. Continue with constipation protocol - NG tube placed, clamped for medications only - Encouraged Zofran use for nausea - Continue daily Protonix, add sucralfate 3 times a day (2) CKD (chronic kidney disease) ICD Codes: N18.9 - Chronic kidney disease, unspecified Status: Chronic Plan: -Creatinine on admission 3.65, trending upward, creatinine today 4.82. - Monitor blood pressure as patient is hypotensive to 96/54. Consider 500 mL bolus if patient becomes symptomatic or has increasing hypotension - Pt has left vas catheter - IR unable to place PermCath because patient cannot be under sedation due to unstable condition, plan to reconsult invasive radiology for vas catheter if patient wishes to continue dialysis -Patient scheduled for Tuesday, Tuesday, and Tuesday treatment - Nephrology following (3) Hospital acquired PNA ICD Codes: J18.9 - Pneumonia, unspecified organism Status: Acute Plan: HCAP given recent hospitalization at end of August 2016 for GI bleed -CXR showed opacity of Right upper lobe suggestive of early consolidation -Azithromycin, cefepime and Flagyl (pt allergic to amoxicillin) 11/03- -Oxygen titrated as need, pt O2 sat 96-100 on NC 2L -Incentive spirometer and a cappella ordered every 4 hours -Legionella and pneumococcal urine antigens: Negative -Blood cultures: No growth in 4 days (4) Sepsis ICD Codes: A41.9 - Sepsis, unspecified organism Status: Resolved Plan: Patient meeting sepsis criteria upon admission -Please see plan as below for HCAP -No current signs of sepsis (5) Pressure ulcer ICD Codes: L89.90 - Pressure ulcer of unspecified site, unspecified stage Status: Acute Plan: Patient found to have stage II to III pressure ulcer of the sacrum near the gluteal cleft. Wound care nurse consult placed, appreciate recommendations Patient refusing wound care at this time per nursing staff (6) COPD (chronic obstructive pulmonary disease) ICD Codes: J44.9 - Chronic obstructive pulmonary disease, unspecified Status: Chronic Plan: -Patient saturating well on 3L NC -Continue home meds: albuterol, duonebs, symbicort -Consider adding prednisone if symptoms worsen - consider anemia of renal origin (7) Anemia ICD Codes: D64.9 - Anemia, unspecified Status: Chronic Plan: -Condition improving -Hemoccult: Negative -Reticulocyte count: Elevated to 3.3 -CBC indicative of pancytopenia, consider heme consult without improvement (8) Hypertension ICD Codes: I10 - Essential (primary) hypertension Status: Chronic Plan: Continue home amlodipine, metolazone, bumetanide, and metoprolol (9) DM (diabetes mellitus) ICD Codes: E11.9 - Type 2 diabetes mellitus without complications Status: Chronic Plan: Sliding scale insulin per protocol Hold home glipizide (10) Atrial fibrillation ICD Codes: I48.91 - Atrial fibrillation Status: Chronic Plan: Patient currently rate controlled Continue with medications as above No anticoagulation per chart review, likely due to recent GI bleed and current anemia (11) Insomnia ICD Codes: G47.00 - Insomnia, unspecified Status: Chronic Plan: Continue home ativan 1 mg QHS (12) Chronic pain ICD Codes: G89.29 - Other chronic pain Status: Acute Plan: -Continue home morphine 30mg Q8hr as dosed in rehab facility, consider increased if needed, discussed with family that chronic narcotic use is likely playing a large role in her bowel obstruction and the need to not change/ decrease opiate use -Patient has adverse rxn to norco, requested not to be given this med (13) Nutrition, metabolism, and development symptoms ICD Codes: R63.8 - Other symptoms and signs concerning food and fluid intake Status: Acute Plan: Fluids: D5 half-normal saline at 84 mL/h as patient is nothing by mouth Nutrition: Nothing by mouth secondary to bowel obstruction Electrolytes: Within normal limits, continue to monitor Physical therapy and occupational therapy consulted, appreciate recommendations (14) Contraindication to deep vein thrombosis (DVT) prophylaxis ICD Codes: Z53.09 - Procedure and treatment not carried out because of other contraindication Status: Acute Plan: QUAN/SCD Contraindication to pharmacologic DVT prophylaxis as patient is currently anemic and has recent history of GI bleed Problem Qualifiers (1) Sepsis: Raymundo Triana MD R2 Oct 10, 2016 14:16
--- NOTE | 2016-10-10 14:30 | HHI.PR ---
Subjective Subjective Notes DAILY PROGRESS NOTE FOR SURGICAL ATTENDING, DR. PIERRE DUTTON Family bedside Discussed NG tube with the family Objective Vitals/I&O Vital Signs Date Time Temp Pulse Resp B/P (MAP) Pulse Ox O2 Delivery O2 Flow Rate FiO2 10/10/16 13:30 97.4 75 22 101/59 (73) 95 10/09/16 20:11 Nasal Cannula 3.00 Labs Laboratory Tests Test 10/10/16 06:13 White Blood Count 8.1 Red Blood Count 3.87 Hemoglobin 11.4 Hematocrit 35.2 Mean Corpuscular Volume 91.0 Mean Corpuscular Hemoglobin 29.5 Mean Corpuscular Hemoglobin Concent 32.4 Red Cell Distribution Width 16.4 Platelet Count 108 Mean Platelet Volume 8.3 Blood Urea Nitrogen 49 Creatinine 4.52 Random Glucose 127 Calcium Level 7.5 Sodium Level 139 Potassium Level 4.0 Chloride Level 100 Carbon Dioxide Level 27.3 Anion Gap 12 Estimat Glomerular Filtration Rate 9 Date/Time Source Procedure Growth Status 10/02/16 19:55 Blood Peripheral Aerobic Blood Culture - Final NO GROWTH IN 5 DAYS Complete 10/02/16 19:55 Blood Peripheral Anaerobic Blood Culture - Final NO GROWTH IN 5 DAYS Complete 10/05/16 10:10 Stool Stool Stool Occult Blood (SUPA) - Final HEMOCCULT NEGATIVE Complete 10/02/16 21:30 Urine Clean Catch Legionella Antigen - Final PRESUMPTIVE NEGATIVE FOR LEGIONELLA P... Complete 10/02/16 21:30 Urine Clean Catch Streptococcus pneumoniae Antigen (M - Final PRESUMPTIVE NEGATIVE FOR STREPTOCOCCU... Complete Radiology Last Impressions Abdomen X-Ray 10/09/16 0600 Signed Impressions: Service Date/Time: Sunday, October 09, 2016 09:32 - CONCLUSION: Persistent diffuse small bowel dilatation which can be seen with ileus/obstruction. Connor Boyle MD Enema w/Water Soluble 10/09/16 0000 Signed Impressions: Service Date/Time: Sunday, October 09, 2016 10:09 - CONCLUSION: No large bowel obstruction. Connor Boyle MD Catheter Placement X-Ray 10/08/16 0000 Signed Impressions: Service Date/Time: Saturday, October 08, 2016 13:39 - CONCLUSION: 1. Suspected occlusion of the right internal jugular vein at the base of the neck. 2. Successful Vas-Cath placed on the left. 3. The patient is not able to be sedated due to the ongoing vomiting. Once the patient's clinical status improves we can convert this to a PermCath. Horace Mathew Jr., MD Abdomen Fluoroscopy 10/08/16 0000 Signed Impressions: Service Date/Time: Saturday, October 08, 2016 13:39 - CONCLUSION: Nasogastric tube placement with fluoroscopy guidance as above. Horace Mathew Jr., MD Shoulder X-Ray 10/03/16 0000 Signed Impressions: Service Date/Time: Monday, October 03, 2016 09:09 - CONCLUSION: Negative trauma study with no acute fracture or malalignment. Aguila Morfin MD Humerus X-Ray 10/03/16 0000 Signed Impressions: Service Date/Time: Monday, October 03, 2016 09:07 - CONCLUSION: Negative trauma study with no acute fracture or malalignment. Aguila Morfin MD Head CT 10/02/16 2447 Signed Impressions: Service Date/Time: Sunday, October 02, 2016 19:30 - CONCLUSION: Age-related findings unchanged. No acute intracranial findings. Jamison Vergara MD Chest X-Ray 10/02/16 1857 Signed Impressions: Service Date/Time: Sunday, October 02, 2016 19:23 - CONCLUSION: Mild right upper lung zone pulmonary parenchymal opacity. Jamison Vergara MD Pelvis X-Ray 10/02/16 0000 Signed Impressions: Service Date/Time: Sunday, October 02, 2016 19:16 - CONCLUSION: No evidence of fracture. Jamison Vergara MD Abdomen: Other (NG tube in place abdomen sore) Narrative Exam Patient appears. L NG tube in place Ecchymosis bilateral upper extremities from previous fall and IVs Abdomen soft mild soreness throughout No peritoneal signs A/P Assessment and Plan Partial SBO; Gastrografin enema shows no colonic component/pathology Abdomen softer; may be improving with NPO status and NG suction Clamp NG tube today Patient would like something to drink Attending Statement NOTE FOR SURGICAL ATTENDING, DR. PIERRE DUTTON I agree with above assessment and plan. The following services were provided during this hospital visit: Chart data review, vital sign assessments/reviewing monitor data Review of consultations notes if present. Medication orders/review and/or management Ordering and/or reviewing lab tests Ordering and/or interpreting/reviewing x-rays and/or diagnostic studies Care of the patient and discussion of the patient with the care team Documentation time To help prompt me to consider important information that might be impacting today's encounter and assessment, information from prior notes written by myself or my colleagues may have been "brought forward/copy and pasted" into today's note. Pierre Dutton MD Oct 10, 2016 14:30
[2016-10-10 16:09] VITALS: BP 111/56; PULSE 96; RESP 20; TEMP 97.9; O2SAT 97
[2016-10-10] MEDS ORDERED: SUCRALFATE 1 GM/10 ML CUP PO SCH (18:00)
--- NOTE | 2016-10-10 18:03 | HHI.NPPN ---
Subjective History of Present Illness This patient is a 75-year-old female known to me from the office who has a history of CKD stage IV. She was last seen in the office September 2015 and subsequently missed a follow-up appointment and did not reschedule. At that time she did indicate to me that she did not want dialysis even with terminal renal failure. There was also a complex cyst involving her left kidney for which she did not want follow-up or evaluation. Was admitted in August at this facility for PNA and fluid overload. It was determined at that visit that she had progressed to stage 5 CKD and had indicated at that admission that she did not want dialysis. She was discharged in August to the [facility] and was brought back to the ED on by her daughter for altered mental status. Has been on Lasix at the facility as well as Metolazone. Currently being treated for PNA. Overall, appears she is deteriorating. son at bedside. Interval History When I entered the room the patient's daughter and son were there. Patient indicated to me that she wanted everything to "end". I specifically asked the patient what she indicated by that and she indicated that she wanted the nasogastric tube out and on questioning she also stated that she wanted to start dialysis. I indicated to her that without dialysis she would be terminal and she indicated that she was aware of that. Review of Systems General Constitutional: Fatigue Gastrointestinal Gastrointestinal: Abdominal Pain, Nausea & Vomiting Objective Data Data Vital Signs Date Time Temp Pulse Resp B/P (MAP) Pulse Ox O2 Delivery O2 Flow Rate FiO2 10/10/16 16:09 97.9 96 20 111/56 (74) 97 10/10/16 13:30 97.4 75 22 101/59 (73) 95 10/10/16 07:43 97.8 88 20 96/54 (68) 97 10/10/16 04:00 97.7 88 20 118/57 (77) 97 10/10/16 00:00 97.7 88 20 118/57 (77) 97 10/09/16 20:11 Nasal Cannula 3.00 10/09/16 19:49 97.6 88 18 105/59 (74) 98 -: 10/10/16 0613 10/10/16 0613 Physical Exam General Appearance: No Acute Distress, Pale, Sleeping, Obese Eyes Eye Exam: Sclera White Pulmonary Resp Exam: Clear Bilaterally, Breath Sounds Equal, No Distress Cardiology CV Exam: Regular, Normal Sinus Rhythm, Good Perfusion Gastrointestinal/Abdomen GI Exam: Distended, Bowel Sounds Hypoactive Integumentary Skin Exam: Clear, Warm Extremeties Extremities Exam: Trace Edema (lower extremities.) Neurologic Neuro Exam: Alert, Awake Assessment/Plan Discussed Condition With: Patient, Son, Daughter Problem List: (1) Chronic kidney disease, stage V ICD Codes: N18.5 - Chronic kidney disease, stage 5 Status: Acute Plan: The patient indicated to me today that she did not want to continue dialysis. However this seems to be some family dynamics at work. Her daughter appeared to feel that dialysis would not improve her mother's quality of life while the son appear to indicate that he wanted his mother to continue dialysis. Given the patient's overall debilitated state from my contact with her during hospitalizations on this occasion and recently the patient is very debilitated and appears to be in overall poor health. Rehabilitation will be difficult and the quality of life will likely be poor than before and her prognosis on dialysis is guarded and possibly poor. I indicated to the patient's children that they should try to come to a consensus but ultimately it would be them of his decision as to whether or not she would continue dialysis. It would be very difficult to proceed with aggressive medical care including dialysis in my opinion unethical to proceed with same without patient's consent and will to keep going. I believe the family should continue this discussion with the patient and the palliative care consultation would be appropriate. Continuance of dialysis will depend upon the result was said discussion. Medications should be adjusted for the patient's renal disease. Avoid gadolinium (2) Pneumonia ICD Codes: J18.9 - Pneumonia, unspecified organism Status: Acute Plan: Mgmt as per primary (3) Hypertension ICD Codes: I10 - Essential (primary) hypertension Status: Chronic Plan: Hypotensive for the past couple days. Hold BP medications (4) DM (diabetes mellitus) ICD Codes: E11.9 - Type 2 diabetes mellitus without complications Status: Chronic Plan: Mgmt as per primary (5) Anemia ICD Codes: D64.9 - Anemia, unspecified Status: Chronic Plan: Repeat CBC with Fe panel. Likely has anemia of renal disease (6) Chronic pain ICD Codes: G89.29 - Other chronic pain Status: Acute (7) CAD (coronary artery disease) ICD Codes: I25.10 - Atherosclerotic heart disease of [place] coronary artery without angina pectoris Status: Acute (8) COPD (chronic obstructive pulmonary disease) ICD Codes: J44.9 - Chronic obstructive pulmonary disease, unspecified Status: Chronic Problem Qualifiers (1) Pneumonia: Marii Wheeler MD Oct 10, 2016 18:03
[2016-10-10 20:00] VITALS: BP_SYST 89; BP_SYST 91; BP_DIAS 51; BP_DIAS 55; PULSE 96; RESP 17; TEMP 97.9; O2SAT 99
[2016-10-10] MEDS: LORazepam 1 MG TAB PO SCH (21:00)
[2016-10-10] MEDS: AZITHROMYCIN INJ 500 MG in SODIUM CHLOR 0.9% 250 ML INJ 250 ML IV SCH (21:16)
[2016-10-10] MEDS ORDERED: SUCRALFATE 1 GM/10 ML CUP PO PRN (21:45)
[2016-10-10] MEDS ORDERED: PHENOL 1.4% SOLN 180 ML BTL OROPHARYNG PRN (21:45)
[2016-10-10] MEDS: ACETAMINOPHEN 1000 MG/100 ML VIAL IV SCH (22:33)
--- NOTE | 2016-10-10 23:06 | HHI.FPPN ---
Addendum to progress note ADDENDUM Reason for addendum: Additonal documentation Additional information Residents paged regarding pt's hypotension. Per nurses, pt's blood pressure in the 90s/50s. Evaluated pt at bedside. Pt states she is in "pain all over". Can' t localize the pain. Denies any other concerns. Family at bedside and they are concerned about her pain and want her to be comfortable. They understand that her condition is worsening and don't want any further interventions, including pressors or ICU transfer. Patient is DNR. Earlier in the evening, pt declined dialysis and palliative consult was placed. Vitals: BP 91/55, HR 96, Afebrile HEENT: NG tube in place CV: RRR Lungs: Coarse breath sounds. Rhonchi auscultated anteriorly. EXT: pulses intact. edema at ankle 75 y/o female admitted with SBO, CKD, HCAP and sepsis now with bradycardia and pain. Pt has refused dialysis at this time and are awaiting palliative care consult in the morning. -Ofirmev IV for pain -Phenol throat spray PRN throat pain -Hold opioid pain medications at risk of lowering BP -Will give 500ml NS bolus if continued hypotension, being careful of fluid overload with CKD Case discussed with Dr. Triana, primary team, who discussed case with Dr. Mcgee. jodeew Dr. Anselmo Cruz,Espinoza Harrison MD, R2 Oct 10, 2016 23:06
[2016-10-11] MEDS: MORPHINE SULFATE 30 MG CONTROLLED RELEASE TAB PO SCH
[2016-10-11 01:01] VITALS: BP 97/50; PULSE 97; RESP 18; TEMP 97.4; O2SAT 97
[2016-10-11] MEDS: DEXT 5%-NACL 0.45% 1000 ML INJ 1,000 ML IV SCH (01:25)
[2016-10-11] MEDS: ACETAMINOPHEN 1000 MG/100 ML VIAL IV SCH (04:00)
[2016-10-11 04:44] VITALS: BP 101/57; PULSE 94; RESP 24; TEMP 97.8; O2SAT 97
[2016-10-11 07:00] VITALS: PULSE 116
[2016-10-11] MEDS: INSULIN ASPART SUPPLEMENTAL SCALE SQ SCH (07:00)
[2016-10-11 07:59] VITALS: BP 94/54; PULSE 97; RESP 16; TEMP 97.7; O2SAT 97
--- NOTE | 2016-10-11 09:53 | HHI.NPPN ---
Subjective History of Present Illness This patient is a 75-year-old female known to me from the office who has a history of CKD stage IV. She was last seen in the office September 2015 and subsequently missed a follow-up appointment and did not reschedule. At that time she did indicate to me that she did not want dialysis even with terminal renal failure. There was also a complex cyst involving her left kidney for which she did not want follow-up or evaluation. Was admitted in August at this facility for PNA and fluid overload. It was determined at that visit that she had progressed to stage 5 CKD and had indicated at that admission that she did not want dialysis. She was discharged in August to the [facility] and was brought back to the ED on by her daughter for altered mental status. Has been on Lasix at the facility as well as Metolazone. Currently being treated for PNA. Overall, appears she is deteriorating. son at bedside. Interval History Pt continues to decline. Patient and family has decided to opt for palliative care without dialysis. States she is in significant amount of pain (Luzmaria Good) Review of Systems General Constitutional: Fatigue (Luzmaria Good) Gastrointestinal Gastrointestinal: Abdominal Pain, Nausea & Vomiting (Luzmaria Good) Objective Data Data Vital Signs Date Time Temp Pulse Resp B/P (MAP) Pulse Ox O2 Delivery O2 Flow Rate FiO2 10/11/16 07:59 97.7 97 16 94/54 (67) 97 10/11/16 04:44 97.8 94 24 101/57 (72) 97 10/11/16 01:01 97.4 97 18 97/50 (66) 97 10/10/16 20:00 97.9 96 17 89/51 (64) 99 91/55 (67) 10/10/16 16:09 97.9 96 20 111/56 (74) 97 10/10/16 13:30 97.4 75 22 101/59 (73) 95 (Luzmaria Good) -: 10/10/16 0613 10/10/16 0613 Imaging Last Impressions Abdomen X-Ray 10/09/16 0600 Signed Impressions: Service Date/Time: Sunday, October 09, 2016 09:32 - CONCLUSION: Persistent diffuse small bowel dilatation which can be seen with ileus/obstruction. Connor Boyle MD Enema w/Water Soluble 10/09/16 0000 Signed Impressions: Service Date/Time: Sunday, October 09, 2016 10:09 - CONCLUSION: No large bowel obstruction. Connor Boyle MD Catheter Placement X-Ray 10/08/16 0000 Signed Impressions: Service Date/Time: Saturday, October 08, 2016 13:39 - CONCLUSION: 1. Suspected occlusion of the right internal jugular vein at the base of the neck. 2. Successful Vas-Cath placed on the left. 3. The patient is not able to be sedated due to the ongoing vomiting. Once the patient's clinical status improves we can convert this to a PermCath. Horace Mathew Jr., MD Abdomen Fluoroscopy 10/08/16 Signed Impressions: Service Date/Time: Saturday, October 08, 2016 13:39 - CONCLUSION: Nasogastric tube placement with fluoroscopy guidance as above. Horace Mathew Jr., MD Shoulder X-Ray 10/03/16 Signed Impressions: Service Date/Time: Monday, October 03, 2016 09:09 - CONCLUSION: Negative trauma study with no acute fracture or malalignment. Aguila Morfin MD Humerus X-Ray 10/03/16 Signed Impressions: Service Date/Time: Monday, October 03, 2016 09:07 - CONCLUSION: Negative trauma study with no acute fracture or malalignment. Aguila Morfin MD Head CT 10/02/[id number] Signed Impressions: Service Date/Time: Sunday, October 02, 2016 19:30 - CONCLUSION: Age-related findings unchanged. No acute intracranial findings. Jamison Vergara MD Chest X-Ray 10/02/[id number] Signed Impressions: Service Date/Time: Sunday, October 02, 2016 19:23 - CONCLUSION: Mild right upper lung zone pulmonary parenchymal opacity. Jamison Vergara MD Pelvis X-Ray 10/02/16 0000 Signed Impressions: Service Date/Time: Sunday, October 02, 2016 19:16 - CONCLUSION: No evidence of fracture. Jamison Vergara MD Tubes & Lines: Vas-Cath Medication Review Current Medications Medications (Trade) Dose Ordered Sig/Saritha Route Start Time Stop Time Status Last Admin Metronidazole 100 ml @ 100 mls/hr Q8H IV 10/02/16 22:00 10/10/16 21:15 Azithromycin 500 mg/Sodium Chloride 250 ml @ 250 mls/hr Q24H IV 10/03/16 22:00 10/10/16 21:16 (Tylenol) 650 mg Q4H PRN PO 10/02/16 22:30 (Zofran Inj) 4 mg Q6H PRN IVP 10/02/16 22:30 10/08/16 03:07 (Narcan Inj) 0.4 mg UNSCH PRN IV 10/02/16 22:30 (Whitney-Colace) 1 tab BID PO 10/03/16 09:00 10/10/16 09:00 (Milk Of Magnesia Liq) 30 ml Q12H PRN PO 10/02/16 22:30 10/08/16 09:26 (Senokot) 17.2 mg Q12H PRN PO 10/02/16 22:30 (Dulcolax Supp) 10 mg DAILY PRN RECTAL 10/02/16 22:30 (Lactulose Liq) 30 ml DAILY PRN PO 10/02/16 22:30 (Albuterol Neb) 2.5 mg Q4HR NEB PRN NEB 10/02/16 23:30 10/07/16 05:18 (Norvasc) 10 mg DAILY PO 10/03/16 09:00 Future Hold 10/05/16 08:40 (Symbicort 160-4.5 Inh) 2 puff BID INH 10/03/16 09:00 10/10/16 09:00 (Bumetanide) 1 mg BID PO 10/03/16 09:00 Future Hold 10/06/16 11:34 (Ativan) 1 mg HS PO 10/03/16 21:00 10/09/16 21:20 (Lopressor) 50 mg BID PO 10/03/16 09:00 10/09/16 21:20 (Oramorph Sr) 30 mg Q8H PO 10/03/16 00:00 10/09/16 08:46 (D50w (Vial) Inj) 50 ml UNSCH PRN IV 10/03/16 03:45 (Glucagon Inj) 1 mg UNSCH PRN OTHER 10/03/16 03:45 (NovoLOG SUPPLEMENTAL SCALE) 1 ACHS SLIDING SCALE SQ 10/03/16 07:00 10/08/16 11:00 (KCl) 20 meq DAILY PO 10/03/16 09:00 10/10/16 09:00 Cefepime HCl 2000 mg/Sodium Chloride 100 ml @ 200 mls/hr Q24H IV 10/04/16 06:00 10/10/16 04:51 (Protonix) 40 mg DAILY PO 10/07/16 09:00 10/10/16 09:00 (Protonix Inj) 40 mg Q24H IV PUSH 10/07/16 09:00 10/10/16 09:00 (Simethicone Liq (Drops)) 40 mg BID PO 10/07/16 09:00 10/10/16 21:21 Dextrose/Sodium Chloride 1,000 ml @ 84 mls/hr [id number] IV 10/07/16 14:00 10/10/16 13:30 Sodium Chloride 1,000 ml @ 0 mls/hr Q0M PRN IV 10/07/16 15:05 (Heparin Inj) 8,000 units UNSCH PRN IVF 10/07/16 15:15 Sodium Chloride 1,000 ml @ 200 mls/hr Q5H PRN IV 10/07/16 15:05 Sodium Chloride 1,000 ml @ 0 mls/hr Q0M PRN IV 10/07/16 15:05 (Mannitol Inj) 12.5 gm UNSCH PRN IV 10/07/16 15:15 (Albumin 25% Inj) 25 gm UNSCH PRN IV 10/07/16 15:15 (NS Flush) 5 ml UNSCH PRN IV FLUSH 10/07/16 15:15 (Heparin Inj) UNSCH PRN .XX 10/07/16 15:15 10/08/16 16:45 (Gentamicin (Dialysis) Inj) 20 mg UNSCH PRN IV 10/07/16 15:15 10/08/16 16:45 (Zofran Inj) 4 mg UNSCH PRN IV 10/07/16 15:15 (Tylenol) 650 mg UNSCH PRN PO 10/07/16 15:15 10/10/16 03:48 (Benadryl) 25 mg UNSCH PRN PO 10/07/16 15:15 (Nitrostat Sl) 0.4 mg UNSCH PRN SL 10/07/16 15:15 (Catapres) 0.1 mg UNSCH PRN PO 10/07/16 15:15 (Gelfoam 12 Mm/7 Mm Top) 1 foam UNSCH PRN TOP 10/07/16 15:15 (NS Flush) UNSCH PRN IVF 10/08/16 15:15 (Heparin Inj) UNSCH PRN IV FLUSH 10/08/16 15:15 (Carafate Liq) 1 gm TID PO 10/10/16 18:00 10/10/16 18:00 (Ofirmev Inj) 1,000 mg Q6H IV 10/10/16 22:00 10/11/16 16:01 10/10/16 22:33 (Chloraseptic [place]) 2 spray Q2H PRN OROPHARYNG 10/10/16 21:45 10/10/16 23:02 (Carafate Liq) 1 gm DAILY PRN PO 10/10/16 21:45 (Luzmaria Good) Physical Exam General Appearance: No Acute Distress, Pale, Obese (Luzmaria Good) Eyes Eye Exam: Sclera White (Luzmaria Good) Pulmonary Resp Exam: Clear Bilaterally, Breath Sounds Equal, No Distress (Luzmaria Good) Cardiology CV Exam: Regular, Normal Sinus Rhythm, Good Perfusion (Luzmaria Good) Gastrointestinal/Abdomen GI Exam: Distended, Bowel Sounds Hypoactive (Luzmaria Good) Integumentary Skin Exam: Clear, Warm (Luzmaria Good) Extremeties Extremities Exam: Trace Edema (lower extremities.) (Luzmaria Good) Neurologic Neuro Exam: Alert, Awake (Luzmaria Good) Assessment/Plan Discussed Condition With: Patient, Son, Daughter Problem List: (1) Chronic kidney disease, stage V ICD Codes: N18.5 - Chronic kidney disease, stage 5 Status: Acute Plan: The patient and her family have opted against continuation of dialysis. Palliative care has been consulted. Will sign off. Medications should be adjusted for the patient's renal disease. Avoid gadolinium (2) Pneumonia ICD Codes: J18.9 - Pneumonia, unspecified organism Status: Acute Plan: Mgmt as per primary (3) Hypertension ICD Codes: I10 - Essential (primary) hypertension Status: Chronic Plan: Hypotensive for the past couple days. Hold BP medications (4) DM (diabetes mellitus) ICD Codes: E11.9 - Type 2 diabetes mellitus without complications Status: Chronic Plan: Mgmt as per primary (5) Anemia ICD Codes: D64.9 - Anemia, unspecified Status: Chronic (6) Chronic pain ICD Codes: G89.29 - Other chronic pain Status: Acute (7) CAD (coronary artery disease) ICD Codes: I25.10 - Atherosclerotic heart disease of [place] coronary artery without angina pectoris Status: Acute (8) COPD (chronic obstructive pulmonary disease) ICD Codes: J44.9 - Chronic obstructive pulmonary disease, unspecified Status: Chronic (Luzmaria Good) Plan The exam, history, and the medical decision-making described in the above note were completed with the assistance of the [employer]. I reviewed and agree with the findings presented. (Marii Wheeler MD) Problem Qualifiers (1) Pneumonia: Luzmaria Good Oct 11, 2016 09:53 Marii Wheeler MD Oct 25, 2016 13:31
[2016-10-11 10:05] LABS: BICARBONATE 20.4 MEQ/L (21.0-32.0); CALCIUM-PROTEIN CORRECTED 8.6 MG/DL (8.5-10.1); POTASSIUM 3.9 MEQ/L (3.5-5.1); TOTAL BILIRUBIN ADULT 1.7 MG/DL (0.2-1.0)
[2016-10-11] MEDS ORDERED: HYDROmorphone HCL PF 1 MG/ML VIAL IV PUSH PRN ×2 (10:15→12:00)
[2016-10-11 10:31] LABS: HEMATOCRIT 37.6 % (35.0-46.0); MEAN CELL VOLUME 91.7 FL (80.0-100.0); MEAN CORPUSCULAR HEMOGLOBIN 28.7 PG (27.0-34.0); MEAN CORPUSCULAR HGB CONC 31.4 % (32.0-36.0); PLATELET COUNT 122 TH/MM3 (150-450); RED CELL DISTRIBUTION WIDTH 16.8 % (11.6-17.2); WHITE BLOOD COUNT 14.4 TH/MM3 (4.0-11.0)
[2016-10-11 10:32] LABS: REVIEW FLAG FINAL
--- NOTE | 2016-10-11 10:41 | HHI.FPPN ---
Subjective Remarks Patient seen and examined this morning by medical team. Overnight patient continued to be hypotensive down to 89/51 with continued reports of "pain all over." Unfortunately due to her hypotension increased pain medication was not indicated and IV Tylenol was started without relief. This morning she continues to be hypotensive to these over 50s and still complains of pain all over. She also requests to have the NG tube pulled as this is contributing to her discomfort. Medical team had thorough discussion with daughter and patient about goals of care and poor prognosis. Although the patient and family previously refused palliative care consult, at the completion of the conversation it was agreed on by the patient, daughter, and medical team that a hospice consult previously placed by nephrology was indicated and agreed upon. (Raymundo Triana MD R2) Objective Vitals Vital Signs Date Time Temp Pulse Resp B/P (MAP) Pulse Ox O2 Delivery O2 Flow Rate FiO2 10/11/16 07:59 97.7 97 16 94/54 (67) 97 10/11/16 04:44 97.8 94 24 101/57 (72) 97 10/11/16 01:01 97.4 97 18 97/50 (66) 97 10/10/16 20:00 97.9 96 17 89/51 (64) 99 91/55 (67) 10/10/16 16:09 97.9 96 20 111/56 (74) 97 10/10/16 13:30 97.4 75 22 101/59 (73) 95 I/O 10/10/16 10/10/16 10/10/16 10/11/16 10/11/16 10/11/16 07:00 15:00 23:00 07:00 15:00 23:00 Intake Total 1150 ml Output Total 450 ml Balance 700 ml IV Total 990 ml Tube Irrigant 160 ml Gastric Drainage Total 450 ml # Voids 2 (Raymundo Triana MD R2) Result Diagram: 10/11/1637 10/11/16836 Objective Remarks GENERAL: Elderly female lying in bed asleep in no acute distress with daughter at bedside. SKIN: Warm and dry. No rash. Multiple areas of ecchymosis at different stages of healing secondary to recent fall. Gluteal cleft: Stage II to III pressure ulcer appreciated at the superior gluteal cleft. Wound with ulceration and erythema measuring approximately 2-3 cm in diameter. No purulence or hemorrhage appreciated. Wound currently covered by adhesive bandage. HEENT: Atraumatic, normocephalic with EOMI. MMM. No rhinorrhea. No LAD or JVD appreciated. NG tube pulled during exam with blood stained mucoid exudate coating tube. CARDIOVASCULAR: Regular rate and rhythm with distant heart sounds. No MGR appreciated. RESPIRATORY: Scattered rhonchi throughout bilateral lung chappell via anterior examination. No increased work of breathing. GASTROINTESTINAL: Abdomen distended with palpable bowel pattern in the lower 2 quadrants. Patient exquisitely tender to mild palpation in all 4 quadrants. Bowel sounds improved in all 4 quadrants. No masses or hepatosplenomegaly appreciated. No rebound tenderness or fluid wave appreciated. Negative Stiles sign. MUSCULOSKELETAL: No cyanosis. Strength grossly WNL. Patient refuses to move left upper extremity citing pain from prior rotator cuff injury. Patient keeps arm at 90 and close to her body at all times. No calf tenderness. Pitting edema of all 4 extremities. . NEURO/PSYCH: Patient sleeping upon entering the room, however does awake to stimulation. Afocal. Awake, alert, and oriented x3. Normal speech and judgment. (Raymundo Triana MD R2) A/P Assessment and Plan Mrs. Sinclair is 75 yo F with extensive pmhx brought to ED from [facility] rehab facility due to AMS and 2 day hx of fever. Pt found to meet sepsis criteria upon evaluation in the ED. Leukopenia at 1.9, Temp: 100.1, HR: 93, lactic acid 2.1, positive Leuk esterase on UA. CXR showed opacity of Right upper lobe suggestive of early consolidation. Admitted for treatment of hospital acquired pneumonia. Patient now with chronic kidney disease stage IV, partial small bowel obstruction, and progressive general deterioration. Discharge Planning Poor prognosis, palliative/hospice consult previously refused. Palliative care consult placed by nephrology 10/10, agreed upon by family after thorough discussion by medical team on 10/11. (Raymundo Triana MD R2) Assessment and Plan Patient seen and examined. Case reviewed and discussed with the resident team. Agree with the plan as discussed with me and documented in the resident note. (Jose Eduardo Mcgee MD) Problem List: (1) Partial small bowel obstruction ICD Codes: K56.69 - Other intestinal obstruction Status: Acute Plan: Patient presenting with acute abdominal distention and palpable bowel pattern of the lower 2 quadrants. NG tube pulled on 10/11 per patient and family request. Patient and family aware that NG tube will not be able to be replaced as she is too critically ill for procedure. Previous Abdominal upright in flat x-ray (10/06): Abnormal gas pattern concern for early/partial small bowel obstruction. Biliary stent catheter remains in place - Repeat abdomen x-ray (10/09) : Persistent diffuse small bowel dilatation which can be seen with ileus/obstruction -Enema with contrast 10/10: No large bowel obstruction -Abdominal x-ray 10/10: Persistent diffuse small bowel dilation which can be seen with ileus/obstruction. Diet: NPO - Gen. surgery: Followingsee recommendations per note. Patient not good candidate for surgical procedure due to multiple comorbid Conditions. Continue with constipation protocol - NG tube removed per patient and family request 10/11 - Encouraged Zofran use for nausea - Continue daily Protonix, add sucralfate 3 times a day (2) CKD (chronic kidney disease) ICD Codes: N18.9 - Chronic kidney disease, unspecified Status: Chronic Plan: -Creatinine on admission 3.65, trending upward - Monitor blood pressure as patient is hypotensive to 80/50s. Consider 500 mL bolus if patient becomes symptomatic or has increasing hypotension -Patient and family currently refusing dialysis - Nephrology following, will sign off at this time (3) Hospital acquired PNA ICD Codes: J18.9 - Pneumonia, unspecified organism Status: Acute Plan: HCAP given recent hospitalization at end of August 2016 for GI bleed -CXR showed opacity of Right upper lobe suggestive of early consolidation -Azithromycin, cefepime and Flagyl (pt allergic to amoxicillin) 10/03- -Oxygen titrated as need, pt O2 sat 96-100 on NC 2L -Incentive spirometer and acappella ordered every 4 hours -Legionella and pneumococcal urine antigens: Negative -Blood cultures: No growth in 5 days (4) Sepsis ICD Codes: A41.9 - Sepsis, unspecified organism Status: Resolved Plan: Patient meeting sepsis criteria upon admission -Please see plan as above for HCAP -No current signs of sepsis (5) Pressure ulcer ICD Codes: L89.90 - Pressure ulcer of unspecified site, unspecified stage Status: Acute Plan: Patient found to have stage II to III pressure ulcer of the sacrum near the gluteal cleft. Wound care nurse consult placed, appreciate recommendations Patient refusing wound care at this time per nursing staff (6) COPD (chronic obstructive pulmonary disease) ICD Codes: J44.9 - Chronic obstructive pulmonary disease, unspecified Status: Chronic Plan: -Patient saturating well on 3L NC -Continue home meds: albuterol, duonebs, symbicort -Consider adding prednisone if symptoms worsen -Consider anemia of renal origin (7) Anemia ICD Codes: D64.9 - Anemia, unspecified Status: Chronic Plan: -Condition improving -Hemoccult: Negative -Reticulocyte count: Elevated to 3.3 -CBC indicative of pancytopenia, consider heme consult without improvement (8) Hypertension ICD Codes: I10 - Essential (primary) hypertension Status: Chronic Plan: Continue home amlodipine, metolazone, bumetanide, and metoprolol (9) DM (diabetes mellitus) ICD Codes: E11.9 - Type 2 diabetes mellitus without complications Status: Chronic Plan: Sliding scale insulin per protocol Hold home glipizide (10) Atrial fibrillation ICD Codes: I48.91 - Atrial fibrillation Status: Chronic Plan: Patient currently rate controlled Continue with medications as above No anticoagulation per chart review, likely due to recent GI bleed and current anemia (11) Insomnia ICD Codes: G47.00 - Insomnia, unspecified Status: Chronic Plan: Continue home ativan 1 mg QHS (12) Chronic pain ICD Codes: G89.29 - Other chronic pain Status: Acute Plan: -Continue home morphine 30mg Q8hr as dosed in rehab facility, consider increased if needed, discussed with family that chronic narcotic use is likely playing a large role in her bowel obstruction and the need to not change/ decrease opiate use -Patient has adverse rxn to norco, requested not to be given this med (13) Nutrition, metabolism, and development symptoms ICD Codes: R63.8 - Other symptoms and signs concerning food and fluid intake Status: Acute Plan: Fluids: D5 half-normal saline at 84 mL/h as patient is nothing by mouth Nutrition: Liquid diet as tolerated Electrolytes: Within normal limits, continue to monitor Physical therapy and occupational therapy consulted, appreciate recommendations (14) Contraindication to deep vein thrombosis (DVT) prophylaxis ICD Codes: Z53.09 - Procedure and treatment not carried out because of other contraindication Status: Acute Plan: QUAN/SCD Contraindication to pharmacologic DVT prophylaxis as patient is currently anemic and has recent history of GI bleed (Raymundo Triana MD R2) Problem Qualifiers (1) Sepsis: Raymundo Triana MD R2 Oct 11, 2016 10:41 Jose Eduardo Mcgee MD Oct 11, 2016 15:51
[2016-10-11 11:26] VITALS: BP 85/52; PULSE 96; RESP 16; TEMP 97.6; O2SAT 95
[2016-10-11] MEDS ORDERED: LORazepam 2 MG/ML VIAL IV PUSH PRN (12:00)
--- NOTE | 2016-10-11 12:52 | HHI.DCPOC ---
Discharge Care Plan Diagnosis: (1) Sepsis (2) Renal failure (3) Chronic pain (4) Hospital acquired PNA Goals to Promote Your Health * To prevent worsening of your condition and complications * To maintain your health at the optimal level Directions to Meet Your Goals Take your medications as prescribed Follow your dietary instruction Follow activity as directed Keep your appointments as scheduled Take your immunizations and boosters as scheduled If your symptoms worsen call your PCP, if no PCP go to Urgent Care Center or Emergency Room Smoking is Dangerous to Your Health. Avoid second hand smoke Call the 24-hour hour crisis hotline for domestic abuse at Raymundo Triana MD R2 Oct 11, 2016 12:52
--- NOTE | 2016-10-11 13:06 | PD.CONS ---
Consult Service Palliative Care Consult Requested By Dr. Wheeler Primary Care Physician Jose Eduardo Mcgee MD Reason for Consultation a. To assist with evaluation and management of symptoms including: Pain, anxiety and debility. b. To assist medical decision maker(s) with: better understanding of current medical conditions; weighing benefits/burdens of medical treatment options; making medical treatment decisions. . HPI History of Present Illness Mrs. Sinclair is a 75 y/o female with a medical history significant for chronic kidney disease, COPD, diabetes mellitus, CAD status post CABG x 4, CVA and neuropathy. Patient presented to ED on 10/02/16 via VAC secondary to altered mental status and fever for the prior 2 days. As per medical records and patient's family, patient with worsening confusion and multiple falls at the rehabilitation facility for the 2 days prior to presented to ED. Upon arrival, WBC found at 1.9, hemoglobin 8.4, platelet count 69. BUN/creatinine 77/3.65. UA negative for nitrates, moderate leukocytes. Pelvis and humerus x-ray negative for acute process. Head CT negative for acute process. Chest x-ray revealing mild right upper lung zone pulmonary opacity. Patient was admitted for further management. Nephrology consulted on 10/06/16 for evaluation of progressive renal dysfunction. BUN/creatinine on arrival 77/3.67. Urinary output decline and creatinine worsened to 4.72 at consult. As per nephrology, patient was last seen by their practice in September 2015 but did not follow-up any appointments. At that time, patient indicated NOT wishing dialysis even in the setting of terminal renal failure. Abdominal x-ray date 10/06/16 revealing abnormal bowel gas patterns concerning of small bowel obstruction. Surgeon, Dr. Wing consulted on 10/08/16 for evaluation of partial bowel obstruction. Patient found not a surgical candidate given her multiple medical problems. Barium enema 10/09/16 revealed no large bowel obstruction. Patient agreed to proceed with hemodialysis, left IJ Vas-Cath place on 10/08/16. Patient undergoing HD on 10/08/16 with removal of 1L. Palliative care has been consulted for further clarifications of goals of care given patient's worsening clinical status. Reviewed medical records, this is patient's fifth hospitalization this year. Most recently 09/20/16 to 09/22/16 secondary to anemia with hemoglobin of 6.7 and GI bleed. At that time, patient when discharged to the [facility] for rehabilitation. Prior admission from 09/08/16 to 09/16/16 secondary to chest pain and respiratory distress. Patient also discharged to the [facility] for physical therapy. Prior visit 08/26/16 2 08/27/16 secondary to chest pain. Prior visit 08/04/16 to 08/05/16 secondary to COPD exacerbation. Patient seen in her room. She was alert to self and situation, moderate distress secondary to generalized pain. Patient endorsing shortness of breath at rest. Patient afebrile, hypertensive with SBP in the 80s. O2 via nasal cannula at 2 L. Laboratory workup revealing WBC 14.4, Hgb 11.8, platelet count 122. Sodium 136, potassium 3.9, BUN/creatinine 59/5.51. Albumin 1.4. Most recent abdominal x-ray date 10/09/16 revealing persistent diffuse small bowel dilation which can be seen with ileus/obstruction. Family meeting, in attendance patient's 4 children daughters Sherry and Tayla and sons Aguila and Joaquín. Obtain patient's past medical and psychosocial history. Reviewed event leading to these hospitalization, clinical course and current medical management. Discussed patient's multiple recent acute hospitalizations and chronic decline for the past 3-4 months. Shared concerns regarding patient's worsening clinical condition to include end stage renal disease, multiple ongoing chronic comorbidities and profound physical deconditioning. Patient has verbalized multiple times for the past year not wishing to proceed with renal replacement therapy. Patient declining to continue with hemodialysis at this time. Patient and family electing to transition to comfort-directed care with hospice. Discussed life expectancy of days in the setting of end-stage renal disease and discontinuation of hemodialysis. Patient's family is supportive of this. Hospice philosophy and benefits discussed, family wishing for patient to be transferred to hospice care center for symptom management and end-of-life care. . Function/Cognitive Trajectory Patient at the [facility] since September 16. Increasingly requiring more assistance with ADLs, recently bedbound transferring with a Holey lift. Prior to this, patient residing at home with radha Sarah as primary caregiver. Prior to this, patient able to ambulate short distances with walker. Motorized scooter for long distances. Patient O2 dependent secondary to COPD. . Review of Systems Constitutional: COMPLAINS OF: Fatigue, Pain, Generalized weakness Ears, nose, mouth, throat: DENIES: Hearing loss, Oral lesions, Running Nose Respiratory: COMPLAINS OF: Shortness of breath, DENIES: Cough, Wheezing, Sputum production Cardiovascular: COMPLAINS OF: Chest pain, Dyspnea on Exertion, Lower Extremity Edema Gastrointestinal: COMPLAINS OF: Abdominal pain, Nausea, Difficulty Swallowing Genitourinary: COMPLAINS OF: Urinary incontinence Musculoskeletal: COMPLAINS OF: Muscle aches Integumentary: DENIES: Rash Hematologic/Lymphatics: COMPLAINS OF: Bruising Immunologic/Allergic: DENIES: Eczema Neurologic: COMPLAINS OF: Abnormal gait, Poor Balance, DENIES: Localized weakness Psychiatric: COMPLAINS OF: Anxiety, DENIES: Hallucinations, Agitation Past Family Social History Coded Allergies: amoxicillin (Unverified Allergy, Severe, Rash, 10/05/16) clavulanic acid (Unverified Allergy, Severe, Rash, 10/05/16) haloperidol (Unverified Allergy, Severe, Hallucinations, 10/05/16) nitrofurantoin (Unverified Allergy, Severe, SHAKY , BLOOD SUGER PROBLEMS, 10/05/16) pramipexole (Unverified Allergy, Severe, LETHARGY,DIZZY,SHAKY, 10/05/16) promethazine (Unverified Allergy, Severe, Hallucinations, 10/05/16) temazepam (Unverified Allergy, Severe, Rash, 10/05/16) gemfibrozil (Unverified Allergy, Intermediate, 10/05/16) carisoprodol (Unverified Allergy, Unknown, 10/05/16) pregabalin (Unverified Allergy, Unknown, 10/05/16) amlodipine (Unverified Adverse Reaction, Severe, LIVER DISEASE WITH SUBSEQUENT CHRONIC ITCHING UNTIL DC'D, 10/05/16) atorvastatin (Unverified Adverse Reaction, Severe, LIVER DISEASE WITH SUBSEQUENT CHRONIC ITCHING UNTIL DC'D, 10/05/16) pravastatin (Unverified Adverse Reaction, Severe, LIVER DISEASE WITH SUBSEQUENT CHRONIC ITCHING UNTIL DC'D, 10/05/16) simvastatin (Unverified Adverse Reaction, Severe, LIVER DISEASE WITH SUBSEQUENT CHRONIC ITCHING UNTIL DC'D, 10/05/16) trazodone (Unverified Adverse Reaction, Intermediate, altered mental status, 10/05/16) latex (Unverified Adverse Reaction, Mild, Stomach pain, 10/05/16) *MDRO Multi-Drug Resistant Organism (Verified Adverse Reaction, Unknown, Cleared - 09/10/16, 09/20/16) 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 Past Surgical History CABG x 4 in 1999 Appendectomy Hysterectomy Tonsillectomy . Reported Medications Prednisone 20 Mg Tab 40 Mg PO DAILY Protonix (Pantoprazole Sodium) 20 Mg Tab 20 Mg PO DAILY Lopressor (Metoprolol Tartrate) 50 Mg Tab 50 Mg PO BID Metolazone 5 Mg Tab 5 Mg PO DAILY Duoneb (Ipratropium-Albuterol Neb) 0.5-2.5 Mg/3 Ml Neb 1 Ampule NEB QID NEB Bumetanide 1 Mg Tab 1 Mg PO BID Albuterol Neb (Albuterol Sulfate) 2.5 Mg/3 Ml Neb 2.5 Mg NEB Q4HR NEB PRN Potassium Chloride ER (Potassium Chloride) 10 Meq Cap 10 Meq PO DAILY Amlodipine (Amlodipine Besylate) 10 Mg Tab 10 Mg PO DAILY Oxycodone (Oxycodone HCl) 10 Mg Tab 10 Mg PO Q4H PRN Glipizide 10 Mg Tab 10 Mg PO DAILY Morphine ER (Morphine Sulfate) 30 Mg Tab 30 Mg PO Q8H Humulin R Inj (Insulin Human Regular) 1,000 Unit/10 Ml Vial 2-10 Units SQ ACHS Dulcolax Supp (Bisacodyl) 10 Mg Supp 10 Mg RECTAL IN THE AM PRN Basaglar Kwikpen (Insulin Glargine) 100 Unit/Ml Pen 10 Units SQ Q12HR Tylenol (Acetaminophen) 325 Mg Tab 650 Mg PO Q4H PRN Lorazepam 1 Mg Tab 1 Mg PO HS Symbicort Inh (Budesonide/Formoterol Fumarate) 160-4.5 Mcg/Act Aero 2 Puff INH BID . Current Medications Medications (Trade) Dose Ordered Sig/Saritha Route Start Time Stop Time Status Last Admin Metronidazole 100 ml @ 100 mls/hr Q8H IV 10/02/16 22:00 10/10/16 21:15 Azithromycin 500 mg/Sodium Chloride 250 ml @ 250 mls/hr Q24H IV 10/03/16 22:00 10/10/16 21:16 (Tylenol) 650 mg Q4H PRN PO 10/02/16 22:30 (Zofran Inj) 4 mg Q6H PRN IVP 10/02/16 22:30 10/08/16 03:07 (Narcan Inj) 0.4 mg UNSCH PRN IV 10/02/16 22:30 (Whitney-Colace) 1 tab BID PO 10/03/16 09:00 10/10/16 09:00 (Milk Of Magnesia Liq) 30 ml Q12H PRN PO 10/02/16 22:30 10/08/16 09:26 (Senokot) 17.2 mg Q12H PRN PO 10/02/16 22:30 (Dulcolax Supp) 10 mg DAILY PRN RECTAL 10/02/16 22:30 (Lactulose Liq) 30 ml DAILY PRN PO 10/02/16 22:30 (Albuterol Neb) 2.5 mg Q4HR NEB PRN NEB 10/02/16 23:30 10/07/16 05:18 (Norvasc) 10 mg DAILY PO 10/03/16 09:00 Future Hold 10/05/16 08:40 (Symbicort 160-4.5 Inh) 2 puff BID INH 10/03/16 09:00 10/10/16 09:00 (Bumetanide) 1 mg BID PO 10/03/16 09:00 Future Hold 10/06/16 11:34 (Ativan) 1 mg HS PO 10/03/16 21:00 10/09/16 21:20 (Lopressor) 50 mg BID PO 10/03/16 09:00 10/09/16 21:20 (Oramorph Sr) 30 mg Q8H PO 10/03/16 00:00 10/09/16 08:46 (D50w (Vial) Inj) 50 ml UNSCH PRN IV 10/03/16 03:45 (Glucagon Inj) 1 mg UNSCH PRN OTHER 10/03/16 03:45 (NovoLOG SUPPLEMENTAL SCALE) 1 ACHS SLIDING SCALE SQ 10/03/16 07:00 10/08/16 11:00 (KCl) 20 meq DAILY PO 10/03/16 09:00 10/10/16 09:00 Cefepime HCl 2000 mg/Sodium Chloride 100 ml @ 200 mls/hr Q24H IV 10/04/16 06:00 10/10/16 04:51 (Protonix) 40 mg DAILY PO 10/07/16 09:00 10/10/16 09:00 (Protonix Inj) 40 mg Q24H IV PUSH 10/07/16 09:00 10/10/16 09:00 (Simethicone Liq (Drops)) 40 mg BID PO 10/07/16 09:00 10/10/16 21:21 Dextrose/Sodium Chloride 1,000 ml @ 84 mls/hr [id number] IV 10/07/16 14:00 10/10/16 13:30 Sodium Chloride 1,000 ml @ 0 mls/hr Q0M PRN IV 10/07/16 15:05 (Heparin Inj) 8,000 units UNSCH PRN IVF 10/07/16 15:15 Sodium Chloride 1,000 ml @ 200 mls/hr Q5H PRN IV 10/07/16 15:05 Sodium Chloride 1,000 ml @ 0 mls/hr Q0M PRN IV 10/07/16 15:05 (Mannitol Inj) 12.5 gm UNSCH PRN IV 10/07/16 15:15 (Albumin 25% Inj) 25 gm UNSCH PRN IV 10/07/16 15:15 (NS Flush) 5 ml UNSCH PRN IV FLUSH 10/07/16 15:15 (Heparin Inj) UNSCH PRN .XX 10/07/16 15:15 10/08/16 16:45 (Gentamicin (Dialysis) Inj) 20 mg UNSCH PRN IV 10/07/16 15:15 10/08/16 16:45 (Zofran Inj) 4 mg UNSCH PRN IV 10/07/16 15:15 (Tylenol) 650 mg UNSCH PRN PO 10/07/16 15:15 10/10/16 03:48 (Benadryl) 25 mg UNSCH PRN PO 10/07/16 15:15 (Nitrostat Sl) 0.4 mg UNSCH PRN SL 10/07/16 15:15 (Catapres) 0.1 mg UNSCH PRN PO 10/07/16 15:15 (Gelfoam 12 Mm/7 Mm Top) 1 foam UNSCH PRN TOP 10/07/16 15:15 (NS Flush) UNSCH PRN IVF 10/08/16 15:15 (Heparin Inj) UNSCH PRN IV FLUSH 10/08/16 15:15 (Carafate Liq) 1 gm TID PO 10/10/16 18:00 10/10/16 18:00 (Ofirmev Inj) 1,000 mg Q6H IV 10/10/16 22:00 10/11/16 16:01 10/10/16 22:33 (Chloraseptic [place]) 2 spray Q2H PRN OROPHARYNG 10/10/16 21:45 10/10/16 23:02 (Carafate Liq) 1 gm DAILY PRN PO 10/10/16 21:45 (Dilaudid Pf Inj) 1 mg Q2H PRN IV PUSH 10/11/16 12:00 UNV (Ativan Inj) 1 mg Q6H PRN IV PUSH 10/11/16 12:00 UNV Family History Father had CAD, DM, h/o CVA. Mother due to an aneurysm, also with CAD. Patient has 4 children who are alive and well. . Substance Use Tobacco: Denies. Alcohol: Denies. Prescription med abuse: Denies. Illicits: Denies. . Psychosocial History Patient originally from [place]. Moved to [place] over 30 years ago. Patient is , she has 4 adult children. . Spiritual/Cultural Factors No worship affiliation. Spiritual services offered and declined. . Living Will: Completed, but not made available Health Care Surrogate: Completed, but not made available Durable Power of Shirt Bander: Completed, but not made available Health Care Surrogate(s): As per patient's 4 children, son Aguila Sinclair is the designated healthcare surrogate decision maker. Pending copy of the AD. . Today's verbally stated goals: DNR/DNI. Transition to comfort-directed care with hospice services. . Family/friends goals: All 4 children in agreement, supportive of patient's wishes. . Ethical and Legal Issues No ethical legal issues identified. . Physical Exam Vital Signs Date Time Temp Pulse Resp B/P (MAP) Pulse Ox O2 Delivery O2 Flow Rate FiO2 10/11/16 11:26 97.6 96 16 85/52 (63) 95 10/11/16 07:59 97.7 97 16 94/54 (67) 97 10/11/16 07:00 116 10/11/16 04:44 97.8 94 24 101/57 (72) 97 10/11/16 01:01 97.4 97 18 97/50 (66) 97 10/10/16 20:00 97.9 96 17 89/51 (64) 99 91/55 (67) 10/10/16 16:09 97.9 96 20 111/56 (74) 97 10/10/16 13:30 97.4 75 22 101/59 (73) 95 Exam CONSTITUTIONAL/GENERAL: This is an frail, elderly female resting in bed in moderate distress secondary to pain. TUBES/LINES/DRAINS: Left IJ Vas-Cath, nasal cannula, PIV's. SKIN: No jaundice, rashes, or lesions. Ecchymoses on upper and lower extremities. No wounds seen anteriorly. Cool to touch. Not diaphoretic. HEAD: Atraumatic. Normocephalic. EYES: Pupils equal and round and reactive. Extraocular motions intact. No scleral icterus. No injection or drainage. ENT: Hearing grossly normal. Nose without bleeding or purulent drainage. Moist oral mucosa. NECK: Trachea midline. Supple, nontender. CARDIOVASCULAR: Regular rate and rhythm without murmurs, gallops, or rubs. Peripheral pulses symmetric. RESPIRATORY/CHEST: Symmetric, increased work of breathing. diminished to auscultation. mildly coarse breath sounds bilaterally. GASTROINTESTINAL: Abdomen obese, round, tender to touch. Bowel sounds present. GENITOURINARY: Without palpable bladder distension. MUSCULOSKELETAL: Extremities without clubbing, cyanosis. Edema to bilateral upper and lower extremities. NEUROLOGICAL: Awake and alert x self and situation. Follows commands. Moves all extremities. PSYCHIATRIC: Anxious at times. . Diagnostic Tests Laboratory Laboratory Tests Test 10/08/16 13:09 10/09/16 02:42 10/10/16 06:13 10/11/16 08:37 White Blood Count 4.2 TH/MM3 (4.0-11.0) 5.7 TH/MM3 (4.0-11.0) 8.1 TH/MM3 (4.0-11.0) 14.4 TH/MM3 (4.0-11.0) Red Blood Count 4.04 MIL/MM3 (4.00-5.30) 3.62 MIL/MM3 (4.00-5.30) 3.87 MIL/MM3 (4.00-5.30) 4.10 MIL/MM3 (4.00-5.30) Hemoglobin 12.0 GM/DL (11.6-15.3) 10.9 GM/DL (11.6-15.3) 11.4 GM/DL (11.6-15.3) 11.8 GM/DL (11.6-15.3) Hematocrit 36.2 % (35.0-46.0) 32.4 % (35.0-46.0) 35.2 % (35.0-46.0) 37.6 % (35.0-46.0) Mean Corpuscular Volume 89.7 FL (80.0-100.0) 89.7 FL (80.0-100.0) 91.0 FL (80.0-100.0) 91.7 FL (80.0-100.0) Mean Corpuscular Hemoglobin 29.8 PG (27.0-34.0) 30.0 PG (27.0-34.0) 29.5 PG (27.0-34.0) 28.7 PG (27.0-34.0) Mean Corpuscular Hemoglobin Concent 33.2 % (32.0-36.0) 33.5 % (32.0-36.0) 32.4 % (32.0-36.0) 31.4 % (32.0-36.0) Red Cell Distribution Width 15.8 % (11.6-17.2) 15.4 % (11.6-17.2) 16.4 % (11.6-17.2) 16.8 % (11.6-17.2) Platelet Count 166 TH/MM3 (150-450) 154 TH/MM3 (150-450) 108 TH/MM3 (150-450) 122 TH/MM3 (150-450) Mean Platelet Volume 9.3 FL (7.0-11.0) 8.8 FL (7.0-11.0) 8.3 FL (7.0-11.0) 8.2 FL (7.0-11.0) Blood Urea Nitrogen 64 MG/DL (7-18) 49 MG/DL (7-18) 59 MG/DL (7-18) Creatinine 4.82 MG/DL (0.50-1.00) 4.52 MG/DL (0.50-1.00) 5.51 MG/DL (0.50-1.00) Random Glucose 134 MG/DL (74-106) 127 MG/DL (74-106) 83 MG/DL (74-106) Albumin 1.6 GM/DL (3.4-5.0) 1.4 GM/DL (3.4-5.0) Calcium Level 7.7 MG/DL (8.5-10.1) 7.5 MG/DL (8.5-10.1) 7.4 MG/DL (8.5-10.1) Phosphorus Level 4.1 MG/DL (2.5-4.9) Sodium Level 137 MEQ/L (136-145) 139 MEQ/L (136-145) 136 MEQ/L (136-145) Potassium Level 3.9 MEQ/L (3.5-5.1) 4.0 MEQ/L (3.5-5.1) 3.9 MEQ/L (3.5-5.1) Chloride Level 96 MEQ/L (98-107) 100 MEQ/L (98-107) 101 MEQ/L (98-107) Carbon Dioxide Level 28.2 MEQ/L (21.0-32.0) 27.3 MEQ/L (21.0-32.0) 20.4 MEQ/L (21.0-32.0) Anion Gap 13 MEQ/L (5-15) 12 MEQ/L (5-15) 15 MEQ/L (5-15) Estimat Glomerular Filtration Rate 9 ML/MIN (>89) 9 ML/MIN (>89) 8 ML/MIN (>89) Total Protein 5.0 GM/DL (6.4-8.2) Alkaline Phosphatase 136 U/L (45-117) Aspartate Amino Transf (AST/SGOT) 90 U/L (15-37) Alanine Aminotransferase (ALT/SGPT) 26 U/L (10-53) Total Bilirubin 1.7 MG/DL (0.2-1.0) Protein Corrected Calcium 8.6 MG/DL (8.5-10.1) Result Diagram: 10/11/16 0837 10/11/16 0837 Imaging Last Impressions Abdomen X-Ray 10/09/16 0600 Signed Impressions: Service Date/Time: Sunday, October 09, 2016 09:32 - CONCLUSION: Persistent diffuse small bowel dilatation which can be seen with ileus/obstruction. Connor Boyle MD Enema w/Water Soluble 10/09/16 0000 Signed Impressions: Service Date/Time: Sunday, October 09, 2016 10:09 - CONCLUSION: No large bowel obstruction. Connor Boyle MD Catheter Placement X-Ray 10/08/16 0000 Signed Impressions: Service Date/Time: Saturday, October 08, 2016 13:39 - CONCLUSION: 1. Suspected occlusion of the right internal jugular vein at the base of the neck. 2. Successful Vas-Cath placed on the left. 3. The patient is not able to be sedated due to the ongoing vomiting. Once the patient's clinical status improves we can convert this to a PermCath. Horace Mathew Jr., MD Abdomen Fluoroscopy 10/08/16 0000 Signed Impressions: Service Date/Time: Saturday, October 08, 2016 13:39 - CONCLUSION: Nasogastric tube placement with fluoroscopy guidance as above. Horace Mathew Jr., MD Shoulder X-Ray 10/03/16 0000 Signed Impressions: Service Date/Time: Monday, October 03, 2016 09:09 - CONCLUSION: Negative trauma study with no acute fracture or malalignment. Aguila Morfin MD Humerus X-Ray 10/03/16 0000 Signed Impressions: Service Date/Time: Monday, October 03, 2016 09:07 - CONCLUSION: Negative trauma study with no acute fracture or malalignment. Aguila Morfin MD Head CT 10/02/16 9445 Signed Impressions: Service Date/Time: Sunday, October 02, 2016 19:30 - CONCLUSION: Age-related findings unchanged. No acute intracranial findings. Jamison Vergara MD Chest X-Ray 10/02/16 1857 Signed Impressions: Service Date/Time: Sunday, October 02, 2016 19:23 - CONCLUSION: Mild right upper lung zone pulmonary parenchymal opacity. Jamison Vergara MD Pelvis X-Ray 10/02/16 0000 Signed Impressions: Service Date/Time: Sunday, October 02, 2016 19:16 - CONCLUSION: No evidence of fracture. Jamison Vergara MD Procedures * 10/08/16 -left IJ Vas-Cath placement . Patient/Family Conference Present at Family Conference: Daughters Tayla and Keara and sons Joaquín and Aguila. . Family Conference Time (mins): 36 Family Conference Location: Bedside, Hallway Issues Discussed: * Palliative care role, purpose, approach * Additional medical, psychosocial, and spiritual history * Patients general health, functional status, and cognitive changes in the months leading up to the current hospitalization * Patient/family understanding of the current medical problems -ESRD, CAD, COPD , hypertension, profound physical deconditioning. * Patient/family understanding of prognosis -hours to days if illness run its natural course s/p discontinuation of hemodialysis * Patients goals of care as best understood from advance directives and/or conversations and/or values * Current medical treatment options and benefits/burdens of those options * Likely scenarios comparing ongoing aggressive care with a transition to comfort measures only * Questions answered to the best of my ability * Palliative care contact information provided * Hospice philosophy and benefits . Assessment and Plan Disease Oriented Problem List: (1) End stage renal failure on dialysis (2) Pneumonia (3) COPD (chronic obstructive pulmonary disease) (4) Anemia (5) DM (diabetes mellitus) (6) Hx of coronary artery disease Symptom Scale: (1) Pain 0-10 Scale: Unable to quantify Comment: Generalized. History of chronic pain and neuropathy. (2) Anxiety 0-10 Scale: Unable to quantify Comment: History of chronic anxiety. Exacerbated by pain and shortness of breath. (3) Dyspnea 0-10 Scale: Unable to quantify Comment: COPD, O2 dependent at home. Exacerbated by pneumonia. Pertinent Non-Medical Issues Psychosocial: Patient originally from [place]. Moved to [place] over 30 years ago. Patient is , she has 4 adult children. Spiritual: No spiritual affiliations. Legal: Advance directives completed. Pending copy. Ethical issues impacting care: No ethical legal issues identified. . Important Contacts Son Aguila Daughter Keara . Prognosis Mrs. Sinclair is a 75 y/o female with a medical history significant for chronic kidney disease, COPD, diabetes mellitus, CAD status post CABG x 4, CVA and neuropathy. Patient presented to ED on 10/02/16 via VAC secondary to altered mental status and fever for the prior 2 days. Patient with end-stage renal disease. Has elected to discontinue renal replacement therapy and transition to comfort-directed care given poor prognosis. Patient with multiple chronic ongoing comorbidities, multiple recent acute hospitalizations and profound physical deconditioning. Patient's prognosis of hours to days if illness run its natural course after discontinuation of hemodialysis. . Code Status: No Code Plan * CODE STATUS: No code. DNR/DNI. * HEALTHCARE DECISION-MAKING: Patient participating in medical decision-making; however, confused at times. Patient has 4 adult children, they report that advance directives have been completed naming patient's son Aguila as healthcare surrogate decision maker. Pending copy of AD. Palliative care recommends shared decision-making with patient and HCS at this time. * GOALS OF CARE: Patient and all 4 children electing to transition patient to comfort-directed care/discontinue hemodialysis and transfer patient to hospice care center for symptom management and end-of-life care. * SYMPTOMS: = Pain, patient with history of chronic pain and neuropathy. Currently reporting generalized pain. Patient with multiple falls prior to admission, no fractures noted. Patient taking morphine ER 30mg q8h ATC. Discontinuing morphine given end-stage renal disease secondary to high risk of neurotoxicity. Patient on hydromorphone 0.5mg IV q4h PRN. Patient reports that this dose is not effective, she was noted anxious at the time of my visit. Increasing hydromorphone to 1 mg IV q2h PRN. = Shortness of breath, COPD, O2 dependent and pneumonia. Currently on 3 L O2 nasal cannula. Hydromorphone available as needed. = Anxiety, acute on chronic. Exacerbated by pain and shortness of breath. Home regimen to include Ativan 1 mg at at bedtime. Adding Ativan 1 mg q6h PRN anxiety. == Pending transfer to hospice care center for symptom management and end-of-life care. * Case discussed with hospice admissions nurse Tayla. * Spiritual services offered and declined by family. * Ongoing emotional support and active listening provided. * Palliative care contact information has been provided to patient and family. * Palliative care will continue to follow-up as needed. . Time Spent Total Floor Time (mins): 78 (Total time to include review and summarization of available medical records to include prior hospitalizations, physical exam, family meeting to discuss goals of care and case discussion with junior estimator Tayla.) >50% Counseling/Coord of Care: Yes Thank you for the opportunity to participate in the care of Ms. Sinclair. Attestation To help prompt me to consider important information that might be impacting today's encounter and assessment, information from prior notes written by myself or my colleagues may have been "brought forward" into today's note. My signature on this note, however, is an attestation that I personally performed the exam, history, and/or decision-making noted today, and, unless otherwise indicated, the interactions with patient, family, and staff as well as the review of records all occurred today. I also attest that the listed assessment and stated plan reflect my best clinical judgment today based on the combination of historical information, prior notes, and today's exam/ interactions. When time spent is documented, it refers only to time spent today by the signer, or if indicated, combined time spent today by collaborating physician/nurse practitioner. Sara Horvath Oct 11, 2016 13:05
--- NOTE | 2016-10-11 14:00 | HHI.PR ---
Subjective Subjective Notes Resting in bed Visiting with family Mrs. Sinclair and family now wish to pursue comfort measures and Hospice Care at the [facility] Objective Vitals/I&O Vital Signs Date Time Temp Pulse Resp B/P (MAP) Pulse Ox O2 Delivery O2 Flow Rate FiO2 10/11/16 11:26 97.6 96 16 85/52 (63) 95 10/09/16 20:11 Nasal Cannula 3.00 Labs Laboratory Tests Test 10/11/16 08:37 White Blood Count 14.4 Red Blood Count 4.10 Hemoglobin 11.8 Hematocrit 37.6 Mean Corpuscular Volume 91.7 Mean Corpuscular Hemoglobin 28.7 Mean Corpuscular Hemoglobin Concent 31.4 Red Cell Distribution Width 16.8 Platelet Count 122 Mean Platelet Volume 8.2 Blood Urea Nitrogen 59 Creatinine 5.51 Random Glucose 83 Total Protein 5.0 Albumin 1.4 Calcium Level 7.4 Alkaline Phosphatase 136 Aspartate Amino Transf (AST/SGOT) 90 Alanine Aminotransferase (ALT/SGPT) 26 Total Bilirubin 1.7 Sodium Level 136 Potassium Level 3.9 Chloride Level 101 Carbon Dioxide Level 20.4 Anion Gap 15 Estimat Glomerular Filtration Rate 8 Protein Corrected Calcium 8.6 Date/Time Source Procedure Growth Status 10/02/16 19:55 Blood Peripheral Aerobic Blood Culture - Final NO GROWTH IN 5 DAYS Complete 10/02/16 19:55 Blood Peripheral Anaerobic Blood Culture - Final NO GROWTH IN 5 DAYS Complete 10/05/16 10:10 Stool Stool Stool Occult Blood (SUPA) - Final HEMOCCULT NEGATIVE Complete 10/02/16 21:30 Urine Clean Catch Legionella Antigen - Final PRESUMPTIVE NEGATIVE FOR LEGIONELLA P... Complete 10/02/16 21:30 Urine Clean Catch Streptococcus pneumoniae Antigen (M - Final PRESUMPTIVE NEGATIVE FOR STREPTOCOCCU... Complete Radiology Last Impressions Abdomen X-Ray 10/09/16 0600 Signed Impressions: Service Date/Time: Sunday, October 09, 2016 09:32 - CONCLUSION: Persistent diffuse small bowel dilatation which can be seen with ileus/obstruction. Connor Boyle MD Enema w/Water Soluble 10/09/16 0000 Signed Impressions: Service Date/Time: Sunday, October 09, 2016 10:09 - CONCLUSION: No large bowel obstruction. Connor Boyle MD Catheter Placement X-Ray 10/08/16 0000 Signed Impressions: Service Date/Time: Saturday, October 08, 2016 13:39 - CONCLUSION: 1. Suspected occlusion of the right internal jugular vein at the base of the neck. 2. Successful Vas-Cath placed on the left. 3. The patient is not able to be sedated due to the ongoing vomiting. Once the patient's clinical status improves we can convert this to a PermCath. Horace Mathew Jr., MD Abdomen Fluoroscopy 10/08/16 Signed Impressions: Service Date/Time: Saturday, October 08, 2016 13:39 - CONCLUSION: Nasogastric tube placement with fluoroscopy guidance as above. Horace Mathew Jr., MD Shoulder X-Ray 10/03/16 Signed Impressions: Service Date/Time: Monday, October 03, 2016 09:09 - CONCLUSION: Negative trauma study with no acute fracture or malalignment. Aguila Morfin MD Humerus X-Ray 10/03/16 Signed Impressions: Service Date/Time: Monday, October 03, 2016 09:07 - CONCLUSION: Negative trauma study with no acute fracture or malalignment. Aguila Morfin MD Head CT 10/02/161856 Signed Impressions: Service Date/Time: Sunday, October 02, 2016 19:30 - CONCLUSION: Age-related findings unchanged. No acute intracranial findings. Jamison Vergara MD Chest X-Ray 10/02/161856 Signed Impressions: Service Date/Time: Sunday, October 02, 2016 19:23 - CONCLUSION: Mild right upper lung zone pulmonary parenchymal opacity. Jamison Vergara MD Pelvis X-Ray 10/02/16 Signed Impressions: Service Date/Time: Sunday, October 02, 2016 19:16 - CONCLUSION: No evidence of fracture. Jamison Vergara MD Cardiovascular: Regular Lungs: Clear Abdomen: Other (minimally tender ) Extremities: No edema A/P Assessment and Plan 75 year old female with multiple medical problems; consult for PSBO -Mrs. Gillece and family wish to pursue Hospice Care -I think this is appropriate at this time due to the patient's multiple medical conditions and a desire to discontinue hemodialysis -Spoke with Dr. Triana about plan -GS will sign off Attending Note - Dr. Wing Agree with above decision; discussed with family The exam, history, and the medical decision-making described in the above note were completed with the assistance of the mid-level provider. I reviewed and agree with the findings presented. I attest that I had a [id number] encounter with the patient on the same day, and personally performed and documented my assessment and findings in the medical record. Amber Arias Oct 11, 2016 14:00 Aguila Wing MD Oct 25, 2016 17:21
[2016-10-11 14:24] VITALS: O2SAT 96
--- NOTE | 2016-10-12 07:44 | HHI.DS ---
Discharge Summary Admission Date Oct 02, 2016 at 22:05 Discharge Date: Oct 11, 2016 Admitting Diagnosis SEPSIS; PNA; AMS (1) Partial small bowel obstruction Diagnosis: Principal Plan: Patient presenting with acute abdominal distention and palpable bowel pattern of the lower 2 quadrants. NG tube pulled on 10/11 per patient and family request. Patient and family aware that NG tube will not be able to be replaced as she is too critically ill for procedure. Previous Abdominal upright in flat x-ray (10/06): Abnormal gas pattern concern for early/partial small bowel obstruction. Biliary stent catheter remains in place - Repeat abdomen x-ray (10/09) : Persistent diffuse small bowel dilatation which can be seen with ileus/obstruction -Enema with contrast 10/10: No large bowel obstruction -Abdominal x-ray 10/10: Persistent diffuse small bowel dilation which can be seen with ileus/obstruction. Diet: NPO - Gen. surgery: Followingsee recommendations per note. Patient not good candidate for surgical procedure due to multiple comorbid Conditions. Continue with constipation protocol - NG tube removed per patient and family request 10/11 - Encouraged Zofran use for nausea - Continue daily Protonix, add sucralfate 3 times a day ICD Codes: K56.69 - Other intestinal obstruction Status: Acute (2) CKD (chronic kidney disease) Diagnosis: Principal Plan: -Creatinine on admission 3.65, trending upward - Monitor blood pressure as patient is hypotensive to 80/50s. Consider 500 mL bolus if patient becomes symptomatic or has increasing hypotension -Patient and family currently refusing dialysis - Nephrology following, will sign off at this time ICD Codes: N18.9 - Chronic kidney disease, unspecified Status: Chronic (3) Hospital acquired PNA Diagnosis: Principal Plan: HCAP given recent hospitalization at end of August 2016 for GI bleed -CXR showed opacity of Right upper lobe suggestive of early consolidation -Azithromycin, cefepime and Flagyl (pt allergic to amoxicillin) 10/03- -Oxygen titrated as need, pt O2 sat 96-100 on NC 2L -Incentive spirometer and acappella ordered every 4 hours -Legionella and pneumococcal urine antigens: Negative -Blood cultures: No growth in 5 days ICD Codes: J18.9 - Pneumonia, unspecified organism Status: Acute (4) Sepsis Diagnosis: Principal Plan: Patient meeting sepsis criteria upon admission -Please see plan as above for HCAP -No current signs of sepsis ICD Codes: A41.9 - Sepsis, unspecified organism Status: Resolved (5) Pressure ulcer Diagnosis: Principal Plan: Patient found to have stage II to III pressure ulcer of the sacrum near the gluteal cleft. Wound care nurse consult placed, appreciate recommendations Patient refusing wound care at this time per nursing staff ICD Codes: L89.90 - Pressure ulcer of unspecified site, unspecified stage Status: Acute (6) COPD (chronic obstructive pulmonary disease) Diagnosis: Secondary Plan: -Patient saturating well on 3L NC -Continue home meds: albuterol, duonebs, symbicort -Consider adding prednisone if symptoms worsen -Consider anemia of renal origin ICD Codes: J44.9 - Chronic obstructive pulmonary disease, unspecified Status: Chronic (7) Anemia Diagnosis: Secondary Plan: -Condition improving -Hemoccult: Negative -Reticulocyte count: Elevated to 3.3 -CBC indicative of pancytopenia, consider heme consult without improvement ICD Codes: D64.9 - Anemia, unspecified Status: Chronic (8) Hypertension Diagnosis: Secondary Plan: Continue home amlodipine, metolazone, bumetanide, and metoprolol ICD Codes: I10 - Essential (primary) hypertension Status: Chronic (9) DM (diabetes mellitus) Diagnosis: Secondary Plan: Sliding scale insulin per protocol Hold home glipizide ICD Codes: E11.9 - Type 2 diabetes mellitus without complications Status: Chronic (10) Atrial fibrillation Diagnosis: Secondary Plan: Patient currently rate controlled Continue with medications as above No anticoagulation per chart review, likely due to recent GI bleed and current anemia ICD Codes: I48.91 - Atrial fibrillation Status: Chronic (11) Insomnia Diagnosis: Secondary Plan: Continue home ativan 1 mg QHS ICD Codes: G47.00 - Insomnia, unspecified Status: Chronic (12) Chronic pain Diagnosis: Secondary Plan: -Continue home morphine 30mg Q8hr as dosed in rehab facility, consider increased if needed, discussed with family that chronic narcotic use is likely playing a large role in her bowel obstruction and the need to not change/ decrease opiate use -Patient has adverse rxn to norco, requested not to be given this med ICD Codes: G89.29 - Other chronic pain Status: Acute (13) Nutrition, metabolism, and development symptoms Diagnosis: Principal Plan: Fluids: D5 half-normal saline at 84 mL/h as patient is nothing by mouth Nutrition: Liquid diet as tolerated Electrolytes: Within normal limits, continue to monitor Physical therapy and occupational therapy consulted, appreciate recommendations ICD Codes: R63.8 - Other symptoms and signs concerning food and fluid intake Status: Acute (14) Contraindication to deep vein thrombosis (DVT) prophylaxis Diagnosis: Principal Plan: QUAN/SCD Contraindication to pharmacologic DVT prophylaxis as patient is currently anemic and has recent history of GI bleed ICD Codes: Z53.09 - Procedure and treatment not carried out because of other contraindication Status: Acute Brief History 75 yo F with extensive pmhx brought in by [facility] from [facility] due to AMS accompanied by 2 day hx of fever (102F). Pt's Daughter at bedside contributed to HPI, stated mother appeared more altered today and decided to have her come to the ED. Pt had recent fall from bed at rehab 2 nights ago and since then could not move legs. Pt denies hitting her head. Pt also complains of generalized pain all over her body and nausea. Pt has been given morphine 50mg TID for chronic pain. Pt AAOx2, not oriented to place. Poor historian. Pt denies difficulty breathing, CP, vomiting, diarrhea. Last BM today non-bloody. Daughter stated pt has adverse effect to oxycodone--makes pt more altered, would like to avoid administration of oxycodone. of note: pt was recently hospitalized for a GI bleed. CBC/BMP: 10/11/16 0837 10/11/16 0837 Significant Findings Laboratory Tests Test 10/10/16 06:13 10/11/16 08:37 Red Blood Count 3.87 MIL/MM3 (4.00-5.30) Hemoglobin 11.4 GM/DL (11.6-15.3) Platelet Count 108 TH/MM3 (150-450) 122 TH/MM3 (150-450) Blood Urea Nitrogen 49 MG/DL (7-18) 59 MG/DL (7-18) Creatinine 4.52 MG/DL (0.50-1.00) 5.51 MG/DL (0.50-1.00) Random Glucose 127 MG/DL (74-106) Calcium Level 7.5 MG/DL (8.5-10.1) 7.4 MG/DL (8.5-10.1) Estimat Glomerular Filtration Rate 9 ML/MIN (>89) 8 ML/MIN (>89) White Blood Count 14.4 TH/MM3 (4.0-11.0) Mean Corpuscular Hemoglobin Concent 31.4 % (32.0-36.0) Total Protein 5.0 GM/DL (6.4-8.2) Albumin 1.4 GM/DL (3.4-5.0) Alkaline Phosphatase 136 U/L (45-117) Aspartate Amino Transf (AST/SGOT) 90 U/L (15-37) Total Bilirubin 1.7 MG/DL (0.2-1.0) Carbon Dioxide Level 20.4 MEQ/L (21.0-32.0) PE at Discharge GENERAL: Elderly female lying in bed asleep in no acute distress with daughter at bedside. SKIN: Warm and dry. No rash. Multiple areas of ecchymosis at different stages of healing secondary to recent fall. Gluteal cleft: Stage II to III pressure ulcer appreciated at the superior gluteal cleft. Wound with ulceration and erythema measuring approximately 2-3 cm in diameter. No purulence or hemorrhage appreciated. Wound currently covered by adhesive bandage. HEENT: Atraumatic, normocephalic with EOMI. MMM. No rhinorrhea. No LAD or JVD appreciated. NG tube pulled during exam with blood stained mucoid exudate coating tube. CARDIOVASCULAR: Regular rate and rhythm with distant heart sounds. No MGR appreciated. RESPIRATORY: Scattered rhonchi throughout bilateral lung chappell via anterior examination. No increased work of breathing. GASTROINTESTINAL: Abdomen distended with palpable bowel pattern in the lower 2 quadrants. Patient exquisitely tender to mild palpation in all 4 quadrants. Bowel sounds improved in all 4 quadrants. No masses or hepatosplenomegaly appreciated. No rebound tenderness or fluid wave appreciated. Negative Stiles sign. MUSCULOSKELETAL: No cyanosis. Strength grossly WNL. Patient refuses to move left upper extremity citing pain from prior rotator cuff injury. Patient keeps arm at 90 and close to her body at all times. No calf tenderness. Pitting edema of all 4 extremities. . NEURO/PSYCH: Patient sleeping upon entering the room, however does awake to stimulation. Afocal. Awake, alert, and oriented x3. Normal speech and judgment. Hospital Course Patient was admitted and started on antibiotics for her hospital-acquired pneumonia. Throughout the hospitalization despite antibiotic treatment, the patient was hypoxic with respiratory distress. On hospital day one stage II sacral pressure ulcer was found during exam. Wound care was consulted and treated appropriately with barrier cream and frequent dressing changes. On hospital day 3, the patient's abdomen became distended and tender to palpation during exam. Abdominal x-rays indicated a partial bowel obstruction. The patient was placed on a nothing by mouth diet and started on bowel regimen. Initially NG tube was unable to be placed at the bedside due to arteriovenous malformations causing previous nosebleeds. Interventional radiology was consulted for NG tube placement and was completed on hospital day 5. Gen. surgery was also consulted for recommendations regarding her small bowel obstruction who recommended continued conservative medical management.Throughout the patient's hospitalization long-term care goals were discussed daily as she was critically ill. Medical team also discussed option of dialysis daily as her renal failure worsened day by day, and she had previously refused. On hospital day 4 patient became agreeable to nephrology consult for possible dialysis treatment. Permacath for dialysis treatment was attempted on hospital day 5, however was unable to be placed. Therefore a vascular catheter was placed for her treatments. She started her dialysis treatment on hospital day 5, however the patient self discontinued her dialysis treatment one hour and a half into her 2 hour treatment. On hospital day 6 she completed her full treatment however on hospital day 7 she indicated to nephrology she would like to discontinue dialysis treatments. Per their note, the patient was informed she would be terminal if she discontinued her dialysis treatments. The patient voiced understanding and agreed to discontinue dialysis at that time. Due to her rapidly deteriorating condition, palliative care was consulted for goals of care and treatment options. Although family discussions were complicated by differing opinions, ultimately the patient and her family agreed upon hospice care. On hospital day 8 the patient was discharged from [facility] to the hospice care facility for continued care. Pt Condition on Discharge: Deteriorating Discharge Disposition: Hospice/Med Facility Discharge Instructions DIET: Follow Instructions for: Full Liquid Diet Additional Diet Instructions: Patient with partial bowel obstruction, placed on liquid diet per general surgery. Activities you can perform: See Additionl Instruction Other Activity Instructions: Critically ill patient currently bed bound. Fall risk. Raymundo Triana MD R2 Oct 12, 2016 07:44
== END 2016-10-11 14:31 | disposition hospice, inpatient (51) | DRG 871 ==
LOC: NEPE 18:36 → NEDA 22:05 → NEPGCP 10-03 01:14 → N05B 10-03 17:55
PROVIDERS: ADMIT Family Medicine; ATTEND Family Medicine
PROC: 05HN33Z Insertion of Infusion Device into Left Internal Jugular Vein, Percutaneous Approach (ICD-10-PCS; principal; 2016-10-08)
PROC: 5A1D60Z (ICD-10-PCS; 2016-10-08)
DX: A41.9 Sepsis, unspecified organism (principal); J18.9 Pneumonia, unspecified organism; I13.2 Hypertensive heart and chronic kidney disease with heart failure and with stage 5 chronic kidney disease, or end stage renal disease; K56.60 Unspecified intestinal obstruction; N17.9 Acute kidney failure, unspecified; D61.818 Other pancytopenia; N18.6 End stage renal disease; E46 Unspecified protein-calorie malnutrition; J44.0 Chronic obstructive pulmonary disease with (acute) lower respiratory infection; L89.152 Pressure ulcer of sacral region, stage 2; E11.22 Type 2 diabetes mellitus with diabetic chronic kidney disease; I48.91 Unspecified atrial fibrillation; E11.40 Type 2 diabetes mellitus with diabetic neuropathy, unspecified; I50.9 Heart failure, unspecified; I25.10 Atherosclerotic heart disease of native coronary artery without angina pectoris; Z95.1 Presence of aortocoronary bypass graft; I25.2 Old myocardial infarction; Z86.73 Personal history of transient ischemic attack (TIA), and cerebral infarction without residual deficits; F41.9 Anxiety disorder, unspecified; F32.9 Major depressive disorder, single episode, unspecified; M19.90 Unspecified osteoarthritis, unspecified site; Z85.528 Personal history of other malignant neoplasm of kidney; G89.29 Other chronic pain; Z66 Do not resuscitate; Y95 Nosocomial condition; G47.00 Insomnia, unspecified; Z88.0 Allergy status to penicillin; N28.1 Cyst of kidney, acquired; Z79.891 Long term (current) use of opiate analgesic; R29.6 Repeated falls; Z51.5 Encounter for palliative care; Z99.81 Dependence on supplemental oxygen; M10.9 Gout, unspecified; Z99.2 Dependence on renal dialysis; R00.0 Tachycardia, unspecified; Z74.01 Bed confinement status; R09.02 Hypoxemia
CPT/HCPCS: 36430; 36556; 43752; 44500; 70450; 71010; 72170; 73030; 73060; 74020; 74270; 76937; 77001; 80048; 80053; 80069; 80074; 81001; 82272; 82306; 82550; 82728; 82948; 83540; 83550; 83605; 83735; 83970; 84484; 85007; 85025; 85027; 85044; 85060; 85610; 85730; 86803; 86850; 86900; 86901; 86920; 87040; 87086; 87340; 87449; 90935; 93005; 94150; 94640; 94664; 94667; 94668; 96374; 96375; C1752; C9113; J0131; J0456; J0692; J0696; J1170; J1580; J1644; J1815; J1940; J2270; J2405; J7040; J7042; J7050; J7613; P9016; Q9963